=== PATIENT | female | born 1935 | race Caucasian/White ===

== ENCOUNTER 2020-01-29 17:20 | Emergency (ER) | payer OTHER ==
--- OUTSIDE RECORDS SUMMARY | 2020-01-29 17:24 | XMS REPORT | Continuity of Care Document ---
:1935 Author Organization [facility] t Address [address] [place] [address] Care Team Providers Name Role Phone DR CHARMAINE Attending Clinician Unavailable DR RADHA Attending Clinician Unavailable DR CHARMAINE Admitting Clinician Unavailable DR RADHA Admitting Clinician Unavailable Problems This patient has no known problems. Allergies, Adverse Reactions, Alerts This patient has no known allergies or adverse reactions. Medications This patient has no known medications. Procedures This patient has no known procedures. Encounters Start End Encounter Admission Attending Care Care Encounter Source Date/Time Date/Time Type Type Clinicians Facility Department ID 2019-10-26 2019-11-05 [facility] [id number] [facility] 15:52:00 17:44:00 [facility] [place] 2019-07-14 2019-07-29 [facility] [id number] [facility] 21:04:00 17:00:00 [facility] Results Test Description Test Time Test Comments Results Result Comments Source BASIC METABOLIC PANEL 2019-11-05 06:22:00 Test Item Value Reference Range Interpretation Comme nts GLUCOSE (test code = 06D) 138 mg/dL 75-100 H SODIUM (test code = 01A) 140 mmol/L 136-145 POTASSIUM (test code = 01B) 4.6 mmol/L 3.6-5.1 CHLORIDE (test code = 04A) 104 mmol/L 98-107 CO2 (test code = 02A) 31 mmol/L 22-32 ANION GAP (test code = ANG) 9.6 mmol/L BUN (test code = 05D) 21 mg/dL 7-18 H CREATININE (test code = 03E) 1.0 mg/dL 0.4-1.1 GFR (test code = GFR) 54 mL/min/1.73m\S\2 >=90 L GFR (test code = 63 mL/min/1.73m\S\2 >=90 L GFRAA) EGFR (test code = EGFR) eGFR BY CKD-EPI CALCULATION IS NOT RECOMMENDED FOR PATIENTS UNDER 18 YEARS OF AGE. BUN/CREA (test code = BCR) 22 12-20 H CALCIUM (test code = 09D) 9.2 mg/dL 8.3-9.5 CBC (INCLUDES AUTOMATED DIFFERENTIAL)2019-11-05 05:51:00 Test Item Value Reference Range Interpretation Comments WBC (test code = WBC) 7.3 10\S\3/uL 4.5-11.0 RBC (test code = RBC) 2.89 10\S\6/uL 3.80-5.80 L HGB (test code = HBG) 9.9 g/dL 12.0-15.5 L HCT (test code = HCT) 31.2 % 35.0-44.0 L MCV (test code = MCV) 108.0 fL 81.0-99.0 H MCH (test code = MCH) 34.3 pg 27.0-31.0 H MCHC (test code = MCHC) 31.7 g/dL 32.0-36.0 L RDW (test code = RDW) 12.0 % 11.5-14.5 PLT (test code = PLT) 209 10\S\3/uL 130-400 MPV (test code = MPV) 9.8 fL 9.4-12.4 NEUTROP # (test code = NE#) 4.4 10\S\3/uL 1.6-8.0 LYMPH # (test code = LY#) 1.3 10\S\3/uL 1.1-3.5 MONOCYTE # (test code = MO#) 1.0 10\S\3/uL 0.0-1.1 EOSINOPH # (test code = EO#) 0.6 10\S\3/uL 0.0-0.7 BASOPHIL # (test code = BA#) 0.1 10\S\3/uL 0.0-0.3 IG # (test code = IG#) 0.12 10\S\3/uL 0.00-0.06 H NRBC # (test code = NRBC#) 0.00 10\S\3/uL 0.00-0.01 NEUTROPH % (test code = NE%) 59.4 % 35.0-73.0 LYMPH % (test code = LY%) 17.1 % 20.0-55.0 L MONO % (test code = MO%) 13.0 % 2.5-10.0 H EOSINOPH % (test code = EO%) 7.8 % 0.0-5.0 H BASOPHIL % (test code = BA%) 1.1 % 0.0-2.0 IG % (test code = IG%) 1.6 % 0.0-0.8 H NRBC% (test code = NRBC%) 0.0 % 0.0-0.2 MANDIFF (test code = MDIFF) NO RBC MORPH (test code = RBCMOR) NORMAL BASIC METABOLIC [id number] 08:10:00 Test Item Value Reference Range Interpretation Comments GLUCOSE (test code = 99 mg/dL 75-100 06D) SODIUM (test code = 140 mmol/L 136-145 01A) POTASSIUM (test code = 3.3 mmol/L 3.6-5.1 L 01B) CHLORIDE (test code = 103 mmol/L 98-107 04A) CO2 (test code = 02A) 33 mmol/L 22-32 H ANION GAP (test code = 7.3 mmol/L ANG) BUN (test code = 05D) 13 mg/dL 7-18 CREATININE (test code 0.7 mg/dL 0.4-1.1 = 03E) GFR (test code = GFR) 82 mL/min/1.73m\S\2 >=90 L GFR 95 mL/min/1.73m\S\2 >=90 (test code = GFRAA) EGFR (test code = eGFR BY CKD-EPI EGFR) CALCULATION IS NOT RECOMMENDED FOR PATIENTS UNDER 18 YEARS OF AGE. BUN/CREA (test code = 20 12-20 BCR) CALCIUM (test code = 9.4 mg/dL 8.3-9.5 09D) CBC (INCLUDES AUTOMATED DIFFERENTIAL)2019-11-04 08:01:00 Test Item Value Reference Range Interpretation Comments WBC (test code = WBC) 6.3 10\S\3/uL 4.5-11.0 RBC (test code = RBC) 3.04 10\S\6/uL 3.80-5.80 L HGB (test code = HBG) 10.2 g/dL 12.0-15.5 L HCT (test code = HCT) 31.9 % 35.0-44.0 L MCV (test code = MCV) 104.9 fL 81.0-99.0 H MCH (test code = MCH) 33.6 pg 27.0-31.0 H MCHC (test code = MCHC) 32.0 g/dL 32.0-36.0 RDW (test code = RDW) 11.9 % 11.5-14.5 PLT (test code = PLT) 183 10\S\3/uL 130-400 MPV (test code = MPV) 9.8 fL 9.4-12.4 NEUTROP # (test code = NE#) 3.7 10\S\3/uL 1.6-8.0 LYMPH # (test code = LY#) 1.2 10\S\3/uL 1.1-3.5 MONOCYTE # (test code = MO#) 0.9 10\S\3/uL 0.0-1.1 EOSINOPH # (test code = EO#) 0.4 10\S\3/uL 0.0-0.7 BASOPHIL # (test code = BA#) 0.1 10\S\3/uL 0.0-0.3 IG # (test code = IG#) 0.05 10\S\3/uL 0.00-0.06 NRBC # (test code = NRBC#) 0.00 10\S\3/uL 0.00-0.01 NEUTROPH % (test code = NE%) 58.5 % 35.0-73.0 LYMPH % (test code = LY%) 18.5 % 20.0-55.0 L MONO % (test code = MO%) 14.7 % 2.5-10.0 H EOSINOPH % (test code = EO%) 6.7 % 0.0-5.0 H BASOPHIL % (test code = BA%) 0.8 % 0.0-2.0 IG % (test code = IG%) 0.8 % 0.0-0.8 NRBC% (test code = NRBC%) 0.0 % 0.0-0.2 MANDIFF (test code = MDIFF) NO RBC MORPH (test code = RBCMOR) NORMAL BASIC METABOLIC [id number] 05:36:00 Test Item Value Reference Range Interpretation Comments GLUCOSE (test code = 108 mg/dL 75-100 H 06D) SODIUM (test code = 142 mmol/L 136-145 01A) POTASSIUM (test code = 3.5 mmol/L 3.6-5.1 L 01B) CHLORIDE (test code = 104 mmol/L 98-107 04A) CO2 (test code = 02A) 32 mmol/L 22-32 ANION GAP (test code = 9.5 mmol/L ANG) BUN (test code = 05D) 21 mg/dL 7-18 H CREATININE (test code 0.9 mg/dL 0.4-1.1 = 03E) GFR (test code = GFR) 63 mL/min/1.73m\S\2 >=90 L GFR 73 mL/min/1.73m\S\2 >=90 L (test code = GFRAA) EGFR (test code = eGFR BY CKD-EPI EGFR) CALCULATION IS NOT RECOMMENDED FOR PATIENTS UNDER 18 YEARS OF AGE. BUN/CREA (test code = 25 12-20 H BCR) CALCIUM (test code = 9.0 mg/dL 8.3-9.5 09D) CBC (INCLUDES AUTOMATED DIFFERENTIAL)2019-11-03 05:09:00 Test Item Value Reference Range Interpretation Comments WBC (test code = WBC) 7.3 10\S\3/uL 4.5-11.0 RBC (test code = RBC) 2.71 10\S\6/uL 3.80-5.80 L HGB (test code = HBG) 9.1 g/dL 12.0-15.5 L HCT (test code = HCT) 29.0 % 35.0-44.0 L MCV (test code = MCV) 107.0 fL 81.0-99.0 H MCH (test code = MCH) 33.6 pg 27.0-31.0 H MCHC (test code = MCHC) 31.4 g/dL 32.0-36.0 L RDW (test code = RDW) 12.1 % 11.5-14.5 PLT (test code = PLT) 180 10\S\3/uL 130-400 MPV (test code = MPV) 10.6 fL 9.4-12.4 NEUTROP # (test code = NE#) 4.9 10\S\3/uL 1.6-8.0 LYMPH # (test code = LY#) 1.0 10\S\3/uL 1.1-3.5 L MONOCYTE # (test code = MO#) 0.9 10\S\3/uL 0.0-1.1 EOSINOPH # (test code = EO#) 0.4 10\S\3/uL 0.0-0.7 BASOPHIL # (test code = BA#) 0.0 10\S\3/uL 0.0-0.3 IG # (test code = IG#) 0.06 10\S\3/uL 0.00-0.06 NRBC # (test code = NRBC#) 0.00 10\S\3/uL 0.00-0.01 NEUTROPH % (test code = NE%) 66.9 % 35.0-73.0 LYMPH % (test code = LY%) 13.6 % 20.0-55.0 L MONO % (test code = MO%) 12.6 % 2.5-10.0 H EOSINOPH % (test code = EO%) 5.6 % 0.0-5.0 H BASOPHIL % (test code = BA%) 0.5 % 0.0-2.0 IG % (test code = IG%) 0.8 % 0.0-0.8 NRBC% (test code = NRBC%) 0.0 % 0.0-0.2 MANDIFF (test code = MDIFF) NO RBC MORPH (test code = RBCMOR) NORMAL HEMOGLOBIN & [id number] 18:56:00 Test Item Value Reference Range Interpretation Comments HGB (test code = HBG) 10.4 g/dL 12.0-15.5 L HCT (test code = HCT) 32.6 % 35.0-44.0 L TROPONIN [id number] 11:11:00 Test Item Value Reference Range Interpretation Comments TROPONIN I (test code = A84) 0.041 ng/mL 0.000-0.045 HEMOGLOBIN & [id number] 10:54:00 Test Item Value Reference Range Interpretation Comments HGB (test code = HBG) 11.0 g/dL 12.0-15.5 L HCT (test code = HCT) 33.7 % 35.0-44.0 L CBC WITH [id number] 07:42:00 Test Item Value Reference Range Interpretation Comments WBC (test code = WBC) 11.4 10\S\3/uL 4.5-11.0 H RBC (test code = RBC) 3.54 10\S\6/uL 3.80-5.80 L HGB (test code = HBG) 12.1 g/dL 12.0-15.5 HCT (test code = HCT) 37.7 % 35.0-44.0 MCV (test code = MCV) 106.5 fL 81.0-99.0 H MCH (test code = MCH) 34.2 pg 27.0-31.0 H MCHC (test code = MCHC) 32.1 g/dL 32.0-36.0 RDW (test code = RDW) 12.0 % 11.5-14.5 PLT (test code = PLT) 185 10\S\3/uL 130-400 MPV (test code = MPV) 10.2 fL 9.4-12.4 NEUTROP # (test code = NE#) 7.7 10\S\3/uL 1.6-8.0 LYMPH # (test code = LY#) 1.6 10\S\3/uL 1.1-3.5 MONOCYTE # (test code = 1.2 10\S\3/uL 0.0-1.1 H MO#) EOSINOPH # (test code = 0.7 10\S\3/uL 0.0-0.7 EO#) BASOPHIL # (test code = 0.1 10\S\3/uL 0.0-0.3 BA#) IG # (test code = IG#) 0.10 10\S\3/uL 0.00-0.06 H NRBC # (test code = NRBC#) 0.00 10\S\3/uL 0.00-0.01 NEUTROPH % (test code = 67.7 % 35.0-73.0 NE%) LYMPH % (test code = LY%) 14.3 % 20.0-55.0 L MONO % (test code = MO%) 10.6 % 2.5-10.0 H EOSINOPH % (test code = 5.7 % 0.0-5.0 H EO%) BASOPHIL % (test code = 0.8 % 0.0-2.0 BA%) IG % (test code = IG%) 0.9 % 0.0-0.8 H NRBC% (test code = NRBC%) 0.0 % 0.0-0.2 PLT EST (test code = ADEQUATE ADEQUATE PLTEST) PLT MORPH (test code = NORMAL (1.5-3 um) NORMAL PLTMOR) ANISO (test code = ANISO) 1+ NONE A HYPOCHROM (test code = 1+ NONE A HYPOC) STOMATO (test code = STOM) 1+ NONE A BASIC METABOLIC [id number] 07:21:00 Test Item Value Reference Range Interpretation Comments GLUCOSE (test code = 95 mg/dL 75-100 06D) SODIUM (test code = 139 mmol/L 136-145 01A) POTASSIUM (test code = 4.5 mmol/L 3.6-5.1 01B) CHLORIDE (test code = 102 mmol/L 98-107 04A) CO2 (test code = 02A) 31 mmol/L 22-32 ANION GAP (test code = 10.5 mmol/L ANG) BUN (test code = 05D) 14 mg/dL 7-18 CREATININE (test code 0.7 mg/dL 0.4-1.1 = 03E) GFR (test code = GFR) 78 mL/min/1.73m\S\2 >=90 L GFR 91 mL/min/1.73m\S\2 >=90 (test code = GFRAA) EGFR (test code = eGFR BY CKD-EPI EGFR) CALCULATION IS NOT RECOMMENDED FOR PATIENTS UNDER 18 YEARS OF AGE. BUN/CREA (test code = 20 12-20 BCR) CALCIUM (test code = 9.9 mg/dL 8.3-9.5 H 09D) HEMOGLOBIN & [id number] 01:50:00 Test Item Value Reference Range Interpretation Comments HGB (test code = HBG) 11.4 g/dL 12.0-15.5 L HCT (test code = HCT) 35.0 % 35.0-44.0 HEMOGLOBIN & [id number] 18:44:00 Test Item Value Reference Range Interpretation Comments HGB (test code = HBG) 11.1 g/dL 12.0-15.5 L HCT (test code = HCT) 34.9 % 35.0-44.0 L CBC (INCLUDES AUTOMATED DIFFERENTIAL)2019-11-01 07:14:00 Test Item Value Reference Range Interpretation Comments WBC (test code = WBC) 11.5 10\S\3/uL 4.5-11.0 H RBC (test code = RBC) 3.23 10\S\6/uL 3.80-5.80 L HGB (test code = HBG) 11.0 g/dL 12.0-15.5 L HCT (test code = HCT) 34.6 % 35.0-44.0 L MCV (test code = MCV) 107.1 fL 81.0-99.0 H MCH (test code = MCH) 34.1 pg 27.0-31.0 H MCHC (test code = MCHC) 31.8 g/dL 32.0-36.0 L RDW (test code = RDW) 12.3 % 11.5-14.5 PLT (test code = PLT) 153 10\S\3/uL 130-400 MPV (test code = MPV) 9.9 fL 9.4-12.4 NEUTROP # (test code = NE#) 8.9 10\S\3/uL 1.6-8.0 H LYMPH # (test code = LY#) 0.9 10\S\3/uL 1.1-3.5 L MONOCYTE # (test code = MO#) 1.2 10\S\3/uL 0.0-1.1 H EOSINOPH # (test code = EO#) 0.4 10\S\3/uL 0.0-0.7 BASOPHIL # (test code = BA#) 0.1 10\S\3/uL 0.0-0.3 IG # (test code = IG#) 0.09 10\S\3/uL 0.00-0.06 H NRBC # (test code = NRBC#) 0.00 10\S\3/uL 0.00-0.01 NEUTROPH % (test code = NE%) 76.8 % 35.0-73.0 H LYMPH % (test code = LY%) 7.9 % 20.0-55.0 L MONO % (test code = MO%) 10.3 % 2.5-10.0 H EOSINOPH % (test code = EO%) 3.6 % 0.0-5.0 BASOPHIL % (test code = BA%) 0.6 % 0.0-2.0 IG % (test code = IG%) 0.8 % 0.0-0.8 NRBC% (test code = NRBC%) 0.0 % 0.0-0.2 MANDIFF (test code = MDIFF) NO RBC MORPH (test code = RBCMOR) NORMAL BASIC METABOLIC [id number] 07:12:00 Test Item Value Reference Range Interpretation Comments GLUCOSE (test code = 104 mg/dL 75-100 H 06D) SODIUM (test code = 140 mmol/L 136-145 01A) POTASSIUM (test code = 4.5 mmol/L 3.6-5.1 01B) CHLORIDE (test code = 103 mmol/L 98-107 04A) CO2 (test code = 02A) 33 mmol/L 22-32 H ANION GAP (test code = 8.5 mmol/L ANG) BUN (test code = 05D) 20 mg/dL 7-18 H CREATININE (test code 0.7 mg/dL 0.4-1.1 = 03E) GFR (test code = GFR) 80 mL/min/1.73m\S\2 >=90 L GFR 93 mL/min/1.73m\S\2 >=90 (test code = GFRAA) EGFR (test code = eGFR BY CKD-EPI EGFR) CALCULATION IS NOT RECOMMENDED FOR PATIENTS UNDER 18 YEARS OF AGE. BUN/CREA (test code = 29 12-20 H BCR) CALCIUM (test code = 9.2 mg/dL 8.3-9.5 09D) HEMOGLOBIN & [id number] 00:57:00 Test Item Value Reference Range Interpretation Comments HGB (test code = HBG) 11.8 g/dL 12.0-15.5 L HCT (test code = HCT) 37.4 % 35.0-44.0 BLOOD [id number] 21:24:00 Test Item Value Reference Range Interpretation Comments Culture Observations (test NO GROWTH AFTER 5 code = COB1) DAYS BLOOD [id number] 21:24:00 Test Item Value Reference Range Interpretation Comments Culture Observations (test NO GROWTH AFTER 5 code = COB1) DAYS Arterial Blood [id number] 18:48:00 Test Item Value Reference Range Interpretation Comments pH (test code = PHRT) 7.333 7.350-7.450 L pCO2 (test code = 69.0 mmHg 35.0-45.0 HH PCO2RT) pO2 (test code = 146.0 mmHg 80.0-110.0 H PO2RT) HCO3? (test code = 35.6 mmol/L 22.0-26.0 H HCO3) HAIR (test code = HAIR) 7.8 mmol/L -3.0-3.0 H tHb (test code = 12.6 g/dL 12.0-15.5 THBRT) sO2 (test code = 98.3 % 92.0-100.0 SO2RT) FO2Hb (test code = 96.4 % 94.0-100.0 [id number]) FCOHb (test code = 0.4 % 0.0-3.0 FCOHBRT) FMetHb (test code = 1.5 % 0.2-0.6 H FMETHBRT) ABGTEMP (test code = * Temp Corrected Values* ABGTEMP) ABGTEMP (test code = 37.0 ?C ABGTEMP.) pH (T) (test code = 7.333 7.350-7.450 L PHTEMP) pCO2 (T) (test code = 69.0 mmHg 35.0-45.0 HH [id number]) pO2 (T) (test code = 146.0 mmHg 80.0-110.0 H [id number]) Device (test code = BIPAP DEVICE) FI02 (test code = 100.0 % FI02) Liter_flow (test code = LF) VENPAR (test code = * Ventilator Parameters VENPAR) * SIMV (test code = SIMV) A/C (test code = A/C) CPAP (test code = CPAP) PEEP (test code = PEEP) PS (test code = PS) PIP (test code = PIP) I_Time (test code = ITIME) Vt (test code = VT) BIPAP INSP (test code 22 = BIPAPINP) BIPAP EXP (test code 12 = BIPAPEXP) Juan Carlos test (test code Positive = ATEST) SAMPLE SITE (test Left Radial Artery code = SSITE) COMMENT (test code = CO) Arterial Blood [id number] 16:04:00 Test Item Value Reference Range Interpretation Comments pH (test code = PHRT) 7.313 7.350-7.450 L pCO2 (test code = 65.4 mmHg 35.0-45.0 HH PCO2RT) pO2 (test code = 108.0 mmHg 80.0-110.0 PO2RT) HCO3? (test code = 32.2 mmol/L 22.0-26.0 H HCO3) HAIR (test code = HAIR) 4.0 mmol/L -3.0-3.0 H tHb (test code = 15.8 g/dL 12.0-15.5 H THBRT) sO2 (test code = 97.0 % 92.0-100.0 SO2RT) FO2Hb (test code = 95.1 % 94.0-100.0 [id number]) FCOHb (test code = 0.8 % 0.0-3.0 FCOHBRT) FMetHb (test code = 1.1 % 0.2-0.6 H FMETHBRT) ABGTEMP (test code = * Temp Corrected Values* ABGTEMP) ABGTEMP (test code = 37.0 ?C ABGTEMP.) pH (T) (test code = 7.313 7.350-7.450 L PHTEMP) pCO2 (T) (test code = 65.4 mmHg 35.0-45.0 HH [id number]) pO2 (T) (test code = 108.0 mmHg 80.0-110.0 [id number]) Device (test code = BIPAP DEVICE) FI02 (test code = 100.0 % FI02) Liter_flow (test code = LF) VENPAR (test code = * Ventilator Parameters VENPAR) * SIMV (test code = SIMV) A/C (test code = A/C) CPAP (test code = CPAP) PEEP (test code = PEEP) PS (test code = PS) PIP (test code = PIP) I_Time (test code = ITIME) Vt (test code = VT) BIPAP INSP (test code 22 = BIPAPINP) BIPAP EXP (test code 12 = BIPAPEXP) Juan Carlos test (test code Positive = ATEST) SAMPLE SITE (test Left Radial Artery code = SSITE) COMMENT (test code = CO) BASIC METABOLIC [id number] 10:19:00 Test Item Value Reference Range Interpretation Comments GLUCOSE (test code = 162 mg/dL 75-100 H 06D) SODIUM (test code = 139 mmol/L 136-145 01A) POTASSIUM (test code = 4.7 mmol/L 3.6-5.1 01B) CHLORIDE (test code = 101 mmol/L 98-107 04A) CO2 (test code = 02A) 32 mmol/L 22-32 ANION GAP (test code = 10.7 mmol/L ANG) BUN (test code = 05D) 22 mg/dL 7-18 H CREATININE (test code 0.9 mg/dL 0.4-1.1 = 03E) GFR (test code = GFR) 58 mL/min/1.73m\S\2 >=90 L GFR 67 mL/min/1.73m\S\2 >=90 L (test code = GFRAA) EGFR (test code = eGFR BY CKD-EPI EGFR) CALCULATION IS NOT RECOMMENDED FOR PATIENTS UNDER 18 YEARS OF AGE. BUN/CREA (test code = 24 12-20 H BCR) CALCIUM (test code = 8.6 mg/dL 8.3-9.5 09D) CBC (INCLUDES AUTOMATED DIFFERENTIAL)2019-10-31 10:09:00 Test Item Value Reference Range Interpretation Comments WBC (test code = WBC) 14.1 10\S\3/uL 4.5-11.0 H RBC (test code = RBC) 3.06 10\S\6/uL 3.80-5.80 L HGB (test code = HBG) 10.6 g/dL 12.0-15.5 L HCT (test code = HCT) 32.9 % 35.0-44.0 L MCV (test code = MCV) 107.5 fL 81.0-99.0 H MCH (test code = MCH) 34.6 pg 27.0-31.0 H MCHC (test code = MCHC) 32.2 g/dL 32.0-36.0 RDW (test code = RDW) 12.4 % 11.5-14.5 PLT (test code = PLT) 160 10\S\3/uL 130-400 MPV (test code = MPV) 9.6 fL 9.4-12.4 NEUTROP # (test code = NE#) 11.0 10\S\3/uL 1.6-8.0 H LYMPH # (test code = LY#) 1.5 10\S\3/uL 1.1-3.5 MONOCYTE # (test code = MO#) 1.0 10\S\3/uL 0.0-1.1 EOSINOPH # (test code = EO#) 0.5 10\S\3/uL 0.0-0.7 BASOPHIL # (test code = BA#) 0.1 10\S\3/uL 0.0-0.3 IG # (test code = IG#) 0.08 10\S\3/uL 0.00-0.06 H NRBC # (test code = NRBC#) 0.00 10\S\3/uL 0.00-0.01 NEUTROPH % (test code = NE%) 78.0 % 35.0-73.0 H LYMPH % (test code = LY%) 10.4 % 20.0-55.0 L MONO % (test code = MO%) 7.1 % 2.5-10.0 EOSINOPH % (test code = EO%) 3.5 % 0.0-5.0 BASOPHIL % (test code = BA%) 0.4 % 0.0-2.0 IG % (test code = IG%) 0.6 % 0.0-0.8 NRBC% (test code = NRBC%) 0.0 % 0.0-0.2 MANDIFF (test code = MDIFF) NO RBC MORPH (test code = RBCMOR) NORMAL BASIC METABOLIC [id number] 07:12:00 Test Item Value Reference Range Interpretation Comments GLUCOSE (test code = 106 mg/dL 75-100 H 06D) SODIUM (test code = 139 mmol/L 136-145 01A) POTASSIUM (test code = 5.2 mmol/L 3.6-5.1 H 01B) CHLORIDE (test code = 104 mmol/L 98-107 04A) CO2 (test code = 02A) 33 mmol/L 22-32 H ANION GAP (test code = 7.2 mmol/L ANG) BUN (test code = 05D) 22 mg/dL 7-18 H CREATININE (test code 0.7 mg/dL 0.4-1.1 = 03E) GFR (test code = GFR) 74 mL/min/1.73m\S\2 >=90 L GFR 85 mL/min/1.73m\S\2 >=90 L (test code = GFRAA) EGFR (test code = eGFR BY CKD-EPI EGFR) CALCULATION IS NOT RECOMMENDED FOR PATIENTS UNDER 18 YEARS OF AGE. BUN/CREA (test code = 29 12-20 H BCR) CALCIUM (test code = 8.8 mg/dL 8.3-9.5 09D) CBC (INCLUDES AUTOMATED DIFFERENTIAL)2019-10-30 06:58:00 Test Item Value Reference Range Interpretation Comments WBC (test code = WBC) 9.2 10\S\3/uL 4.5-11.0 RBC (test code = RBC) 3.17 10\S\6/uL 3.80-5.80 L HGB (test code = HBG) 10.9 g/dL 12.0-15.5 L HCT (test code = HCT) 34.1 % 35.0-44.0 L MCV (test code = MCV) 107.6 fL 81.0-99.0 H MCH (test code = MCH) 34.4 pg 27.0-31.0 H MCHC (test code = MCHC) 32.0 g/dL 32.0-36.0 RDW (test code = RDW) 12.0 % 11.5-14.5 PLT (test code = PLT) 167 10\S\3/uL 130-400 MPV (test code = MPV) 9.6 fL 9.4-12.4 NEUTROP # (test code = NE#) 5.0 10\S\3/uL 1.6-8.0 LYMPH # (test code = LY#) 2.4 10\S\3/uL 1.1-3.5 MONOCYTE # (test code = MO#) 0.8 10\S\3/uL 0.0-1.1 EOSINOPH # (test code = EO#) 0.8 10\S\3/uL 0.0-0.7 H BASOPHIL # (test code = BA#) 0.1 10\S\3/uL 0.0-0.3 IG # (test code = IG#) 0.11 10\S\3/uL 0.00-0.06 H NRBC # (test code = NRBC#) 0.00 10\S\3/uL 0.00-0.01 NEUTROPH % (test code = NE%) 54.2 % 35.0-73.0 LYMPH % (test code = LY%) 26.6 % 20.0-55.0 MONO % (test code = MO%) 8.6 % 2.5-10.0 EOSINOPH % (test code = EO%) 8.6 % 0.0-5.0 H BASOPHIL % (test code = BA%) 0.8 % 0.0-2.0 IG % (test code = IG%) 1.2 % 0.0-0.8 H NRBC% (test code = NRBC%) 0.0 % 0.0-0.2 MANDIFF (test code = MDIFF) NO RBC MORPH (test code = RBCMOR) NORMAL BASIC METABOLIC [id number] 05:16:00 Test Item Value Reference Range Interpretation Comments GLUCOSE (test code = 102 mg/dL 75-100 H 06D) SODIUM (test code = 144 mmol/L 136-145 01A) POTASSIUM (test code = 5.0 mmol/L 3.6-5.1 01B) CHLORIDE (test code = 106 mmol/L 98-107 04A) CO2 (test code = 02A) 37 mmol/L 22-32 H ANION GAP (test code = 6.0 mmol/L ANG) BUN (test code = 05D) 17 mg/dL 7-18 CREATININE (test code 0.6 mg/dL 0.4-1.1 = 03E) GFR (test code = GFR) 82 mL/min/1.73m\S\2 >=90 L GFR 95 mL/min/1.73m\S\2 >=90 (test code = GFRAA) EGFR (test code = eGFR BY CKD-EPI EGFR) CALCULATION IS NOT RECOMMENDED FOR PATIENTS UNDER 18 YEARS OF AGE. BUN/CREA (test code = 27 12-20 H BCR) CALCIUM (test code = 8.3 mg/dL 8.3-9.5 09D) VANCOMYCIN [id number] 05:14:00 Test Item Value Reference Range Interpretation Comments VANC TROGH (test code = VANCT) 8.5 ug/dL 10.0-20.0 L CBC (INCLUDES AUTOMATED DIFFERENTIAL)2019-10-29 04:58:00 Test Item Value Reference Range Interpretation Comments WBC (test code = WBC) 7.9 10\S\3/uL 4.5-11.0 RBC (test code = RBC) 3.37 10\S\6/uL 3.80-5.80 L HGB (test code = HBG) 11.4 g/dL 12.0-15.5 L HCT (test code = HCT) 35.8 % 35.0-44.0 MCV (test code = MCV) 106.2 fL 81.0-99.0 H MCH (test code = MCH) 33.8 pg 27.0-31.0 H MCHC (test code = MCHC) 31.8 g/dL 32.0-36.0 L RDW (test code = RDW) 12.0 % 11.5-14.5 PLT (test code = PLT) 201 10\S\3/uL 130-400 MPV (test code = MPV) 9.5 fL 9.4-12.4 NEUTROP # (test code = NE#) 4.7 10\S\3/uL 1.6-8.0 LYMPH # (test code = LY#) 2.1 10\S\3/uL 1.1-3.5 MONOCYTE # (test code = MO#) 0.7 10\S\3/uL 0.0-1.1 EOSINOPH # (test code = EO#) 0.3 10\S\3/uL 0.0-0.7 BASOPHIL # (test code = BA#) 0.1 10\S\3/uL 0.0-0.3 IG # (test code = IG#) 0.08 10\S\3/uL 0.00-0.06 H NRBC # (test code = NRBC#) 0.00 10\S\3/uL 0.00-0.01 NEUTROPH % (test code = NE%) 59.1 % 35.0-73.0 LYMPH % (test code = LY%) 26.4 % 20.0-55.0 MONO % (test code = MO%) 9.1 % 2.5-10.0 EOSINOPH % (test code = EO%) 3.6 % 0.0-5.0 BASOPHIL % (test code = BA%) 0.8 % 0.0-2.0 IG % (test code = IG%) 1.0 % 0.0-0.8 H NRBC% (test code = NRBC%) 0.0 % 0.0-0.2 MANDIFF (test code = MDIFF) NO RBC MORPH (test code = RBCMOR) NORMAL URINE [id number] 14:20:00 Test Item Value Reference Range Interpretation Comments Isolate 1 (test code = GRAM NEGATIVE [place] A ISO1) [id number] 06:25:00 Test Item Value Reference Range Interpretation Comments MAGNESIUM (test code = 48A) 1.9 mg/dL 1.8-2.4 BASIC METABOLIC [id number] 06:15:00 Test Item Value Reference Range Interpretation Comments GLUCOSE (test code = 100 mg/dL 75-100 06D) SODIUM (test code = 142 mmol/L 136-145 01A) POTASSIUM (test code = 3.4 mmol/L 3.6-5.1 L 01B) CHLORIDE (test code = 103 mmol/L 98-107 04A) CO2 (test code = 02A) 36 mmol/L 22-32 H ANION GAP (test code = 6.4 mmol/L ANG) BUN (test code = 05D) 17 mg/dL 7-18 CREATININE (test code 0.7 mg/dL 0.4-1.1 = 03E) GFR (test code = GFR) 81 mL/min/1.73m\S\2 >=90 L GFR 94 mL/min/1.73m\S\2 >=90 (test code = GFRAA) EGFR (test code = eGFR BY CKD-EPI EGFR) CALCULATION IS NOT RECOMMENDED FOR PATIENTS UNDER 18 YEARS OF AGE. BUN/CREA (test code = 25 12-20 H BCR) CALCIUM (test code = 8.5 mg/dL 8.3-9.5 09D) CBC (INCLUDES AUTOMATED DIFFERENTIAL)2019-10-28 06:08:00 Test Item Value Reference Range Interpretation Comments WBC (test code = WBC) 9.4 10\S\3/uL 4.5-11.0 RBC (test code = RBC) 3.54 10\S\6/uL 3.80-5.80 L HGB (test code = HBG) 12.2 g/dL 12.0-15.5 HCT (test code = HCT) 36.9 % 35.0-44.0 MCV (test code = MCV) 104.2 fL 81.0-99.0 H MCH (test code = MCH) 34.5 pg 27.0-31.0 H MCHC (test code = MCHC) 33.1 g/dL 32.0-36.0 RDW (test code = RDW) 12.0 % 11.5-14.5 PLT (test code = PLT) 216 10\S\3/uL 130-400 MPV (test code = MPV) 9.4 fL 9.4-12.4 NEUTROP # (test code = NE#) 6.4 10\S\3/uL 1.6-8.0 LYMPH # (test code = LY#) 1.8 10\S\3/uL 1.1-3.5 MONOCYTE # (test code = MO#) 0.8 10\S\3/uL 0.0-1.1 EOSINOPH # (test code = EO#) 0.2 10\S\3/uL 0.0-0.7 BASOPHIL # (test code = BA#) 0.1 10\S\3/uL 0.0-0.3 IG # (test code = IG#) 0.07 10\S\3/uL 0.00-0.06 H NRBC # (test code = NRBC#) 0.00 10\S\3/uL 0.00-0.01 NEUTROPH % (test code = NE%) 68.6 % 35.0-73.0 LYMPH % (test code = LY%) 19.4 % 20.0-55.0 L MONO % (test code = MO%) 9.0 % 2.5-10.0 EOSINOPH % (test code = EO%) 1.8 % 0.0-5.0 BASOPHIL % (test code = BA%) 0.5 % 0.0-2.0 IG % (test code = IG%) 0.7 % 0.0-0.8 NRBC% (test code = NRBC%) 0.0 % 0.0-0.2 MANDIFF (test code = MDIFF) NO RBC MORPH (test code = RBCMOR) NORMAL BASIC METABOLIC [id number] 04:27:00 Test Item Value Reference Range Interpretation Comments GLUCOSE (test code = 157 mg/dL 75-100 H 06D) SODIUM (test code = 141 mmol/L 136-145 01A) POTASSIUM (test code = 3.2 mmol/L 3.6-5.1 L 01B) CHLORIDE (test code = 99 mmol/L 98-107 04A) CO2 (test code = 02A) 41 mmol/L 22-32 HH ANION GAP (test code = 4.2 mmol/L ANG) BUN (test code = 05D) 22 mg/dL 7-18 H CREATININE (test code 0.8 mg/dL 0.4-1.1 = 03E) GFR (test code = GFR) 70 mL/min/1.73m\S\2 >=90 L GFR 81 mL/min/1.73m\S\2 >=90 L (test code = GFRAA) EGFR (test code = eGFR BY CKD-EPI EGFR) CALCULATION IS NOT RECOMMENDED FOR PATIENTS UNDER 18 YEARS OF AGE. BUN/CREA (test code = 28 12-20 H BCR) CALCIUM (test code = 8.6 mg/dL 8.3-9.5 09D) [id number] 04:19:00 Test Item Value Reference Range Interpretation Comments MAGNESIUM (test code = 48A) 1.7 mg/dL 1.8-2.4 L CBC (INCLUDES AUTOMATED DIFFERENTIAL)2019-10-27 04:17:00 Test Item Value Reference Range Interpretation Comments WBC (test code = WBC) 3.4 10\S\3/uL 4.5-11.0 L RBC (test code = RBC) 3.75 10\S\6/uL 3.80-5.80 L HGB (test code = HBG) 12.6 g/dL 12.0-15.5 HCT (test code = HCT) 37.2 % 35.0-44.0 MCV (test code = MCV) 99.2 fL 81.0-99.0 H MCH (test code = MCH) 33.6 pg 27.0-31.0 H MCHC (test code = MCHC) 33.9 g/dL 32.0-36.0 RDW (test code = RDW) 11.8 % 11.5-14.5 PLT (test code = PLT) 212 10\S\3/uL 130-400 MPV (test code = MPV) 9.4 fL 9.4-12.4 NEUTROP # (test code = NE#) 2.7 10\S\3/uL 1.6-8.0 LYMPH # (test code = LY#) 0.5 10\S\3/uL 1.1-3.5 L MONOCYTE # (test code = MO#) 0.1 10\S\3/uL 0.0-1.1 EOSINOPH # (test code = EO#) 0.0 10\S\3/uL 0.0-0.7 BASOPHIL # (test code = BA#) 0.0 10\S\3/uL 0.0-0.3 IG # (test code = IG#) 0.04 10\S\3/uL 0.00-0.06 NRBC # (test code = NRBC#) 0.00 10\S\3/uL 0.00-0.01 NEUTROPH % (test code = NE%) 80.7 % 35.0-73.0 H LYMPH % (test code = LY%) 14.8 % 20.0-55.0 L MONO % (test code = MO%) 1.8 % 2.5-10.0 L EOSINOPH % (test code = EO%) 0.6 % 0.0-5.0 BASOPHIL % (test code = BA%) 0.9 % 0.0-2.0 IG % (test code = IG%) 1.2 % 0.0-0.8 H NRBC% (test code = NRBC%) 0.0 % 0.0-0.2 MANDIFF (test code = MDIFF) NO URINALYSIS WITH [id number] 16:52:00 Test Item Value Reference Range Interpretation Comments COLOR (test code = COLU) YELLOW YELLOW CLARITY (test code = CLA) CLOUDY CLEAR A GLUCOSE UR (test code = UA GLUCOSE) NEGATIVE NEGATIVE BILI UR (test code = BILE) NEGATIVE NEGATIVE KETONES UR (test code = MEKHI) NEGATIVE NEGATIVE SP GRAVITY (test code = SPGR) 1.010 1.005-1.030 PH UR (test code = PH) 6.5 4.5-8.0 PROTEIN UR (test code = PU) NEGATIVE NEGATIVE UROBIL UR (test code = UROQ) 0.2 EU/dL 0.2-1.0 NITRITE UR (test code = NITRITE) POSITIVE NEGATIVE A BLOOD UR (test code = UA BLOOD) NEGATIVE NEGATIVE LEUK ES UR (test code = LEUK) 2+ NEGATIVE A WBC UR (test code = UWBC) 6 /HPF 0-5 H RBC UR (test code = URBC) 0 /HPF 0-2 EPITH UR (test code = UEPC) FEW /LPF FEW BACTERIA UR (test code = UBACT) MANY /HPF NONE A CAST UR (test code = CAST) /LPF NONE CRYSTAL UR (test code = CRYU) / LPF NONE MUCUS UR (test code = MUC) / HPF NONE AMORPH UR (test code = VALENTINA) / HPF NONE TRICH UR (test code = UTRICH) /HPF NONE YEAST UR (test code = UY) /HPF NONE SPERM UR (test code = USPERM) /HPF NONE DRUGS OF [id number] 16:39:00 Test Item Value Reference Range Interpretation Comments DRUG SCRN (test code URINE DRUG SCREEN = HDOA) This is an unconfirmed screening result and should not be used for non-medical purposes CANNABINOD (test code Negative NEGATIVE = 88C) AMPHETAMINE (test Negative NEGATIVE code = 84A) BENZODIAZP (test code Negative NEGATIVE = 86A) BARBITURAT (test code Negative NEGATIVE = 85A) OPIATES (test code = Negative NEGATIVE 92B) COCAINE (test code = Negative NEGATIVE 87A) PHENCYCLID (test code Negative NEGATIVE = 66A) METHADONE (test code Negative NEGATIVE = 64A) DOAH (test code = DOAH.) *URINE DRUG SCREEN Cut-off values are as follows: Cannabinoids 50 ng/mL Cocaine 300 ng/mL Amphetamines 1000 ng/mL Phencyclidine 25 ng/mL Benzodiazepines 200 ng.mL Methadone 300 ng/mL Barbiturates 200 ng/mL Opiates 2000 ng/mL Arterial Blood [id number] 15:10:00 Test Item Value Reference Range Interpretation Comments pH (test code = PHRT) 7.512 7.350-7.450 H pCO2 (test code = 54.3 mmHg 35.0-45.0 HH PCO2RT) pO2 (test code = 55.1 mmHg 80.0-110.0 LL PO2RT) HCO3? (test code = 43.2 mmol/L 22.0-26.0 H HCO3) HAIR (test code = HAIR) 17.0 mmol/L -3.0-3.0 H tHb (test code = 13.6 g/dL 12.0-15.5 THBRT) sO2 (test code = 89.8 % 92.0-100.0 L SO2RT) FO2Hb (test code = 87.8 % 94.0-100.0 L [id number]) FCOHb (test code = 1.0 % 0.0-3.0 FCOHBRT) FMetHb (test code = 1.2 % 0.2-0.6 H FMETHBRT) ABGTEMP (test code = * Temp Corrected Values* ABGTEMP) ABGTEMP (test code = 37.0 ?C ABGTEMP.) pH (T) (test code = 7.512 7.350-7.450 H PHTEMP) pCO2 (T) (test code = 54.3 mmHg 35.0-45.0 HH [id number]) pO2 (T) (test code = 55.1 mmHg 80.0-110.0 LL [id number]) Device (test code = ROOM AIR DEVICE) FI02 (test code = 21.0 % FI02) Liter_flow (test code = LF) VENPAR (test code = * Ventilator Parameters VENPAR) * SIMV (test code = SIMV) A/C (test code = A/C) CPAP (test code = CPAP) PEEP (test code = PEEP) PS (test code = PS) PIP (test code = PIP) I_Time (test code = ITIME) Vt (test code = VT) BIPAP INSP (test code = BIPAPINP) BIPAP EXP (test code = BIPAPEXP) Juan Carlos test (test code Positive = ATEST) SAMPLE SITE (test Right Radial Artery code = SSITE) COMMENT (test code = CO) [id number] 14:55:00 Test Item Value Reference Range Interpretation Comments MAGNESIUM (test code = 48A) 1.3 mg/dL 1.8-2.4 LL COMPREHENSIVE METABOLIC [id number] 14:10:00 Test Item Value Reference Range Interpretation Comments GLUCOSE (test code = 110 mg/dL 75-100 H 06D) SODIUM (test code = 140 mmol/L 136-145 01A) POTASSIUM (test code = 2.8 mmol/L 3.6-5.1 LL 01B) CHLORIDE (test code = 93 mmol/L 98-107 L 04A) CO2 (test code = 02A) 44 mmol/L 22-32 HH ANION GAP (test code = 5.8 mmol/L ANG) BUN (test code = 05D) 18 mg/dL 7-18 CREATININE (test code 0.8 mg/dL 0.4-1.1 = 03E) GFR (test code = GFR) 71 mL/min/1.73m\S\2 >=90 L GFR 82 mL/min/1.73m\S\2 >=90 L (test code = GFRAA) EGFR (test code = eGFR BY CKD-EPI EGFR) CALCULATION IS NOT RECOMMENDED FOR PATIENTS UNDER 18 YEARS OF AGE. BUN/CREA (test code = 23 12-20 H BCR) CALCIUM (test code = 9.7 mg/dL 8.3-9.5 H 09D) BILI TOTAL (test code 0.3 mg/dL 0.2-1.0 = 11A) PROTEIN (test code = 6.9 g/dL 6.4-8.2 07D) ALBUMIN (test code = 3.3 g/dL 3.5-4.8 L 08D) GLOBULIN (test code = 3.6 g/dL 1.5-3.8 GLB) ALB/GLOB (test code = 0.9 1.0-2.6 L AGRR) ALK PHOS (test code = 81 IU/L 42-121 35A) AST (test code = 30A) 20 IU/L <=42 ALT (test code = 31A) 13 IU/L <=78 [id number] 14:08:00 Test Item Value Reference Range Interpretation Comments ACETAMINPH (test code = 94M) <2.0 ug/mL 10.0-30.0 L CARDIAC [id number] 14:08:00 Test Item Value Reference Range Interpretation Comments TROPONIN I (test code = A84) 0.019 ng/mL 0.000-0.045 ALCOHOL BLOOD (ETOH)2019-10-26 14:08:00 Test Item Value Reference Range Interpretation Comments ETOH (test code = HALC) ETHANOL The result is to be used only for medical purposes ALCOHOL (test code = <10 mg/dL <=10 56A) LDH-LACTIC [id number] 14:06:00 Test Item Value Reference Range Interpretation Comments LDH (test code = 33A) 214 IU/L 84-246 C-REACTIVE PROTEIN [id number] 14:02:00 Test Item Value Reference Range Interpretation Comments CRP QUANT (test code <2.9 mg/L 0.0-2.9 = CRPQ) Method Change (test Please note the code = METHOD) change in Method and the reference range [id number] 13:59:00 Test Item Value Reference Range Interpretation Comments FERRITIN (test code = A19) 219.2 ng/mL 8.0-252.0 SARS-CoV (RAPID ANTIGEN)2019-10-26 13:57:00 Test Item Value Reference Range Interpretation Comments SARS-CoV (ANTIGEN) NEGATIVE NEGATIVE (test code = COVAG) COVID AG (test This test has been code = COVAGC) marketed under the FDA Emergency Use Authorization (EUA) to meet challenges of the COVID-19 pandemic. The validation standards normally enforced by the FDA and the [employer] ([employer]) are more stringent than those required for this test. Therefore, the result should be interpreted with caution and close attention to other clinical and epidemiological data [id number] 13:55:00 Test Item Value Reference Range Interpretation Comments SALICYLATE (test code = 94B) <1.7 mg/dL 2.8-20.0 L AMMONIA [id number] 13:49:00 Test Item Value Reference Range Interpretation Comments AMMONIA (test code = 54A) 12 umol/L 11-32 PRO TIME AND [id number] 13:47:00 Test Item Value Reference Range Interpretation Comments PT (test code = 11.7 s 9.8-13.6 TT) INR (test code = 1.0 INR) INRH (test code = SUGGESTED INRH) THERAPEUTIC RANGE FOR INR: 2.5 - 3.5 For Patients with Prosthetic Valves or Patients with recurrent Thromboembolic Events 2.0 - 3.0 For Most Other Applications PTT (test code = 28.2 s 20.2-38.0 PTT) PTTH (test code = To monitor the PTTH) effectiveness of heparin, we offer the Anti-Xa (Heparin Assay). It can be used for either unfractionated or LMW Heparin. Order Code is ANTI-XA CBC (INCLUDES AUTOMATED DIFFERENTIAL)2019-10-26 13:38:00 Test Item Value Reference Range Interpretation Comments WBC (test code = WBC) 8.4 10\S\3/uL 4.5-11.0 RBC (test code = RBC) 3.86 10\S\6/uL 3.80-5.80 HGB (test code = HBG) 13.1 g/dL 12.0-15.5 HCT (test code = HCT) 38.1 % 35.0-44.0 MCV (test code = MCV) 98.7 fL 81.0-99.0 MCH (test code = MCH) 33.9 pg 27.0-31.0 H MCHC (test code = MCHC) 34.4 g/dL 32.0-36.0 RDW (test code = RDW) 11.9 % 11.5-14.5 PLT (test code = PLT) 257 10\S\3/uL 130-400 MPV (test code = MPV) 9.7 fL 9.4-12.4 NEUTROP # (test code = NE#) 4.8 10\S\3/uL 1.6-8.0 LYMPH # (test code = LY#) 1.7 10\S\3/uL 1.1-3.5 MONOCYTE # (test code = MO#) 1.3 10\S\3/uL 0.0-1.1 H EOSINOPH # (test code = EO#) 0.4 10\S\3/uL 0.0-0.7 BASOPHIL # (test code = BA#) 0.1 10\S\3/uL 0.0-0.3 IG # (test code = IG#) 0.04 10\S\3/uL 0.00-0.06 NRBC # (test code = NRBC#) 0.00 10\S\3/uL 0.00-0.01 NEUTROPH % (test code = NE%) 57.6 % 35.0-73.0 LYMPH % (test code = LY%) 20.5 % 20.0-55.0 MONO % (test code = MO%) 15.3 % 2.5-10.0 H EOSINOPH % (test code = EO%) 5.1 % 0.0-5.0 H BASOPHIL % (test code = BA%) 1.0 % 0.0-2.0 IG % (test code = IG%) 0.5 % 0.0-0.8 NRBC% (test code = NRBC%) 0.0 % 0.0-0.2 MANDIFF (test code = MDIFF) NO RBC MORPH (test code = RBCMOR) NORMAL [id number] 10:29:00 Test Item Value Reference Range Interpretation Comments SARS-CoV-2 (test NOT DETECTED NOT DETECTED code = WCOV) COVID-19 (test code Test performed at = [facility]) Reference Laboratory See Original Report Under Medical Record View Tab URINE [id number] 12:38:00 Test Item Value Reference Range Interpretation Comments Culture Observations THREE OR MORE SPECIES (test code = COB1) OF BACTERIA ISOLATED. PROBABLE CONTAMINATION. Culture Observations IDENTIFICATION AND (test code = COB17) SUSCEPTIBILITY NOT INDICATED. RECOLLECTION RECOMMENDED URINALYSIS WITH [id number] 19:14:00 Test Item Value Reference Range Interpretation Comments COLOR (test code = COLU) YELLOW YELLOW CLARITY (test code = CLA) CLEAR CLEAR GLUCOSE UR (test code = UA GLUCOSE) NEGATIVE NEGATIVE BILI UR (test code = BILE) NEGATIVE NEGATIVE KETONES UR (test code = MEKHI) NEGATIVE NEGATIVE SP GRAVITY (test code = SPGR) 1.012 1.005-1.030 PH UR (test code = PH) 6.0 4.5-8.0 PROTEIN UR (test code = PU) NEGATIVE NEGATIVE UROBIL UR (test code = UROQ) 0.2 EU/dL 0.2-1.0 NITRITE UR (test code = NITRITE) NEGATIVE NEGATIVE BLOOD UR (test code = UA BLOOD) TRACE NEGATIVE A LEUK ES UR (test code = LEUK) 1+ NEGATIVE A WBC UR (test code = UWBC) 2 /HPF 0-5 RBC UR (test code = URBC) 4 /HPF 0-2 H EPITH UR (test code = UEPC) FEW /LPF FEW BACTERIA UR (test code = UBACT) NONE /HPF NONE CAST UR (test code = CAST) /LPF NONE CRYSTAL UR (test code = CRYU) / LPF NONE MUCUS UR (test code = MUC) / HPF NONE AMORPH UR (test code = VALENTINA) / HPF NONE TRICH UR (test code = UTRICH) /HPF NONE YEAST UR (test code = UY) /HPF NONE SPERM UR (test code = USPERM) /HPF NONE CBC (INCLUDES AUTOMATED DIFFERENTIAL)2019-07-26 18:07:00 Test Item Value Reference Range Interpretation Comments WBC (test code = WBC) 13.4 10\S\3/uL 4.5-11.0 H RBC (test code = RBC) 2.86 10\S\6/uL 3.80-5.80 L HGB (test code = HBG) 9.8 g/dL 12.0-15.5 L HCT (test code = HCT) 28.8 % 35.0-44.0 L MCV (test code = MCV) 100.7 fL 81.0-99.0 H MCH (test code = MCH) 34.3 pg 27.0-31.0 H MCHC (test code = MCHC) 34.0 g/dL 32.0-36.0 RDW (test code = RDW) 12.1 % 11.5-14.5 PLT (test code = PLT) 223 10\S\3/uL 130-400 MPV (test code = MPV) 9.7 fL 9.4-12.4 NEUTROP # (test code = NE#) 10.5 10\S\3/uL 1.6-8.0 H LYMPH # (test code = LY#) 1.2 10\S\3/uL 1.1-3.5 MONOCYTE # (test code = MO#) 1.1 10\S\3/uL 0.0-1.1 EOSINOPH # (test code = EO#) 0.5 10\S\3/uL 0.0-0.7 BASOPHIL # (test code = BA#) 0.0 10\S\3/uL 0.0-0.3 IG # (test code = IG#) 0.08 10\S\3/uL 0.00-0.06 H NRBC # (test code = NRBC#) 0.00 10\S\3/uL 0.00-0.01 NEUTROPH % (test code = NE%) 78.3 % 35.0-73.0 H LYMPH % (test code = LY%) 8.8 % 20.0-55.0 L MONO % (test code = MO%) 8.4 % 2.5-10.0 EOSINOPH % (test code = EO%) 3.6 % 0.0-5.0 BASOPHIL % (test code = BA%) 0.3 % 0.0-2.0 IG % (test code = IG%) 0.6 % 0.0-0.8 NRBC% (test code = NRBC%) 0.0 % 0.0-0.2 MANDIFF (test code = MDIFF) NO NO VALPROIC ACID (DEPAKENE)2019-07-22 07:50:00 Test Item Value Reference Range Interpretation Comments VALP ACID (test code = 95A) 5.8 ug/mL 50.0-100.0 LL COMPREHENSIVE METABOLIC [id number] 06:47:00 Test Item Value Reference Range Interpretation Comments GLUCOSE (test code = 108 mg/dL 75-100 H 06D) SODIUM (test code = 128 mmol/L 136-145 L 01A) POTASSIUM (test code = 5.2 mmol/L 3.6-5.1 H 01B) CHLORIDE (test code = 91 mmol/L 98-107 L 04A) CO2 (test code = 02A) 31 mmol/L 22-32 ANION GAP (test code = 11.2 mmol/L ANG) BUN (test code = 05D) 43 mg/dL 7-18 H CREATININE (test code 1.0 mg/dL 0.4-1.1 = 03E) GFR (test code = GFR) 52 mL/min/1.73m\S\2 >=90 L GFR 60 mL/min/1.73m\S\2 >=90 L (test code = GFRAA) EGFR (test code = eGFR BY CKD-EPI EGFR) CALCULATION IS NOT RECOMMENDED FOR PATIENTS UNDER 18 YEARS OF AGE. BUN/CREA (test code = 43 12-20 H BCR) CALCIUM (test code = 9.0 mg/dL 8.3-9.5 09D) BILI TOTAL (test code 1.0 mg/dL 0.2-1.0 = 11A) PROTEIN (test code = 6.6 g/dL 6.4-8.2 07D) ALBUMIN (test code = 2.9 g/dL 3.5-4.8 L 08D) GLOBULIN (test code = 3.7 g/dL 1.5-3.8 GLB) ALB/GLOB (test code = 0.8 1.0-2.6 L AGRR) ALK PHOS (test code = 77 IU/L 42-121 35A) AST (test code = 30A) 21 IU/L <=42 ALT (test code = 31A) 21 IU/L <=78 CBC (INCLUDES AUTOMATED DIFFERENTIAL)2019-07-22 06:28:00 Test Item Value Reference Range Interpretation Comments WBC (test code = WBC) 10.7 10\S\3/uL 4.5-11.0 RBC (test code = RBC) 3.20 10\S\6/uL 3.80-5.80 L HGB (test code = HBG) 10.9 g/dL 12.0-15.5 L HCT (test code = HCT) 31.9 % 35.0-44.0 L MCV (test code = MCV) 99.7 fL 81.0-99.0 H MCH (test code = MCH) 34.1 pg 27.0-31.0 H MCHC (test code = MCHC) 34.2 g/dL 32.0-36.0 RDW (test code = RDW) 11.7 % 11.5-14.5 PLT (test code = PLT) 186 10\S\3/uL 130-400 MPV (test code = MPV) 9.9 fL 9.4-12.4 NEUTROP # (test code = NE#) 7.6 10\S\3/uL 1.6-8.0 LYMPH # (test code = LY#) 1.2 10\S\3/uL 1.1-3.5 MONOCYTE # (test code = MO#) 1.3 10\S\3/uL 0.0-1.1 H EOSINOPH # (test code = EO#) 0.5 10\S\3/uL 0.0-0.7 BASOPHIL # (test code = BA#) 0.1 10\S\3/uL 0.0-0.3 IG # (test code = IG#) 0.04 10\S\3/uL 0.00-0.06 NRBC # (test code = NRBC#) 0.00 10\S\3/uL 0.00-0.01 NEUTROPH % (test code = NE%) 70.9 % 35.0-73.0 LYMPH % (test code = LY%) 11.0 % 20.0-55.0 L MONO % (test code = MO%) 12.5 % 2.5-10.0 H EOSINOPH % (test code = EO%) 4.7 % 0.0-5.0 BASOPHIL % (test code = BA%) 0.5 % 0.0-2.0 IG % (test code = IG%) 0.4 % 0.0-0.8 NRBC% (test code = NRBC%) 0.0 % 0.0-0.2 MANDIFF (test code = MDIFF) NO NO RBC MORPH (test code = RBCMOR) NORMAL T4 [id number] 07:13:00 Test Item Value Reference Range Interpretation Comments T4 FREE (test code = A91) 0.88 ng/dL 0.76-1.46 B12 [id number] 07:02:00 Test Item Value Reference Range Interpretation Comments VIT B12 (test code = A60) 1059.0 pg/mL 180.0-914.0 H [id number] 07:02:00 Test Item Value Reference Range Interpretation Comments FOLATE (test code = A75) 18.5 ng/mL 3.1-17.5 H THYROID PANEL/SCREEN (TSH)2019-07-15 06:59:00 Test Item Value Reference Range Interpretation Comments TSH (test code = A57) 9.160 uIU/mL 0.358-3.740 H [id number] 06:43:00 Test Item Value Reference Range Interpretation Comments PREALBUMIN (test code = 08E) 29 mg/dL 18-38 VALPROIC ACID (DEPAKENE)2019-07-15 06:43:00 Test Item Value Reference Range Interpretation Comments VALP ACID (test code = 95A) 52.6 ug/mL 50.0-100.0 LIPID [id number] 06:37:00 Test Item Value Reference Range Interpretation Comments CHOLESTROL (test code = 44A) 171 mg/dL 140-200 TRIGLYCERI (test code = 42B) 136 mg/dL <=149 HDL (test code = 83D) 50.0 mg/dL 40.0-60.0 LDL (test code = 34B) 100 mg/dL <=99 H CHL/HDL (test code = CHR) 3.4 0.0-3.4 [id number] 06:37:00 Test Item Value Reference Range Interpretation Comments Hb A1C % (test code = HBA) 5.6 % 4.2-6.3 [id number] 06:32:00 Test Item Value Reference Range Interpretation Comments MAGNESIUM (test code = 48A) 1.6 mg/dL 1.8-2.4 L DRUGS OF [id number] 20:05:00 Test Item Value Reference Range Interpretation Comments DRUG SCRN (test code URINE DRUG SCREEN = HDOA) This is an unconfirmed screening result and should not be used for non-medical purposes CANNABINOD (test code Negative NEGATIVE = 88C) AMPHETAMINE (test Negative NEGATIVE code = 84A) BENZODIAZP (test code Negative NEGATIVE = 86A) BARBITURAT (test code Negative NEGATIVE = 85A) OPIATES (test code = Negative NEGATIVE 92B) COCAINE (test code = Negative NEGATIVE 87A) PHENCYCLID (test code Negative NEGATIVE = 66A) METHADONE (test code Negative NEGATIVE = 64A) DOAH (test code = DOAH.) *URINE DRUG SCREEN Cut-off values are as follows: Cannabinoids 50 ng/mL Cocaine 300 ng/mL Amphetamines 1000 ng/mL Phencyclidine 25 ng/mL Benzodiazepines 200 ng.mL Methadone 300 ng/mL Barbiturates 200 ng/mL Opiates 2000 ng/mL URINALYSIS WITH [id number] 20:01:00 Test Item Value Reference Range Interpretation Comments COLOR (test code = COLU) YELLOW YELLOW CLARITY (test code = CLA) CLEAR CLEAR GLUCOSE UR (test code = UA GLUCOSE) NEGATIVE NEGATIVE BILI UR (test code = BILE) NEGATIVE NEGATIVE KETONES UR (test code = MEKHI) NEGATIVE NEGATIVE SP GRAVITY (test code = SPGR) 1.010 1.005-1.030 PH UR (test code = PH) 6.0 4.5-8.0 PROTEIN UR (test code = PU) NEGATIVE NEGATIVE UROBIL UR (test code = UROQ) 0.2 EU/dL 0.2-1.0 NITRITE UR (test code = NITRITE) NEGATIVE NEGATIVE BLOOD UR (test code = UA BLOOD) TRACE NEGATIVE A LEUK ES UR (test code = LEUK) NEGATIVE NEGATIVE WBC UR (test code = UWBC) 1 /HPF 0-5 RBC UR (test code = URBC) 3 /HPF 0-2 H EPITH UR (test code = UEPC) NONE /LPF FEW A BACTERIA UR (test code = UBACT) NONE /HPF NONE CAST UR (test code = CAST) /LPF NONE CRYSTAL UR (test code = CRYU) / LPF NONE MUCUS UR (test code = MUC) / HPF NONE AMORPH UR (test code = VALENTINA) / HPF NONE TRICH UR (test code = UTRICH) /HPF NONE YEAST UR (test code = UY) /HPF NONE SPERM UR (test code = USPERM) /HPF NONE COMPREHENSIVE METABOLIC [id number] 18:39:00 Test Item Value Reference Range Interpretation Comments GLUCOSE (test code = 142 mg/dL 75-100 H 06D) SODIUM (test code = 133 mmol/L 136-145 L 01A) POTASSIUM (test code = 4.7 mmol/L 3.6-5.1 01B) CHLORIDE (test code = 99 mmol/L 98-107 04A) CO2 (test code = 02A) 30 mmol/L 22-32 ANION GAP (test code = 8.7 mmol/L ANG) BUN (test code = 05D) 25 mg/dL 7-18 H CREATININE (test code 1.0 mg/dL 0.4-1.1 = 03E) GFR (test code = GFR) 54 mL/min/1.73m\S\2 >=90 L GFR 63 mL/min/1.73m\S\2 >=90 L (test code = GFRAA) EGFR (test code = eGFR BY CKD-EPI EGFR) CALCULATION IS NOT RECOMMENDED FOR PATIENTS UNDER 18 YEARS OF AGE. BUN/CREA (test code = 26 12-20 H BCR) CALCIUM (test code = 9.0 mg/dL 8.3-9.5 09D) BILI TOTAL (test code 0.2 mg/dL 0.2-1.0 = 11A) PROTEIN (test code = 7.1 g/dL 6.4-8.2 07D) ALBUMIN (test code = 3.3 g/dL 3.5-4.8 L 08D) GLOBULIN (test code = 3.8 g/dL 1.5-3.8 GLB) ALB/GLOB (test code = 0.9 1.0-2.6 L AGRR) ALK PHOS (test code = 90 IU/L 42-121 35A) AST (test code = 30A) 12 IU/L <=42 ALT (test code = 31A) 12 IU/L <=78 [id number] 18:37:00 Test Item Value Reference Range Interpretation Comments ACETAMINPH (test code = 94M) <2.0 ug/mL 10.0-30.0 L [id number] 18:33:00 Test Item Value Reference Range Interpretation Comments SALICYLATE (test code = 94B) <1.7 mg/dL 2.8-20.0 L TROPONIN [id number] 18:31:00 Test Item Value Reference Range Interpretation Comments TROPONIN I (test code = A84) <0.015 ng/mL 0.000-0.045 PRO TIME AND [id number] 18:30:00 Test Item Value Reference Range Interpretation Comments PT (test code = 11.4 s 9.8-13.6 TT) INR (test code = 1.0 INR) INRH (test code = SUGGESTED INRH) THERAPEUTIC RANGE FOR INR: 2.5 - 3.5 For Patients with Prosthetic Valves or Patients with recurrent Thromboembolic Events 2.0 - 3.0 For Most Other Applications PTT (test code = 31.4 s 20.2-38.0 PTT) PTTH (test code = To monitor the PTTH) effectiveness of heparin, we offer the Anti-Xa (Heparin Assay). It can be used for either unfractionated or LMW Heparin. Order Code is ANTI-XA AMMONIA [id number] 18:25:00 Test Item Value Reference Range Interpretation Comments AMMONIA (test code = 54A) 22 umol/L 11-32 ALCOHOL BLOOD (ETOH)2019-07-14 18:25:00 Test Item Value Reference Range Interpretation Comments ETOH (test code = HALC) ETHANOL The result is to be used only for medical purposes ALCOHOL (test code = <10 mg/dL <=10 56A) CBC (INCLUDES AUTOMATED DIFFERENTIAL)2019-07-14 18:15:00 Test Item Value Reference Range Interpretation Comments WBC (test code = WBC) 5.4 10\S\3/uL 4.5-11.0 RBC (test code = RBC) 3.95 10\S\6/uL 3.80-5.80 HGB (test code = HBG) 13.5 g/dL 12.0-15.5 HCT (test code = HCT) 39.7 % 35.0-44.0 MCV (test code = MCV) 100.5 fL 81.0-99.0 H MCH (test code = MCH) 34.2 pg 27.0-31.0 H MCHC (test code = MCHC) 34.0 g/dL 32.0-36.0 RDW (test code = RDW) 11.6 % 11.5-14.5 PLT (test code = PLT) 183 10\S\3/uL 130-400 MPV (test code = MPV) 9.4 fL 9.4-12.4 NEUTROP # (test code = NE#) 2.9 10\S\3/uL 1.6-8.0 LYMPH # (test code = LY#) 1.2 10\S\3/uL 1.1-3.5 MONOCYTE # (test code = MO#) 0.6 10\S\3/uL 0.0-1.1 EOSINOPH # (test code = EO#) 0.6 10\S\3/uL 0.0-0.7 BASOPHIL # (test code = BA#) 0.1 10\S\3/uL 0.0-0.3 IG # (test code = IG#) 0.03 10\S\3/uL 0.00-0.06 NRBC # (test code = NRBC#) 0.00 10\S\3/uL 0.00-0.01 NEUTROPH % (test code = NE%) 54.3 % 35.0-73.0 LYMPH % (test code = LY%) 22.7 % 20.0-55.0 MONO % (test code = MO%) 11.1 % 2.5-10.0 H EOSINOPH % (test code = EO%) 10.2 % 0.0-5.0 H BASOPHIL % (test code = BA%) 1.1 % 0.0-2.0 IG % (test code = IG%) 0.6 % 0.0-0.8 NRBC% (test code = NRBC%) 0.0 % 0.0-0.2 MANDIFF (test code = MDIFF) NO NO
[2020-01-29 18:07] LABS: Absolute Lymphocytes (CBC) 0.7 K/uL (0.7-4.9); Basophils % 0.9 % (0-1.3); Hematocrit 34.9 % (36.0-45.0); Lymphocytes % 17.6 % (15.3-44.8); MPV 7.8 fL (7.6-11.3); RBC Red Blood Cell Count 3.38 M/uL (3.86-4.86)
--- NOTE | 2020-01-29 18:13 | RAD REPORT ---
EXAM DESCRIPTION: RAD - Chest Single View - 01/29/2020 5:44 pm CLINICAL HISTORY: AMS Chest pain. COMPARISON: CHEST SINGLE VIEW dated 11/09/2014; Thorax W/ Con dated 04/23/2019 FINDINGS: Portable technique limits examination quality. The lungs are grossly clear. The heart is upper limit of normal size with atherosclerotic thoracic ao rta. No displaced fractures. IMPRESSION: No acute intrathoracic process suspected.
[2020-01-29 18:26] LABS: Protime INR 0.97
[2020-01-29 18:29] LABS: ALT/SGPT 13 U/L (12-78); AST/SGOT 11 U/L (15-37); Albumin 3.1 g/dL (3.4-5.0); Alkaline Phosphatase 69 U/L (45-117); Amylase 23 U/L (25-115); BUN Blood Urea Nitrogen 44 mg/dL (7-18); Bicarbonate 37 mmol/L (21-32); Bilirubin Direct 0.1 mg/dL (0-0.2); Bilirubin Total 0.3 mg/dL (0.2-1.0); CKMB Creatine Kinase MB < 1.0 ng/mL (0.3-3.6); Creatine Phosphokinase 16 U/L (26-192); Glucose Level 116 mg/dL (74-106); Lipase 38 U/L (73-393); Potassium 4.2 mmol/L (3.5-5.1); Protein, Total 7.1 g/dL (6.4-8.2); Sodium Level 140 mmol/L (136-145); Troponin (Emerg Dept Use Only) < 0.02 ng/mL (0.0-0.045)
--- NOTE | 2020-01-29 18:30 | RAD REPORT ---
EXAM DESCRIPTION: CT - CTHCSPWOC - 01/29/2020 6:19 pm CLINICAL HISTORY: Trauma, head and neck injury. AMS from [facility] COMPARISON: No comparisons TECHNIQUE: Axial 5 mm thick images of the head were obtained. Axial 2 mm thick images of the cervical spine were obtained with sagittal and coronal reconstruction images generated and reviewed. All CT scans are performed using dose optimization technique as appropriate and may include automated exposure control or mA/KV adjustment according to patient size. FINDINGS: CT HEAD WITHOUT CONTRAST: No acute hemorrhage, hydrocephalus or extra-axial collection is identified.Moderate generalized brain atrophy is present with moderate periventricular and deep white matter chronic microvascular ischemi c changes.No areas of brain edema or midline shift. Moderate mucoperiosteal thickening affects the left maxillary antrum and the ethmoid air cells.The pa ranasal sinuses and mastoids are otherwise clear.The calvarium is intact. 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 Mild lower cervical degenerative spondylosis.No prevertebral soft tissues swelling is identified. IMPRESSION: No acute intracranial or cervical spine findings.
[2020-01-29 18:48] LABS: Urine Glucose NEGATIVE (NEG); Urine Specific Gravity 1.015 (1.005-1.030)
[2020-01-29 18:49] LABS: Urine Blood TRACE (NEG); Urine Protein NEGATIVE (NEG); Urine pH 6.5 (5.0-7.0)
[2020-01-29 18:56] LABS: Urine Bacteria <20 /HPF (<20); Urine RBC <5 /HPF (NONE SEEN)
[2020-01-29] MEDS ORDERED: NA CHLORIDE 0.9% 500 ML ONE ×2 (18:57→19:32)
--- NOTE | 2020-01-29 19:16 | ER ---
Nurse's Notes [facility] Name: Julieta Tatum Age: 84 yrs Sex: Female : 1935 Arrival Date: 01/29/2020 Time: 17:22 Bed 2 Private MD: Diagnosis: renal insufficiency;pernicious anemia Presentation: 01/28 17:23 Chief complaint: EMS states: pt from [facility], staff noticed increased AMS about an hour tw2 ago, normally a\T\ox2, now a\T\ox1 to a\T\ox0, Hx; dementia, copd, schizophrenia, staff at [facility] states she normally has o2 sats in low 90's. Coronavirus screen: At this time, the client does not indicate any symptoms associated with coronavirus-19. Ebola Screen: Patient denies travel to an Ebola-affected area in the 21 days before illness onset. Initial Sepsis Screen: Does the patient meet any 2 criteria? Altered Mental Status. Does the patient have a suspected source of infection? No. Patient's initial sepsis screen is negative. Risk Assessment: Do you want to hurt yourself or someone else? Patient reports no desire to harm self or others. Onset of symptoms was January 29, 2020. 17:23 Method Of Arrival: EMS: [facility] tw2 17:23 Acuity: MARIO 3 tw2 Triage Assessment: 17:23 General: Appears in no apparent distress. Behavior is cooperative. Pain: Denies pain. tw2 EENT: No signs and/or symptoms were reported regarding the EENT system. Neuro: Level of Consciousness is awake, alert, Oriented to person. Cardiovascular: Heart tones S1 S2 Patient's skin is warm and dry. Respiratory: Airway is patent Respiratory effort is even, unlabored, Respiratory pattern is regular, symmetrical, Breath sounds are clear bilaterally. GI: No signs and/or symptoms were reported involving the gastrointestinal system. Abdomen is round non-distended, Bowel sounds present X 4 quads. : No signs and/or symptoms were reported regarding the genitourinary system. Derm: No signs and/or symptoms reported regarding the dermatologic system. Skin is fragile, is thin, Skin is dry, Skin temperature is warm. Musculoskeletal: Range of motion: intact in all extremities. Historical: - Allergies: 17:34 No Known Drug Allergies; tw2 - PMHx: 17:34 Alzheimers; COPD; Schizophrenia; aphasia; altered mental status; Atrial Fib; Bipolar tw2 disorder; - Immunization history:: Adult Immunizations. - Social history:: Smoking status: . Screenin:34 Abuse screen: Denies threats or abuse. Nutritional screening: No deficits noted. tw2 Tuberculosis screening: No symptoms or risk factors identified. Fall Risk Secondary diagnosis (15 points) impaired mobility. Assessment: 18:00 Reassessment: see triage assessment. tw2 18:22 Reassessment: No changes from previously documented assessment. Patient and/or family tw2 updated on plan of care and expected duration. Pain level reassessed. 18:48 Reassessment: order faxed to pharmacy for cyanocobalamin, pharmacy does not answer, per tw2 Mckinley, business unit controller our 2nd floor does not have the medication in their pxysis either, spoke with jose Bergman RN requesting medication at this time. 20:10 Reassessment: [facility] nurse Amanda notified on pt discharge, report given to nurse. Awaiting ea on transportation. 20:35 Reassessment: waiting on ambulance from sn[facility]. ll2 Vital Signs: 17:23 BP 173 / 88; Pulse 63; Resp 17; Temp 97.8(O); Pulse Ox 94% on R/A; Weight 61.23 kg (R); tw2 18:30 BP 161 / 73; Pulse 63; Resp 17; Pulse Ox 94% on R/A; tw2 ED Course: 17:22 Patient arrived in ED. tw2 17:22 Bed in low position. Call light in reach. Side rails up X2. environmental monitoring specialist on. Pulse tw2 ox on. NIBP on. Warm blanket given. 17:26 Triage completed. tw2 17:27 Geno Vaughn FNP-C is PHCP. snw 17:27 Chapin Randhawa MD is Attending Physician. snw 17:34 Arm band placed on. tw2 17:39 Chest Single View XRAY In Process Unspecified. EDMS 17:40 Inserted saline lock: 22 gauge in left antecubital area, using aseptic technique. Blood tw2 collected. Maintain EMS IV. Dressing intact. Good blood return noted. Site clean \T\ dry. Gauge \T\ site: 20 g RIGHT ac. 18:00 Straight cath inserted, using sterile technique, 18 Fr. Specimen obtained. Returned tw2 approx 300 ml. Patient tolerated well. Kuldip Dominguez served as sandwich peddler. 18:10 Urine Microscopic Only Sent. tw2 18:19 CT Head C Spine In Process Unspecified. EDMS 18:21 Evelin Varghese, RN is Primary Nurse. tw2 19:00 Report given to CATHERINE Max, Carmelo, RN, CATHERINE Lubin. tw2 Administered Medications: 18:48 Drug: NS 0.9% 500 ml Route: IV; Rate: bolus; Site: right antecubital; tw2 20:00 Follow up: IV Status: Completed infusion; IV Intake: 500ml ll2 19:30 Drug: Cyanocobalamin 1000 mcg Route: IM; Site: right deltoid; 2 20:36 Follow up: Response: No adverse reaction ll2 Intake: 20:00 IV: 500ml; Total: 500ml. ll2 Outcome: 19:14 Discharge ordered by MD. shi 21:20 Patient left the ED. sg Signatures: Dispatcher [employer] EDPA Jeff Roque RN RN sg Waters, Shelly, FIELD STAFF-C FIELD STAFF-Csnw Evelin Varghese RN RN tw2 Angelia Anderson RN RN ea Linscombe, Lacie, RN RN 2 Corrections: (The following items were deleted from the chart) 19:14 19:05 Report given to CATHERINE Max, Carmelo, RN, CATHERINE Lubin tw2 tw2
--- NOTE | 2020-01-29 19:16 | EDPHYS ---
Physician Documentation [facility] Name: Julieta Tatum Age: 84 yrs Sex: Female : 1935 Arrival Date: 01/29/2020 Time: 17:22 Bed 2 Private MD: ED Physician Chapin Randhawa HPI: 01/28 18:01 This 84 yrs old Female presents to ER via EMS with complaints of Altered snw Mental Status. 18:01 The patient presents with Sent from [facility] which states pt is less oriented than normal. snw . Onset: The symptoms/episode began/occurred gradually. Possible causes: unknown. Associated signs and symptoms: The patient has no apparent associated signs or symptoms. Current symptoms: In the emergency department the patient's symptoms are unchanged from the initial presentation. Patient's baseline: Neuro: alert but confused, orientated to person. It is unknown whether or not the patient has had similar symptoms in the past. It is unknown whether or not the patient has recently seen a physician. pt has hx of dementia and schizophrenia, and aphasia. Historical: - Allergies: 17:34 No Known Drug Allergies; tw2 - PMHx: 17:34 Alzheimers; COPD; Schizophrenia; aphasia; altered mental status; Atrial Fib; Bipolar tw2 disorder; - Immunization history:: Adult Immunizations. - Social history:: Smoking status: . ROS: 17:57 Eyes: Negative for injury, pain, redness, and discharge, ENT: Negative for injury, snw pain, and discharge, Neck: Negative for injury, pain, and swelling, Cardiovascular: Negative for chest pain, palpitations, and edema, Respiratory: Negative for shortness of breath, cough, wheezing, and pleuritic chest pain, Abdomen/GI: Negative for abdominal pain, nausea, vomiting, diarrhea, and constipation, Back: Negative for injury and pain, : Negative for injury, bleeding, discharge, and swelling, MS/Extremity: Negative for injury and deformity, Skin: Negative for injury, rash, and discoloration, Neuro: Negative for headache, weakness, numbness, tingling, and seizure, Psych: Negative for depression, anxiety, suicide ideation, homicidal ideation, and hallucinations. 17:57 Constitutional: Positive for NH states pt is less oriented than normal for her. Exam: 17:54 Head/Face: Normocephalic, atraumatic. Eyes: Pupils equal round and reactive to light, snw extra-ocular motions intact. Lids and lashes normal. Conjunctiva and sclera are non-icteric and not injected. Cornea within normal limits. Periorbital areas with no swelling, redness, or edema. ENT: Nares patent. No nasal discharge, no septal abnormalities noted. Tympanic membranes are normal and external auditory canals are clear. Oropharynx with no redness, swelling, or masses, exudates, or evidence of obstruction, uvula midline. Mucous membranes moist. Neck: Trachea midline, no thyromegaly or masses palpated, and no cervical lymphadenopathy. Supple, full range of motion without nuchal rigidity, or vertebral point tenderness. No Meningismus. Chest/axilla: Normal chest wall appearance and motion. Nontender with no deformity. No lesions are appreciated. Cardiovascular: Regular rate and rhythm with a normal S1 and S2. No gallops, murmurs, or rubs. Normal PMI, no JVD. No pulse deficits. Respiratory: Lungs have equal breath sounds bilaterally, clear to auscultation and percussion. No rales, rhonchi or wheezes noted. No increased work of breathing, no retractions or nasal flaring. Abdomen/GI: Soft, non-tender, with normal bowel sounds. No distension or tympany. No guarding or rebound. No evidence of tenderness throughout. Back: No spinal tenderness. No costovertebral tenderness. Full range of motion. 17:54 Constitutional: The patient appears alert, awake, pale. 17:54 ECG was reviewed by the Attending Physician. 17:54 Skin: pallor. 17:54 Neuro: Orientation: to person, Mentation: responsive to voice Memory: unable to test, Cranial nerves: extraocular movements are intact, Gait: not tested. Babinski testing is normal, seizure activity, is not displayed by the patient. Vital Signs: 17:23 BP 173 / 88; Pulse 63; Resp 17; Temp 97.8(O); Pulse Ox 94% on R/A; Weight 61.23 kg (R); tw2 18:30 BP 161 / 73; Pulse 63; Resp 17; Pulse Ox 94% on R/A; tw2 MDM: 17:28 Patient medically screened. snw 19:19 Data reviewed: vital signs, nurses notes. Data interpreted: Pulse oximetry: on room air snw is 94 %. Interpretation: acceptable. Counseling: I had a detailed discussion with the patient and/or guardian regarding: the historical points, exam findings, and any diagnostic results supporting the discharge/admit diagnosis, the presence of at least one elevated blood pressure reading (>120/80) during this emergency department visit, lab results, radiology results, the need for outpatient follow up. Special discussion: I have referred the patient to see his PCP for further evaluation of high blood pressure. Based on the history and exam findings, there is no indication for further emergent testing or inpatient evaluation. I discussed with the patient/guardian the need to see the primary care provider for further evaluation of the symptoms. 01/28 17:30 [facility]: [facility] 01/28 17:30 Order name: Amylase, Serum snw 01/28 17:30 Order name: Basic Metabolic Panel [facility] 01/28 17:30 Order name: Blood Culture Adult (2) [facility] 01/28 17:30 Order name: CBC with Diff w 01/28 17:30 Order name: Ckmb [facility] 01/28 17:30 Order name: CPK [facility] 01/28 17:30 Order name: Lactate [facility] 01/28 17:30 Order name: LFT's [facility] 01/28 17:30 Order name: Lipase [facility] 01/28 17:30 Order name: Procalcitonin; Complete Time: 18:54 snw 01/28 17:30 Order name: Protime (+inr); Complete Time: 18:37 snw 01/28 17:30 Order name: Ptt, Activated; Complete Time: 18:37 snw 01/28 17:30 Order name: Troponin (emerg Dept Use Only); Complete Time: 18:37 snw 01/28 17:30 Order name: Urine Microscopic Only; Complete Time: 18:57 snw 01/28 17:30 Order name: Chest Single View XRAY; Complete Time: 18:17 snw 01/28 17:30 Order name: CT Head C Spine; Complete Time: 18:37 snw 01/28 17:31 Order name: Urine Culture [facility] 01/28 17:31 Order name: Amylase; Complete Time: 18:37 EDMS 01/28 17:31 Order name: Basic Metabolic Panel; Complete Time: 18:37 EDMS 01/28 17:31 Order name: Blood Culture [facility] 01/28 17:31 Order name: CBC with Automated Diff; Complete Time: 18:37 [facility] 01/28 17:31 Order name: CKMB Creatine Kinase MB; Complete Time: 18:37 [facility] 01/28 17:31 Order name: Creatine Phosphokinase; Complete Time: 18:37 [facility] 01/28 17:31 Order name: Lactate; Complete Time: 18:37 [facility] 01/28 17:31 Order name: Liver (Hepatic) Function; Complete Time: 18:37 [facility] 01/28 17:31 Order name: Lipase; Complete Time: 18:37 [facility] 01/28 17:42 Order name: TS; Complete Time: 19:13 snw 01/28 18:14 Order name: Urine Dipstick--Ancillary (enter results); Complete Time: 18:54 eb 01/28 17:30 Order name: Cardiac monitoring; Complete Time: 17:55 snw 01/28 17:30 Order name: EKG - Nurse/Tech; Complete Time: 17:55 snw 01/28 17:30 Order name: IV Saline Lock - Large Bore; Complete Time: 17:55 snw 01/28 17:30 Order name: Labs collected and sent; Complete Time: 17:55 snw 01/28 17:30 Order name: O2 Per Protocol; Complete Time: 17:55 snw 01/28 17:30 Order name: O2 Sat Monitoring; Complete Time: 17:55 snw EC:54 Rate is 62 beats/min. Rhythm is regular. QRS [place] is Normal. VT interval is normal. QRS snw interval is normal. QT interval is normal. No Q waves. T waves are Normal. Clinical impression: NSR w/ Non-specific ST/T Changes. Administered Medications: 18:48 Drug: NS 0.9% 500 ml Route: IV; Rate: bolus; Site: right antecubital; tw2 20:00 Follow up: IV Status: Completed infusion; IV Intake: 500ml ll2 19:30 Drug: Cyanocobalamin 1000 mcg Route: IM; Site: right deltoid; ll2 20:36 Follow up: Response: No adverse reaction ll2 Disposition: 01/29 07:15 Co-signature as Attending Physician, Chapin Randhawa MD. rn Disposition: 01/29/20 19:14 Discharged to Home. Impression: renal insufficiency, pernicious anemia. - Condition is Stable. - Discharge Instructions: Anemia, Nonspecific, Chronic Kidney Disease, Adult, Vitamin B12 Deficiency. - Medication Reconciliation Form, Thank You Letter, Antibiotic Education, Prescription Opioid Use, SBAR form form. - Follow up: Emergency Department; When: As needed; Reason: Worsening of condition. Follow up: Private Physician; When: Tomorrow; Reason: Recheck today's complaints, Continuance of care, Re-evaluation by your physician. Signatures: Dispatcher [employer] EDMS Jfef Roque RN RN Geno Obando, KEYBOARD ACTION ASSEMBLER-C KEYBOARD ACTION ASSEMBLER-Csnw Chapin Randhawa MD MD rn Evelin Varghese RN RN tw2 Winter Mckee RN RN 2 Corrections: (The following items were deleted from the chart) 01/28 17:55 17:30 Accucheck ordered. yuridia 2 21:20 19:14 01/29/2020 19:14 Discharged to Home. Impression: renal insufficiency; pernicious sg anemia. Condition is Stable. Forms are Medication Reconciliation Form, Thank You Letter, Antibiotic Education, Prescription Opioid Use. Follow up: Emergency Department; When: As needed; Reason: Worsening of condition. Follow up: Private Physician; When: Tomorrow; Reason: Recheck today's complaints, Continuance of care, Re-evaluation by your physician. yuridia
[2020-01-29] MEDS ORDERED: CYANOCOBALAMIN 1000MCG/ML INJ ONE (19:24)
[2020-01-30 01:19] VITALS: TEMP 97.8; O2SAT 94
[2020-01-30 01:21] VITALS: BP 161/73
--- NOTE | 2020-02-02 06:13 | EKG ---
Test Date: 2020-01-29 Test Time: 17:28:00 Content Curator: L[place] MEASUREMENT RESULTS: Intervals: Rate: 62 MD: 176 QRSD: 94 QT: 406 QTc: 412 [place]: P: 88 MD: 176 QRS: 67 T: 70 INTERPRETIVE STATEMENTS: Normal sinus rhythm with sinus arrhythmia Voltage criteria for left ventricular hypertrophy Abnormal ECG Compared to ECG 11/09/2014 07:43:45 Myocardial infarct finding no longer present Electronically Signed On 02-02-20 06:10:09 LOCATOR SPECIALIST by Justice Roach
== END 2020-01-29 21:20 | disposition home or self-care (01) ==
LOC: ER 17:20
DX: D51.0 Vitamin B12 deficiency anemia due to intrinsic factor deficiency (principal); N28.9 Disorder of kidney and ureter, unspecified; G30.9 Alzheimer's disease, unspecified; F02.80 Dementia in other diseases classified elsewhere, unspecified severity, without behavioral disturbance, psychotic disturbance, mood disturbance, and anxiety
CPT/HCPCS: 93005; 87040 ×2; 87088; 85025; 87086; 80048; 36415; 82150; 86900; 86850; 82550; 85610; 86901; 80076; 83605; 85730; 84484; 82553; 83690; 84145; 70450; 72125; 71045; 51702; 96360; 96372; 99284; J3420; J7040 ×2; 81003; 81015

== ENCOUNTER 2021-05-18 11:37 | Emergency (ER) | payer OTHER ==
--- OUTSIDE RECORDS SUMMARY | 2021-05-18 11:44 | XMS REPORT | Continuity of Care Document ---
:1935 Author Organization [facility] t Address [address] [place] [address] Care Team Providers Name Role Phone Nella Attending Clinician Unavailable DR CHARMAINE Attending Clinician Unavailable DR RADHA Attending Clinician Unavailable Nella Admitting Clinician Unavailable DR CHARMAINE Admitting Clinician Unavailable DR RADHA Admitting Clinician Unavailable Problems This patient has no known problems. Allergies, Adverse Reactions, Alerts Allergy Allergy Status Severity Reaction(s) Onset Inactive Treating Comm ents Source Name Type Date Date Clinician No Known DA Active [facility] [facility] Allergie [place] s Medications This patient has no known medications. Vital Signs Vital Name Observation Time Observation Value Comments Source Height 2019-11-03 19:55:00 233.68 CM Height 2019-10-26 12:52:00 167.64 CM Weight 2019-10-26 12:52:00 65.77 KG Weight 2019-07-26 07:00:00 68.96 KG Height 2019-07-14 17:41:00 167.64 CM Weight 2019-07-14 17:41:00 73.93 KG Procedures Procedure Date / Time Performing Clinician Source Performed INSRT INFUS DEVC SUP VENA 2019-11-05 00:00:00 [facility] PERQ [facility] ULTRASONOGRAPHY SUP VENA 2019-11-05 00:00:00 [facility] CAVA GUID Center FLUORO SUPERIOR VENA CAVA 2019-11-05 00:00:00 [facility] GUIDANCE [facility] Encounters Start End Encounter Admission Attending Care Care Encounter Source Date/Time Date/Time Type Type Clinicians Facility Department ID 2020-04-05 2020-04-05 Outpatient Nella VFP VFP [id number] [facility] 11:48:00 11:48:00 [id number] Family Practic e 2019-10-26 2019-11-05 Inpatient E CURT MONTANO TELE [id number] [place] 15:52:00 17:44:00 [facility] 2019-07-14 2019-07-29 Inpatient E RADHA, [facility] SCU [id number] [facility] 21:04:00 17:00:00 [facility] Results Test Description Test Time Test Comments [...] (test code = RBCMOR) NORMAL BASIC METABOLIC [id number] 08:10:00 Test Item Value Reference Range Interpretation [...] (test code = RBCMOR) NORMAL BASIC METABOLIC [id number] 05:36:00 Test Item Value Reference Range Interpretation [...] (test code = RBCMOR) NORMAL HEMOGLOBIN & [id number] 18:56:00 Test Item Value Reference Range Interpretation Comments HGB (test code = HBG) 10.4 g/dL 12.0-15.5 L HCT (test code = HCT) 32.6 % 35.0-44.0 L TROPONIN [id number] 11:11:00 Test Item Value Reference Range Interpretation Comments TROPONIN I (test code = A84) 0.041 ng/mL 0.000-0.045 HEMOGLOBIN & [id number] 10:54:00 Test Item Value Reference Range Interpretation Comments HGB (test code = HBG) 11.0 g/dL 12.0-15.5 L HCT (test code = HCT) 33.7 % 35.0-44.0 L CBC WITH [id number] 07:42:00 Test Item Value Reference Range Interpretation [...] = STOM) 1+ NONE A BASIC METABOLIC [id number] 07:21:00 Test Item Value Reference Range Interpretation [...] 9.9 mg/dL 8.3-9.5 H 09D) HEMOGLOBIN & [id number] 01:50:00 Test Item Value Reference Range Interpretation Comments HGB (test code = HBG) 11.4 g/dL 12.0-15.5 L HCT (test code = HCT) 35.0 % 35.0-44.0 HEMOGLOBIN & [id number] 18:44:00 Test Item Value Reference Range Interpretation [...] (test code = RBCMOR) NORMAL BASIC METABOLIC [id number] 07:12:00 Test Item Value Reference Range Interpretation [...] = 9.2 mg/dL 8.3-9.5 09D) HEMOGLOBIN & [id number] 00:57:00 Test Item Value Reference Range Interpretation Comments HGB (test code = HBG) 11.8 g/dL 12.0-15.5 L HCT (test code = HCT) 37.4 % 35.0-44.0 BLOOD [id number] 21:24:00 Test Item Value Reference Range Interpretation Comments Culture Observations (test NO GROWTH AFTER 5 code = COB1) DAYS BLOOD [id number] 21:24:00 Test Item Value Reference Range Interpretation Comments Culture Observations (test NO GROWTH AFTER 5 code = COB1) DAYS Arterial Blood [id number] 18:48:00 Test Item Value Reference Range Interpretation [...] FO2Hb (test code = 96.4 % 94.0-100.0 MQ3QZBN) FCOHb (test code = 0.4 % 0.0-3.0 FCOHBRT) FMetHb (test code = 1.5 % 0.2-0.6 H FMETHBRT) ABGTEMP (test code = * Temp Corrected Values* ABGTEMP) ABGTEMP (test code = 37.0 ?C ABGTEMP.) pH (T) (test code = 7.333 7.350-7.450 L PHTEMP) pCO2 (T) (test code = 69.0 mmHg 35.0-45.0 HH EYW2FYTF) pO2 (T) (test code = 146.0 mmHg 80.0-110.0 H HN2ROKR) Device (test code = BIPAP DEVICE) FI02 [...] COMMENT (test code = CO) Arterial Blood [id number] 16:04:00 Test Item Value Reference Range Interpretation [...] FO2Hb (test code = 95.1 % 94.0-100.0 NC5PIYH) FCOHb (test code = 0.8 % 0.0-3.0 FCOHBRT) FMetHb (test code = 1.1 % 0.2-0.6 H FMETHBRT) ABGTEMP (test code = * Temp Corrected Values* ABGTEMP) ABGTEMP (test code = 37.0 ?C ABGTEMP.) pH (T) (test code = 7.313 7.350-7.450 L PHTEMP) pCO2 (T) (test code = 65.4 mmHg 35.0-45.0 HH IMT2USQO) pO2 (T) (test code = 108.0 mmHg 80.0-110.0 WB4QPTV) Device (test code = BIPAP DEVICE) FI02 [...] COMMENT (test code = CO) BASIC METABOLIC [id number] 10:19:00 Test Item Value Reference Range Interpretation [...] (test code = RBCMOR) NORMAL BASIC METABOLIC [id number] 07:12:00 Test Item Value Reference Range Interpretation [...] (test code = RBCMOR) NORMAL BASIC METABOLIC [id number] 05:16:00 Test Item Value Reference Range Interpretation [...] code = 8.3 mg/dL 8.3-9.5 09D) VANCOMYCIN [id number] 05:14:00 Test Item Value Reference Range Interpretation [...] MORPH (test code = RBCMOR) NORMAL URINE [id number] 14:20:00 Test Item Value Reference Range Interpretation Comments Isolate 1 (test code = GRAM NEGATIVE [place] A ISO1) [id number] 06:25:00 Test Item Value Reference Range Interpretation Comments MAGNESIUM (test code = 48A) 1.9 mg/dL 1.8-2.4 BASIC METABOLIC [id number] 06:15:00 Test Item Value Reference Range Interpretation [...] (test code = RBCMOR) NORMAL BASIC METABOLIC [id number] 04:27:00 Test Item Value Reference Range Interpretation [...] (test code = 8.6 mg/dL 8.3-9.5 09D) [id number] 04:19:00 Test Item Value Reference Range Interpretation [...] (test code = MDIFF) NO URINALYSIS WITH [id number] 16:52:00 Test Item Value Reference Range Interpretation [...] code = USPERM) /HPF NONE DRUGS OF [id number] 16:39:00 Test Item Value Reference Range Interpretation [...] 200 ng/mL Opiates 2000 ng/mL Arterial Blood [id number] 15:10:00 Test Item Value Reference Range Interpretation [...] (test code = 87.8 % 94.0-100.0 L [id number]) FCOHb (test code = 1.0 % 0.0-3.0 FCOHBRT) FMetHb (test code = 1.2 % 0.2-0.6 H FMETHBRT) ABGTEMP (test code = * Temp Corrected Values* ABGTEMP) ABGTEMP (test code = 37.0 ?C ABGTEMP.) pH (T) (test code = 7.512 7.350-7.450 H PHTEMP) pCO2 (T) (test code = 54.3 mmHg 35.0-45.0 HH FSH5FWAC) pO2 (T) (test code = 55.1 mmHg 80.0-110.0 LL MB7NCEC) Device (test code = ROOM AIR DEVICE) [...] = SSITE) COMMENT (test code = CO) [id number] 14:55:00 Test Item Value Reference Range Interpretation Comments MAGNESIUM (test code = 48A) 1.3 mg/dL 1.8-2.4 LL COMPREHENSIVE METABOLIC [id number] 14:10:00 Test Item Value Reference Range Interpretation [...] (test code = 31A) 13 IU/L <=78 [id number] 14:08:00 Test Item Value Reference Range Interpretation Comments ACETAMINPH (test code = 94M) <2.0 ug/mL 10.0-30.0 L CARDIAC [id number] 14:08:00 Test Item Value Reference Range Interpretation Comments TROPONIN I (test code = A84) 0.019 ng/mL 0.000-0.045 ALCOHOL BLOOD (ETOH)2019-10-26 14:08:00 Test Item Value Reference Range Interpretation Comments ETOH (test code = HALC) ETHANOL The result is to be used only for medical purposes ALCOHOL (test code = <10 mg/dL <=10 56A) LDH-LACTIC [id number] 14:06:00 Test Item Value Reference Range Interpretation Comments LDH (test code = 33A) 214 IU/L 84-246 C-REACTIVE PROTEIN [id number] 14:02:00 Test Item Value Reference Range Interpretation Comments CRP QUANT (test code <2.9 mg/L 0.0-2.9 = CRPQ) Method Change (test Please note the code = METHOD) change in Method and the reference range [id number] 13:59:00 Test Item Value Reference Range Interpretation [...] the FDA and the [employer] (CAP) are more stringent than those required for this test. Therefore, the result should be interpreted with caution and close attention to other clinical and epidemiological data [id number] 13:55:00 Test Item Value Reference Range Interpretation Comments SALICYLATE (test code = 94B) <1.7 mg/dL 2.8-20.0 L AMMONIA [id number] 13:49:00 Test Item Value Reference Range Interpretation Comments AMMONIA (test code = 54A) 12 umol/L 11-32 PRO TIME AND [id number] 13:47:00 Test Item Value Reference Range Interpretation [...] RBC MORPH (test code = RBCMOR) NORMAL [id number] 10:29:00 Test Item Value Reference Range Interpretation Comments SARS-CoV-2 (test NOT DETECTED NOT DETECTED code = WCOV) COVID-19 (test code Test performed at = [facility]) Reference Laboratory See Original Report Under Medical Record View Tab URINE [id number] 12:38:00 Test Item Value Reference Range Interpretation Comments Culture Observations THREE OR MORE SPECIES (test code = COB1) OF BACTERIA ISOLATED. PROBABLE CONTAMINATION. Culture Observations IDENTIFICATION AND (test code = COB17) SUSCEPTIBILITY NOT INDICATED. RECOLLECTION RECOMMENDED URINALYSIS WITH [id number] 19:14:00 Test Item Value Reference Range Interpretation [...] 95A) 5.8 ug/mL 50.0-100.0 LL COMPREHENSIVE METABOLIC [id number] 06:47:00 Test Item Value Reference Range Interpretation [...] MORPH (test code = RBCMOR) NORMAL T4 [id number] 07:13:00 Test Item Value Reference Range Interpretation Comments T4 FREE (test code = A91) 0.88 ng/dL 0.76-1.46 B12 [id number] 07:02:00 Test Item Value Reference Range Interpretation Comments VIT B12 (test code = A60) 1059.0 pg/mL 180.0-914.0 H [id number] 07:02:00 Test Item Value Reference Range Interpretation Comments FOLATE (test code = A75) 18.5 ng/mL 3.1-17.5 H THYROID PANEL/SCREEN (TSH)2019-07-15 06:59:00 Test Item Value Reference Range Interpretation Comments TSH (test code = A57) 9.160 uIU/mL 0.358-3.740 H [id number] 06:43:00 Test Item Value Reference Range Interpretation Comments PREALBUMIN (test code = 08E) 29 mg/dL 18-38 VALPROIC ACID (DEPAKENE)2019-07-15 06:43:00 Test Item Value Reference Range Interpretation Comments VALP ACID (test code = 95A) 52.6 ug/mL 50.0-100.0 LIPID [id number] 06:37:00 Test Item Value Reference Range Interpretation Comments CHOLESTROL (test code = 44A) 171 mg/dL 140-200 TRIGLYCERI (test code = 42B) 136 mg/dL <=149 HDL (test code = 83D) 50.0 mg/dL 40.0-60.0 LDL (test code = 34B) 100 mg/dL <=99 H CHL/HDL (test code = CHR) 3.4 0.0-3.4 [id number] 06:37:00 Test Item Value Reference Range Interpretation Comments Hb A1C % (test code = HBA) 5.6 % 4.2-6.3 [id number] 06:32:00 Test Item Value Reference Range Interpretation Comments MAGNESIUM (test code = 48A) 1.6 mg/dL 1.8-2.4 L DRUGS OF [id number] 20:05:00 Test Item Value Reference Range Interpretation [...] 200 ng/mL Opiates 2000 ng/mL URINALYSIS WITH [id number] 20:01:00 Test Item Value Reference Range Interpretation [...] code = USPERM) /HPF NONE COMPREHENSIVE METABOLIC [id number] 18:39:00 Test Item Value Reference Range Interpretation [...] (test code = 31A) 12 IU/L <=78 [id number] 18:37:00 Test Item Value Reference Range Interpretation Comments ACETAMINPH (test code = 94M) <2.0 ug/mL 10.0-30.0 L [id number] 18:33:00 Test Item Value Reference Range Interpretation Comments SALICYLATE (test code = 94B) <1.7 mg/dL 2.8-20.0 L TROPONIN [id number] 18:31:00 Test Item Value Reference Range Interpretation Comments TROPONIN I (test code = A84) <0.015 ng/mL 0.000-0.045 PRO TIME AND [id number] 18:30:00 Test Item Value Reference Range Interpretation [...] LMW Heparin. Order Code is ANTI-XA AMMONIA [id number] 18:25:00 Test Item Value Reference Range Interpretation [...]
[2021-05-18 12:49] LABS: Absolute Lymphocytes (CBC) 1.2 K/uL (0.7-4.9); Hematocrit 30.1 % (36.0-45.0); Lymphocytes % 33.6 % (15.3-44.8); MPV 7.2 fL (7.6-11.3); RBC Red Blood Cell Count 2.98 M/uL (3.86-4.86)
[2021-05-18 13:06] LABS: Albumin 2.9 g/dL (3.4-5.0); Bilirubin Total 0.3 mg/dL (0.2-1.0); Potassium 3.3 mmol/L (3.5-5.1)
--- NOTE | 2021-05-18 13:33 | RAD REPORT ---
EXAM DESCRIPTION: CT - Abdomen Pelvis Wo Contrast - 05/18/2021 1:19 pm CLINICAL HISTORY: Abdominal pain. CONSTIPATION COMPARISON: Abdomen Pelvis Wo Contrast dated 12/21/2015 TECHNIQUE: CT imaging of the abdomen and pelvis was performed without contrast. Solid organ, bowel a nd vascular assessment is limited due to lack of IV and oral contrast. All CT scans are performed using dose optimization technique as appropriate and may include automated exposure control or mA/KV adjustment according to patient size. FINDINGS: The lower lung jean are clear.Cholecystectomy. The liver, spleen, pancreas, adrenal glands and kidneys are within normal limits for a limited non-co ntrast examination. There is significant stool retained throughout the colon. Several small bowel loops in the upper abdo men demonstrate ileus like appearance. No free air or abscess. Aortic atherosclerosis. Moderate to advanced lumbar degenerative changes. IMPRESSION: Significant fecal retention is present throughout the colon. A limited non-contrast examination was performed as detailed.
[2021-05-18] MEDS ORDERED: NA CHLORIDE 0.9% 1,000 ML ONE (13:59)
--- NOTE | 2021-05-18 14:01 | EDPHYS ---
Physician Documentation [facility] Name: Julieta Tatum Age: 85 yrs Sex: Female : 1935 Arrival Date: 05/18/2021 Time: 11:40 Bed 4 Private MD: ED Physician Janell Hale HPI: 05/18 13:53 This 85 yrs old Female presents to ER via EMS with complaints of constipation. [facility] 13:53 85-year-old female, was sent here for evaluation of constipation, patient had x-ray at [address] that shows possible constipation. Last bowel movement was yesterday, patient is ANO x2 at baseline, her mentation status is unchanged, patient does not have abdominal pain or any discomfort at this. Historical: - Allergies: 11:45 No Known Allergies; vg1 - Home Meds: 11:45 Amiodarone Oral [Active]; Benztropine Mesylate Oral [Active]; Depakote Oral [Active]; vg1 Eliquis oral [Active]; lactulose Oral [Active]; Lasix Oral [Active]; levothyroxine oral [Active]; Lisinopril Oral [Active]; memantine oral [Active]; Metoprolol Tartrate Oral [Active]; Zofran Oral [Active]; Zofran Oral [Active]; - PMHx: 11:45 Altered Mental Status; Alzheimers; Aphasia; Atrial Fib; Bipolar disorder; COPD; vg1 Schizophrenia; - Immunization history:: Client reports receiving the 2nd dose of the Covid vaccine. - Social history:: Smoking status: Patient denies any tobacco usage or history of. - Family history:: not pertinent. ROS: 13:53 Constitutional: Negative for fever, chills, and weight loss. ma2 13:53 All other systems are negative. Exam: 13:53 Constitutional: This is a well developed, well nourished patient who is awake, alert, ma2 and in no acute distress. Head/Face: Normocephalic, atraumatic. Eyes: Pupils equal round and reactive to light, extra-ocular motions intact. Lids and lashes normal. Conjunctiva and sclera are non-icteric and not injected. Cornea within normal limits. Periorbital areas with no swelling, redness, or edema. ENT: Nares patent. No nasal discharge, no septal abnormalities noted. Tympanic membranes are normal and external auditory canals are clear. Oropharynx with no redness, swelling, or masses, exudates, or evidence of obstruction, uvula midline. Mucous membranes moist. Neck: Trachea midline, no thyromegaly or masses palpated, and no cervical lymphadenopathy. Supple, full range of motion without nuchal rigidity, or vertebral point tenderness. No Meningismus. Chest/axilla: Normal chest wall appearance and motion. Nontender with no deformity. No lesions are appreciated. Cardiovascular: Regular rate and rhythm with a normal S1 and S2. No gallops, murmurs, or rubs. Normal PMI, no JVD. No pulse deficits. Respiratory: Lungs have equal breath sounds bilaterally, clear to auscultation and percussion. No rales, rhonchi or wheezes noted. No increased work of breathing, no retractions or nasal flaring. Abdomen/GI: Soft, non-tender, with normal bowel sounds. No distension or tympany. No guarding or rebound. No evidence of tenderness throughout. Skin: Warm, dry with normal turgor. Normal color with no rashes, no lesions, and no evidence of cellulitis. MS/ Extremity: Pulses equal, no cyanosis. Neurovascular intact. Full, normal range of motion. Neuro: Awake and alert, GCS 15, oriented to person, place, time, and situation. Cranial nerves II-XII grossly intact. Motor strength 5/5 in all extremities. Sensory grossly intact. Cerebellar exam normal. Normal gait. Vital Signs: 11:41 BP 120 / 70; Pulse 62; Resp 17; Temp 97.6(TE); Pulse Ox 99% ; Weight 63.5 kg; Pain 5/10;vg1 12:40 BP 123 / 60; Pulse 62; Resp 16; Pulse Ox 98% on R/A; vg1 13:53 BP 130 / 66; Pulse 63; Resp 16; Pulse Ox 99% on R/A; ld1 MDM: 11:40 Patient medically screened. ma2 14:00 Differential diagnosis: Patient has constipation, however there is no emergent findings ma2 such as ileus or small bowel obstruction, patient is stays at intermediate will prescribe enemas and Colace. Data reviewed: vital signs, nurses notes. Counseling: I had a detailed discussion with the patient and/or guardian regarding: the historical points, exam findings, and any diagnostic results supporting the discharge/admit diagnosis, the presence of at least one elevated blood pressure reading (>120/80) during this emergency department visit, the need for outpatient follow up. Response to treatment: the patient's symptoms have markedly improved after treatment. 05/18 12:18 Order name: CBC with Diff; Complete Time: 13:29 al2 05/18 12:18 Order name: CMP; Complete Time: 13:29 al2 05/18 12:18 Order name: Lipase; Complete Time: 13:29 ma2 05/18 13:13 Order name: Abdomen ; Complete Time: 13:58 EDMS 05/18 14:08 Order name: Urine Dipstick-Ancillary; Complete Time: 14:21 EDNJ 05/18 12:18 Order name: IV Saline Lock; Complete Time: 12:39 ma2 05/18 12:18 Order name: Labs collected and sent; Complete Time: 12:39 al2 05/18 12:18 Order name: Urine Dipstick-Ancillary (obtain specimen); Complete Time: 14:09 ma2 Administered Medications: 14:09 Drug: NS 0.9% 1000 ml Route: IV; Rate: 1 bolus; Site: right wrist; ld1 14:41 Follow up: IV Status: Completed infusion; IV Intake: 1000ml vg1 Disposition Summary: 05/18/21 14:01 Discharge Ordered Location: Home ma2 Condition: Stable ma2 Diagnosis - Constipation ma2 Followup: ma2 - With: Private Physician - When: Tomorrow - Reason: Continuance of care Discharge Instructions: - Discharge Summary Sheet ma2 - Constipation, Adult, Uyne-nb-Bwco ma2 Forms: - Medication Reconciliation Form ma2 - Thank You Letter ma2 - Antibiotic Education ma2 - Prescription Opioid Use ma2 Prescriptions: - Fleet Glycerin (Adult) - take 2 vial by RECTAL route 3-4 times daily; 10 vial; Refills: 0, Product ma2 Selection Permitted - Colace 100 mg Oral Tablet - take 1 tablet by ORAL route every 12 hours; 14 tablet; Refills: 0, Product ma2 Selection Permitted Signatures: [facility] Janell Hale MD MD ma2 Ruby Fuentes RN RN vg1 Jasmina Smith RN RN ld1 Corrections: (The following items were deleted from the chart) :13 12:21 Abdomen Pelvis W Con+CT.RAD.BRZ ordered. EDMS EDMS
--- NOTE | 2021-05-18 14:01 | ER ---
Nurse's Notes [facility] Name: Julieta Tatum Age: 85 yrs Sex: Female : 1935 Arrival Date: 05/18/2021 Time: 11:40 Bed 4 Private MD: Diagnosis: Constipation Presentation: 05/18 11:41 Chief complaint: EMS states: Pt is from [facility] c/o ABD pain with NV x2 vg1 days. Coronavirus screen: Vaccine status: Patient reports receiving the 2nd dose of the covid vaccine. Client denies travel out of the [place] in the last 14 days. Ebola Screen: Patient negative for fever greater than or equal to 101.5 degrees Fahrenheit, and additional compatible Ebola Virus Disease symptoms. Initial Sepsis Screen: Does the patient meet any 2 criteria? No. Patient's initial sepsis screen is negative. Does the patient have a suspected source of infection? No. Patient's initial sepsis screen is negative. Risk Assessment: Do you want to hurt yourself or someone else? Patient reports no desire to harm self or others. Onset of symptoms was May 16, 2021. 11:41 Method Of Arrival: EMS: [facility] vg1 11:41 Acuity: MARIO 3 vg1 Triage Assessment: 11:45 General: Appears in no apparent distress. comfortable, Behavior is calm, cooperative. vg1 Pain: Complains of pain in abdomen Pain currently is 5 out of 10 on a pain scale. Pain began 2-3 days ago. EENT: No signs and/or symptoms were reported regarding the EENT system. Neuro: Level of Consciousness is awake, alert, obeys commands, Oriented to person, situation. Cardiovascular: Patient's skin is warm and dry. Respiratory: Airway is patent Respiratory effort is even, unlabored. GI: Abdomen is round non-distended, Abdomen is tender to palpation in right lower quadrant and left lower quadrant. : No signs and/or symptoms were reported regarding the genitourinary system. Derm: Skin is intact, Skin is pink, warm \T\ dry. Musculoskeletal: Circulation, motion, and sensation intact. Historical: - Allergies: 11:45 No Known Allergies; vg1 - Home Meds: 11:45 Amiodarone Oral [Active]; Benztropine Mesylate Oral [Active]; Depakote Oral [Active]; vg1 Eliquis oral [Active]; lactulose Oral [Active]; Lasix Oral [Active]; levothyroxine oral [Active]; Lisinopril Oral [Active]; memantine oral [Active]; Metoprolol Tartrate Oral [Active]; Zofran Oral [Active]; Zofran Oral [Active]; - PMHx: 11:45 Altered Mental Status; Alzheimers; Aphasia; Atrial Fib; Bipolar disorder; COPD; vg1 Schizophrenia; - Immunization history:: Client reports receiving the 2nd dose of the Covid vaccine. - Social history:: Smoking status: Patient denies any tobacco usage or history of. - Family history:: not pertinent. Screenin:50 Abuse screen: Denies threats or abuse. Nutritional screening: No deficits noted. vg1 Tuberculosis screening: No symptoms or risk factors identified. Fall Risk Fall in past 12 months (25 points). No secondary diagnosis (0 pts). IV access (20 points). Ambulatory Aid- None/Bed Rest/Nurse Assist (0 pts). Gait- Normal/Bed Rest/Wheelchair (0 pts) Mental Status- Oriented to own ability (0 pts). Total Rivera Fall Scale indicates No Risk (0-24 pts). Assessment: 11:50 Reassessment: SEE TRIAGE. vg1 12:40 Reassessment: Patient appears in no apparent distress at this time. No changes from vg1 previously documented assessment. Patient and/or family updated on plan of care and expected duration. Pain level reassessed. Patient is alert, oriented x 3, equal unlabored respirations, skin warm/dry/pink. 13:53 Reassessment: Patient appears in no apparent distress at this time. Patient and/or ld1 family updated on plan of care and expected duration. Pain level reassessed. Patient is alert, oriented x 3, equal unlabored respirations, skin warm/dry/pink. 14:15 Reassessment: Contacted [facility] to give report to receiving, was told vg1 nurse was at lunch and to call back within an hour. Vital Signs: 11:41 BP 120 / 70; Pulse 62; Resp 17; Temp 97.6(TE); Pulse Ox 99% ; Weight 63.5 kg; Pain 5/10;vg1 12:40 BP 123 / 60; Pulse 62; Resp 16; Pulse Ox 98% on R/A; vg1 13:53 BP 130 / 66; Pulse 63; Resp 16; Pulse Ox 99% on R/A; ld1 ED Course: 11:40 Patient arrived in ED. vg1 11:40 Janell Hale MD is Attending Physician. ma2 11:45 Triage completed. vg1 11:45 Arm band placed on. vg1 11:50 Patient has correct armband on for positive identification. Bed in low position. Call vg1 light in reach. Side rails up X2. 12:23 Ruby Fuentes, RN is Primary Nurse. vg1 12:35 Initial lab(s) drawn, by me, sent to lab. Inserted saline lock: 22 gauge in right vg1 forearm, using aseptic technique. Blood collected. 12:40 No provider procedures requiring assistance completed. vg1 13:19 Abdomen In Process Unspecified. EDMS 14:41 IV discontinued, intact, bleeding controlled, No redness/swelling at site. Pressure vg1 dressing applied. Administered Medications: 14:09 Drug: NS 0.9% 1000 ml Route: IV; Rate: 1 bolus; Site: right wrist; ld1 14:41 Follow up: IV Status: Completed infusion; IV Intake: 1000ml vg1 Intake: 14:41 IV: 1000ml; Total: 1000ml. vg1 Outcome: 14:01 Discharge ordered by . ma2 14:39 Discharged to [facility] with EMS vg1 14:39 Condition: good 14:39 Discharge instructions given to patient, EMS, Instructed on discharge instructions, follow up and referral plans. medication usage, Demonstrated understanding of instructions, follow-up care, medications, Prescriptions given X 2. 14:41 Patient left the ED. vg1 Signatures: Dispatcher [employer] EDMS Janell Hale MD MD ma2 Ruby Fuentes, RN RN vg1 Jasmina Smith, RN RN ld1
[2021-05-18 14:08] LABS: Urine Blood Negative (Negative); Urine Glucose Negative (Negative); Urine Protein Negative (Negative); Urine Specific Gravity 1.015 (1.005-1.030)
[2021-05-18 15:01] VITALS: TEMP 97.6
[2021-05-18 15:03] VITALS: BP 130/66; O2SAT 99
== END 2021-05-18 14:41 | disposition home or self-care (01) ==
LOC: ER 11:37
DX: K59.00 Constipation, unspecified (principal); G30.9 Alzheimer's disease, unspecified; F02.80 Dementia in other diseases classified elsewhere, unspecified severity, without behavioral disturbance, psychotic disturbance, mood disturbance, and anxiety; F20.9 Schizophrenia, unspecified; I48.91 Unspecified atrial fibrillation; Z79.01 Long term (current) use of anticoagulants
CPT/HCPCS: 85025; 36415; 81003; 83690; 80053; 74176; 96360; 99284; J7030

== ENCOUNTER 2021-09-29 10:20 | Emergency (ER) | payer OTHER ==
[2021-09-29 11:20] LABS: Absolute Lymphocytes (CBC) 1.1 K/uL (0.7-4.9); Hematocrit 33.6 % (36.0-45.0); Lymphocytes % 17.7 % (15.3-44.8); MCV 100.7 fL (80-100); MPV 7.8 fL (7.6-11.3); RBC Red Blood Cell Count 3.34 M/uL (3.86-4.86)
[2021-09-29 11:22] LABS: Protime INR 0.99
[2021-09-29 11:41] LABS: Potassium 4.5 mmol/L (3.5-5.1)
--- NOTE | 2021-09-29 12:24 | RAD REPORT ---
EXAM DESCRIPTION: RAD - Hip Right 2 View - 09/29/2021 11:17 am CLINICAL HISTORY: Right hip pain FINDINGS: Marked osteoarthritis right hip. Osteoporosis. No dislocation Sclerosis involving the subcapital femur. This is equivocal for a fracture. Further evaluation with M RI or CT could be obtained
--- NOTE | 2021-09-29 13:39 | RAD REPORT ---
EXAM DESCRIPTION: CT - Pelvis Wo Cont - 09/29/2021 1:17 pm CLINICAL HISTORY: Pelvic pain status post fall COMPARISON: X-ray same date TECHNIQUE: Computed axial tomography of the pelvis was obtained. Coronal and sagittal reconstruction performed All CT scans are performed using dose optimization technique as appropriate and may include automated exposure control or mA/KV adjustment according to patient size. FINDINGS: The bones are osteoporotic. Mildly displaced comminuted fracture right superior pubic ramus. Minimally displaced fracture right ilium near the SI joint. Femoral fracture not seen. Marked osteoarthritis hips. Ankylosing spondylitis SI joints IMPRESSION: Mildly displaced comminuted fracture right superior pubic ramus. Minimally displaced fracture right ilium near the SI joint.
--- NOTE | 2021-09-29 14:20 | EDPHYS ---
Physician Documentation [facility] Name: Julieta Tatum Age: 86 yrs Sex: Female : 1935 Arrival Date: 09/29/2021 Time: 10:22 Bed 25 Private MD: ED Physician Shyanne Camara HPI: 09/29 10:26 This 86 yrs old Female presents to ER via Unassigned with complaints of R hip fracture. sd2 10:26 . sd2 10:29 86-year-old female presents via EMS from [facility] with chief complaint of right sd2 hip fracture. They report they have an x-ray that was done today confirming a right hip fracture without displacement. The report was not sent with the patient. The patient has fallen 3 times in the past 9 days, the first time on the and 2 more times on the and the of this month. The patient has dementia and is otherwise at her baseline report. Patient denies any areas of pain initially but with movement of the right hip and palpation of the area does endorse pain.. Historical: - Home Meds: 10:27 Amiodarone Oral [Active]; Benztropine Mesylate Oral [Active]; Depakote Oral [Active]; meredith Eliquis Oral [Active]; Lactulose Oral [Active]; Lasix Oral [Active]; levothyroxine oral [Active]; lisinopril Oral [Active]; memantine Oral [Active]; Metoprolol Tartrate Oral [Active]; Zofran Oral [Active]; - PMHx: 10:27 Altered Mental Status; Alzheimers; Aphasia; Atrial Fib; Bipolar disorder; COPD; meredith Schizophrenia; - Immunization history:: Adult Immunizations up to date. - Social history:: Smoking status: Patient denies any tobacco usage or history of. ROS: 10:29 Constitutional: Negative for fever, chills, and weight loss, Cardiovascular: Negative sd2 for chest pain, palpitations, and edema, Respiratory: Negative for shortness of breath, cough, wheezing. Abdomen/GI: Negative for abdominal pain, nausea, vomiting, diarrhea. MS/Extremity: Negative for injury and deformity, Skin: Negative for injury, rash, and discoloration, Neuro: Negative for headache, numbness and tingling. Exam: 10:29 Constitutional: This is a well developed, well nourished patient who is awake, alert, sd2 and in no acute distress. Head/Face: Normocephalic, atraumatic. Eyes: EOMI, normal conjunctiva bilaterally Cardiovascular: Regular rate and rhythm with a normal S1 and S2. No gallops, murmurs, or rubs. 2+ distal pulses. Respiratory: Lungs have equal breath sounds bilaterally, clear to auscultation and percussion. No rales, rhonchi or wheezes noted. No increased work of breathing, no retractions or nasal flaring. Abdomen/GI: Soft, non-tender, with normal bowel sounds. No guarding or rebound. No evidence of tenderness throughout. Back: No spinal tenderness. No costovertebral tenderness. Full range of motion. Skin: Warm, dry with normal turgor. Normal color with no rashes, no lesions, and no evidence of cellulitis. MS/ Extremity: Pulses equal, no cyanosis. Neurovascular intact. Full, normal range of motion of all extremities except limited flexion of R hip 2/2 pain. TTP of R inguinal crease. Psych: Pt is at her baseline. Oriented to person. Vital Signs: 10:22 BP 120 / 77; Pulse 85; Resp 18; Temp 97.6; Pulse Ox 99% on 4 lpm NC; Weight 54.43 kg; mb7 Height 5 ft. 3 in. (160.02 cm); 13:57 BP 125 / 62; Pulse 79; Resp 16; Pulse Ox 100% on R/A; meredith 10:22 Body Mass Index 21.26 (54.43 kg, 160.02 cm) [facility] MDM: 10:26 Patient medically screened. sd2 10:29 Differential diagnosis: closed head injury, extremity fracture, C spine fracture, T sd2 spine fracture, among others. Data reviewed: vital signs, nurses notes. 15:16 Counseling: I had a detailed discussion with the patient and/or guardian regarding: the sd2 historical points, exam findings, and any diagnostic results supporting the discharge/admit diagnosis, radiology results, the need for outpatient follow up, to return to the emergency department if symptoms worsen or persist or if there are any questions or concerns that arise at home. Medical screen evaluation completed. EMTALA emergency medical condition absent. ED course: Labs and imaging reviewed. XR equivocal for fracture. CT pelvis with comminuted superior pubic rami fracture and ilium fracture. Discussed case with Dr. Dawkins, Orthopedics, at [facility] in [place], [place], who does not recommend transfer. States nonoperative management and WBAT with plan for [facility] back to [facility] with pain control. NH advised of plan. . 09/29 10:27 Order name: CBC with Diff; Complete Time: 11:42 sd2 09/29 10:27 Order name: BMP; Complete Time: 11:42 09/29 10:27 Order name: PT-INR; Complete Time: 11:42 sd2 09/29 10:27 Order name: Ptt, Activated; Complete Time: 11:42 09/29 10:27 Order name: XRAY Hip RIGHT 2 view; Complete Time: 12:37 sd09/29 10:38 Order name: IV Saline Lock; Complete Time: 10:50 mb7 09/29 12:38 Order name: CT Pelvis wo Cont; Complete Time: 13:49 sd2 Administered Medications: No medications were administered Disposition Summary: 09/29/21 14:19 Discharge Ordered Location: [facility]-Way sd2 Problem: new sd2 Symptoms: are unchanged sd2 Condition: Stable sd2 Diagnosis - Superior pubic rami fracture sd2 - Right superior pubic rami fracture sd2 - Closed right ilium fracture sd2 Followup: sd2 - With: Private Physician - When: 2 - 3 days - Reason: Recheck today's complaints, Continuance of care, Re-evaluation by your physician Followup: sd2 - With: Emergency Department - When: As needed - Reason: Discharge Instructions: - Discharge Summary Sheet sd2 - Hip Fracture sd2 Forms: - Medication Reconciliation Form sd2 - Thank You Letter sd2 - Antibiotic Education sd2 - Prescription Opioid Use sd2 Prescriptions: - Tramadol 50 mg Oral Tablet - take 1 tablet by ORAL route every 6 hours as needed; 12 tablet; Refills: 0, sd2 Product Selection Permitted Signatures: Dispatcher [employer] Cecille Curiel mb7 Uma Mcdowell RN RN ha Dunlop, Stephanie, MD MD sd2
--- NOTE | 2021-09-29 14:20 | ER ---
Nurse's Notes [facility] Name: Julieta Tatum Age: 86 yrs Sex: Female : 1935 Arrival Date: 09/29/2021 Time: 10:22 Bed 25 Private MD: Diagnosis: Superior pubic rami fracture;Right superior pubic rami fracture;Closed right ilium fracture Presentation: 09/29 10:26 Chief complaint: EMS states: pt coming from [facility]. pt had fall on August and 28. facility portable xray confirmed right hip fracture without displacement. Coronavirus screen: Vaccine status: Patient reports receiving the 2nd dose of the covid vaccine. Ebola Screen: Patient denies travel to an Ebola-affected area in the 21 days before illness onset. Initial Sepsis Screen: Does the patient meet any 2 criteria? No. Patient's initial sepsis screen is negative. Does the patient have a suspected source of infection? No. Patient's initial sepsis screen is negative. Risk Assessment: Do you want to hurt yourself or someone else? Patient reports no desire to harm self or others. Onset of symptoms was September 26, 2021. 10:26 Method Of Arrival: EMS: [facility] meredith 10:26 Acuity: MARIO 3 meredith Triage Assessment: 10:27 General: Appears in no apparent distress. Pain: Denies pain. meredith 10:29 General: Behavior is calm. meredith Historical: - Home Meds: 10:27 Amiodarone Oral [Active]; Benztropine Mesylate Oral [Active]; Depakote Oral [Active]; meredith Eliquis Oral [Active]; Lactulose Oral [Active]; Lasix Oral [Active]; levothyroxine oral [Active]; lisinopril Oral [Active]; memantine Oral [Active]; Metoprolol Tartrate Oral [Active]; Zofran Oral [Active]; - PMHx: 10:27 Altered Mental Status; Alzheimers; Aphasia; Atrial Fib; Bipolar disorder; COPD; meredith Schizophrenia; - Immunization history:: Adult Immunizations up to date. - Social history:: Smoking status: Patient denies any tobacco usage or history of. Screenin:28 Abuse screen: Denies threats or abuse. Denies injuries from another. Nutritional meredith screening: No deficits noted. Tuberculosis screening: No symptoms or risk factors identified. Fall Risk Secondary diagnosis (15 points) Alzheimer's, impaired mobility, Gait- Impaired (20 pts.). Mental Status- Overestimates/Forgets Limitations (15 pts.). Assessment: 10:56 General: Appears in no apparent distress. Behavior is calm, cooperative. Pain: meredith Complains of pain in right hip. Musculoskeletal: Range of motion: limited in right hip Reports. Vital Signs: 10:22 BP 120 / 77; Pulse 85; Resp 18; Temp 97.6; Pulse Ox 99% on 4 lpm NC; Weight 54.43 kg; mb7 Height 5 ft. 3 in. (160.02 cm); 13:57 BP 125 / 62; Pulse 79; Resp 16; Pulse Ox 100% on R/A; meredith 10:22 Body Mass Index 21.26 (54.43 kg, 160.02 cm) mb7 ED Course: 10:22 Patient arrived in ED. ss 10:23 Patient has correct armband on for positive identification. Bed in low position. Call mb7 light in reach. Side rails up X 1. Door closed. Noise minimized. Warm blanket given. Client placed on continuous cardiac and pulse oximetry monitoring. NIBP monitoring applied. 10:25 Uma Mcdowell, RN is Primary Nurse. meredith 10:26 Shyanne Camara MD is Attending Physician. sd2 10:27 Triage completed. meredith 10:27 Arm band placed on. meredith 10:28 No provider procedures requiring assistance completed. meredith 10:50 Ptt, Activated Sent. mb7 10:50 CBC with Diff Sent. mb7 10:50 BMP Sent. mb7 10:50 PT-INR Sent. mb7 10:50 Inserted saline lock: 20 gauge in left antecubital area, using aseptic technique. Blood mb7 collected. 11:19 XRAY Hip RIGHT 2 view In Process Unspecified. EDMS 13:19 CT Pelvis wo Cont In Process Unspecified. EDMS 13:55 initiated a transfer with JOZEF Rangel from the [facility] Transfer Jal/. eb 14:[address] Lal the orthopedic emissions repair technician for [facility] with Dr. Camara for eb patient transfer consultation. 14:47 IV discontinued, intact, bleeding controlled, No redness/swelling at site. Pressure ss dressing applied. Administered Medications: No medications were administered Medication: 10:29 VIS not applicable for this client. meredith Outcome: 14:19 Discharge ordered by . [email or web address] 14:47 Discharged to [facility]. Transfer form completed. 14:47 Condition: good 14:47 Discharge instructions given to patient, EMS, Instructed on discharge instructions, follow up and referral plans. medication usage, Demonstrated understanding of instructions, follow-up care, Prescriptions given X 2. 14:52 Patient left the ED. eb Signatures: Dispatcher [employer] EDNM Joanie Sun RN RN ss Botello, Elizabeth eb Breneman, Mary mb7 Tiny-StageUma calvert RN RN ha Dunlop, Stephanie, MD MD sd2
[2021-09-29 15:26] VITALS: TEMP 97.6
[2021-09-29 15:29] VITALS: BP 125/62; O2SAT 100
== END 2021-09-29 14:52 ==
LOC: ER 10:20
DX: S32.511A Fracture of superior rim of right pubis, initial encounter for closed fracture (principal); S32.391A Other fracture of right ilium, initial encounter for closed fracture; J44.9 Chronic obstructive pulmonary disease, unspecified; G30.9 Alzheimer's disease, unspecified; F02.80 Dementia in other diseases classified elsewhere, unspecified severity, without behavioral disturbance, psychotic disturbance, mood disturbance, and anxiety; I48.91 Unspecified atrial fibrillation; F20.9 Schizophrenia, unspecified; Z79.01 Long term (current) use of anticoagulants
CPT/HCPCS: 36415; 72192; 80048; 85025; 85610; 85730; 99284

== ENCOUNTER 2021-10-03 08:19 | Emergency (ER) | payer OTHER ==
--- OUTSIDE RECORDS SUMMARY | 2021-10-03 08:25 | XMS REPORT | Continuity of Care Document ---
:1935 Author Organization [facility] t Address [address] [place] [address] [address]. [address] [place] [address] Care Team Providers Name Role Phone GC_BAHC_Todd_J Attending Clinician Unavailable Helen Collado Attending Clinician [phone] Reji Griffin Attending Clinician [phone] NavyaJune Attending Clinician [phone] GC_BAHC_Spangler_G Attending Clinician Unavailable Nella Attending Clinician Unavailable DR MORRO MONTANO Attending Clinician Unavailable DR ABBEY GARCIA Attending Clinician Unavailable GC_BAHC_Todd_J Admitting Clinician Unavailable GC_BAHC_Spangler_G Admitting Clinician Unavailable Emilie_Desirae Admitting Clinician Unavailable DR MORRO MONTANO Admitting Clinician Unavailable DR ABBEY GARCIA Admitting Clinician Unavailable Payers Payer Name Policy Type Policy Number Effective Date Expiration Date S [place] [facility] - MEDICARE [id number] 2021 COMPLETE (MEDICARE 00:00:00 REPLACEMENT HMO) Problems This patient has no known problems. Allergies, Adverse Reactions, Alerts Allergy Allergy Status Severity Reaction(s) Onset Inactive Treating Comm ents Source Name Type Date Date Clinician No Known DA Active [facility] All[facility]ie Center s Medications This patient has no known [...] PERQ Center ULTRASONOGRAPHY SUP VENA 2019-11-05 00:00:00 [facility] Medical CAVA GUID Center FLUORO SUPERIOR VENA CAVA 2019-11-05 00:00:00 [facility] GUIDANCE Center Encounters Start End Encounter Admission Attending Care Care Encounter Source Date/Time Date/Time Type Type Clinicians Facility Department ID 2021-10-02 2021-10-02 Outpatient GC_BA[facility]_Tod PRIV PRIV [id number] [facility] 00:00:00 00:00:00 d_J [id number] Medica l 2021-09-28 2021-09-28 Outpatient GC_BAHC_Tod PRIV PRIV [id number] [facility] 00:00:00 00:00:00 d_J [id number] Medica l 2021-09-18 2021-09-18 Outpatient GC_BAHC_Tod PRIV PRIV [id number] [facility] 12:03:00 12:03:00 d_J [id number] Medica l 2021-09-11 2021-09-11 Outpatient GC_BAHC_Tod PRIV PRIV [id number] [facility] 01:51:00 01:51:00 d_J [id number] Medica l 2021-09-11 2021-09-11 Outpatient Tobias, PRIV PRIV [id number] 00:00:00 00:00:00 Helen [id number] 2021-09-09 2021-09-09 Outpatient GC_BA[facility]_Tod PRIV PRIV [id number] [facility] 11:00:00 11:00:00 d_J [id number] Medica l 2021-08-31 2021-08-31 Outpatient GC_BAHC_Tod PRIV PRIV 239 [id number] [facility] 04:11:00 04:11:00 d_J [id number] Medica l 2021-08-31 2021-08-31 Outpatient Tobias, PRIV PRIV [id number] [id number] 00:00:00 00:00:00 Helen [id number] 2021-08-24 2021-08-24 Outpatient GC_BA[facility]_Tod PRIV PRIV 239 [id number] [facility] :50:00 04:50:00 d_J [id number] Medica l 2021-08-16 2021-08-16 Outpatient GC_BAHC_Tod PRIV PRIV 239 [id number] [facility] 10:50:00 10:50:00 d_J [id number] Medica l 2021-08-16 2021-08-16 Outpatient Gaby, PRIV PRIV [id number] 00:00:00 00:00:00 Reji Tran [id number] 2021-08-13 2021-08-13 Outpatient GC_BA[facility]_Tod PRIV PRIV 239 [id number] [facility] 11:24:00 11:24:00 d_J [id number] Medica l 2021-08-07 2021-08-07 Outpatient GC_BAHC_Tod PRIV PRIV [id number] [facility] 07:18:00 07:18:00 d_J [id number] Medica l 2021-08-07 2021-08-07 Outpatient Tobias, PRIV PRIV [id number] 00:00:00 00:00:00 Helen [id number] 2021-07-30 2021-07-30 Outpatient GC_BA[facility]_Tod PRIV PRIV 239 [id number] [facility] 10:43:00 10:43:00 d_J [id number] Medica l 2021-07-27 2021-07-27 Outpatient GC_BAHC_Tod PRIV PRIV 239 [id number] [facility] 04:52:00 04:52:00 d_J [id number] Medica l 2021-07-20 2021-07-20 Outpatient GC_BAHC_Tod PRIV PRIV 239 [id number] [facility] 12:32:00 12:32:00 d_J [id number] Medica l 2021-07-20 2021-07-20 Outpatient Tobias, PRIV PRIV [id number] 00:00:00 00:00:00 Helen [id number] 2021-07-08 2021-07-08 Outpatient GC_BAHC_Tod PRIV PRIV 239 [id number] [facility] 10:46:00 10:46:00 d_J [id number] Medica l 2021-07-01 2021-07-01 Outpatient GC_BAHC_Tod PRIV PRIV 239 [id number] [facility] 10:44:00 10:44:00 d_J [id number] Medica l 2021-06-29 2021-06-29 Outpatient GC_BAHC_Tod PRIV PRIV 239 [id number] [facility] 08:40:00 08:40:00 d_J [id number] Medica l 2021-06-29 2021-06-29 Outpatient Tobias, PRIV PRIV [id number] 00:00:00 00:00:00 Helen [id number] 2021-06-22 Outpatient GC_BA[facility]_Tod PRIV PRIV [id number] [facility] 09:06:00 09:06:00 d_J [id number] Medica l 2021-06-22 2021-06-22 Outpatient Tobias, PRIV PRIV [id number] 00:00:00 00:00:00 Helen [id number] 2021-06-21 2021-06-21 Outpatient GC_BA[facility]_Tod PRIV PRIV [id number] [facility] 08:48:00 08:48:00 d_J [id number] Medica l 2021-06-21 2021-06-21 Outpatient Gaby, PRIV PRIV [id number] 00:00:00 00:00:00 Reji Marc [id number] 2021-06-15 2021-06-15 Outpatient GC_BAHC_Tod PRIV PRIV [id number] [facility] 02:11:00 02:11:00 d_J [id number] Medica l 2021-06-14 2021-06-14 Outpatient GC_BAHC_Tod PRIV PRIV [id number] [facility] 06:30:00 06:30:00 d_J [id number] Medica l 2021-06-14 2021-06-14 Outpatient Navya, PRIV PRIV [id number] 00:00:00 00:00:00 June [id number] 2021-06-13 2021-06-13 Outpatient GC_BAHC_Tod PRIV PRIV [id number] [facility] 12:05:00 12:05:00 dEffie [id number] Medica l 2021-06-11 2021-06-11 Outpatient GC_BAHC_Spa PRIV PRIV [id number] [facility] 10:27:00 10:27:00 ngler_G [id number] Medica l 2021 2021 Outpatient GC_BAHC_Spa PRIV PRIV [id number] [facility] 05:54:00 05:54:00 ngler_G [id number] Medica l 2020-04-05 2020-04-05 Outpatient Shani_T VFP VFP [id number] [facility] 11:48:00 11:48:00 [id number] [facility] Pract[facility] e 2019-10-26 2019-11-05 Inpatient E CHARMAINE, [facility] [place] [id number] [facility] 15:52:00 17:44:00 M[facility]RO [facility] [place] 2019-07-14 2019-07-29 Inpatient E RADHA, [facility] [place]U [id number] [facility] 21:04:00 17:00:00 [facility] Results Test Description Test Time Test [...] (test code = RBCMOR) NORMAL BASIC METABOLIC [id number] 08:10:00 Test Item Value Reference Range Interpretation [...] (test code = RBCMOR) NORMAL BASIC METABOLIC [id number] 05:36:00 Test Item Value Reference Range Interpretation [...] (test code = RBCMOR) NORMAL HEMOGLOBIN & [id number] 18:56:00 Test Item Value Reference Range Interpretation Comments HGB (test code = HBG) 10.4 g/dL 12.0-15.5 L HCT (test code = HCT) 32.6 % 35.0-44.0 L TROPONIN [id number] 11:11:00 Test Item Value Reference Range Interpretation Comments TROPONIN I (test code = A84) 0.041 ng/mL 0.000-0.045 HEMOGLOBIN & [id number] 10:54:00 Test Item Value Reference Range Interpretation Comments HGB (test code = HBG) 11.0 g/dL 12.0-15.5 L HCT (test code = HCT) 33.7 % 35.0-44.0 L CBC WITH [id number] 07:42:00 Test Item Value Reference Range Interpretation [...] = STOM) 1+ NONE A BASIC METABOLIC [id number] 07:21:00 Test Item Value Reference Range Interpretation [...] 9.9 mg/dL 8.3-9.5 H 09D) HEMOGLOBIN & [id number] 01:50:00 Test Item Value Reference Range Interpretation Comments HGB (test code = HBG) 11.4 g/dL 12.0-15.5 L HCT (test code = HCT) 35.0 % 35.0-44.0 HEMOGLOBIN & [id number] 18:44:00 Test Item Value Reference Range Interpretation [...] (test code = RBCMOR) NORMAL BASIC METABOLIC [id number] 07:12:00 Test Item Value Reference Range Interpretation [...] = 9.2 mg/dL 8.3-9.5 09D) HEMOGLOBIN & [id number] 00:57:00 Test Item Value Reference Range Interpretation Comments HGB (test code = HBG) 11.8 g/dL 12.0-15.5 L HCT (test code = HCT) 37.4 % 35.0-44.0 BLOOD [id number] 21:24:00 Test Item Value Reference Range Interpretation Comments Culture Observations (test NO GROWTH AFTER 5 code = COB1) DAYS BLOOD [id number] 21:24:00 Test Item Value Reference Range Interpretation Comments Culture Observations (test NO GROWTH AFTER 5 code = COB1) DAYS Arterial Blood [id number] 18:48:00 Test Item Value Reference Range Interpretation [...] FO2Hb (test code = 96.4 % 94.0-100.0 TO8FKBM) FCOHb (test code = 0.4 % 0.0-3.0 FCOHBRT) FMetHb (test code = 1.5 % 0.2-0.6 H FMETHBRT) ABGTEMP (test code = * Temp Corrected Values* ABGTEMP) ABGTEMP (test code = 37.0 ?C ABGTEMP.) pH (T) (test code = 7.333 7.350-7.450 L PHTEMP) pCO2 (T) (test code = 69.0 mmHg 35.0-45.0 HH JJV1VLCP) pO2 (T) (test code = 146.0 mmHg 80.0-110.0 H FL1XYKQ) Device (test code = BIPAP DEVICE) FI02 [...] COMMENT (test code = CO) Arterial Blood [id number] 16:04:00 Test Item Value Reference Range Interpretation [...] FO2Hb (test code = 95.1 % 94.0-100.0 AL1ZMHV) FCOHb (test code = 0.8 % 0.0-3.0 FCOHBRT) FMetHb (test code = 1.1 % 0.2-0.6 H FMETHBRT) ABGTEMP (test code = * Temp Corrected Values* ABGTEMP) ABGTEMP (test code = 37.0 ?C ABGTEMP.) pH (T) (test code = 7.313 7.350-7.450 L PHTEMP) pCO2 (T) (test code = 65.4 mmHg 35.0-45.0 HH SDF3LAUD) pO2 (T) (test code = 108.0 mmHg 80.0-110.0 ZP4AUSI) Device (test code = BIPAP DEVICE) FI02 [...] COMMENT (test code = CO) BASIC METABOLIC [id number] 10:19:00 Test Item Value Reference Range Interpretation [...] (test code = RBCMOR) NORMAL BASIC METABOLIC [id number] 07:12:00 Test Item Value Reference Range Interpretation [...] (test code = RBCMOR) NORMAL BASIC METABOLIC [id number] 05:16:00 Test Item Value Reference Range Interpretation [...] code = 8.3 mg/dL 8.3-9.5 09D) VANCOMYCIN [id number] 05:14:00 Test Item Value Reference Range Interpretation [...] MORPH (test code = RBCMOR) NORMAL URINE [id number] 14:20:00 Test Item Value Reference Range Interpretation Comments Isolate 1 (test code = GRAM NEGATIVE [place] A ISO1) [id number] 06:25:00 Test Item Value Reference Range Interpretation Comments MAGNESIUM (test code = 48A) 1.9 mg/dL 1.8-2.4 BASIC METABOLIC [id number] 06:15:00 Test Item Value Reference Range Interpretation [...] (test code = RBCMOR) NORMAL BASIC METABOLIC [id number] 04:27:00 Test Item Value Reference Range Interpretation [...] (test code = 8.6 mg/dL 8.3-9.5 09D) [id number] 04:19:00 Test Item Value Reference Range Interpretation [...] (test code = MDIFF) NO URINALYSIS WITH [id number] 16:52:00 Test Item Value Reference Range Interpretation [...] code = USPERM) /HPF NONE DRUGS OF [id number] 16:39:00 Test Item Value Reference Range Interpretation Comments DRUG SCRN (test code = URINE DRUG HDOA) SCREEN This is an unconfirmed screening result and should not be used for non-medical purposes CANNABINOD (test code Negative NEGATIVE = 88C) AMPHETAMINE (test code Negative NEGATIVE = 84A) BENZODIAZP (test code Negative NEGATIVE = 86A) BARBITURAT (test code Negative NEGATIVE = 85A) OPIATES (test code = Negative NEGATIVE 92B) COCAINE (test code = Negative NEGATIVE 87A) PHENCYCLID (test code Negative NEGATIVE = 66A) METHADONE (test code = Negative NEGATIVE 64A) DOAH (test code = DOAH.) URINE DRUG SCREEN Cut-off values are as follows: Cannabinoids 50 ng/mL Cocaine 300 ng/mL Amphetamines 1000 ng/mL Phencyclidine 25 ng/mL Benzodiazepines 200 ng.mL Methadone 300 ng/mL Barbiturates 200 ng/mL Opiates 2000 ng/mL Arterial Blood [id number] 15:10:00 Test Item Value Reference Range Interpretation [...] (test code = 87.8 % 94.0-100.0 L KT9QTIM) FCOHb (test code = 1.0 % 0.0-3.0 FCOHBRT) FMetHb (test code = 1.2 % 0.2-0.6 H FMETHBRT) ABGTEMP (test code = * Temp Corrected Values* ABGTEMP) ABGTEMP (test code = 37.0 ?C ABGTEMP.) pH (T) (test code = 7.512 7.350-7.450 H PHTEMP) pCO2 (T) (test code = 54.3 mmHg 35.0-45.0 HH JYA6BUME) pO2 (T) (test code = 55.1 mmHg 80.0-110.0 LL SG0ERQK) Device (test code = ROOM AIR DEVICE) [...] = SSITE) COMMENT (test code = CO) [id number] 14:55:00 Test Item Value Reference Range Interpretation Comments MAGNESIUM (test code = 48A) 1.3 mg/dL 1.8-2.4 LL COMPREHENSIVE METABOLIC [id number] 14:10:00 Test Item Value Reference Range Interpretation [...] (test code = 31A) 13 IU/L <=78 [id number] 14:08:00 Test Item Value Reference Range Interpretation Comments ACETAMINPH (test code = 94M) <2.0 ug/mL 10.0-30.0 L CARDIAC [id number] 14:08:00 Test Item Value Reference Range Interpretation Comments TROPONIN I (test code = A84) 0.019 ng/mL 0.000-0.045 ALCOHOL BLOOD (ETOH)2019-10-26 14:08:00 Test Item Value Reference Range Interpretation Comments ETOH (test code = HALC) ETHANOL The result is to be used only for medical purposes ALCOHOL (test code = <10 mg/dL <=10 56A) LDH-LACTIC [id number] 14:06:00 Test Item Value Reference Range Interpretation Comments LDH (test code = 33A) 214 IU/L 84-246 C-REACTIVE PROTEIN [id number] 14:02:00 Test Item Value Reference Range Interpretation Comments CRP QUANT (test code <2.9 mg/L 0.0-2.9 = CRPQ) Method Change (test Please note the code = METHOD) change in Method and the reference range [id number] 13:59:00 Test Item Value Reference Range Interpretation [...] the FDA and the [employer] (CAP) are more stringent than those required for this test. Therefore, the result should be interpreted with caution and close attention to other clinical and epidemiological data [id number] 13:55:00 Test Item Value Reference Range Interpretation Comments SALICYLATE (test code = 94B) <1.7 mg/dL 2.8-20.0 L AMMONIA [id number] 13:49:00 Test Item Value Reference Range Interpretation Comments AMMONIA (test code = 54A) 12 umol/L 11-32 PRO TIME AND [id number] 13:47:00 Test Item Value Reference Range Interpretation Comments PT (test code = 11.7 s 9.8-13.6 TT) INR (test code = 1.0 INR) INRH (test code = SUGGESTED THERAPEUTIC INRH) RANGE FOR INR: 2.5 - 3.5 For [...] RBC MORPH (test code = RBCMOR) NORMAL [id number] 10:29:00 Test Item Value Reference Range Interpretation Comments SARS-CoV-2 (test NOT DETECTED NOT DETECTED code = WCOV) COVID-19 (test code Test performed at = [facility]) Reference Laboratory See Original Report Under Medical Record View Tab URINE [id number] 12:38:00 Test Item Value Reference Range Interpretation Comments Culture Observations THREE OR MORE SPECIES (test code = COB1) OF BACTERIA ISOLATED. PROBABLE CONTAMINATION. Culture Observations IDENTIFICATION AND (test code = COB17) SUSCEPTIBILITY NOT INDICATED. RECOLLECTION RECOMMENDED URINALYSIS WITH [id number] 19:14:00 Test Item Value Reference Range Interpretation [...] 95A) 5.8 ug/mL 50.0-100.0 LL COMPREHENSIVE METABOLIC [id number] 06:47:00 Test Item Value Reference Range Interpretation [...] MORPH (test code = RBCMOR) NORMAL T4 [id number] 07:13:00 Test Item Value Reference Range Interpretation Comments T4 FREE (test code = A91) 0.88 ng/dL 0.76-1.46 B12 [id number] 07:02:00 Test Item Value Reference Range Interpretation Comments VIT B12 (test code = A60) 1059.0 pg/mL 180.0-914.0 H [id number] 07:02:00 Test Item Value Reference Range Interpretation Comments FOLATE (test code = A75) 18.5 ng/mL 3.1-17.5 H THYROID PANEL/SCREEN (TSH)2019-07-15 06:59:00 Test Item Value Reference Range Interpretation Comments TSH (test code = A57) 9.160 uIU/mL 0.358-3.740 H [id number] 06:43:00 Test Item Value Reference Range Interpretation Comments PREALBUMIN (test code = 08E) 29 mg/dL 18-38 VALPROIC ACID (DEPAKENE)2019-07-15 06:43:00 Test Item Value Reference Range Interpretation Comments VALP ACID (test code = 95A) 52.6 ug/mL 50.0-100.0 LIPID [id number] 06:37:00 Test Item Value Reference Range Interpretation Comments CHOLESTROL (test code = 44A) 171 mg/dL 140-200 TRIGLYCERI (test code = 42B) 136 mg/dL <=149 HDL (test code = 83D) 50.0 mg/dL 40.0-60.0 LDL (test code = 34B) 100 mg/dL <=99 H CHL/HDL (test code = CHR) 3.4 0.0-3.4 [id number] 06:37:00 Test Item Value Reference Range Interpretation Comments Hb A1C % (test code = HBA) 5.6 % 4.2-6.3 [id number] 06:32:00 Test Item Value Reference Range Interpretation Comments MAGNESIUM (test code = 48A) 1.6 mg/dL 1.8-2.4 L DRUGS OF [id number] 20:05:00 Test Item Value Reference Range Interpretation Comments DRUG SCRN (test code = URINE DRUG HDOA) SCREEN This is an unconfirmed screening result and should not be used for non-medical purposes CANNABINOD (test code Negative NEGATIVE = 88C) AMPHETAMINE (test code Negative NEGATIVE = 84A) BENZODIAZP (test code Negative NEGATIVE = 86A) BARBITURAT (test code Negative NEGATIVE = 85A) OPIATES (test code = Negative NEGATIVE 92B) COCAINE (test code = Negative NEGATIVE 87A) PHENCYCLID (test code Negative NEGATIVE = 66A) METHADONE (test code = Negative NEGATIVE 64A) DOAH (test code = DOAH.) URINE DRUG SCREEN Cut-off values are as follows: Cannabinoids 50 ng/mL Cocaine 300 ng/mL Amphetamines 1000 ng/mL Phencyclidine 25 ng/mL Benzodiazepines 200 ng.mL Methadone 300 ng/mL Barbiturates 200 ng/mL Opiates 2000 ng/mL URINALYSIS WITH [id number] 20:01:00 Test Item Value Reference Range Interpretation [...] code = USPERM) /HPF NONE COMPREHENSIVE METABOLIC [id number] 18:39:00 Test Item Value Reference Range Interpretation [...] (test code = 31A) 12 IU/L <=78 [id number] 18:37:00 Test Item Value Reference Range Interpretation Comments ACETAMINPH (test code = 94M) <2.0 ug/mL 10.0-30.0 L [id number] 18:33:00 Test Item Value Reference Range Interpretation Comments SALICYLATE (test code = 94B) <1.7 mg/dL 2.8-20.0 L TROPONIN [id number] 18:31:00 Test Item Value Reference Range Interpretation Comments TROPONIN I (test code = A84) <0.015 ng/mL 0.000-0.045 PRO TIME AND [id number] 18:30:00 Test Item Value Reference Range Interpretation Comments PT (test code = 11.4 s 9.8-13.6 TT) INR (test code = 1.0 INR) INRH (test code = SUGGESTED THERAPEUTIC INRH) RANGE FOR INR: 2.5 - 3.5 For [...] LMW Heparin. Order Code is ANTI-XA AMMONIA [id number] 18:25:00 Test Item Value Reference Range Interpretation [...]
--- NOTE | 2021-10-03 09:41 | RAD REPORT ---
EXAM DESCRIPTION: [place] Single View10/03/2021 9:30 am CLINICAL HISTORY: Shortness of breath COMPARISON: April 2021 FINDINGS: The lungs appear clear of acute infiltrate. The heart is normal size IMPRESSION: No acute abnormalities displayed
[2021-10-03 09:57] LABS: Hematocrit 35.1 % (36.0-45.0); Lymphocytes % 18.3 % (15.3-44.8); MCV 100.8 fL (80-100); MPV 7.6 fL (7.6-11.3); RBC Red Blood Cell Count 3.48 M/uL (3.86-4.86)
[2021-10-03 10:01] LABS: Protime INR 0.97
[2021-10-03 10:54] LABS: Albumin 2.8 g/dL (3.4-5.0); Bilirubin Direct 0.2 mg/dL (0-0.2); Bilirubin Total 0.5 mg/dL (0.2-1.0); Potassium 4.3 mmol/L (3.5-5.1); Protein, Total 7.1 g/dL (6.4-8.2); Troponin High Sensitivity 8.7 pg/mL (<58.9)
--- NOTE | 2021-10-03 12:38 | EDPHYS ---
Physician Documentation [facility] Name: Julieta Tatum Age: 86 yrs Sex: Female : 1935 Arrival Date: 10/03/2021 Time: 08:34 Bed 5 Private MD: ED Physician Alex Batista HPI: 10/03 12:24 This 86 yrs old Female presents to ER via EMS with complaints of fever. m 12:25 Onset: The symptoms/episode began/occurred gradually. Duration: The symptoms are jmm continuous. The patient's shortness of breath is aggravated by coughing. detention states the patient developed cough with shortness of breath beginning yesterday, worsening today. Denies vomiting. Historical: - Allergies: 08:52 No Known Allergies; em6 - Home Meds: 08:52 amiodarone 200 mg Oral tab 1 tab 3 times a day (Last Dose: 10/02/2021 17:17) [Active]; em6 - Immunization history:: Client reports receiving the 2nd dose of the Covid vaccine, Date received: March 23, 2020. - Social history:: Smoking status: unknown. ROS: 12:35 Unable to obtain ROS due to baseline dementia. [facility] Exam: 09:58 ECG was reviewed by the Attending Physician. [facility] 12:35 Head/Face: atraumatic. Eyes: EOMI, no conjunctival erythema appreciated ENT: Moist jm Mucus Membranes Neck: Trachea midline, Supple Chest/axilla: Normal chest wall appearance and motion. Cardiovascular: Regular rate and rhythm. No edema appreciated Respiratory: Normal respirations, no respiratory distress appreciated Abdomen/GI: Non distended Back: Normal ROM Skin: General appearance color normal MS/ Extremity: Moves all extremities, no obvious deformities appreciated, no edema noted to the lower extremities 12:35 Constitutional: The patient appears in no acute distress, awake. 12:35 Neuro: Orientation: to person. 12:35 Psych: Behavior/mood is pleasant, cooperative. Vital Signs: 08:35 BP 138 / 70; Pulse 90; Resp 20; Temp 97; Pulse Ox 95% on 2 lpm NC; em6 09:30 BP 146 / 73; Pulse 85; Resp 22; Pulse Ox 97% on 2 lpm NC; em6 10:30 BP 121 / 58; Pulse 80; Resp 20; Pulse Ox 97% on 2 lpm NC; em6 11:35 BP 114 / 60; Pulse 82; Resp 18; Pulse Ox 96% on 2 lpm NC; em6 12:37 BP 123 / 67; Pulse 98; Resp 20; Pulse Ox 98% on R/A; em6 13:38 BP 124 / 100; Pulse 85; Resp 17; Pulse Ox 94% on R/A; em6 14:30 BP 132 / 67; Pulse 89; Resp 16; Pulse Ox 92% on R/A; jd3 MDM: 08:36 Patient medically screened. [facility] 12:35 Data reviewed: vital signs, nurses notes. Counseling: I had a detailed discussion with [facility] the patient and/or guardian regarding: the historical points, exam findings, and any diagnostic results supporting the discharge/admit diagnosis, lab results, radiology results, the need for outpatient follow up, to return to the emergency department if symptoms worsen or persist or if there are any questions or concerns that arise at home. 10/03 08:37 Order name: Basic Metabolic Panel; Complete Time: 11:05 [facility] 10/03 08:37 Order name: CBC with Diff; Complete Time: 10:00 [facility] 10/03 08:37 Order name: LFT's; Complete Time: 11:05 [facility] 10/03 08:37 Order name: Magnesium; Complete Time: 11:05 [facility] 10/03 08:37 Order name: NT PRO-BNP; Complete Time: 11:05 [facility] 10/03 08:37 Order name: PT-INR; Complete Time: 10:02 [facility] 10/03 08:37 Order name: Troponin HS; Complete Time: 11:05 [facility] 10/03 08:37 Order name: XRAY Chest (1 view); Complete Time: 09:54 [facility] 10/03 08:37 Order name: EKG; Complete Time: 08:38 [facility] 10/03 08:37 Order name: Cardiac monitoring; Complete Time: 09:25 [facility] 10/03 08:37 Order name: Lactate; Complete Time: 10:20 [facility] 10/03 08:37 Order name: Blood Culture Adult (2) [facility] 10/03 08:53 Order name: SARS-COV-2 RT PCR (Document "Date of Onset" if Symptomatic); Complete Time: [facility] 11:36 10/03 08:37 Order name: EKG - Nurse/Tech; Complete Time: 09:25 [facility] 10/03 08:37 Order name: IV Saline Lock; Complete Time: 09:48 [facility] 10/03 08:37 Order name: Labs collected and sent; Complete Time: 09:48 [facility] 10/03 08:37 Order name: O2 Per Protocol; Complete Time: 09:48 [facility] 10/03 08:37 Order name: O2 Sat Monitoring; Complete Time: 09:48 [facility] 10/03 10:04 Order name: Labs - recollect needed: recollect green tube; Complete Time: 10:24 bd EC:58 Rate is 83 beats/min. Rhythm is regular. QRS Ossian is Normal. TN interval is normal. QRS jmm interval is normal. QT interval is normal. T waves are Flattened in lead V1. No ST changes noted. Reviewed by me. Administered Medications: 12:52 Drug: Decadron - Dexamethasone 10 mg Route: IVP; Site: right forearm; em6 13:40 Follow up: Response: No adverse reaction em6 Disposition Summary: 10/03/21 12:37 Discharge Ordered Location: Home [facility] Condition: Stable [facility] Diagnosis - Coronavirus infection, unspecified [facility] Followup: [facility] - With: Private Physician - When: 2 - 3 days - Reason: Recheck today's complaints, Continuance of care, Re-evaluation by your physician Discharge Instructions: - Discharge Summary Sheet [facility] - COVID-19 [facility] Forms: - Medication Reconciliation Form [facility] - Thank You Letter [facility] - Antibiotic Education [facility] - Prescription Opioid Use [facility] Prescriptions: - PAXLOVID 300mg/100mg convenience pack - take 1 application by ORAL route 2 times per day for 5 days; 1 packet; Refills: jmm 0, Product Selection Permitted - Zithromax Z-Mulugeta 250 mg Oral Tablet - take 1 tablet by ORAL route as directed for 5 days Day 1 - take two (2) tablets [facility] one time. Day 2, 3, 4 , 5 take one (1) tablet once daily.; 6 tablet; Refills: 0, Product Selection Permitted Signatures: Dispatcher [employer] EDCriselda Obando Joel, PA PA jmm Madison Melendez, RN RN em6 Corrections: (The following items were deleted from the chart) 08:55 08:52 PMHx: COPD; em6 em6 08:55 08:52 PMHx: Schizophrenia; em6 em6 08:55 08:52 PMHx: Alzheimers; em6 em6 08:55 08:52 PMHx: Aphasia; em6 em6 08: 08:52 PMHx: Altered Mental Status; em6 em6 08: 08:52 PMHx: Atrial Fib; em6 em6 08: 08:52 PMHx: Bipolar disorder; em6 em6
--- NOTE | 2021-10-03 12:38 | ER ---
Nurse's Notes [facility] Name: Julieta Tatum Age: 86 yrs Sex: Female : 1935 Arrival Date: 10/03/2021 Time: 08:34 Bed 5 Private MD: Diagnosis: Coronavirus infection, unspecified Presentation: 10/03 08:35 Chief complaint: EMS states: "the staff at the facility mentioned patient being SOB, em6 fatigue, and coughing. patient was covid positive 2 weeks ago. Retested patient for covid on 10/01/2021 and the results were negative. Patient had an xray done of the lungs on 10/01/2021 and the results were clear. on the way the patients o2 was in the 80's. we started her in 2L of O2 and her O2 went up to 91%. Patient has history of COPD. Patient drank a full gallon of H2O before getting in the ambulance, possibly dehydrated patient. bp 122/70 o2 91% temp 97.3. patient knows her name, and answers questions, but does know where she's at.". Coronavirus screen: Client denies travel out of the [place] in the last 14 days. cough unrelated to allergies, fatigue, shortness of breath, Client presents with at least one sign or symptom that may indicate coronavirus-19. Standard/surgical mask placed on the client. Provider contacted for isolation considerations. Ebola Screen: Patient negative for fever greater than or equal to 101.5 degrees Fahrenheit, and additional compatible Ebola Virus Disease symptoms Patient denies exposure to infectious person. Patient denies travel to an Ebola-affected area in the 21 days before illness onset. Initial Sepsis Screen: Does the patient meet any 2 criteria? No. Patient's initial sepsis screen is negative. Does the patient have a suspected source of infection? No. Patient's initial sepsis screen is negative. Risk Assessment: Do you want to hurt yourself or someone else? Unable to obtain. Onset of symptoms was September 29, 2021. Transition of care: patient was received from another setting of care (long-term care facility), [facility]. 08:35 Method Of Arrival: EMS: [facility] em6 08:35 Acuity: MARIO 3 em6 Triage Assessment: 08:55 General: Appears in no apparent distress. comfortable, Behavior is cooperative, quiet. em6 Pain: Unable to use pain scale. Patient is disoriented. FLACC scale score is 0 out of 10. EENT: No deficits noted. Neuro: Morris Agitation-Sedation Scale (RASS): 0 - Alert and Calm. Cardiovascular: Heart tones present Capillary refill < 3 seconds Patient's skin is warm and dry. Respiratory: Airway is patent Respiratory effort is even, unlabored, Respiratory pattern is regular, symmetrical, Breath sounds are clear bilaterally. GI: No signs and/or symptoms were reported involving the gastrointestinal system. : No signs and/or symptoms were reported regarding the genitourinary system. Derm: No signs and/or symptoms reported regarding the dermatologic system. Musculoskeletal: No signs and/or symptoms reported regarding the musculoskeletal system. Historical: - Allergies: 08:52 No Known Allergies; em6 - Home Meds: 08:52 amiodarone 200 mg Oral tab 1 tab 3 times a day (Last Dose: 10/02/2021 17:17) [Active]; em6 - Immunization history:: Client reports receiving the 2nd dose of the Covid vaccine, Date received: March 23, 2020. - Social history:: Smoking status: unknown. Screenin:06 Abuse screen: Denies threats or abuse. Nutritional screening: No deficits noted. em6 Tuberculosis screening: No symptoms or risk factors identified. Fall Risk None identified. IV access (20 points). Ambulatory Aid- None/Bed Rest/Nurse Assist (0 pts). Gait- Normal/Bed Rest/Wheelchair (0 pts) Mental Status- Overestimates/Forgets Limitations (15 pts.). Total Rivera Fall Scale indicates Low Risk Score (25-44 pts). Fall prevention measures have been instituted. Side Rails Up X 2 Placed close to Nursing Station Frequent Obs/Assesments occuring As available Patient and Family Educated on Fall Prevention Program and strategies. Assessment: 08:35 General: Appears in no apparent distress. comfortable, Behavior is calm, cooperative, em6 quiet. Pain: Unable to use pain scale. FLACC scale score is 0 out of 10. Neuro: Morris Agitation-Sedation Scale (RASS): 0 - Alert and Calm Level of Consciousness is awake, alert, obeys commands, confused, Oriented to person. Cardiovascular: Heart tones present Capillary refill < 3 seconds Patient's skin is warm and dry. Rhythm is regular. Respiratory: Airway is patent Respiratory effort is even, unlabored, Respiratory pattern is regular, symmetrical, Breath sounds are clear bilaterally. GI: No signs and/or symptoms were reported involving the gastrointestinal system. : No signs and/or symptoms were reported regarding the genitourinary system. EENT: No signs and/or symptoms were reported regarding the EENT system. Derm: No signs and/or symptoms reported regarding the dermatologic system. Musculoskeletal: No signs and/or symptoms reported regarding the musculoskeletal system. 09:35 Reassessment: Patient appears in no apparent distress at this time. No changes from em6 previously documented assessment. Patient and/or family updated on plan of care and expected duration. Pain level reassessed. 10:35 Reassessment: Patient appears in no apparent distress at this time. No changes from em6 previously documented assessment. Patient and/or family updated on plan of care and expected duration. Pain level reassessed. 11:33 Reassessment: Patient appears in no apparent distress at this time. No changes from em6 previously documented assessment. Patient and/or family updated on plan of care and expected duration. Pain level reassessed. patient has eyes closed. respiration even and unlabored. call within reach. bed in low position. . 12:35 Reassessment: Patient appears in no apparent distress at this time. No changes from em6 previously documented assessment. Patient and/or family updated on plan of care and expected duration. Pain level reassessed. patients eyes are closed .respirations are even and unlabored. call within reach. bed in low position.. 13:03 Reassessment: gave nurse to nurse report to [place] ALEXANDER from [place] [address] facility . Awaiting patients transportation. . 13:15 Reassessment: spoke with [place] from [facility], that the facility is [place] [id number] arranging transportation. 13:36 Reassessment: Patient appears in no apparent distress at this time. Patient and/or 6 family updated on plan of care and expected duration. Pain level reassessed. 14:36 Reassessment: Patient appears in no apparent distress at this time. No changes from [facility] previously documented assessment. Patient and/or family updated on plan of care and expected duration. Pain level reassessed. Vital Signs: 08:35 BP 138 / 70; Pulse 90; Resp 20; Temp 97; Pulse Ox 95% on 2 lpm NC; em6 09:30 BP 146 / 73; Pulse 85; Resp 22; Pulse Ox 97% on 2 lpm NC; em6 10:30 BP 121 / 58; Pulse 80; Resp 20; Pulse Ox 97% on 2 lpm NC; em6 11:35 BP 114 / 60; Pulse 82; Resp 18; Pulse Ox 96% on 2 lpm NC; em6 12:37 BP 123 / 67; Pulse 98; Resp 20; Pulse Ox 98% on R/A; em6 13:38 BP 124 / 100; Pulse 85; Resp 17; Pulse Ox 94% on R/A; em6 14:30 BP 132 / 67; Pulse 89; Resp 16; Pulse Ox 92% on R/A; jd3 ED Course: 08:34 Patient arrived in ED. em6 08:36 Swapnil Sierra PA is PHCP. jmm 08:36 Alex Batista MD is Attending Physician. jmm 08:40 Arm band placed on right wrist. em6 08:40 Patient has correct armband on for positive identification. Bed in low position. Call em6 light in reach. Side rails up X2. sinter feeder on. Pulse ox on. NIBP on. Warm blanket given. 08:45 Daren Milner RN is Primary Nurse. jd3 08:48 Triage completed. em6 09:32 XRAY Chest (1 view) In Process Unspecified. EDMS 09:45 Inserted saline lock: 22 gauge in right forearm, using aseptic technique. Blood bp collected. 15:20 No provider procedures requiring assistance completed. IV discontinued, intact, jd3 bleeding controlled, No redness/swelling at site. Pressure dressing applied. Administered Medications: 12:52 Drug: Decadron - Dexamethasone 10 mg Route: IVP; Site: right forearm; em6 13:40 Follow up: Response: No adverse reaction em6 Medication: 08:40 VIS not applicable for this client. em6 Outcome: 12:37 Discharge ordered by . jmm 15:20 Discharged to custodial. Report called to [place] ALEXANDER jd3 15:20 Condition: stable jd3 15:20 Discharge instructions given to [place] at [facility]. discharge package given to wheelchair van transportation staff. Instructed on discharge instructions, follow up and referral plans. medication usage, Demonstrated understanding of instructions, follow-up care, medications, Prescriptions given X 2. 15:44 Patient left the ED. jd3 Signatures: Dispatcher [employer] EDMS Swapnil Sierra PA PA jmm Davies, Jonathon, RN RN jd3 Peltier, Brian, Madison Mancera RN, RN RN em6 Corrections: (The following items were deleted from the chart) 08:55 08:52 PMHx: COPD; em6 em6 08:55 08:52 PMHx: Schizophrenia; em6 em6 08:55 08:52 PMHx: Alzheimers; em6 em6 08:55 08:52 PMHx: Aphasia; em6 em6 08:55 08:52 PMHx: Altered Mental Status; em6 em6 08:55 08:52 PMHx: Atrial Fib; em6 em6 08:55 08:52 PMHx: Bipolar disorder; em6 em6 10:09 10:08 Arm band placed on right wrist. em6 em6 13:05 13:03 Reassessment: gave nurse to nurse report to [place] ALEXANDER. Awaiting patients em6 transportation. . em6 13:41 13:36 Reassessment: Patient appears in no apparent distress at this time. Patient em6 and/or family updated on plan of care and expected duration. Pain level reassessed. em6
[2021-10-03] MEDS ORDERED: dexAMETHasone 10 MG/ML VIAL ONE (12:49)
[2021-10-03 16:39] VITALS: TEMP 97
[2021-10-03 16:53] VITALS: BP 132/67; O2SAT 92
--- NOTE | 2021-10-04 10:33 | EKG ---
Test Date: 2021-10-03 Test Time: 09:51:49 Veneer Sorter: EM MEASUREMENT RESULTS: Intervals: Rate: 83 AR: 148 QRSD: 84 QT: 376 QTc: 441 [place]is: P: 82 AR: 148 QRS: 37 T: 91 INTERPRETIVE STATEMENTS: Normal sinus rhythm Nonspecific ST and T wave abnormality Abnormal ECG Compared to ECG 01/29/2020 17:28:00 ST (T wave) deviation now present Sinus arrhythmia no longer present Left ventricular hypertrophy no longer present Electronically Signed On 10-04-21 10:31:28 CDT by Justice Roach
== END 2021-10-03 15:44 | disposition home or self-care (01) ==
LOC: ER 08:19
DX: U07.1 COVID-19 (principal); F03.90 Unspecified dementia, unspecified severity, without behavioral disturbance, psychotic disturbance, mood disturbance, and anxiety
CPT/HCPCS: 87040 ×2; 85025; 80048; 36415; 83735; 85610; 80076; 83605; 84484; 83880; 71045; U0003; J1100; 93005

== ENCOUNTER 2021-11-30 22:27 | Inpatient (IN) | payer OTHER ==
--- OUTSIDE RECORDS SUMMARY | 2021-11-30 22:34 | XMS REPORT | Continuity of Care Document ---
:1935 Author Organization [facility] Address [address] [place] [address] Care Team Providers Name Role Phone GC_BAHC_Todd_Tawanna Attending Clinician Unavailable Reji Griffin Attending Clinician [phone] Helen Collado Attending Clinician [phone] Kaykay Mendosa Attending Clinician [phone] GC_BAHC_Spangler_G Attending Clinician Unavailable Nella Attending Clinician Unavailable CHARMAINE, DR HOOKER Attending Clinician Unavailable RADHA, DR POTTER Attending Clinician Unavailable GC_BAHC_Todd_J Admitting Clinician Unavailable GC_BAHC_Spangler_G Admitting Clinician Unavailable Emilie_Desirae Admitting Clinician Unavailable MONTANO, DR HOOKER Admitting Clinician Unavailable RADHA, DR POTTER Admitting Clinician Unavailable Payers Payer Name Policy Type Policy Number Effective Date Expiration Date [place] [id number] [employer] [place]: [id number] [employer] [place] [id number] (MEDICARE) UHC - MEDICARE [id number] 2021 COMPLETE (MEDICARE 00:00:00 REPLACEMENT HMO) Problems Condition Condition Condition Status Onset Resolution Last Treating Co mments Source Name Details Category Date Date Treatment Clinician Date Unintentio Unintentio Problem Active [facility] nal weight nal Weight 9-26 Me dical loss Loss 00:00: 00 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 00:00: 00 Walking Walking Problem Active [facility] disability Disability 8-18 Me dical 00:00: 00 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 8-18 Medica l chair Chair 00:00: 00 Lives in a Lives in a Problem Active [facility] nursing Nursing 8-18 Medical home Home 00:00: 00 Need for Need for Problem Active [facility] personal Personal 8-18 Medica l care Care 00:00: assistance Assistance 00 Pneumonia Pneumonia Problem Active [facility] via caused by Caused by 8-15 Medi mauricio SARS-CoV-2 SARS-CoV-2 00:00: 00 Osteoporos Osteoporos Problem Active [facility] is is 8-11 Medical 00:00: 00 Fracture Fracture Problem Active [facility] of of 8-11 Medical superior Superior 00:00: pubic Pubic 00 ramus Ramus Closed Closed Problem Active [facility] fracture Fracture 8-11 Medica l of right of Right 00:00: ilium Ilium 00 Recurrent Recurrent Problem Active [facility] via falls Falls 8-08 Medical 00:00: 00 Pain in Pain in Problem Active [facility] right hip Right Hip 8-08 Medi mauricio joint Joint 00:00: 00 Closed Closed Problem Active [facility] fracture Fracture 7-30 Medica l of hip of Hip 00:00: 00 COVID-19 Covid-19 Problem Active [facility] 7-18 Medical 00:00: 00 Hypokalemi Hypokalemi Problem Active [facility] a a 7-10 Medical 00:00: 00 Schizoaffe Schizoaffe Problem Active [facility] ctive ctive 7-10 Medical disorder, Disorder, 00:00: bipolar Bipolar 00 type Type Dysphagia Dysphagia Problem Active [facility] via 7-10 Medical 00:00: 00 Hospital Hospital Problem Active [facility] acquired Acquired 6-24 Medica l pneumonia Pneumonia 00:00: 00 Hypertensi Hypertensi Problem Active [facility] ve heart ve Heart 5-30 Medica l and renal and Renal 00:00: disease Disease 00 with with (congestiv (Congestiv e) heart e) Heart failure Failure Chronic Chronic Problem Active [facility] 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 00 Unsteady Unsteady Problem Active [facility] when When 5-30 Medical walking Walking 00:00: 00 Hyperlipid Hyperlipid Problem Active [facility] emia emia 508 Medical 00:00: 00 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 Deficiency 00:00: disorder Disorder 00 Hypercoagu Hypercoagu Problem Active [facility] lability lability 07-08 Medica l state State 00:00: 00 Dementia Dementia Problem Active [facility] of the of the 07-08 Medical Alzheimer Alzheimer 00:00: type with Type with 00 behavioral Behavioral disturbanc Disturbanc e e Decline in Decline in Problem Active [facility] functional Functional 07-08 Me dical status Status 00:00: 00 Peripheral Peripheral Problem Active [facility] vascular Vascular 29 Medica l disease Disease 00:00: 00 Long-term Long-term Problem Active [facility] via current Current 06-29 Medical use of Use of 00:00: opiate Opiate 00 analgesic Analgesic drug Drug 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 4-14 Medical 00:00: 00 Functional Functional Problem Active [facility] quadripleg Quadripleg 4-14 Me dical ia ia 00:00: 00 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 Incontinen 4-14 Me dical ce ce 00:00: 00 Hypothyroi Hypothyroi Problem Active [facility] dism dism 4-13 Medical 00:00: 00 Vitamin Vitamin Problem Active [facility] deficiency Deficiency 4-13 Me dical 00:00: 00 Insomnia Insomnia Problem Active [facility] a 4-13 Medical 00:00: 00 Alzheimer' Alzheimer' Problem Active [facility] s disease s Disease 4-13 Medi mauricio 00:00: 00 Atrial Atrial Problem Active [facility] fibrillati Fibrillati 4-13 Me dical on on 00:00: 00 Chronic Chronic Problem Active [facility] systolic Systolic 4-13 Medica l heart Heart 00:00: failure Failure 00 Chronic Chronic Problem Active [facility] obstructiv Obstructiv 4-13 Me dical e lung e Lung 00:00: disease Disease 00 Constipati Constipati Problem Active [facility] on on 4-13 Medical 00:00: 00 Muscle Muscle Problem Active [facility] weakness Weakness 06-13 Medica l 00:00: 00 Aphasia Aphasia Problem Active [facility] 06-13 Medical 00:00: 00 Allergies, Adverse Reactions, Alerts Allergy Allergy Status Severity Reaction(s) Onset Inactive Treating Comm ents Source Name Type Date Date Clinician No Known DA Active [facility] Social History Social Habit Start Date Stop Date Quantity Comments Source Sex Ass[birth year] At [birth year] S[facility] 00:00:00 00:00:00 [facility] Smoking Status Start Date Stop Date Source Never Smoker [facility] Medications Ordered Filled Start Stop Current Ordering Indication Dosage Frequency Signature Comments Components Source Medication Medication Date Date Medication? Clinician (SIG) Name Name amiodarone amiodarone No 1 TID amiodarone [facility] 200 mg 200 mg 200 mg Medical tablet Take tablet Take tablet 1 tablet 3 1 tablet 3 Take 1 times a day times a day tablet 3 by oral by oral times a route. route. day by oral route. atorvastati atorvastati No 1 Q1D atorvastat [facility] n 10 mg n 10 mg in 10 mg Medic al tablet Take tablet Take tablet 1 tablet 1 tablet Take 1 every day every day tablet by oral by oral every day route at route at by oral bedtime. bedtime. route at bedtime. benztropine benztropine No 1 Q1D benztropin [facility] 1 mg tablet 1 mg tablet e 1 mg Medical Take 1 Take 1 tablet tablet tablet Take 1 every day every day tablet by oral by oral every day route. route. by oral route. Colace 100 Colace 100 No 1capsul BID Colace 100 [facility] mg capsule mg capsule e(s) mg capsule Medical Take 1 Take 1 Take 1 capsule capsule capsule twice a day twice a day twice a by oral by oral day by route. route. oral route. divalproex divalproex No 6capsul Q1D divalproex [facility] 125 mg 125 mg e(s) 125 mg Medical capsule,del capsule,del capsule,de ayed ayed layed release release release sprinkle sprinkle sprinkle Take 6 Take 6 Take 6 capsules capsules capsules every day every day every day by oral by oral by oral route at route at route at bedtime. bedtime. bedtime. donepezil 5 donepezil 5 No 1 Q1D donepezil [facility] mg tablet mg tablet 5 mg Medic al Take 1 Take 1 tablet tablet tablet Take 1 every day every day tablet by oral by oral every day route at route at by oral bedtime. bedtime. route at bedtime. Eliquis 2.5 Eliquis 2.5 No 1 BID Eliquis [facility] mg tablet mg tablet 2.5 mg Med ical Take 1 Take 1 tablet tablet tablet Take 1 twice a day twice a day tablet by oral by oral twice a route. route. day by oral route. ergocalcife ergocalcife No ergocalcif [facility] rol rol danielle Medical (vitamin (vitamin (vitamin D2) 1,250 D2) 1,250 D2) 1,250 mcg (50,000 mcg (50,000 mcg unit) unit) (50,000 capsule capsule unit) once each once each capsule once each Fleet Fleet No 1suppos Q1D Fleet [facility] Glycerin Glycerin itor(y/ Glycerin Medical (Adult) (Adult) ies) (Adult) rectal rectal rectal suppository suppository suppositor Insert 1 Insert 1 y Insert 1 suppository suppository suppositor every day every day y every by rectal by rectal day by route as route as rectal needed. needed. route as needed. furosemide furosemide No 1 BID furosemide [facility] 40 mg 40 mg 40 mg Medical tablet Take tablet Take tablet 1 tablet 1 tablet Take 1 twice a day twice a day tablet by oral by oral twice a route. route. day by oral route. ipratropium ipratropium No 3mL Q6H ipratropiu [facility] 0.5 0.5 m 0.5 Medical mg-albutero mg-albutero mg-albuter l 3 mg (2.5 l 3 mg (2.5 ol 3 mg mg base)/3 mg base)/3 (2.5 mg mL mL base)/3 mL nebulizatio nebulizatio nebulizati n soln n soln on soln Inhale 3 mL Inhale 3 mL Inhale 3 every 6 every 6 mL every 6 hours by hours by hours by nebulizatio nebulizatio nebulizati n route as n route as on route needed. needed. as needed. lactulose lactulose No 30mL Q1D lactulose [facility] 10 gram/15 10 gram/15 10 gram/15 Medical mL oral mL oral mL oral solution solution solution Take 30 mL Take 30 mL Take 30 mL every day every day every day by oral by oral by oral route. route. route. levothyroxi levothyroxi No 1 Q1D levothyrox [facility] ne 75 mcg ne 75 mcg ine 75 mcg Medical tablet Take tablet Take tablet 1 tablet 1 tablet Take 1 every day every day tablet by oral by oral every day route. route. by oral route. lisinopril lisinopril No 1 Q1D lisinopril [facility] 20 mg 20 mg 20 mg Medical tablet Take tablet Take tablet 1 tablet 1 tablet Take 1 every day every day tablet by oral by oral every day route. route. by oral route. metoprolol metoprolol No 1 Q1D metoprolol [facility] tartrate 25 tartrate 25 tartrate Medical mg tablet mg tablet 25 mg Take 1 Take 1 tablet tablet tablet Take 1 every day every day tablet by oral by oral every day route. route. by oral route. ondansetron ondansetron No 1 Q8H ondansetro [facility] 4 mg 4 mg n 4 mg Medical disintegrat disintegrat disintegra ing tablet ing tablet ting Place 1 Place [address] 1 every 8 every 8 tablet hours by hours by every 8 translingua translingua hours by l route as l route as translingu needed. needed. al route as needed. potassium potassium No 1 BID potassium [facility] chloride ER chloride ER chloride Medical 20 mEq 20 mEq ER 20 mEq tablet,exte tablet,exte tablet,ext nded nded ended release release release Take 1 Take 1 Take 1 tablet tablet tablet twice a day twice a day twice a by oral by oral day by route. route. oral route. risperidone risperidone No 1 BID risperidon [facility] 0.5 mg 0.5 mg e 0.5 mg Medical tablet Take tablet Take tablet 1 tablet 1 tablet Take 1 twice a day twice a day tablet by oral by oral twice a route. route. day by oral route. Spiriva Spiriva No 1capsul Q1D Spiriva [facility] via with with e(s) with Medical HandiHaler HandiHaler HandiHaler 18 mcg and 18 mcg and 18 mcg and inhalation inhalation inhalation capsules capsules capsules Inhale 1 Inhale 1 Inhale 1 capsule capsule capsule every day every day every day by by by inhalation inhalation inhalation route. route. route. tramadol 50 tramadol 50 No 1 Q6H tramadol [facility] mg tablet mg tablet 50 mg Medi mauricio Take 1 Take 1 tablet tablet tablet Take 1 every 6 every 6 tablet hours by hours by every 6 oral route oral route hours by as needed as needed oral route for 14 for 14 as needed days. days. for 14 days. Zoloft 100 Zoloft 100 No 1 Q1D Zoloft 100 [facility] mg tablet mg tablet mg tablet Medical Take 1 Take 1 Take 1 tablet tablet tablet every day every day every day by oral by oral by oral route at route at route at bedtime. bedtime. bedtime. Immunizations Ordered Immunization Filled Immunization Date Status Commen ts Source Name Name Tdap Tdap 2021-10-13 Completed [facility] 00:00:00 COVID-19 COVID-19 2021-02-20 Completed [facility] (SARS-COV-2) (SARS-COV-2) 00:00:00 vaccine, unspecified vaccine, unspecified pneumococcal, pneumococcal, 2021-02-06 Completed [facility] unspecified unspecified 00:00:00 formulation formulation influenza, influenza, 2021-02-01 Completed [facility] injectable, injectable, 00:00:00 quadrivalent quadrivalent COVID-19 COVID-19 2020-04-26 Completed [facility] (SARS-COV-2) (SARS-COV-2) 00:00:00 vaccine, unspecified vaccine, unspecified COVID-19 COVID-19 2020-04-05 Completed [facility] (SARS-COV-2) (SARS-COV-2) 00:00:00 vaccine, unspecified vaccine, unspecified Vital Signs Vital Name Observation Time Observation Value Comments Source BP Diastolic 2021-11-20 00:00:00 79 mm[Hg] [facility] Height 2021-11-20 00:00:00 64 [in_i] [facility] BMI (Body Mass Index) 2021-11-20 00:00:00 21.2 kg/m2 [facility] BP Systolic 2021-11-20 00:00:00 136 mm[Hg] [facility] Body Weight 2021-11-20 00:00:00 1973 [oz_av] [facility] Height 2019-11-03 19:55:00 233.68 CM Height 2019-10-26 [...] 2019-11-05 00:00:00 [facility] Plan of Care Planned Activity Planned Date Details Comments Source Future Scheduled 2021-11-01 INFLUENZA VACCINE (#1) [facility] 00:00:00 [code = INFLUENZA Medical Ce nter VACCINE (#1)] Future Scheduled 2021-11-01 INFLUENZA VACCINE (#1) [facility] 00:00:00 [code = INFLUENZA Medical Ce nter VACCINE (#1)] Future Scheduled 2021-11-01 INFLUENZA VACCINE (#1) [facility] 00:00:00 [code = INFLUENZA Medical Ce nter VACCINE (#1)] Future Scheduled 2021-11-01 INFLUENZA VACCINE (#1) [facility] 00:00:00 [code = INFLUENZA Medical Ce nter VACCINE (#1)] Future Scheduled 2021-03-03 FALLS RISK SCREENING [facility] 00:00:00 [code = FALLS RISK Medical C enter SCREENING] Future Scheduled 2021-03-[address] [facility] 00:00:00 (12+) [code = Medical Center DEPRESSION SCREENING (12+)] Future Scheduled 2021-03-03 F[place] RISK SCREENING [facility] 00:00:00 [code = FALLS RISK Medical C enter SCREENING] Future Scheduled 2021-03-[address] [facility] 00:00:00 (12+) [code = Medical Center DEPRESSION SCREENING (12+)] Future Scheduled 2021-03-[address] [facility] 00:00:00 (12+) [code = Medical Center DEPRESSION SCREENING (12+)] Future Scheduled 2021-03-03 F[place] RISK SCREENING [facility] 00:00:00 [code = FALLS RISK Medical C enter SCREENING] Future Scheduled 2021-03-03 FALLS RISK SCREENING [facility] 00:00:00 [code = FALLS RISK Medical C enter SCREENING] Future Scheduled 2021-03-[address] [facility] 00:00:00 (12+) [code = Medical Center DEPRESSION SCREENING (12+)] Future Scheduled 2001 PNEUMOCOCCAL 65+ YRS [facility] 00:00:00 (1 - PCV) [code = Medical Ce nter PNEUMOCOCCAL 65+ YRS (1 - PCV)] Future Scheduled 2001 PNEUMOCOCCAL 65+ YRS [facility] 00:00:00 (1 - PCV) [code = Medical Ce nter PNEUMOCOCCAL 65+ YRS (1 - PCV)] Future Scheduled 2001 PNEUMOCOCCAL 65+ YRS [facility] 00:00:00 (1 - PCV) [code = Medical Ce nter PNEUMOCOCCAL 65+ YRS (1 - PCV)] Future Scheduled 2001 PNEUMOCOCCAL 65+ YRS [facility] 00:00:00 (1 - PCV) [code = Medical Ce nter PNEUMOCOCCAL 65+ YRS (1 - PCV)] Future Scheduled 1986 SHINGLES VACCINES ([address] [facility] 00:00:00 of 2) [code = SHINGLES Medic al Center VACCINES (1 of 2)] Future Scheduled 1986 SHINGLES VACCINES ([address] [facility] 00:00:00 of 2) [code = SHINGLES Medic al Center VACCINES (1 of 2)] Future Scheduled 1986 SHINGLES VACCINES ([address] [facility] 00:00:00 of 2) [code = SHINGLES Medic al Center VACCINES (1 of 2)] Future Scheduled 1986 SHINGLES VACCINES ([address] [facility] 00:00:00 of 2) [code = SHINGLES Medic al Center VACCINES (1 of 2)] Future Scheduled 1955-06-09 DTAP/TDAP/TD [facility]ACCINES [facility] 00:00:00 (1 - Tdap) [code = Medical C enter DTAP/TDAP/TD VACCINES (1 - Tdap)] Future Scheduled 1955-06-09 DTAP/TDAP/TD [facility]ACCINES [facility] 00:00:00 (1 - Tdap) [code = Medical C enter DTAP/TDAP/TD VACCINES (1 - Tdap)] Future Scheduled 1955-06-09 DTAP/TDAP/TD [facility]ACCINES [facility] 00:00:00 (1 - Tdap) [code = Medical C enter DTAP/TDAP/TD VACCINES (1 - Tdap)] Future Scheduled 1955-06-09 DTAP/TDAP/TD [facility]ACCINES [facility] 00:00:00 (1 - Tdap) [code = Medical C enter DTAP/TDAP/TD VACCINES (1 - Tdap)] Future Scheduled 1941 COVID-19 VACCINE (#1[facility] 00:00:00 [code = COVID-[address] VACCINE (#1)] Future Scheduled 1941 COVID-19 VACCINE (#1) [facility] 00:00:00 [code = COVID-[address] VACCINE (#1)] Future Scheduled 1941 COVID-19 VACCINE (#1[facility]:00:00 [code = COVID-[address] VACCINE (#1)] Future Scheduled 1935 COVID-19 VACCINE (#1) [facility]:00:00 [code = COVID-[address] VACCINE (#1)] Future Scheduled 1935 DXA SCAN [code = DXA [facility] 00:00:00 SCAN] Medical Center Future Scheduled 1936 DXA SCAN [code = DXA [facility] 00:00:00 SCAN] Medical Center Future Scheduled 1936 DXA SCAN [code = DXA [facility] 00:00:00 SCAN] [facility] Center Future Scheduled 1936 DXA SCAN [code = DXA [facility] 00:00:00 SCAN] [facility] Center Encounters Start End Encounter Admission Attending Care Care Encounter Source Date/Time Date/Time Type Type Clinicians Facility Department ID 2021-09-29 [facility] [id number] [facility] 00:00:00 [facility] 2021-11-28 2021-11-28 Outpatient GC_BA[facility]_Tod PRIV PRIV [id number] [facility] 00:00:00 00:00:00 d_J [id number] Medica l 2021-11-24 2021-11-24 Outpatient GC_BAHC_Tod PRIV PRIV [id number] [facility] 00:00:00 00:00:00 d_J [id number] Medica l 2021-11-20 2021-11-20 [facility] 00:00:00 00:00:00 ENOC Collado: [facility] [address] [place] [address] , Ph. 2021-11-13 2021-11-13 Outpatient GC_BAHC_Tod PRIV PRIV [id number] [facility] 00:00:00 00:00:00 d_J [id number] Medica l 2021-10-30 2021-10-30 Outpatient GC_BAHC_Tod PRIV PRIV [id number] [facility] 00:00:00 00:00:00 d_J [id number] Medica l 2021-10-28 2021-10-28 Outpatient GC_BAHC_Tod PRIV PRIV [id number] [facility] 00:00:00 00:00:00 d_J [id number] Medica l 2021-10-25 2021-10-25 Outpatient GC_BAHC_Tod PRIV PRIV [id number] [facility] 00:00:00 00:00:00 d_J [id number] Medica l 2021-10-19 2021-10-19 Outpatient GC_BAHC_Tod PRIV PRIV [id number] [facility] 00:00:00 00:00:00 d_J [id number] Medica l 2021-10-18 2021-10-18 Outpatient GC_BAHC_Tod PRIV PRIV [id number] [facility] 00:00:00 00:00:00 d_J [id number] Medica l 2021-10-15 2021-10-15 Outpatient GC_BAHC_Tod PRIV PRIV [id number] [facility] 00:00:00 00:00:00 d_J [id number] Medica l 2021-10-12 2021-10-12 Outpatient GC_BAHC_Tod PRIV PRIV [id number] [facility] 00:00:00 00:00:00 d_J [id number] Medica l 2021-10-11 2021-10-11 Outpatient GC_BAHC_Tod PRIV PRIV [id number] [facility] 00:00:00 00:00:00 d_J [id number] Medica l 2021-10-11 2021-10-11 Outpatient Gaby, PRIV PRIV [id number] 00:00:00 00:00:00 Reji Tran [id number] 2021-10-09 2021-10-09 Outpatient [facility]_Tod PRIV PRIV [id number] [facility] 00:00:00 00:00:00 d_J [id number] Medica l 2021-10-09 2021-10-09 Outpatient Tobias, PRIV PRIV [id number] 00:00:00 00:00:00 Helen [id number] 2021-10-08 2021-10-08 Outpatient GC_BAHC_Tod PRIV PRIV [id number] [facility] 00:00:00 00:00:00 d_J [id number] Medica l 2021-10-05 2021-10-05 Outpatient GC_BAHC_Tod PRIV PRIV [id number] [facility] 00:00:00 00:00:00 d_J [id number] Medica l 2021-10-05 2021-10-05 Outpatient Tobias, PRIV PRIV [id number] 00:00:00 00:00:00 Helen [id number] 2021-10-03 2021-10-03 Outpatient GC_BA[facility]_Tod PRIV PRIV [id number] [facility] 00:00:00 00:00:00 d_J [id number] Medica l 2021-10-02 2021-10-02 Outpatient GC_BAHC_Tod PRIV PRIV [id number] [facility] 00:00:00 00:00:00 d_J [id number] Medica l 2021-09-28 2021-09-28 Outpatient GC_BAHC_Tod PRIV PRIV 239 [id number] [facility] 00:00:00 00:00:00 d_J [id number] Medica l 2021-09-28 2021-09-28 Outpatient Tobias, PRIV PRIV [id number] 00:00:00 00:00:00 Helen [id number] 2021-09-18 2021-09-18 Outpatient GC_BAHC_Tod PRIV PRIV [id number] [facility] 12:03:00 12:03:00 d_J [id number] Medica l 2021-09-11 2021-09-11 Outpatient GC_BAHC_Tod PRIV PRIV [id number] [facility] 01:51:00 01:51:00 d_Tawanna [id number] Medica l 2021-09-11 2021-09-11 Outpatient Tobias, PRIV PRIV [id number] 00:00:00 00:00:00 Helen [id number] 2021-09-09 2021-09-09 Outpatient GC_BAHC_Tod PRIV PRIV [id number] [facility] 11:00:00 11:00:00 d_J [id number] Medica l 2021-08-31 2021-08-31 Outpatient GC_BAHC_Tod PRIV PRIV [id number] [facility] 04:11:00 04:11:00 d_J [id number] Medica l 2021-08-31 2021-08-31 Outpatient Tobias, PRIV PRIV [id number] 00:00:00 00:00:00 Helen [id number] 2021-08-24 2021-08-24 Outpatient GC_BAHC_Tod PRIV PRIV [id number] [facility] 04:50:00 04:50:00 d_J [id number] Medica l 2021-08-16 2021-08-16 Outpatient GC_BAHC_Tod PRIV PRIV [id number] [facility] 10:50:00 10:50:00 d_J [id number] Medica l 2021-08-16 2021-08-16 Outpatient Gaby, PRIV PRIV [id number] 00:00:00 00:00:00 Reji Tran [id number] 2021-08-13 2021-08-13 Outpatient GC_BAHC_Tod PRIV PRIV [id number] [facility] 11:24:00 11:24:00 d_J [id number] Medica l 2021-08-07 2021-08-07 Outpatient GC_BAHC_Tod PRIV PRIV [id number] [facility] 07:18:00 07:18:00 d_J [id number] Medica l 2021-08-07 2021-08-07 Outpatient Tobias, PRIV PRIV [id number] 00:00:00 00:00:00 Helen [id number] 2021-07-30 2021-07-30 Outpatient GC_BAHC_Tod PRIV PRIV [id number] [facility] 10:43:00 10:43:00 d_J [id number] Medica l 2021-07-27 2021-07-27 Outpatient GC_BAHC_Tod PRIV PRIV [id number] [facility] 04:52:00 04:52:00 d_J [id number] Medica l 2021-07-20 2021-07-20 Outpatient GC_BAHC_Tod PRIV PRIV [id number] [facility] 12:32:00 12:32:00 d_J [id number] Medica l 2021-07-20 2021-07-20 Outpatient Tobias, PRIV PRIV [id number] 00:00:00 00:00:00 Helen [id number] 2021-07-08 2021-07-08 Outpatient GC_BAHC_Tod PRIV PRIV [id number] [facility] 10:46:00 10:46:00 d_J [id number] Medica l 2021-07-01 2021-07-01 Outpatient GC_BAHC_Tod PRIV PRIV 239 [id number] [facility] 10:44:00 10:44:00 d_J [id number] Medica l 2021-06-29 2021-06-29 Outpatient GC_BAHC_Tod PRIV PRIV [id number] [facility] 08:40:00 08:40:00 d_J [id number] Medica l 2021-06-29 2021-06-29 Outpatient Tobias, PRIV PRIV [id number] 00:00:00 00:00:00 Helen [id number] 2021-06-22 Outpatient GC_BAHC_Tod PRIV PRIV [id number] [facility] 09:06:00 09:06:00 d_J [id number] Medica l 2021-06-22 2021-06-22 Outpatient Tobias, PRIV PRIV [id number] 00:00:00 00:00:00 Helen [id number] 2021-06-21 2021-06-21 Outpatient GC_BAHC_Tod PRIV PRIV [id number] [facility] 08:48:00 08:48:00 d_J [id number] Medica l 2021-06-21 2021-06-21 Outpatient Gaby, PRIV PRIV [id number] 00:00:00 00:00:00 Reji Tran [id number] 2021-06-15 2021-06-15 Outpatient GC_BAHC_Tod PRIV PRIV [id number] [facility] 02:11:00 02:11:00 d_J [id number] Medica l 2021-06-14 2021-06-14 Outpatient GC_BAHC_Tod PRIV PRIV [id number] [facility] 06:30:00 06:30:00 d_J [id number] Medica l 2021-06-14 2021-06-14 Outpatient Navya, PRIV PRIV [id number] 00:00:00 00:00:00 June [id number] 2021-06-13 2021-06-13 Outpatient GC_BAHC_Tod PRIV PRIV [id number] [facility] :05:00 12:05:00 d_J [id number] Medica l 2021-06-11 2021-06-11 Outpatient GC_BAHC_Spa PRIV PRIV [id number] [facility] 10:27:00 10:27:00 ngler_G [id number] Medica l 2021 2021 Outpatient GC_BAHC_Spa PRIV PRIV [id number] [facility] 05:54:00 05:54:00 ngler_G [id number] Medica l 2020-04-05 2020-04-05 Outpatient Shani_T VFP VFP [id number] [facility] 11:48:00 11:48:00 [id number] Family Practic e 2019-10-26 2019-11-05 Inpatient E MONTANO, [facility] TELE [id number] [facility] 15:52:00 17:44:00 [facility] 2019-07-14 2019-07-29 Inpatient E RADHA, [facility] SCU [id number] [facility] 21:04:00 17:00:00 [facility] Results Test Description Test Time Test [...] OF AGE. BUN/CREA (test code = BCR) 21 02-20 H CALCIUM (test code = 09D) 9.2 [...] (test code = RBCMOR) NORMAL BASIC METABOLIC [id number] 08:10:00 Test Item Value Reference Range Interpretation [...] (test code = RBCMOR) NORMAL BASIC METABOLIC [id number] 05:36:00 Test Item Value Reference Range Interpretation [...] (test code = RBCMOR) NORMAL HEMOGLOBIN & [id number] 18:56:00 Test Item Value Reference Range Interpretation Comments HGB (test code = HBG) 10.4 g/dL 12.0-15.5 L HCT (test code = HCT) 32.6 % 35.0-44.0 L TROPONIN [id number] 11:11:00 Test Item Value Reference Range Interpretation Comments TROPONIN I (test code = A84) 0.041 ng/mL 0.000-0.045 HEMOGLOBIN & [id number] 10:54:00 Test Item Value Reference Range Interpretation Comments HGB (test code = HBG) 11.0 g/dL 12.0-15.5 L HCT (test code = HCT) 33.7 % 35.0-44.0 L CBC WITH [id number] 07:42:00 Test Item Value Reference Range Interpretation [...] = STOM) 1+ NONE A BASIC METABOLIC [id number] 07:21:00 Test Item Value Reference Range Interpretation [...] 9.9 mg/dL 8.3-9.5 H 09D) HEMOGLOBIN & [id number] 01:50:00 Test Item Value Reference Range Interpretation Comments HGB (test code = HBG) 11.4 g/dL 12.0-15.5 L HCT (test code = HCT) 35.0 % 35.0-44.0 HEMOGLOBIN & [id number] 18:44:00 Test Item Value Reference Range Interpretation [...] (test code = RBCMOR) NORMAL BASIC METABOLIC [id number] 07:12:00 Test Item Value Reference Range Interpretation [...] = 9.2 mg/dL 8.3-9.5 09D) HEMOGLOBIN & [id number] 00:57:00 Test Item Value Reference Range Interpretation Comments HGB (test code = HBG) 11.8 g/dL 12.0-15.5 L HCT (test code = HCT) 37.4 % 35.0-44.0 BLOOD [id number] 21:24:00 Test Item Value Reference Range Interpretation Comments Culture Observations (test NO GROWTH AFTER 5 code = COB1) DAYS BLOOD [id number] 21:24:00 Test Item Value Reference Range Interpretation Comments Culture Observations (test NO GROWTH AFTER 5 code = COB1) DAYS Arterial Blood [id number] 18:48:00 Test Item Value Reference Range Interpretation [...] FO2Hb (test code = 96.4 % 94.0-100.0 SI3IZHP) FCOHb (test code = 0.4 % 0.0-3.0 FCOHBRT) FMetHb (test code = 1.5 % 0.2-0.6 H FMETHBRT) ABGTEMP (test code = * Temp Corrected Values* ABGTEMP) ABGTEMP (test code = 37.0 ?C ABGTEMP.) pH (T) (test code = 7.333 7.350-7.450 L PHTEMP) pCO2 (T) (test code = 69.0 mmHg 35.0-45.0 HH [id number]) pO2 (T) (test code = 146.0 mmHg 80.0-110.0 H HI1CXUS) Device (test code = BIPAP DEVICE) FI02 [...] COMMENT (test code = CO) Arterial Blood [id number] 16:04:00 Test Item Value Reference Range Interpretation [...] FO2Hb (test code = 95.1 % 94.0-100.0 EO1ZPDF) FCOHb (test code = 0.8 % 0.0-3.0 FCOHBRT) FMetHb (test code = 1.1 % 0.2-0.6 H FMETHBRT) ABGTEMP (test code = * Temp Corrected Values* ABGTEMP) ABGTEMP (test code = 37.0 ?C ABGTEMP.) pH (T) (test code = 7.313 7.350-7.450 L PHTEMP) pCO2 (T) (test code = 65.4 mmHg 35.0-45.0 HH [id number]) pO2 (T) (test code = 108.0 mmHg 80.0-110.0 SE9AIHK) Device (test code = BIPAP DEVICE) FI02 [...] COMMENT (test code = CO) BASIC METABOLIC [id number] 10:19:00 Test Item Value Reference Range Interpretation [...] (test code = RBCMOR) NORMAL BASIC METABOLIC [id number] 07:12:00 Test Item Value Reference Range Interpretation [...] (test code = RBCMOR) NORMAL BASIC METABOLIC [id number] 05:16:00 Test Item Value Reference Range Interpretation [...] code = 8.3 mg/dL 8.3-9.5 09D) VANCOMYCIN [id number] 05:14:00 Test Item Value Reference Range Interpretation Comments ANA DONATO (test code = VANCT) 8.5 ug/dL 10.0-20.0 [...] MORPH (test code = RBCMOR) NORMAL URINE [id number] 14:20:00 Test Item Value Reference Range Interpretation Comments Isolate 1 (test code = GRAM NEGATIVE [place] A ISO1) [id number] 06:25:00 Test Item Value Reference Range Interpretation Comments MAGNESIUM (test code = 48A) 1.9 mg/dL 1.8-2.4 BASIC METABOLIC [id number] 06:15:00 Test Item Value Reference Range Interpretation [...] (test code = RBCMOR) NORMAL BASIC METABOLIC [id number] 04:27:00 Test Item Value Reference Range Interpretation [...] (test code = 8.6 mg/dL 8.3-9.5 09D) [id number] 04:19:00 Test Item Value Reference Range Interpretation [...] (test code = MDIFF) NO URINALYSIS WITH [id number] 16:52:00 Test Item Value Reference Range Interpretation [...] code = USPERM) /HPF NONE DRUGS OF [id number] 16:39:00 Test Item Value Reference Range Interpretation [...] 200 ng/mL Opiates 2000 ng/mL Arterial Blood [id number] 15:10:00 Test Item Value Reference Range Interpretation [...] (test code = 87.8 % 94.0-100.0 L OZ1WCGK) FCOHb (test code = 1.0 % 0.0-3.0 FCOHBRT) FMetHb (test code = 1.2 % 0.2-0.6 H FMETHBRT) ABGTEMP (test code = * Temp Corrected Values* ABGTEMP) ABGTEMP (test code = 37.0 ?C ABGTEMP.) pH (T) (test code = 7.512 7.350-7.450 H PHTEMP) pCO2 (T) (test code = 54.3 mmHg 35.0-45.0 HH YCB1HTVE) pO2 (T) (test code = 55.1 mmHg 80.0-110.0 LL FV8ZXRN) Device (test code = ROOM AIR DEVICE) [...] = SSITE) COMMENT (test code = CO) [id number] 14:55:00 Test Item Value Reference Range Interpretation Comments MAGNESIUM (test code = 48A) 1.3 mg/dL 1.8-2.4 LL COMPREHENSIVE METABOLIC [id number] 14:10:00 Test Item Value Reference Range Interpretation [...] (test code = 31A) 13 IU/L <=78 [id number] 14:08:00 Test Item Value Reference Range Interpretation Comments ACETAMINPH (test code = 94M) <2.0 ug/mL 10.0-30.0 L CARDIAC [id number] 14:08:00 Test Item Value Reference Range Interpretation Comments TROPONIN I (test code = A84) 0.019 ng/mL 0.000-0.045 ALCOHOL BLOOD (ETOH)2019-10-26 14:08:00 Test Item Value Reference Range Interpretation Comments ETOH (test code = HALC) ETHANOL The result is to be used only for medical purposes ALCOHOL (test code = <10 mg/dL <=10 56A) LDH-LACTIC [id number] 14:06:00 Test Item Value Reference Range Interpretation Comments LDH (test code = 33A) 214 IU/L 84-246 C-REACTIVE PROTEIN [id number] 14:02:00 Test Item Value Reference Range Interpretation Comments CRP QUANT (test code <2.9 mg/L 0.0-2.9 = CRPQ) Method Change (test Please note the code = METHOD) change in Method and the reference range [id number] 13:59:00 Test Item Value Reference Range Interpretation [...] the FDA and the [employer] [place] ([employer]) are more stringent than those required for this test. Therefore, the result should be interpreted with caution and close attention to other clinical and epidemiological data [id number] 13:55:00 Test Item Value Reference Range Interpretation Comments SALICYLATE (test code = 94B) <1.7 mg/dL 2.8-20.0 L AMMONIA [id number] 13:49:00 Test Item Value Reference Range Interpretation Comments AMMONIA (test code = 54A) 12 umol/L 11-32 PRO TIME AND [id number] 13:47:00 Test Item Value Reference Range Interpretation [...] RBC MORPH (test code = RBCMOR) NORMAL [id number] 10:29:00 Test Item Value Reference Range Interpretation Comments SARS-CoV-2 (test NOT DETECTED NOT DETECTED code = WCOV) COVID-19 (test code Test performed at = [facility]) Reference Laboratory See Original Report Under Medical Record View Tab URINE [id number] 12:38:00 Test Item Value Reference Range Interpretation Comments Culture Observations THREE OR MORE SPECIES (test code = COB1) OF BACTERIA ISOLATED. PROBABLE CONTAMINATION. Culture Observations IDENTIFICATION AND (test code = COB17) SUSCEPTIBILITY NOT INDICATED. RECOLLECTION RECOMMENDED URINALYSIS WITH [id number] 19:14:00 Test Item Value Reference Range Interpretation [...] 95A) 5.8 ug/mL 50.0-100.0 LL COMPREHENSIVE METABOLIC [id number] 06:47:00 Test Item Value Reference Range Interpretation [...] MORPH (test code = RBCMOR) NORMAL T4 [id number] 07:13:00 Test Item Value Reference Range Interpretation Comments T4 FREE (test code = A91) 0.88 ng/dL 0.76-1.46 B12 [id number] 07:02:00 Test Item Value Reference Range Interpretation Comments VIT B12 (test code = A60) 1059.0 pg/mL 180.0-914.0 H [id number] 07:02:00 Test Item Value Reference Range Interpretation Comments FOLATE (test code = A75) 18.5 ng/mL 3.1-17.5 H THYROID PANEL/SCREEN (TSH)2019-07-15 06:59:00 Test Item Value Reference Range Interpretation Comments TSH (test code = A57) 9.160 uIU/mL 0.358-3.740 H [id number] 06:43:00 Test Item Value Reference Range Interpretation Comments PREALBUMIN (test code = 08E) 29 mg/dL 18-38 VALPROIC ACID (DEPAKENE)2019-07-15 06:43:00 Test Item Value Reference Range Interpretation Comments VALP ACID (test code = 95A) 52.6 ug/mL 50.0-100.0 LIPID [id number] 06:37:00 Test Item Value Reference Range Interpretation Comments CHOLESTROL (test code = 44A) 171 mg/dL 140-200 TRIGLYCERI (test code = 42B) 136 mg/dL <=149 HDL (test code = 83D) 50.0 mg/dL 40.0-60.0 LDL (test code = 34B) 100 mg/dL <=99 H CHL/HDL (test code = CHR) 3.4 0.0-3.4 [id number] 06:37:00 Test Item Value Reference Range Interpretation Comments Hb A1C % (test code = HBA) 5.6 % 4.2-6.3 [id number] 06:32:00 Test Item Value Reference Range Interpretation Comments MAGNESIUM (test code = 48A) 1.6 mg/dL 1.8-2.4 L DRUGS OF [id number] 20:05:00 Test Item Value Reference Range Interpretation [...] 200 ng/mL Opiates 2000 ng/mL URINALYSIS WITH [id number] 20:01:00 Test Item Value Reference Range Interpretation [...] code = USPERM) /HPF NONE COMPREHENSIVE METABOLIC [id number] 18:39:00 Test Item Value Reference Range Interpretation [...] (test code = 31A) 12 IU/L <=78 [id number] 18:37:00 Test Item Value Reference Range Interpretation Comments ACETAMINPH (test code = 94M) <2.0 ug/mL 10.0-30.0 L [id number] 18:33:00 Test Item Value Reference Range Interpretation Comments SALICYLATE (test code = 94B) <1.7 mg/dL 2.8-20.0 L TROPONIN [id number] 18:31:00 Test Item Value Reference Range Interpretation Comments TROPONIN I (test code = A84) <0.015 ng/mL 0.000-0.045 PRO TIME AND [id number] 18:30:00 Test Item Value Reference Range Interpretation [...] LMW Heparin. Order Code is ANTI-XA AMMONIA [id number] 18:25:00 Test Item Value Reference Range Interpretation [...]
[2021-11-30] MEDS ORDERED: NA CHLORIDE 0.9% 2,000 ML ONE (23:16)
[2021-11-30] MEDS ORDERED: PIPERACIL/TAZO 3.375 GM VIAL IV ONE (23:16)
[2021-11-30] MEDS ORDERED: NA CHLORIDE 0.9% 100 ML IV ONE (23:16)
[2021-11-30 23:41] LABS: Absolute Lymphocytes (CBC) 0.9 K/uL (0.7-4.9); Hematocrit 36.6 % (36.0-45.0); Lymphocytes % 23.9 % (15.3-44.8); MCV 101.8 fL (80-100); MPV 7.2 fL (7.6-11.3)
[2021-11-30 23:48] LABS: Protime INR 1.01
[2021-11-30 23:59] LABS: Albumin 2.9 g/dL (3.4-5.0); Bilirubin Direct 0.1 mg/dL (0-0.2); Bilirubin Total 0.3 mg/dL (0.2-1.0); Magnesium 1.6 mg/dL (1.8-2.4); Potassium 3.7 mmol/L (3.5-5.1); Protein, Total 6.7 g/dL (6.4-8.2); Troponin High Sensitivity 9.1 pg/mL (<58.9)
--- NOTE | 2021-12-01 00:05 | ER ---
Nurse's Notes [facility] Name: Julieta Tatum Age: 86 yrs Sex: Female : 1935 Arrival Date: 11/30/2021 Time: 22:29 Bed 2 Private MD: Diagnosis: Dyspnea;Cardiomegaly;COPD/ Chronic obstructive pulmonary disease with (acute) exacerbation;Hypoxemia;Dementia in other diseases classified elsewhere without behavioral disturbance;Pneumonia due to other specified bacteria-leftbase, aspiration;Hypomagnesemia;UTI/ Urinary tract infection, site not specified Presentation: 11/30 22:36 Chief complaint: EMS states: called to [facility] due to pt O2\\T\\ 77%, aa9 reported congestion at PM today. nebulizer treatment provided en route O2 \\T\\ 99%, 20 G R AC, 125 Solu-Medrol provided. Coronavirus screen: Vaccine status: Patient reports receiving the 2nd dose of the covid vaccine. Ebola Screen: No symptoms or risks identified at this time. Initial Sepsis Screen: Does the patient meet any 2 criteria? HR > 90 bpm. No. Patient's initial sepsis screen is negative. Does the patient have a suspected source of infection? No. Patient's initial sepsis screen is negative. Risk Assessment: Do you want to hurt yourself or someone else? Patient reports no desire to harm self or others. Onset of symptoms was November 30, 2021. Care prior to arrival: Medication(s) given: IV initiated. 20 GA, in the right antecubital area, Oxygen administered. via a nebulizer mask. 22:36 Method Of Arrival: EMS: [facility] aa9 22:36 Acuity: MARIO 3 aa9 Triage Assessment: 22:51 General: Appears uncomfortable, ill, slender, Behavior is cooperative, quiet. Pain: aa9 Denies pain. Neuro: Level of Consciousness is awake, alert, Oriented to person, place. Cardiovascular:. Respiratory: Airway is patent Respiratory effort is even, Respiratory pattern is regular, Breath sounds are diminished in left posterior lower lobe and right posterior lower lobe. Derm: Skin is fragile, with poor turgor Skin temperature is cool. Historical: - Allergies: 22:45 No Known Allergies; aa9 - Home Meds: 22:45 amiodarone 300 mg Oral tab [Active]; atorvastatin 10 mg oral tab 1 tab once daily aa9 [Active]; benztropine 1 mg Oral tab 1 tab once daily [Active]; Depakote Sprinkles 125 mg Oral CDRS [Active]; Eliquis 2.5 mg oral tab 1 tab 2 times per day [Active]; Lasix 40 mg Oral tab 1 tab once daily [Active]; metoprolol tartrate 25 mg Oral tab 1 tab once daily [Active]; potassium chloride 20 mEq Oral TbER 1 tab once daily [Active]; tramadol 50 mg oral tab 1 tab every 6 hours [Active]; - PMHx: 22:45 Bipolar disorder; Chronic obstructive lung disease; Alzheimer's disease; Schizophrenia; aa9 Hypothyroidism; Hypertensive disorder; - PSHx: 22:45 Unable to Obtain; aa9 - Immunization history:: Client reports receiving the 2nd dose of the Covid vaccine. - Social history:: Smoking status: unknown. - Family history:: not pertinent. Screenin/01 01:59 Abuse screen: Denies threats or abuse. Denies injuries from another. Nutritional as6 screening: No deficits noted. Tuberculosis screening: No symptoms or risk factors identified. Fall Risk None identified. Assessment: 00:00 General: Appears uncomfortable, Behavior is cooperative, anxious, quiet. Pain: Denies as6 pain. Neuro: Level of Consciousness is awake, obeys commands, Oriented to person, place. Respiratory: Airway is patent Respiratory effort is even, unlabored. 02:08 General: attempted to call report to Francheska ALEXANDER. aa9 02:44 General: Appears comfortable, Behavior is anxious, quiet. Pain: Denies pain. Neuro: aa9 Level of Consciousness is awake, confused, Oriented to person, place. Respiratory: Airway is patent Respiratory effort is even, unlabored. Vital Signs: 11/30 22:36 BP 153 / 64; Pulse 113; Resp 19 S; Temp 98.1(O); Pulse Ox 94% on 2 lpm NC; Weight 55.07 aa9 kg (R); Height 5 ft. 3 in. (160.02 cm) (R); Pain 0/10; 23:43 BP 145 / 63; Pulse 83; Resp 19 S; Pulse Ox 99% on 2 lpm NC; as6 12/01 00:00 BP 117 / 86; Pulse 87; Resp 19 S; Pulse Ox 99% on 2 lpm NC; as6 00:30 BP 137 / 75; Pulse 89; Resp 17 S; Pulse Ox 99% on 2 lpm NC; as6 00:45 BP 102 / 40; Pulse 87; Resp 16; Pulse Ox 99% on 2 lpm NC; as6 01:00 BP 118 / 88; Pulse 88; Resp 16 S; Pulse Ox 99% on 2 lpm NC; as6 01:15 BP 107 / 62; Pulse 87; Resp 20 S; Pulse Ox 100% on 2 lpm NC; as6 02:30 BP 116 / 54; Pulse 82; Resp 16; Pulse Ox 100% on 2 lpm NC; aa9 11/30 22:36 Body Mass Index 21.50 (55.07 kg, 160.02 cm) aa9 ED Course: 11/30 22:29 Patient arrived in ED. molina 22:36 Hali Dotson, RN is Primary Nurse. aa9 22:36 Maintain EMS IV. Dressing intact. Good blood return noted. Site clean \\T\\ dry. Gauge \\T\\ aa 9 site: 20 G R AC. 22:41 Alex Batista MD is Attending Physician. molina 22:45 Triage completed. aa9 22:52 Arm band placed on. aa9 23:32 Blood Culture Adult (2) Sent. aa9 23:32 Lactate Sent. aa9 23:32 Basic Metabolic Panel Sent. aa9 23:32 CBC with Diff Sent. aa9 23:32 LFT's Sent. aa9 23:32 Magnesium Sent. aa9 23:32 NT PRO-BNP Sent. aa9 23:32 PT-INR Sent. aa9 23:33 Troponin HS Sent. aa9 23:48 Flu Sent. aa9 23:48 SARS-COV-2 RT PCR (Document "Date of Onset" if Symptomatic) Sent. aa9 12/01 00:02 Dino Tracy MD is Hospitalizing Provider. molina 00:16 Cruz cath inserted, using sterile technique, 16 Fr., by mt, balloon inflated, returned tw5 clear yellow urine. Patient tolerated well. 00:23 Valproic Acid (depakote) Sent. aa9 00:27 Carmelo Randhawa MD is Hospitalizing Provider. la1 00:28 Dino Tracy MD is Hospitalizing Provider. la1 01:54 Urine Microscopic Only Sent. aa9 02:00 Patient has correct armband on for positive identification. Placed in gown. Bed in low as6 position. Call light in reach. Side rails up X2. Warm blanket given. Pillow given. 02:00 No provider procedures requiring assistance completed. as 02:00 Patient admitted, IV remains in place. 02:44 ABG Sent. aa9 Administered Medications: 11/30 23:47 Drug: NS 0.9% 1000 ml Route: IV; Rate: 125 ml/hr; Site: right antecubital; aa9 12/01 02:44 Follow up: IV Status: Infusion continued; IV Intake: 100ml aa9 11/30 23:47 Drug: NS 0.9% 1000 ml Route: IV; Rate: 125 ml/hr; Site: right antecubital; aa9 12/01 02:43 Follow up: Response: No adverse reaction; IV Status: Infusion continued; IV Intake: aa9 500ml 11/30 23:48 Drug: Zosyn (piperacillin-tazobactam) 3.375 grams Route: IVPB; Infused Over: 60 mins; aa9 Site: right antecubital; 12/01 00:21 Follow up: Response: No adverse reaction; IV Status: Completed infusion; IV Intake: aa9 100ml 01:11 Drug: Xopenex (levalbuterol) 3.75 mg Route: Inhalation; aa9 01:11 Drug: AtroVENT (ipratropium) Aerosol 0.5 mg Route: Inhalation; aa9 01:12 Drug: SOLU-Medrol (methylPrednisoLONE) 125 mg Route: IVP; Site: right antecubital; aa9 02:11 Follow up: Response: No adverse reaction aa9 01:14 Drug: Pepcid (famotidine) 20 mg Route: IVP; Site: right antecubital; aa9 02:11 Follow up: Response: No adverse reaction aa9 01:51 Drug: Magnesium Sulfate 2 grams Route: IVPB; Infused Over: 2 hrs; Site: right aa9 antecubital; 02:43 Follow up: Response: No adverse reaction; IV Status: Completed infusion; IV Intake: aa9 100ml 02:11 Drug: NS 0.9% 500 ml Route: IV; Rate: bolus; Site: right antecubital; aa9 02:43 Follow up: Response: No adverse reaction; IV Status: Completed infusion; IV Intake: aa9 500ml Medication: 02:00 VIS not applicable for this client. as6 Intake: 00:21 IV: 100ml; Total: 100ml. aa9 02:43 IV: 500ml; Total: 600ml. aa9 02:43 IV: 100ml; Total: 700ml. aa9 02:43 IV: 500ml; Total: 1200ml. aa9 02:44 IV: 100ml; Total: 1300ml. aa9 Outcome: 00:04 Decision to Hospitalize by Provider. molina 02:00 Admitted to Tele accompanied by nurse, via stretcher, room 429, with oxygen, with chart.aa9 02:00 Condition: stable 02:33 Admitted to Tele Report called to Francheska ALEXANDER aa9 02:42 Patient left the ED. aa9 Signatures: Alex Batista MD MD cha Attema, Lee, OPTICAL LAB TECHNICIAN-C OPTICAL LAB TECHNICIAN-Cla1 Rosanna Jarquin tw5 Elmer Sidhu RN RN as6 Hali Dotson, RN RN aa9 Corrections: (The following items were deleted from the chart) 11/30 23:50 23:15 Maintain EMS IV. Dressing intact. Good blood return noted. Site clean \\T\\ dry. aa9 Gauge \\T\\ site: 20 G R AC. aa9 12/01 02:08 02:00 Admitted to Tele accompanied by nurse, via stretcher, room 429, with oxygen, with aa9 chart, Report called to Francheska ALEXANDER as6
--- NOTE | 2021-12-01 00:06 | EDPHYS ---
Physician Documentation [facility] Name: Julieta Tatum Age: 86 yrs Sex: Female : 1935 Arrival Date: 11/30/2021 Time: 22:29 Bed 2 Private MD: ED Physician Alex Batista HPI: 11/30 23:58 This 86 yrs old Female presents to ER via EMS with complaints of dyspnea. molina 23:58 The patient has shortness of breath at rest, with light activity. Onset: The molina symptoms/episode began/occurred 2 day(s) ago. Duration: The symptoms are continuous, and are steadily getting worse. The patient's shortness of breath is aggravated by supine position, is alleviated by rest, sitting up, application of supplemental oxygen. hx copd. Associated signs and symptoms: Pertinent positives: non-productive cough, dizziness. Severity of symptoms: At their worst the symptoms were mild moderate in the emergency department the symptoms are unchanged. The patient has experienced similar episodes in the past, multiple times. Historical: - Allergies: 22:45 No Known Allergies; aa9 - Home Meds: 22:45 amiodarone 300 mg Oral tab [Active]; atorvastatin 10 mg oral tab 1 tab once daily aa9 [Active]; benztropine 1 mg Oral tab 1 tab once daily [Active]; Depakote Sprinkles 125 mg Oral CDRS [Active]; Eliquis 2.5 mg oral tab 1 tab 2 times per day [Active]; Lasix 40 mg Oral tab 1 tab once daily [Active]; metoprolol tartrate 25 mg Oral tab 1 tab once daily [Active]; potassium chloride 20 mEq Oral TbER 1 tab once daily [Active]; tramadol 50 mg oral tab 1 tab every 6 hours [Active]; - PMHx: 22:45 Bipolar disorder; Chronic obstructive lung disease; Alzheimer's disease; Schizophrenia; aa9 Hypothyroidism; Hypertensive disorder; - PSHx: 22:45 Unable to Obtain; aa9 - Immunization history:: Client reports receiving the 2nd dose of the Covid vaccine. - Social history:: Smoking status: unknown. - Family history:: not pertinent. ROS: 23:58 Constitutional: Negative for fever, chills, and weight loss, Eyes: Negative for injury, molina pain, redness, and discharge, ENT: Negative for injury, pain, and discharge, Neck: Negative for injury, pain, and swelling, Cardiovascular: Negative for chest pain, palpitations, and edema, Abdomen/GI: Negative for abdominal pain, nausea, vomiting, diarrhea, and constipation, Back: Negative for injury and pain, : Negative for injury, bleeding, discharge, and swelling, MS/Extremity: Negative for injury and deformity, Skin: Negative for injury, rash, and discoloration, Neuro: Negative for headache, weakness, numbness, tingling, and seizure, Psych: Negative for depression, anxiety, suicide ideation, homicidal ideation, and hallucinations, Allergy/Immunology: Negative for hives, rash, and allergies, Endocrine: Negative for neck swelling, polydipsia, polyuria, polyphagia, and marked weight changes, Hematologic/Lymphatic: Negative for swollen nodes, abnormal bleeding, and unusual bruising. 23:58 Respiratory: Positive for cough, shortness of breath, at rest. Exam: 23:58 Head/Face: Normocephalic, atraumatic. Eyes: Pupils equal round and reactive to light, molina extra-ocular motions intact. Lids and lashes normal. Conjunctiva and sclera are non-icteric and not injected. Cornea within normal limits. Periorbital areas with no swelling, redness, or edema. ENT: Nares patent. No nasal discharge, no septal abnormalities noted. Tympanic membranes are normal and external auditory canals are clear. Oropharynx with no redness, swelling, or masses, exudates, or evidence of obstruction, uvula midline. Mucous membranes moist. Neck: Trachea midline, no thyromegaly or masses palpated, and no cervical lymphadenopathy. Supple, full range of motion without nuchal rigidity, or vertebral point tenderness. No Meningismus. Chest/axilla: Normal chest wall appearance and motion. Nontender with no deformity. No lesions are appreciated. Back: No spinal tenderness. No costovertebral tenderness. Full range of motion. Female : Normal external genitalia. Skin: Warm, dry with normal turgor. Normal color with no rashes, no lesions, and no evidence of cellulitis. MS/ Extremity: Pulses equal, no cyanosis. Neurovascular intact. Full, normal range of motion. Psych: Awake, alert, with orientation to person, place and time. Behavior, mood, and affect are within normal limits. 23:58 Cardiovascular: Rate: tachycardic, actual rate is 113 bpm, Rhythm: regular, Pulses: Pulses are 4+ in bilateral radial, brachial, femoral, popliteal, posterior tibial and and dorsalis pedis arteries.. Heart sounds: normal, normal S1and S2, no S3 or S4, no murmur, no rub, no gallop, Edema: is not appreciated, JVD: is not appreciated. 23:58 ECG was reviewed by the Attending Physician. Vital Signs: 22:36 BP 153 / 64; Pulse 113; Resp 19 S; Temp 98.1(O); Pulse Ox 94% on 2 lpm NC; Weight 55.07 aa9 kg (R); Height 5 ft. 3 in. (160.02 cm) (R); Pain 0/10; 23:43 BP 145 / 63; Pulse 83; Resp 19 S; Pulse Ox 99% on 2 lpm NC; as6 12/01 00:00 BP 117 / 86; Pulse 87; Resp 19 S; Pulse Ox 99% on 2 lpm NC; as6 00:30 BP 137 / 75; Pulse 89; Resp 17 S; Pulse Ox 99% on 2 lpm NC; as6 00:45 BP 102 / 40; Pulse 87; Resp 16; Pulse Ox 99% on 2 lpm NC; as6 01:00 BP 118 / 88; Pulse 88; Resp 16 S; Pulse Ox 99% on 2 lpm NC; as6 01:15 BP 107 / 62; Pulse 87; Resp 20 S; Pulse Ox 100% on 2 lpm NC; as6 02:30 BP 116 / 54; Pulse 82; Resp 16; Pulse Ox 100% on 2 lpm NC; aa9 11/30 22:36 Body Mass Index 21.50 (55.07 kg, 160.02 cm) aa9 MDM: 11/30 22:41 Patient medically screened. molina 12/01 00:57 Differential diagnosis: Anemia Bronchitis CHF exacerbation, Chronic Obstructive molina Pulmonary Disease pneumonia, Pneumothorax. Antibiotic administration: zosyn. Differential Diagnosis altered mental status. The patient's Wells Deep Vein Thrombosis Score was calculated as follows: Heart Rate >100 BPM (1.5 Pts) Total Score: 0-2 Pts- Low Risk. The patient's pulmonary embolism risk score was calculated as follows: the patients heart rate is greater than 100 beats per minute (1.5 Pts) Total Score: 0-2 points. This patient was found to be at low risk for a pulmonary embolism by using the Well's assessment criteria. Immunization status: Pneumococcal vaccine: Influenza vaccine: Data reviewed: vital signs, nurses notes, lab test result(s), EKG, radiologic studies, plain films. Data interpreted: quality assurance monitor final: rate is 113 beats/min, rhythm is regular, Pulse oximetry: on room air. Test interpretation: by ED physician or midlevel provider: ECG, plain radiologic studies. Counseling: I had a detailed discussion with the patient and/or guardian regarding: the historical points, exam findings, and any diagnostic results supporting the discharge/admit diagnosis, lab results, radiology results, the need for further work-up and treatment in the hospital. 11/30 22:56 Order name: Basic Metabolic Panel [facility] 11/30 22:56 Order name: CBC with Diff [facility] 11/30 22:56 Order name: LFT's [facility] 11/30 22:56 Order name: Magnesium [facility] 11/30 22:56 Order name: NT PRO-BNP [facility] 11/30 22:56 Order name: PT-INR [facility] 11/30 22:56 Order name: Troponin HS [facility] 11/30 22:56 Order name: Blood Culture Adult (2) [facility] 11/30 22:56 Order name: Lactate [facility] 11/30 22:56 Order name: SARS-COV-2 RT PCR (Document "Date of Onset" if Symptomatic) [facility] 11/30 22:56 Order name: Flu [facility] 11/30 23:42 Order name: CBC with Automated Diff; Complete Time: 23:49 EDMS 11/30 23:48 Order name: Protime (+INR); Complete Time: 23:49 EDMS 11/30 22:56 Order name: XRAY Chest (1 view) [facility] 11/30 23:49 Order name: Valproic Acid (depakote) [facility] 11/30 23:52 Order name: Urine Microscopic Only [facility] 12/01 00:00 Order name: Basic Metabolic Panel; Complete Time: 00:07 EDMS 12/01 00:00 Order name: Liver (Hepatic) Function; Complete Time: 00:07 EDMS 12/01 00:00 Order name: Troponin High Sensitivity; Complete Time: 00:07 EDMS 12/01 00:00 Order name: NT PRO-BNP; Complete Time: 00:07 EDMS 12/01 00:00 Order name: Magnesium; Complete Time: 00:07 [facility] 12/01 00:00 Order name: Lactate; Complete Time: 00:07 [facility] 12/01 00:05 Order name: Valproic Acid (Depakene) Level; Complete Time: 00:07 [facility] 12/01 00:11 Order name: ABG [facility] 12/01 00:15 Order name: SARS-COV-2 RT PCR; Complete Time: 00:28 EDPR 12/01 00:21 Order name: Influenza Screen (A ; Complete Time: 00:28 [facility] 12/01 00:46 Order name: ABG Arterial Blood Gas; Complete Time: 01:11 [facility] 12/01 01:23 Order name: Urine Dipstick-Ancillary; Complete Time: 01:44 EDPR 12/01 02:06 Order name: Urine Microscopic Only [facility] 11/30 22:56 Order name: EKG; Complete Time: 22:57 [facility] 11/30 22:56 Order name: Cardiac monitoring; Complete Time: 23:12 [facility] 11/30 22:56 Order name: EKG - Nurse/Tech; Complete Time: 23:12 [facility] 11/30 22:56 Order name: IV Saline Lock; Complete Time: 23:12 [facility] 11/30 22:56 Order name: Labs collected and sent; Complete Time: 23:33 [facility] 11/30 22:56 Order name: O2 Per Protocol; Complete Time: 23:12 [facility] 11/30 22:56 Order name: O2 Sat Monitoring; Complete Time: 23:12 [facility] 11/30 22:57 Order name: Urine Dipstick-Ancillary (obtain specimen); Complete Time: 01:56 [facility] 11/30 22:57 Order name: Cruz; Complete Time: 00:21 [facility] EC/30 23:58 Rate is 88 beats/min. Rhythm is regular. IA interval is normal. QRS interval is normal. [facility] QT interval is normal. No Q waves. T waves are Normal. No ST changes noted. Clinical impression: Sinus tachycardia and No evidence of ischemia. Interpreted by me. Reviewed by me. Administered Medications: 23:47 Drug: NS 0.9% 1000 ml Route: IV; Rate: 125 ml/hr; Site: right antecubital; 12/01 02:44 Follow up: IV Status: Infusion continued; IV Intake: 100ml [facility] 11/30 23:47 Drug: NS 0.9% 1000 ml Route: IV; Rate: 125 ml/hr; Site: right antecubital; aa9 12/01 02:43 Follow up: Response: No adverse reaction; IV Status: Infusion continued; IV Intake: aa9 500ml 11/30 23:48 Drug: Zosyn (piperacillin-tazobactam) 3.375 grams Route: IVPB; Infused Over: 60 mins; aa9 Site: right antecubital; 12/01 00:21 Follow up: Response: No adverse reaction; IV Status: Completed infusion; IV Intake: aa9 100ml 01:11 Drug: Xopenex (levalbuterol) 3.75 mg Route: Inhalation; aa9 01:11 Drug: AtroVENT (ipratropium) Aerosol 0.5 mg Route: Inhalation; aa9 01:12 Drug: SOLU-Medrol (methylPrednisoLONE) 125 mg Route: IVP; Site: right antecubital; aa9 02:11 Follow up: Response: No adverse reaction aa9 01:14 Drug: Pepcid (famotidine) 20 mg Route: IVP; Site: right antecubital; aa9 02:11 Follow up: Response: No adverse reaction aa9 01:51 Drug: Magnesium Sulfate 2 grams Route: IVPB; Infused Over: 2 hrs; Site: right aa9 antecubital; 02:43 Follow up: Response: No adverse reaction; IV Status: Completed infusion; IV Intake: aa9 100ml 02:11 Drug: NS 0.9% 500 ml Route: IV; Rate: bolus; Site: right antecubital; aa9 02:43 Follow up: Response: No adverse reaction; IV Status: Completed infusion; IV Intake: aa9 500ml Disposition Summary: 12/01/21 00:04 Hospitalization Ordered Hospitalization Status: Inpatient Admission molina [facility] molina Condition: Fair molina Problem: new molina Symptoms: have improved molina Bed/Room Type: Standard molina Provider: Dino Tracy(12/01/21 00:28) ashish Room Assignment: 429(12/01/21 01:42) cg Diagnosis - Dyspnea molina - Cardiomegaly molina - COPD/ Chronic obstructive pulmonary disease with (acute) exacerbation molina - Hypoxemia molina - Dementia in other diseases classified elsewhere without behavioral disturbance molina - Pneumonia due to other specified bacteria - leftbase, aspiration molina - Hypomagnesemia molina - UTI/ Urinary tract infection, site not specified molina Forms: - Medication Reconciliation Form molina - SBAR form molina Signatures: Dispatcher [employer] EDPR Alex Batista MD MD cha Attema, Lee, BANANA RIPENING ROOM SUPERVISOR-C BANANA RIPENING ROOM SUPERVISOR-Cla1 Cony Fuentes, RN RN cg Hali Dotson RN RN aa9 Corrections: (The following items were deleted from the chart) 11/30 23:33 22:57 Urine Culture+BA.LAB.BRZ ordered. [facility] 12/01 00:27 00:04 Dino Tracy cha la1 00:28 00:27 Carmelo Randhawa1 la1 01:42 00:04 molina
[2021-12-01] MEDS ORDERED: LEVALBUTEROL 1.25 MG/3 ML NEB ONE (00:34)
[2021-12-01] MEDS ORDERED: IPRATROPIUM BROM 0.5MG/2.5ML ONE (00:34)
[2021-12-01] MEDS ORDERED: METHYLPREDNISOLONE 125 MG INJ ONE (00:34)
[2021-12-01 00:35] LABS: Arterial Blood Carboxyhemoglob 1.2 % (0-1.5); Blood O2 Saturation 95.6 % (92-98.5)
[2021-12-01] MEDS ORDERED: FAMOTIDINE 20 MG/2 ML VIAL IV ONE (00:35)
[2021-12-01] MEDS ORDERED: MAGNESIUM SULFATE 1 gm IVPB 1 GM/100 ML BAG IV ONE (00:35)
[2021-12-01 01:23] LABS: Urine Blood 1+ (Negative); Urine Glucose Negative (Negative); Urine Protein Negative (Negative); Urine Specific Gravity >=1.030 (1.005-1.030); Urine pH 5.5 (5.0-7.0)
--- NOTE | 2021-12-01 01:58 | P.HP ---
Certification for Inpatient Patient admitted to: Inpatient With expected LOS: >2 Midnights Patient will require the following post-hospital care: None Practitioner: I am a practitioner with admitting privileges, knowledge of patient current condition, hospital course, and medical plan of care. Services: Services provided to patient in accordance with Admission requirements found in Title 42 Section 412.3 of the Code of Federal Regulations <Nj Hoover - Last Filed: 12/01/21 01:52> Patient History Date of Service: 12/01/21 Reason for admission: Sepsis, pneumonia, COPD exacerbation History of Present Illness: 86-year-old female with history of atrial fibrillation on chronic anticoagulation, COPD, Alzheimer's/dementia, hypertension, schizophrenia/BPD who is a resident of [facility] presents emergency room for shortness of breath, hypoxia. There is a home staff report that patient was hypoxic with sats in the high 70s. She was given a nebulizer treatment and nasal cannula was applied before arrival to the emergency department, on nasal cannula she is saturating about 95%. Her labs were significant for white blood cell count 3.9 glucose 153 GFR 47 magnesium 1.6 ABG demonstrated hypercapnic respiratory failure. Chest x-ray demonstrated suspected left basilar pneumonia. ED provider wishes to admit for further evaluation and management. 2 out of 4 SIRS criteria present including heart rate greater than 90 and white blood cell count was less than 4. Meets criteria for sepsis lactic acid was 1.3 and no hypotension present. - Past Medical/Surgical History Diabetic: No -: copd -: schizophrenia -: alzheimers -: pneumonia -: bipolar disorder -: afib -: HTN -: tonsilectomy -: facial recontruction from trauma 1991 Psychosocial/ Personal History: Resident of [facility] - Family History Father -: Kidney disease Notes: renal failure - Social History Smoking Status: Unknown if ever smoked Alcohol use: No CD- Drugs: No Caffeine use: Yes Place of Residence: Home <Nj Hoover - Last Filed: 12/01/21 01:52> Date of Service: 12/01/21 <Dino Tracy - Last Filed: 12/01/21 11:27> Allergies No Known Drug Allergies Allergy (Verified 12/21/15 04:00) Unknown Home Medications: Benztropine Mesylate [Cogentin*] 1 mg PO DAILY 12/21/15 Metoprolol Tartrate [Lopressor*] 25 mg PO DAILY 12/21/15 Sertraline [Zoloft*] 100 mg PO BEDTIME 12/21/15 Tiotropium [place] [Spiriva] 1 spray IH DAILY 12/21/15 lisinopriL [Prinivil*] 20 mg PO DAILY 12/21/15 risperiDONE [Risperdal 1 mg tab*] 0.5 mg PO BEDTIME 12/21/15 Amiodarone HCl [Cordarone*] 200 mg PO TID 04/13/21 Apixaban [Eliquis *] 2.5 mg PO BID 04/13/21 Ascorbic Acid 500 mg PO DAILY 04/13/21 Cefdinir [Omnicef] 300 mg PO BID #20 capsule 04/13/21 Divalproex Sodium [Depakote] 125 mg PO BID 04/13/21 Donepezil [Aricept*] 5 mg PO BEDTIME 04/13/21 Ergocalciferol (Vitamin D2) [Drisdol] 1,250 mcg PO EVERY 7TH DAY 04/13/21 Furosemide [Lasix] 40 mg PO BID 04/13/21 Ipratropium/Albuterol Sulfate [Iprat-Albut 0.5-3(2.5) mg/3 ml] 3 ml IH Q6H PRN 04/13/21 Levothyroxine Sodium [Levothyroxine] 25 mcg PO DAILY 04/13/21 Memantine HCl [Namenda] 5 mg PO BID 04/13/21 Ondansetron [Zofran (Odt)*] 4 mg PO Q8H PRN 04/13/21 Risperidone [Risperdal] 0.5 mg PO DAILY 04/13/21 Zinc 50 mg PO DAILY 04/13/21 Review of Systems is unable to be obtained <Nj Hoover - Last Filed: 12/01/21 01:52> Physical Examination - Physical Exam General: Alert, In no apparent distress, Demented HEENT: Atraumatic, PERRLA, Mucous membr. moist/pink, EOMI, Sclerae nonicteric Neck: Supple, 2+ carotid pulse no bruit, No LAD, Without JVD or thyroid abnormality Respiratory: Clear to auscultation bilaterally, Diminished, Expiratory wheezes Cardiovascular: Regular rate/rhythm, Normal S1 S2 Capillary refill: <2 Seconds Gastrointestinal: Normal bowel sounds, No tenderness Musculoskeletal: No tenderness Integumentary: No rashes Neurological: Normal speech, Normal strength at 5/5 x4 extr, Normal tone, Normal affect - Studies Laboratory Data (last 24 hrs) 11/30/21 23:28: PT 11.1, INR 1.01 11/30/21 23:28: WBC 3.90 L, Hgb 12.4, Hct 36.6, Plt Count 191 11/30/21 23:28: Sodium 141, Potassium 3.7, BUN 21 H, Creatinine 1.15, Glucose 153 H, Magnesium 1.6 L, Total Bilirubin 0.3, AST 8 L, ALT 15, Alkaline Phosphatase 89 Microbiology Data (last 24 hrs): 11/30/21 23:36 Nasopharnyx Influenza Type A Antigen Screen - Final 11/30/21 23:36 Nasopharnyx Influenza Type B Antigen Screen - Final <Nj Hoover - Last Filed: 12/01/21 01:52> - Studies Laboratory Data (last 24 hrs) 11/30/21 23:28: PT 11.1, INR 1.01 11/30/21 23:28: WBC 3.90 L, Hgb 12.4, Hct 36.6, Plt Count 191 11/30/21 23:28: Sodium 141, Potassium 3.7, BUN 21 H, Creatinine 1.15, Glucose 153 H, Magnesium 1.6 L, Total Bilirubin 0.3, AST 8 L, ALT 15, Alkaline Phosphatase 89 Microbiology Data (last 24 hrs): 11/30/21 23:36 Nasopharnyx Influenza Type A Antigen Screen - Final 11/30/21 23:36 Nasopharnyx Influenza Type B Antigen Screen - Final <Dino Tracy - Last Filed: 12/01/21 11:27> Assessment and Plan - Plan Assessment: Sepsis secondary to left base pneumonia Acute on chronic hypoxic/hypercapnic respiratory failure secondary to pneumonia/sepsis COPD with exacerbation Atrial fibrillation on chronic anticoagulation therapy Dementia/schizophrenia/BPD Hypothyroidism Hypomagnesemia Plan: Sepsis secondary to left base pneumonia: 2 out of 4 SIRS criteria present including white blood cell count less than 4 and heart rate greater than 90, lactic acid was 1.3 and no hypotension or endorgan damage suspected. Patient was started on Zosyn given her concurrent use of amiodarone. Blood cultures were obtained. We will continue with incentive spirometry, antibiotics, supplemental oxygen as needed. Acute on chronic hypoxic/hypercapnic respiratory failure secondary to pneumonia/sepsis: Continue as above, no respiratory distress noted. COPD with exacerbation: Started on p.o. steroids, ICS as well as antibiotics for pneumonia. Incentive [place] ordered. Supplemental oxygen as needed. Atrial fibrillation on chronic anticoagulation therapy: Eliquis and amiodarone continued, monitor on telemetry. Dementia/schizophrenia/BPD: On medications continue aside from her Depakote, need to double check dose will restart once verified. Hypothyroidism: Levothyroxine continued. Hypomagnesemia: Replaced in ER, protocol in place. DVT PPX: Continue eliquis Code status:Full Discharge Plan: Fdc Plan to discharge in: 72 Hours - Advance Directives Does patient have a Living Will: No Does patient have a Durable POA for Healthcare: No - Code Status/Comfort Care Code Status Assessed: Yes (Full code) Critical Care: No Time Spent Managing Pts Care (In Minutes): 70 <Nj Hoover - Last Filed: 12/01/21 01:52> Physician Review: Patient Assessed, Agree with Above Assessment and Plan <Dino Tracy - Last Filed: 12/01/21 11:27>
[2021-12-01 02:06] LABS: Urine Bacteria <20 /HPF (<20); Urine Mucus Slight /HPF (None Seen); Urine RBC <5 /HPF (None Seen)
[2021-12-01] MEDS ORDERED: ONDANSETRON 4 MG/2 ML VIAL IV PRN (03:09)
[2021-12-01] MEDS ORDERED: IPRATROPIUM BROM 0.5MG/2.5ML NEB PRN (03:09)
[2021-12-01] MEDS ORDERED: ALBUTEROL 2.5 MG/3 ML NEB SOL NEB PRN (03:09)
[2021-12-01 03:19] VITALS: BMI 20.7
[2021-12-01 06:20] LABS: Absolute Lymphocytes (CBC) 0.2 K/uL (0.7-4.9); Hematocrit 33.3 % (36.0-45.0); MCV 103.3 fL (80-100); MPV 7.2 fL (7.6-11.3); RBC Red Blood Cell Count 3.23 M/uL (3.86-4.86)
[2021-12-01] MEDS: LEVOTHYROXINE SOD 0.1 MG TAB PO SCH (06:40)
[2021-12-01 06:46] LABS: Albumin 2.6 g/dL (3.4-5.0); Bilirubin Total 0.2 mg/dL (0.2-1.0); Potassium 4.1 mmol/L (3.5-5.1); Protein, Total 6.1 g/dL (6.4-8.2)
[2021-12-01] MEDS ORDERED: PIPERACIL/TAZO 3.375 GM VIAL IV ONE (08:01)
[2021-12-01] MEDS: AMIODARONE HCL 200 MG TAB PO SCH ×3 (08:31→20:24)
[2021-12-01] MEDS: RISPERIDONE 0.25 MG TABLET PO SCH ×2 (08:31→20:24)
[2021-12-01] MEDS: FUROSEMIDE 40 MG TABLET PO SCH (08:31)
[2021-12-01] MEDS: APIXABAN 2.5 MG TABLET PO SCH ×2 (08:31→20:24)
[2021-12-01] MEDS: DULERA 200/5 (MOMETASONE/FORMOTEROL) INHALER IH SCH ×2 (08:31→20:27)
[2021-12-01] MEDS: predniSONE 20 MG TAB PO SCH (08:31)
[2021-12-01 08:45] LABS: Blood Morphology Comment NOT SEEN (NOT SEEN); Platelet Estimate ADEQ
[2021-12-01] MEDS ORDERED: NA CHLORIDE 0.9% 100 ML ONE (11:22)
[2021-12-01] MEDS: PIPER TAZO 3.375 GM in NA CHLORIDE 0.9% 100 ML IV SCH ×2 (11:34→17:35)
[2021-12-01] MEDS ORDERED: VANCOMYCIN 1 GM in NA CHLORIDE 0.9% 250 ML IVPB SCH (15:00)
[2021-12-01] MEDS ORDERED: VANCOMYCIN 1.25 GM in NA CHLORIDE 0.9% 250 ML IVPB ONE (15:00)
--- NOTE | 2021-12-01 19:32 | RAD REPORT ---
EXAM DESCRIPTION: RAD - Chest Single View - 11/30/2021 11:36 pm CLINICAL HISTORY: 6 years Female, COUGH COMPARISON: Radiograph dated 04/12/2021. IMPRESSION: Left lung base opacity concerning for pneumonia. Chronic lung changes. No pleural effusion. No pneumothorax. Cardiomegaly. No acute osseous abnormality. Electronically signed by: Raul Su DO 11/30/2021 11:49 PM CDT Due to temporary technical issues with the PACS/Fluency reporting system, reports are being signed by the in house radiologists without review as a courtesy to insure prompt reporting. The interpreting radiologist is fully responsible for the content of the report.
[2021-12-01] MEDS: DONEPEZIL HCL 5 MG TAB PO SCH (20:24)
[2021-12-01] MEDS: ATORVASTATIN 10 MG TAB PO SCH (20:24)
[2021-12-01] MEDS: SERTRALINE HCL 100 MG TAB PO SCH (20:24)
[2021-12-02] MEDS ORDERED: PIPERACIL/TAZO 3.375 GM VIAL IV ONE (00:26)
[2021-12-02] MEDS: PIPER TAZO 3.375 GM in NA CHLORIDE 0.9% 100 ML IV SCH ×3 (00:30→18:16)
[2021-12-02] MEDS: LEVOTHYROXINE SOD 0.1 MG TAB PO SCH (05:30)
--- NOTE | 2021-12-02 07:45 | EKG ---
Test Date: 2021-11-30 Test Time: 22:36:03 Content Director: MEASUREMENT RESULTS: Intervals: Rate: 88 [place]: 156 QRSD: 82 QT: 374 QTc: 452 [place]: P: 74 [place]: 156 QRS: 22 T: 47 INTERPRETIVE STATEMENTS: Normal sinus rhythm Cannot rule out Anterior infarct, age undetermined Abnormal ECG Compared to ECG 10/03/2021 09:51:49 Myocardial infarct finding now present ST (T wave) deviation no longer present Electronically Signed On 12-02-21 07:43:41 CDT by uJstice Roach
[2021-12-02] MEDS: AMIODARONE HCL 200 MG TAB PO SCH ×3 (08:56→21:56)
[2021-12-02] MEDS: FUROSEMIDE 40 MG TABLET PO SCH (08:56)
[2021-12-02] MEDS: RISPERIDONE 0.25 MG TABLET PO SCH ×2 (08:56→21:56)
[2021-12-02] MEDS: predniSONE 20 MG TAB PO SCH (08:56)
[2021-12-02] MEDS: DULERA 200/5 (MOMETASONE/FORMOTEROL) INHALER IH SCH ×2 (08:56→21:56)
[2021-12-02] MEDS: APIXABAN 2.5 MG TABLET PO SCH ×2 (08:56→21:56)
[2021-12-02] MEDS: VANCOMYCIN 750 MG in NA CHLORIDE 0.9% 150 ML IVPB SCH (15:54)
--- NOTE | 2021-12-02 18:49 | P.PN ---
Subjective Date of Service: 12/02/21 Chief Complaint: Sepsis, pneumonia, COPD exacerbation No acute events overnight. History is limited by dementia. She denies any particular concerns this morning. Review of Systems is unable to be obtained Physical Examination - Vital Signs Temperature: 97.8 F Blood Pressure: 143/77 Pulse: 81 Respirations: 16 Pulse Ox (%): 100 - Physical Exam General: Alert, In no apparent distress, Oriented x1 (self) HEENT: Atraumatic, PERRLA, Mucous membr. moist/pink, EOMI, Sclerae nonicteric Neck: Supple, JVD not distended Respiratory: Diminished, Crackles/rales Cardiovascular: No edema, Regular rate/rhythm, Normal S1 S2, No gallops, No rubs, No murmurs Gastrointestinal: Normal bowel sounds, Soft and benign, Non-distended, No tenderness, No rebound, No guarding Musculoskeletal: No clubbing, No swelling Integumentary: No rashes Neurological: Dementia - Studies Microbiology Data (last 24 hrs): 11/30/21 23:20 Blood - Blood Blood Culture Gram Stain - Final 11/30/21 23:05 Blood - Blood Blood Culture Gram Stain - Final Assessment And Plan - Plan # Sepsis likely secondary to Left Base Pneumonia with Gram-Positive Bacteremia She met SIRS criteria based on HR > 90 bpm and WBC < 4,000 and the suspected source is left lung base pneumonia. - Sepsis order set was initiated - Initial Lactate was 1.3 - Blood cultures drawn before antibiotics were given - Broad spectrum antibiotics started: Vancomycin + Piperacillin-Tazobactam - In regards to fluids: - 30 mL/kg of IV fluids was not administered given SBP > 90, MAP > 65, lactic acid < 4 # Acute Chronic Obstructive Pulmonary Disease Exacerbation # Acute Hypercapnic Respiratory Failure due to above Likely triggered by pneumonia - Improving compared to yesterday - Continue Duo-Nebs and prednisone - Continue vancomycin + piperacillin-tazobactam - Supplemental oxygen as needed to maintain SpO2 > 92 % - Encouraged incentive spirometry # Chronic Atrial Fibrillation - Continue amiodarone, apixaban # Dementia # Schizophrenia # Bipolar Disorder - Continue donepezil, risperidone, and sertraline # Hypothyroidism - Continue levothyroxine Dino Tracy M.D.
[2021-12-02] MEDS: SERTRALINE HCL 100 MG TAB PO SCH (21:56)
[2021-12-02] MEDS: ATORVASTATIN 10 MG TAB PO SCH (21:56)
[2021-12-02] MEDS: DONEPEZIL HCL 5 MG TAB PO SCH (21:56)
[2021-12-03] MEDS ORDERED: PIPERACIL/TAZO 3.375 GM VIAL IV ONE ×2 (00:36→08:18)
[2021-12-03] MEDS ORDERED: NA CHLORIDE 0.9% 100 ML ONE ×2 (00:44→09:54)
[2021-12-03] MEDS: PIPER TAZO 3.375 GM in NA CHLORIDE 0.9% 100 ML IV SCH ×3 (01:08→17:21)
[2021-12-03] MEDS: LEVOTHYROXINE SOD 0.1 MG TAB PO SCH (05:38)
[2021-12-03 06:24] LABS: Absolute Lymphocytes (CBC) 0.8 K/uL (0.7-4.9); Hematocrit 37.4 % (36.0-45.0); Lymphocytes % 13.7 % (15.3-44.8); MPV 7.1 fL (7.6-11.3); RBC Red Blood Cell Count 3.78 M/uL (3.86-4.86)
[2021-12-03 06:42] LABS: Albumin 3.1 g/dL (3.4-5.0); Bilirubin Total 0.4 mg/dL (0.2-1.0); Potassium 3.2 mmol/L (3.5-5.1); Protein, Total 7.3 g/dL (6.4-8.2)
[2021-12-03] MEDS: AMIODARONE HCL 200 MG TAB PO SCH ×3 (10:00→21:15)
[2021-12-03] MEDS: RISPERIDONE 0.25 MG TABLET PO SCH ×2 (10:00→21:15)
[2021-12-03] MEDS: APIXABAN 2.5 MG TABLET PO SCH ×2 (10:00→21:15)
[2021-12-03] MEDS: FUROSEMIDE 40 MG TABLET PO SCH (10:00)
[2021-12-03] MEDS: predniSONE 20 MG TAB PO SCH (10:00)
[2021-12-03] MEDS: DULERA 200/5 (MOMETASONE/FORMOTEROL) INHALER IH SCH ×2 (10:01→21:16)
[2021-12-03] MEDS ORDERED: ALBUTEROL 2.5 MG/3 ML NEB SOL NEB PRN (14:00)
[2021-12-03] MEDS: VANCOMYCIN 750 MG in NA CHLORIDE 0.9% 150 ML IVPB SCH (15:57)
[2021-12-03] MEDS: METOPROLOL TAR 25 MG TAB PO SCH (17:20)
[2021-12-03] MEDS ORDERED: HOME MED 1 EA UNK (Divalproex Sodium [Depakote] 125 MG Tablet.Dr) PO SCH (21:00)
[2021-12-03] MEDS: DOCUSATE NA 100 MG CAP PO SCH (21:15)
[2021-12-03] MEDS: DIVALPROEX NA 125 MG CAP PO SCH (21:15)
[2021-12-03] MEDS: ATORVASTATIN 10 MG TAB PO SCH (21:15)
[2021-12-03] MEDS: POTASSIUM CL SA 10 MEQ TAB PO SCH (21:16)
[2021-12-03] MEDS: SERTRALINE HCL 100 MG TAB PO SCH (21:16)
[2021-12-03] MEDS: DONEPEZIL HCL 5 MG TAB PO SCH (21:16)
[2021-12-04] MEDS: PIPER TAZO 3.375 GM in NA CHLORIDE 0.9% 100 ML IV SCH ×3 (00:28→17:40)
[2021-12-04] MEDS: LEVOTHYROXINE SOD 0.1 MG TAB PO SCH (06:54)
[2021-12-04] MEDS: METOPROLOL TAR 25 MG TAB PO SCH ×2 (06:54→17:40)
[2021-12-04 07:13] LABS: Absolute Lymphocytes (CBC) 1.6 K/uL (0.7-4.9); Hematocrit 38.9 % (36.0-45.0); Lymphocytes % 23.9 % (15.3-44.8); MCV 101.4 fL (80-100); MPV 7.8 fL (7.6-11.3); RBC Red Blood Cell Count 3.84 M/uL (3.86-4.86)
[2021-12-04 08:59] LABS: Albumin 2.9 g/dL (3.4-5.0); Bilirubin Total 0.3 mg/dL (0.2-1.0); Potassium 3.5 mmol/L (3.5-5.1); Protein, Total 6.9 g/dL (6.4-8.2)
[2021-12-04] MEDS: AMIODARONE HCL 200 MG TAB PO SCH ×3 (09:00→21:36)
[2021-12-04] MEDS ORDERED: HOME MED 1 EA UNK (Levothyroxine Sodium [Levothyroxine] 25 MCG Capsule) PO SCH (09:00)
[2021-12-04] MEDS: FUROSEMIDE 40 MG TABLET PO SCH (09:23)
[2021-12-04] MEDS: RISPERIDONE 0.25 MG TABLET PO SCH ×2 (09:23→21:37)
[2021-12-04] MEDS: predniSONE 20 MG TAB PO SCH (09:23)
[2021-12-04] MEDS: DULERA 200/5 (MOMETASONE/FORMOTEROL) INHALER IH SCH ×2 (09:24→21:37)
[2021-12-04] MEDS: DOCUSATE NA 100 MG CAP PO SCH ×2 (09:24→21:36)
[2021-12-04] MEDS: POTASSIUM CL SA 10 MEQ TAB PO SCH ×2 (09:24→21:36)
[2021-12-04] MEDS: APIXABAN 2.5 MG TABLET PO SCH ×2 (09:24→21:36)
[2021-12-04] MEDS: BENZTROPINE 1 MG TAB PO SCH (09:31)
[2021-12-04] MEDS: VANCOMYCIN 750 MG in NA CHLORIDE 0.9% 150 ML IVPB SCH (15:25)
[2021-12-04 21:02] VITALS: O2SAT 98
[2021-12-04] MEDS: SERTRALINE HCL 100 MG TAB PO SCH (21:36)
[2021-12-04] MEDS: DIVALPROEX NA 125 MG CAP PO SCH (21:37)
[2021-12-04] MEDS: DONEPEZIL HCL 5 MG TAB PO SCH (21:37)
[2021-12-04] MEDS: ATORVASTATIN 10 MG TAB PO SCH (21:37)
[2021-12-05] MEDS: PIPER TAZO 3.375 GM in NA CHLORIDE 0.9% 100 ML IV SCH ×2 (01:00→09:08)
[2021-12-05] MEDS: METOPROLOL TAR 25 MG TAB PO SCH (05:52)
[2021-12-05] MEDS: LEVOTHYROXINE SOD 0.1 MG TAB PO SCH (05:52)
[2021-12-05] MEDS ORDERED: PIPERACIL/TAZO 3.375 GM VIAL IV ONE (08:13)
[2021-12-05] MEDS ORDERED: NA CHLORIDE 0.9% 100 ML ONE (08:26)
[2021-12-05] MEDS: RISPERIDONE 0.25 MG TABLET PO SCH (09:07)
[2021-12-05] MEDS: DOCUSATE NA 100 MG CAP PO SCH (09:07)
[2021-12-05] MEDS: BENZTROPINE 1 MG TAB PO SCH (09:07)
[2021-12-05] MEDS: POTASSIUM CL SA 10 MEQ TAB PO SCH (09:07)
[2021-12-05] MEDS: FUROSEMIDE 40 MG TABLET PO SCH (09:08)
[2021-12-05] MEDS: DULERA 200/5 (MOMETASONE/FORMOTEROL) INHALER IH SCH (09:08)
[2021-12-05] MEDS: predniSONE 20 MG TAB PO SCH (09:08)
[2021-12-05] MEDS: AMIODARONE HCL 200 MG TAB PO SCH ×2 (09:08→13:59)
[2021-12-05] MEDS: APIXABAN 2.5 MG TABLET PO SCH (09:08)
--- NOTE | 2021-12-05 10:56 | P.PN ---
Date of Service: 12/03/21 Subjective Patient is clinically more awake and alert. Symptoms are improving. Physical Examination - Physical Exam General: Alert, In no apparent distress, Demented Respiratory: Clear to auscultation bilaterally, Diminished, Expiratory wheezes Cardiovascular: Regular rate/rhythm, Normal S1 S2 Gastrointestinal: Normal bowel sounds, No tenderness Musculoskeletal: No tenderness Integumentary: No rashes Neurological: Normal speech, Normal strength at 5/5 x4 extr, Normal tone, Normal affect Assessment and Plan - Plan Assessment: 1. Sepsis secondary to left base pneumonia 2. Acute on chronic hypoxic/hypercapnic respiratory failure secondary to pneumonia/sepsis 3. COPD with exacerbation 4. Atrial fibrillation on chronic anticoagulation therapy 5. Dementia/schizophrenia/BPD 6. Hypothyroidism 7. Hypomagnesemia Plan: 1. Continue with IV antibiotics 2. Awaiting sputum and blood culture 3. Repeat chest x-ray 4. CT scan of the chest if pneumonia is not improving- 5. Appreciate pulmonary consultation 6. Continue with nebs as needed 7. O2 per protocol 8. Continue with gentle hydration 9. Repeat labs including CBC and renal function in a.m. 10. GI and DVT prophylaxis
--- NOTE | 2021-12-05 10:58 | P.PN ---
Date of Service: 12/04/21 Subjective Patient more awake and alert and following commands. Clinical symptoms are much better. Still pleasantly confused. Moves all her extremities. Physical Examination - Physical Exam General: Alert, In no apparent distress, Demented Respiratory: Clear to auscultation bilaterally, Diminished, Expiratory wheezes Cardiovascular: Regular rate/rhythm, Normal S1 S2 Gastrointestinal: Normal bowel sounds, No tenderness Musculoskeletal: No tenderness Integumentary: No rashes Neurological: Normal speech, Normal strength at 5/5 x4 extr, Normal tone, Normal affect Assessment and Plan - Plan Assessment: 1. Sepsis secondary to left base pneumonia 2. Acute on chronic hypoxic/hypercapnic respiratory failure secondary to pneumonia/sepsis 3. COPD with exacerbation 4. Atrial fibrillation on chronic anticoagulation therapy 5. Dementia/schizophrenia/BPD 6. Hypothyroidism 7. Hypomagnesemia Plan: 1. Continue with IV antibiotics; change to oral antibiotics 2. Cultures are negative 3. Repeat chest x-ray 4. Continue with nebs, steroids, antibiotic 5. cardiac status stable 6. Continue with nebs as needed 7. O2 per protocol 8. Continue with gentle hydration 9. Repeat labs including CBC and renal function in a.m. 10. GI and DVT prophylaxis
[2021-12-05 12:38] VITALS: BP 175/74; TEMP 97.9
== END 2021-12-05 15:20 | disposition home or self-care (01) | DRG 871 ==
LOC: ER 22:27 → ERHOLD 12-01 01:24 → 4TH 12-01 01:57
PROVIDERS: ADMIT Internal Medicine; ATTEND Hospitalist
DX: A41.9 Sepsis, unspecified organism (principal); J96.21 Acute and chronic respiratory failure with hypoxia; J96.22 Acute and chronic respiratory failure with hypercapnia; J18.9 Pneumonia, unspecified organism; J44.1 Chronic obstructive pulmonary disease with (acute) exacerbation; J44.0 Chronic obstructive pulmonary disease with (acute) lower respiratory infection; F23 Brief psychotic disorder; I48.20 Chronic atrial fibrillation, unspecified; I10 Essential (primary) hypertension; E03.9 Hypothyroidism, unspecified; E78.5 Hyperlipidemia, unspecified; I51.7 Cardiomegaly; F03.90 Unspecified dementia, unspecified severity, without behavioral disturbance, psychotic disturbance, mood disturbance, and anxiety; E83.42 Hypomagnesemia; Z79.01 Long term (current) use of anticoagulants; Z79.899 Other long term (current) drug therapy; Z79.890 Hormone replacement therapy; Z20.822 Contact with and (suspected) exposure to COVID-19
CPT/HCPCS: 36415; 51702; 71045; 80048; 80053; 80076; 80164; 80202; 81003; 81015; 82805; 83605; 83735; 83880; 84484; 85025; 85610; 87040; 87077; 87086; 87088; 87186; 87205; 87804; 93005; 94010; 96361; 96365; 96367; 96375; 99285; J2543; J2930; J3370; J3475; J3535; J7030; J7050; J7512; J7614; U0003

== ENCOUNTER 2022-09-23 19:46 | Inpatient (IN) | payer OTHER ==
--- OUTSIDE RECORDS SUMMARY | 2022-09-23 20:01 | XMS REPORT | Continuity of Care Document ---
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 by oral every day route at route at by oral bedtime. bedtime. route at bedtime. Eliquis 5 Eliquis 5 No 1 Q1D Eliquis 5 [facility] mg tablet mg tablet mg tablet Medical Take 1 Take 1 Take 1 tablet tablet tablet every day every day every day by oral by oral by oral route at route at route at bedtime. bedtime. bedtime. ergocalcife ergocalcife No ergocalcif [facility] rol rol [...] oral route. route. route. levothyroxi levothyroxi No 1capsul Q1D levothyrox [facility] ne 25 mcg ne 25 mcg e(s) ine 25 mcg [facility] capsule capsule capsule Take 1 Take 1 Take 1 capsule capsule capsule every day every day every day by oral by oral by oral route. route. route. lisinopril lisinopril No 1 Q1D lisinopril [...] translingu needed. needed. al route as needed. risperidone risperidone No 1 BID risperidon [facility] [...] by inhalation inhalation inhalation route. route. route. Zoloft 100 Zoloft 100 No 1 Q1D Zoloft 100 [facility] mg tablet mg tablet mg tablet [facility] Take 1 Take 1 Take 1 tablet tablet tablet every day every day every day by oral by oral by oral route at route at route at bedtime. bedtime. bedtime. amiodarone amiodarone No 1 TID amiodarone [facility] 200 mg 200 mg 200 mg [facility] tablet Take tablet Take tablet 1 tablet 3 1 tablet 3 Take 1 times a day times a day tablet 3 by oral by oral times a route. route. day by oral route. benztropine benztropine No 1 Q1D benztropin [facility] [...] oral day by route. route. oral route. Depakote Depakote No 1 Q1D Depakote [facility] via 250 mg 250 mg 250 mg Medical tablet,umang tablet,umang tablet,del yed release yed release ayed Take 1 Take 1 release tablet tablet Take 1 every day every day tablet by oral by oral every day route. route. by oral route. divalproex divalproex No 1 Q1D divalproex [facility] 500 mg 500 mg 500 mg [facility] tablet,umang tablet,umang tablet,del yed release yed release ayed Take 1 Take 1 release tablet tablet Take 1 every day every day tablet by oral by oral every day route at route at by oral bedtime. bedtime. route at bedtime. donepezil 5 donepezil 5 No 1 Q1D donepezil [facility] mg tablet mg tablet 5 mg [facility] al Take 1 Take 1 tablet tablet tablet Take 1 every day every day tablet by oral by oral every day route at route at by oral bedtime. bedtime. route at bedtime. Eliquis 5 Eliquis 5 No 1 Q1D Eliquis 5 [facility] mg tablet mg tablet mg tablet [facility] Take 1 Take 1 Take 1 tablet tablet tablet every day every day every day by oral by oral by oral route at route at route at bedtime. bedtime. bedtime. ergocalcife ergocalcife No ergocalcif [facility] (vitamin (vitamin (vitamin D2) 1,250 D2) [...] translingu needed. needed. al route as needed. risperidone risperidone No 1 BID risperidon [facility] [...] by inhalation inhalation inhalation route. route. route. Zoloft 100 Zoloft 100 No 1 Q1D Zoloft 100 [facility] mg tablet mg tablet mg tablet [facility] Take 1 Take 1 Take 1 tablet tablet tablet every day every day every day by oral by oral by oral route at route at route at bedtime. bedtime. bedtime. amiodarone amiodarone No 1 TID amiodarone [facility] 200 mg 200 mg 200 mg [facility] tablet Take tablet Take tablet 1 tablet 3 1 tablet 3 Take 1 times a day times a day tablet 3 by oral by oral times a route. route. day by oral route. benztropine benztropine No 1 Q1D benztropin [facility] [...] oral day by route. route. oral route. Depakote Depakote No 1 Q1D Depakote [facility] via 250 mg 250 mg 250 mg [facility] tablet,umang tablet,umang tablet,del yed release yed release ayed Take 1 Take 1 release tablet tablet Take 1 every day every day tablet by oral by oral every day route. route. by oral route. divalproex divalproex No 1 Q1D divalproex [facility] 500 mg 500 mg 500 mg [facility] tablet,umang tablet,umang tablet,del yed release yed release ayed Take 1 Take 1 release tablet tablet Take 1 every day every day tablet by oral by oral every day route at route at by oral bedtime. bedtime. route at bedtime. donepezil 5 donepezil 5 No 1 Q1D donepezil [facility] mg tablet mg tablet 5 mg [facility] al Take 1 Take 1 tablet tablet tablet Take 1 every day every day tablet by oral by oral every day route at route at by oral bedtime. bedtime. route at bedtime. Eliquis 5 Eliquis 5 No 1 Q1D Eliquis 5 [facility] mg tablet mg tablet mg tablet [facility] Take 1 Take 1 Take 1 tablet tablet tablet every day every day every day by oral by oral by oral route at route at route at bedtime. bedtime. bedtime. ergocalcife ergocalcife No ergocalcif [facility] rol rol [...] translingu needed. needed. al route as needed. risperidone risperidone No 1 BID risperidon [facility] [...] by inhalation inhalation inhalation route. route. route. Zoloft 100 Zoloft 100 No 1 Q1D Zoloft 100 [facility] mg tablet mg tablet mg tablet [facility] Take 1 Take 1 Take 1 tablet tablet tablet every day every day every day by oral by oral by oral route at route at route at bedtime. bedtime. bedtime. amiodarone amiodarone No 1 TID amiodarone [facility] [...] oral day by route. route. oral route. Depakote Depakote No 1 Q1D Depakote [facility] 250 mg 250 mg 250 mg [facility] tablet,umang tablet,umang tablet,del yed release yed release ayed Take 1 Take 1 release tablet tablet Take 1 every day every day tablet by oral by oral every day route. route. by oral route. divalproex divalproex No 1 Q1D divalproex [facility] 500 mg 500 mg 500 mg [facility] tablet,umang tablet,umang tablet,del yed release yed release ayed Take 1 Take 1 release tablet tablet Take 1 every day every day tablet by oral by oral every day route at route at by oral bedtime. bedtime. route at bedtime. donepezil 5 donepezil 5 No 1 [...] by inhalation inhalation inhalation route. route. route. Zoloft 100 Zoloft 100 No 1 Q1D Zoloft 100 [facility] mg tablet mg tablet mg tablet [facility] Take 1 Take 1 Take 1 tablet tablet tablet every day every day every day by oral by oral by oral route at route at route at bedtime. bedtime. bedtime. amiodarone amiodarone No 1 TID amiodarone [facility] [...] oral day by route. route. oral route. Depakote Depakote No 1 Q1D Depakote [facility] via 250 mg 250 mg 250 mg [facility] tablet,umang tablet,umang tablet,del yed release yed release ayed Take 1 Take 1 release tablet tablet Take 1 every day every day tablet by oral by oral every day route. route. by oral route. divalproex divalproex No 1 Q1D divalproex [facility] 500 mg 500 mg 500 mg [facility] tablet,umang tablet,umang tablet,del yed release yed release ayed Take 1 Take 1 release tablet tablet Take 1 every day every day tablet by oral by oral every day route at route at by oral bedtime. bedtime. route at bedtime. donepezil 5 donepezil 5 No 1 [...] by inhalation inhalation inhalation route. route. route. Zoloft 100 Zoloft 100 No 1 Q1D Zoloft 100 [facility] mg tablet mg tablet mg tablet Medical Take 1 Take 1 Take 1 tablet tablet tablet every day every day every day by oral by oral by oral route at route at route at bedtime. bedtime. bedtime. amiodarone amiodarone No 1 TID amiodarone [facility] [...] oral day by route. route. oral route. Depakote Depakote No 1 Q1D Depakote [facility] via 250 mg 250 mg 250 mg [facility] tablet,umang tablet,umang tablet,del yed release yed release ayed Take 1 Take 1 release tablet tablet Take 1 every day every day tablet by oral by oral every day route. route. by oral route. divalproex divalproex No 1 Q1D divalproex [facility] 500 mg 500 mg 500 mg [facility] tablet,umang tablet,umang tablet,del yed release yed release ayed Take 1 Take 1 release tablet tablet Take 1 every day every day tablet by oral by oral every day route at route at by oral bedtime. bedtime. route at bedtime. donepezil 5 donepezil 5 No 1 [...] by inhalation inhalation inhalation route. route. route. Zoloft 100 Zoloft 100 No 1 Q1D Zoloft 100 [facility] mg tablet mg tablet mg tablet Medical Take 1 Take 1 Take 1 tablet tablet tablet every day every day every day by oral by oral by oral route at route at route at bedtime. bedtime. bedtime. amiodarone amiodarone No 1 TID amiodarone [facility] [...] oral day by route. route. oral route. Depakote Depakote No 1 Q1D Depakote [facility] via 250 mg 250 mg 250 mg [facility] tablet,umang tablet,umang tablet,del yed release yed release ayed Take 1 Take 1 release tablet tablet Take 1 every day every day tablet by oral by oral every day route. route. by oral route. divalproex divalproex No 1 Q1D divalproex [facility] 500 mg 500 mg 500 mg [facility] tablet,umang tablet,umang tablet,del yed release yed release ayed Take 1 Take 1 release tablet tablet Take 1 every day every day tablet by oral by oral every day route at route at by oral bedtime. bedtime. route at bedtime. donepezil 5 donepezil 5 No 1 [...] by inhalation inhalation inhalation route. route. route. Zoloft 100 Zoloft 100 No 1 Q1D Zoloft 100 [facility] mg tablet mg tablet mg tablet Medical Take 1 Take 1 Take 1 tablet tablet tablet every day every day every day by oral by oral by oral route at route at route at bedtime. bedtime. bedtime. amiodarone amiodarone No 1 TID amiodarone [facility] [...] oral day by route. route. oral route. Depakote Depakote No 1 Q1D Depakote [facility] via 250 mg 250 mg 250 mg [facility] tablet,umang tablet,umang tablet,del yed release yed release ayed Take 1 Take 1 release tablet tablet Take 1 every day every day tablet by oral by oral every day route. route. by oral route. divalproex divalproex No 1 Q1D divalproex [facility] 500 mg 500 mg 500 mg [facility] tablet,umang tablet,umang tablet,del yed release yed release ayed Take 1 Take 1 release tablet tablet Take 1 every day every day tablet by oral by oral every day route at route at by oral bedtime. bedtime. route at bedtime. donepezil 5 donepezil 5 No 1 [...] by inhalation inhalation inhalation route. route. route. Zoloft 100 Zoloft 100 No 1 Q1D Zoloft 100 [facility] mg tablet mg tablet mg tablet Medical Take 1 Take 1 Take 1 tablet tablet tablet every day every day every day by oral by oral by oral route at route at route at bedtime. bedtime. bedtime. amiodarone amiodarone No 1 TID amiodarone [facility] [...] oral day by route. route. oral route. Depakote Depakote No 1 Q1D Depakote [facility] 250 mg 250 mg 250 mg [facility] tablet,umang tablet,umang tablet,del yed release yed release ayed Take 1 Take 1 release tablet tablet Take 1 every day every day tablet by oral by oral every day route. route. by oral route. divalproex divalproex No 1 Q1D divalproex [facility] 500 mg 500 mg 500 mg Medical tablet,umang tablet,umang tablet,del yed release yed release ayed Take 1 Take 1 release tablet tablet Take 1 every day every day tablet by oral by oral every day route at route at by oral bedtime. bedtime. route at bedtime. donepezil 5 donepezil 5 No 1 [...] route at route at bedtime. bedtime. bedtime. amiodarone amiodarone No 1 TID amiodarone [facility] [...] oral day by route. route. oral route. Depakote Depakote No 1 Q1D Depakote [facility] via 250 mg 250 mg 250 mg Medical tablet,umang tablet,umang tablet,del yed release yed release ayed Take 1 Take 1 release tablet tablet Take 1 every day every day tablet by oral by oral every day route. route. by oral route. divalproex divalproex No 1 Q1D divalproex [facility] 500 mg 500 mg 500 mg [facility] tablet,umang tablet,umnag tablet,del yed release yed release ayed Take 1 Take 1 release tablet tablet Take 1 every day every day tablet by oral by oral every day route at route at by oral bedtime. bedtime. route at bedtime. donepezil 5 donepezil 5 No 1 [...] route at route at bedtime. bedtime. bedtime. amiodarone amiodarone No 1 TID amiodarone [facility] [...] oral day by route. route. oral route. Depakote Depakote No 1 Q1D Depakote [facility] via 250 mg 250 mg 250 mg [facility] tablet,umang tablet,umang tablet,del yed release yed release ayed Take 1 Take 1 release tablet tablet Take 1 every day every day tablet by oral by oral every day route. route. by oral route. divalproex divalproex No 1 Q1D divalproex [facility] 500 mg 500 mg 500 mg [facility] tablet,umang tablet,umang tablet,del yed release yed release ayed Take 1 Take 1 release tablet tablet Take 1 every day every day tablet by oral by oral every day route at route at by oral bedtime. bedtime. route at bedtime. donepezil 5 donepezil 5 No 1 [...] route at route at bedtime. bedtime. bedtime. amiodarone amiodarone No 1 TID amiodarone [facility] [...] oral day by route. route. oral route. Depakote Depakote No 1 Q1D Depakote [facility] via 250 mg 250 mg 250 mg [facility] tablet,umang tablet,umang tablet,del yed release yed release ayed Take 1 Take 1 release tablet tablet Take 1 every day every day tablet by oral by oral every day route. route. by oral route. divalproex divalproex No 1 Q1D divalproex [facility] 500 mg 500 mg 500 mg [facility] tablet,umang tablet,umang tablet,del yed release yed release ayed Take 1 Take 1 release tablet tablet Take 1 every day every day tablet by oral by oral every day route at route at by oral bedtime. bedtime. route at bedtime. donepezil 5 donepezil 5 No 1 [...] route at route at bedtime. bedtime. bedtime. amiodarone amiodarone No 1 TID amiodarone [facility] [...] ergocalcife ergocalcife No ergocalcif [facility] [place] [facility] (vitamin (vitamin (vitamin D2) 1,250 D2) [...] route. tramadol 50 tramadol 50 No 1 BID tramadol [facility] mg tablet mg tablet 50 mg [facility] Take 1 Take 1 tablet tablet tablet Take 1 twice a day twice a day tablet by oral by oral twice a route for route for day by 30 days. 30 days. oral route for 30 days. Zoloft 100 Zoloft 100 No 1 Q1D Zoloft 100 [facility] mg tablet mg tablet mg tablet Medical Take 1 Take 1 Take 1 tablet tablet tablet every day every day every day by oral by oral by oral route at route at route at bedtime. bedtime. bedtime. amiodarone amiodarone No 1 TID amiodarone [facility] [...] route. tramadol 50 tramadol 50 No 1 BID tramadol [facility] mg tablet mg tablet 50 mg [facility] Take 1 Take 1 tablet tablet tablet Take 1 twice a day twice a day tablet by oral by oral twice a route for route for day by 30 days. 30 days. oral route for 30 days. Zoloft 100 Zoloft 100 No 1 Q1D Zoloft 100 [facility] mg tablet mg tablet mg tablet [facility] Take 1 Take 1 Take 1 tablet tablet tablet every day every day every day by oral by oral by oral route at route at route at bedtime. bedtime. bedtime. amiodarone amiodarone No 1 TID amiodarone [facility] [...] route. tramadol 50 tramadol 50 No 1 BID tramadol [facility] mg tablet mg tablet 50 mg [facility] Take 1 Take 1 tablet tablet tablet Take 1 twice a day twice a day tablet by oral by oral twice a route for route for day by 30 days. 30 days. oral route for 30 days. Zoloft 100 Zoloft 100 No 1 Q1D Zoloft 100 [facility] mg tablet mg tablet mg tablet [facility] Take 1 Take 1 Take 1 tablet tablet tablet every day every day every day by oral by oral by oral route at route at route at bedtime. bedtime. bedtime. amiodarone amiodarone No 1 TID amiodarone [facility] [...] route. ergocalcife ergocalcife No ergocalcif [facility] (vitamin (vitamin (vitamin D2) 1,250 [...] route. tramadol 50 tramadol 50 No 1 BID tramadol [facility] mg tablet mg tablet 50 mg [facility] Take 1 Take 1 tablet tablet tablet Take 1 twice a day twice a day tablet by oral by oral twice a route for route for day by 30 days. 30 days. oral route for 30 days. Zoloft 100 Zoloft 100 No 1 Q1D Zoloft 100 [facility] mg tablet mg tablet mg tablet Medical Take 1 Take 1 Take 1 tablet tablet tablet every day every day every day by oral by oral by oral route at route at route at bedtime. bedtime. bedtime. amiodarone amiodarone No 1 TID amiodarone [facility] [...] route at route at bedtime. bedtime. bedtime. Eliquis 2.5 Eliquis 2.5 No 1 [...] route. tramadol 50 tramadol 50 No 1 BID tramadol [facility] mg tablet mg tablet 50 mg [facility] Take 1 Take 1 tablet tablet tablet Take 1 twice a day twice a day tablet by oral by oral twice a route for route for day by 30 days. 30 days. oral route for 30 days. Zoloft 100 Zoloft 100 No 1 Q1D Zoloft 100 [facility] mg tablet mg tablet mg tablet [facility] Take 1 Take 1 Take 1 tablet tablet tablet every day every day every day by oral by oral by oral route at route at route at bedtime. bedtime. bedtime. amiodarone amiodarone No 1 TID amiodarone [facility] 200 mg 200 mg 200 mg [facility] tablet Take tablet Take tablet 1 tablet 3 1 tablet 3 Take 1 times a day times a day tablet 3 by oral by oral times a route. route. day by oral route. aspirin 81 aspirin 81 No 1 Q1D aspirin 81 [facility] mg mg mg [facility] tablet,umang tablet,umang tablet,del yed release yed release ayed Take 1 Take 1 release tablet tablet Take 1 every day every day tablet by oral by oral every day route for route for by oral 90 days. 90 days. route for 90 days. Immunizations Ordered Immunization Filled Immunization Date Status Commen ts Source Name Name Tdap Tdap 2021-10-13 Completed [facility] 00:00:00 Tdap Tdap 2021-10-13 Completed [facility] 00[facility]00:00 Tdap Tdap 2021-10-13 Completed [facility] 00:00:00 Tdap Tdap 2021-10-13 Completed [facility] 00:00:00 Tdap Tdap 2021-10-13 Completed [facility] 00:00:00 Tdap Tdap 2021-10-13 Completed [facility] 00:00:00 Tdap Tdap 2021-10-13 Completed [facility] 00:00:00 Tdap Tdap 2021-10-13 Completed [facility] 00:00:00 Tdap Tdap 2021-10-13 Completed [facility] 00:00:00 Tdap Tdap 2021-10-13 Completed [facility] 00:00:00 Tdap Tdap 2021-10-13 Completed [facility] 00:00:00 Tdap Tdap 2021-10-13 Completed [facility] 00:00:00 Tdap Tdap 2021-10-13 Completed [facility] 00:00:00 Tdap Tdap 2021-10-13 Completed [facility] 00:00:00 Tdap Tdap 2021-10-13 Completed [facility] 00:00:00 Tdap Tdap 2021-10-13 Completed [facility] 00:00:00 Tdap Tdap 2021-10-13 Completed [facility] 00:00:00 Tdap Tdap 2021-10-13 Completed [facility] 00:00:00 Tdap Tdap 2021-10-13 Completed [facility] 00:00:00 Tdap Tdap 2021-10-13 Completed [facility] 00:00:00 Tdap Tdap 2021-10-13 Completed [facility] 00:00:00 Tdap Tdap 2021-10-13 Completed [facility] 00:00:00 COVID-19 COVID-19 2021-02-20 Completed [facility] (SARS-COV-2) (SARS-COV-2) 00:00:00 vaccine, unspecified vaccine, unspecified COVID-19 COVID-19 2021-02-20 Completed [facility] (SARS-COV-2) (SARS-COV-2) 00:00:00 vaccine, unspecified vaccine, unspecified COVID-19 COVID-19 2021-02-20 Completed [facility] (SARS-COV-2) (SARS-COV-2) 00:00:00 vaccine, unspecified vaccine, unspecified COVID-19 COVID-19 2021-02-20 Completed [facility] (SARS-COV-2) (SARS-COV-2) 00:00:00 vaccine, unspecified vaccine, unspecified COVID-19 COVID-19 2021-02-20 Completed [facility] (SARS-COV-2) (SARS-COV-2) 00:00:00 vaccine, unspecified vaccine, unspecified COVID-19 COVID-19 2021-02-20 Completed [facility] (SARS-COV-2) (SARS-COV-2) 00:00:00 vaccine, unspecified vaccine, unspecified COVID-19 COVID-19 2021-02-20 Completed [facility] (SARS-COV-2) (SARS-COV-2) 00:00:00 vaccine, unspecified vaccine, unspecified COVID-19 COVID-19 2021-02-20 Completed [facility] (SARS-COV-2) (SARS-COV-2) 00:00:00 vaccine, unspecified vaccine, unspecified COVID-19 COVID-19 2021-02-20 Completed [facility] (SARS-COV-2) (SARS-COV-2) 00:00:00 vaccine, unspecified vaccine, unspecified COVID-19 COVID-19 2021-02-20 Completed [facility] (SARS-COV-2) (SARS-COV-2) 00:00:00 vaccine, unspecified vaccine, unspecified COVID-19 COVID-19 2021-02-20 Completed [facility] (SARS-COV-2) (SARS-COV-2) 00:00:00 vaccine, unspecified vaccine, unspecified COVID-19 COVID-19 2021-02-20 Completed [facility] (SARS-COV-2) (SARS-COV-2) 00:00:00 vaccine, unspecified vaccine, unspecified COVID-19 COVID-19 2021-02-20 Completed [facility] (SARS-COV-2) (SARS-COV-2) 00:00:00 vaccine, unspecified vaccine, unspecified COVID-19 COVID-19 2021-02-20 Completed [facility] (SARS-COV-2) (SARS-COV-2) 00:00:00 vaccine, unspecified vaccine, unspecified COVID-19 COVID-19 2021-02-20 Completed [facility] (SARS-COV-2) (SARS-COV-2) 00:00:00 vaccine, unspecified vaccine, unspecified COVID-19 COVID-19 2021-02-20 Completed [facility] (SARS-COV-2) (SARS-COV-2) 00:00:00 vaccine, unspecified vaccine, unspecified COVID-19 COVID-19 2021-02-20 Completed [facility] (SARS-COV-2) (SARS-COV-2) 00:00:00 vaccine, unspecified vaccine, unspecified COVID-19 COVID-19 2021-02-20 Completed [facility] (SARS-COV-2) (SARS-COV-2) 00:00:00 vaccine, unspecified vaccine, unspecified COVID-19 COVID-19 2021-02-20 Completed [facility] (SARS-COV-2) (SARS-COV-2) 00:00:00 vaccine, unspecified vaccine, unspecified COVID-19 COVID-19 2021-02-20 Completed [facility] (SARS-COV-2) (SARS-COV-2) 00:00:00 vaccine, unspecified vaccine, unspecified COVID-19 COVID-19 2021-02-20 Completed [facility] (SARS-COV-2) (SARS-COV-2) 00:00:00 vaccine, unspecified vaccine, unspecified COVID-19 COVID-19 2021-02-20 Completed [facility] (SARS-COV-2) (SARS-COV-2) 00:00:00 vaccine, unspecified vaccine, unspecified COVID-19 COVID-19 2021-02-20 Completed [facility] (SARS-COV-2) (SARS-COV-2) 00:00:00 vaccine, unspecified vaccine, unspecified COVID-19 COVID-19 2021-02-20 Completed [facility] (SARS-COV-2) (SARS-COV-2) 00:00:00 vaccine, unspecified vaccine, unspecified COVID-19 COVID-19 2021-02-20 Completed [facility] (SARS-COV-2) (SARS-COV-2) 00:00:00 vaccine, unspecified vaccine, unspecified COVID-19 COVID-19 2021-02-20 Completed [facility] (SARS-COV-2) (SARS-COV-2) 00:00:00 vaccine, unspecified vaccine, unspecified COVID-19 COVID-19 2021-02-20 Completed [facility] (SARS-COV-2) (SARS-COV-2) 00:00:00 vaccine, unspecified vaccine, unspecified COVID-19 COVID-19 2021-02-20 Completed [facility] (SARS-COV-2) (SARS-COV-2) 00:00:00 vaccine, unspecified vaccine, unspecified COVID-19 COVID-19 2021-02-20 Completed [facility] (SARS-COV-2) (SARS-COV-2) 00:00:00 vaccine, unspecified vaccine, unspecified COVID-19 COVID-19 2021-02-20 Completed [facility] (SARS-COV-2) (SARS-COV-2) 00:00:00 vaccine, unspecified vaccine, unspecified pneumococcal, pneumococcal, 2021-02-06 Completed [facility] unspecified 00:00:00 formulation formulation pneumococcal, pneumococcal, 2021-02-06 Completed [facility] unspecified 00:00:00 formulation formulation pneumococcal, pneumococcal, 2021-02-06 Completed [facility] unspecified 00:00:00 formulation formulation pneumococcal, pneumococcal, 2021-02-06 Completed [facility] unspecified 00:00:00 formulation formulation pneumococcal, pneumococcal, 2021-02-06 Completed [facility] unspecified 00:00:00 formulation formulation pneumococcal, pneumococcal, 2021-02-06 Completed [facility] unspecified 00:00:00 formulation formulation pneumococcal, pneumococcal, 2021-02-06 Completed [facility] unspecified 00:00:00 formulation formulation pneumococcal, pneumococcal, 2021-02-06 Completed [facility] unspecified 00:00:00 formulation formulation pneumococcal, pneumococcal, 2021-02-06 Completed [facility] unspecified 00:00:00 formulation formulation pneumococcal, pneumococcal, 2021-02-06 [facility]pleted [facility] unspecified 00:00:00 formulation formulation pneumococcal, pneumococcal, 2021-02-06 Completed [facility] unspecified 00:00:00 formulation formulation pneumococcal, pneumococcal, 2021-02-06 Completed [facility] unspecified 00:00:00 formulation formulation pneumococcal, pneumococcal, 2021-02-06 Completed [facility] unspecified 00:00:00 formulation formulation pneumococcal, pneumococcal, 2021-02-06 Completed [facility] unspecified 00:00:00 formulation formulation pneumococcal, pneumococcal, 2021-02-06 Completed [facility] unspecified 00:00:00 formulation formulation pneumococcal, pneumococcal, 2021-02-06 Completed [facility] unspecified 00:00:00 formulation formulation pneumococcal, pneumococcal, 2021-02-06 Completed [facility] unspecified 00:00:00 formulation formulation pneumococcal, pneumococcal, 2021-02-06 Completed [facility] unspecified 00:00:00 formulation formulation pneumococcal, pneumococcal, 2021-02-06 Completed [facility] unspecified 00:00:00 formulation formulation pneumococcal, pneumococcal, 2021-02-06 Completed [facility] unspecified 00:00:00 formulation formulation pneumococcal, pneumococcal, 2021-02-06 Completed [facility] unspecified 00:00:00 formulation formulation pneumococcal, pneumococcal, 2021-02-06 Completed [facility] unspecified 00:00:00 formulation formulation pneumococcal, pneumococcal, 2021-02-06 Completed [facility] unspecified 00:00:00 formulation formulation pneumococcal, pneumococcal, 2021-02-06 Completed [facility] unspecified unspecified 00:00:00 formulation formulation pneumococcal, pneumococcal, 2021-02-06 Completed [facility] unspecified unspecified 00:00:00 formulation formulation pneumococcal, pneumococcal, 2021-02-06 Completed [facility] unspecified unspecified 00:00:00 formulation formulation pneumococcal, pneumococcal, 2021-02-06 Completed [facility] unspecified unspecified 00:00:00 formulation formulation pneumococcal, pneumococcal, 2021-02-06 Completed [facility] unspecified unspecified 00:00:00 formulation formulation pneumococcal, pneumococcal, 2021-02-06 Completed [facility] unspecified unspecified 00:00:00 formulation formulation pneumococcal, pneumococcal, 2021-02-06 Completed [facility] unspecified unspecified 00:00:00 formulation formulation influenza, influenza, 2021-02-01 Completed [facility] injectable, injectable, 00:00:00 quadrivalent quadrivalent influenza, influenza, 2021-02-01 Completed [facility] injectable, injectable, 00:00:00 quadrivalent quadrivalent influenza, influenza, 2021-02-01 Completed [facility] injectable, injectable, 00:00:00 quadrivalent quadrivalent influenza, influenza, 2021-02-01 Completed [facility] injectable, injectable, 00:00:00 quadrivalent quadrivalent influenza, influenza, 2021-02-01 Completed [facility] injectable, injectable, 00:00:00 quadrivalent quadrivalent influenza, influenza, 2021-02-01 Completed [facility] injectable, injectable, 00:00:00 quadrivalent quadrivalent influenza, influenza, 2021-02-01 Completed [facility] injectable, injectable, 00:00:00 quadrivalent quadrivalent influenza, influenza, 2021-02-01 Completed [facility] injectable, injectable, 00:00:00 quadrivalent quadrivalent influenza, influenza, 2021-02-01 Completed [facility] injectable, injectable, 00:00:00 quadrivalent quadrivalent influenza, influenza, 2021-02-01 Completed [facility] injectable, injectable, 00:00:00 quadrivalent quadrivalent influenza, influenza, 2021-02-01 Completed [facility] injectable, injectable, 00:00:00 quadrivalent quadrivalent influenza, influenza, 2021-02-01 Completed [facility] injectable, injectable, 00:00:00 quadrivalent quadrivalent influenza, influenza, 2021-02-01 Completed [facility] injectable, injectable, 00:00:00 quadrivalent quadrivalent influenza, influenza, 2021-02-01 Completed [facility] injectable, injectable, 00:00:00 quadrivalent quadrivalent influenza, influenza, 2021-02-01 Completed [facility] injectable, injectable, 00:00:00 quadrivalent quadrivalent influenza, influenza, 2021-02-01 Completed [facility] injectable, injectable, 00:00:00 quadrivalent quadrivalent influenza, influenza, 2021-02-01 Completed [facility] injectable, injectable, 00:00:00 quadrivalent quadrivalent influenza, influenza, 2021-02-01 Completed [facility] injectable, injectable, 00:00:00 quadrivalent quadrivalent influenza, influenza, 2021-02-01 Completed [facility] injectable, injectable, 00:00:00 quadrivalent quadrivalent influenza, influenza, 2021-02-01 Completed [facility] injectable, injectable, 00:00:00 quadrivalent quadrivalent influenza, influenza, 2021-02-01 Completed [facility] injectable, injectable, 00:00:00 quadrivalent quadrivalent influenza, influenza, 2021-02-01 Completed [facility] injectable, injectable, 00:00:00 quadrivalent quadrivalent influenza, influenza, 2021-02-01 Completed [facility] injectable, injectable, 00:00:00 quadrivalent quadrivalent influenza, influenza, 2021-02-01 Completed [facility] injectable, injectable, 00:00:00 quadrivalent quadrivalent influenza, influenza, 2021-02-01 Completed [facility] injectable, injectable, 00:00:00 quadrivalent quadrivalent influenza, influenza, 2021-02-01 Completed [facility] injectable, injectable, 00:00:00 quadrivalent quadrivalent influenza, influenza, 2021-02-01 Completed [facility] injectable, injectable, 00:00:00 quadrivalent quadrivalent influenza, influenza, 2021-02-01 Completed [facility] injectable, injectable, 00:00:00 quadrivalent quadrivalent influenza, influenza, 2021-02-01 Completed [facility] injectable, injectable, 00:00:00 quadrivalent quadrivalent influenza, influenza, 2021-02-01 Completed [facility] injectable, injectable, 00:00:00 quadrivalent quadrivalent COVID-19 COVID-19 2020-04-26 Completed [facility] (SARS-COV-2) (SARS-COV-2) 00:00:00 vaccine, unspecified vaccine, unspecified COVID-19 COVID-19 2020-04-26 Completed [facility] (SARS-COV-2) (SARS-COV-2) 00:00:00 vaccine, unspecified vaccine, unspecified COVID-19 COVID-19 2020-04-26 Completed [facility] (SARS-COV-2) (SARS-COV-2) 00:00:00 vaccine, unspecified vaccine, unspecified COVID-19 COVID-19 2020-04-26 Completed [facility] (SARS-COV-2) (SARS-COV-2) 00:00:00 vaccine, unspecified vaccine, unspecified COVID-19 COVID-19 2020-04-26 Completed [facility] (SARS-COV-2) (SARS-COV-2) 00:00:00 vaccine, unspecified vaccine, unspecified COVID-19 COVID-19 2020-04-26 Completed [facility] (SARS-COV-2) (SARS-COV-2) 00:00:00 vaccine, unspecified vaccine, unspecified COVID-19 COVID-19 2020-04-26 Completed [facility] (SARS-COV-2) (SARS-COV-2) 00:00:00 vaccine, unspecified vaccine, unspecified COVID-19 COVID-19 2020-04-26 Completed [facility] (SARS-COV-2) (SARS-COV-2) 00:00:00 vaccine, unspecified vaccine, unspecified COVID-19 COVID-19 2020-04-26 Completed [facility] (SARS-COV-2) (SARS-COV-2) 00:00:00 vaccine, unspecified vaccine, unspecified COVID-19 COVID-19 2020-04-26 Completed [facility] (SARS-COV-2) (SARS-COV-2) 00:00:00 vaccine, unspecified vaccine, unspecified COVID-19 COVID-19 2020-04-26 Completed [facility] (SARS-COV-2) (SARS-COV-2) 00:00:00 vaccine, unspecified vaccine, unspecified COVID-19 COVID-19 2020-04-26 Completed [facility] (SARS-COV-2) (SARS-COV-2) 00:00:00 vaccine, unspecified vaccine, unspecified COVID-19 COVID-19 2020-04-26 Completed [facility] (SARS-COV-2) (SARS-COV-2) 00:00:00 vaccine, unspecified vaccine, unspecified COVID-19 COVID-19 2020-04-26 Completed [facility] (SARS-COV-2) (SARS-COV-2) 00:00:00 vaccine, unspecified vaccine, unspecified COVID-19 COVID-19 2020-04-26 Completed [facility] (SARS-COV-2) (SARS-COV-2) 00:00:00 vaccine, unspecified vaccine, unspecified COVID-19 COVID-19 2020-04-26 Completed [facility] (SARS-COV-2) (SARS-COV-2) 00:00:00 vaccine, unspecified vaccine, unspecified COVID-19 COVID-19 2020-04-26 Completed [facility] (SARS-COV-2) (SARS-COV-2) 00:00:00 vaccine, unspecified vaccine, unspecified COVID-19 COVID-19 2020-04-26 Completed [facility] (SARS-COV-2) (SARS-COV-2) 00:00:00 vaccine, unspecified vaccine, unspecified COVID-19 COVID-19 2020-04-26 Completed [facility] (SARS-COV-2) (SARS-COV-2) 00:00:00 vaccine, unspecified vaccine, unspecified COVID-19 COVID-19 2020-04-26 Completed [facility] (SARS-COV-2) (SARS-COV-2) 00:00:00 vaccine, unspecified vaccine, unspecified COVID-19 COVID-19 2020-04-26 Completed [facility] (SARS-COV-2) (SARS-COV-2) 00:00:00 vaccine, unspecified vaccine, unspecified COVID-19 COVID-19 2020-04-26 Completed [facility] (SARS-COV-2) (SARS-COV-2) 00:00:00 vaccine, unspecified vaccine, unspecified COVID-19 COVID-19 2020-04-26 Completed [facility] (SARS-COV-2) (SARS-COV-2) 00:00:00 vaccine, unspecified vaccine, unspecified COVID-19 COVID-19 2020-04-26 Completed [facility] (SARS-COV-2) (SARS-COV-2) 00:00:00 vaccine, unspecified vaccine, unspecified COVID-19 COVID-19 2020-04-26 Completed [facility] (SARS-COV-2) (SARS-COV-2) 00:00:00 vaccine, unspecified vaccine, unspecified COVID-19 COVID-19 2020-04-26 Completed [facility] (SARS-COV-2) (SARS-COV-2) 00:00:00 vaccine, unspecified vaccine, unspecified COVID-19 COVID-19 2020-04-26 Completed [facility] (SARS-COV-2) (SARS-COV-2) 00:00:00 vaccine, unspecified vaccine, unspecified COVID-19 COVID-19 2020-04-26 Completed [facility] (SARS-COV-2) (SARS-COV-2) 00:00:00 vaccine, unspecified vaccine, unspecified COVID-19 COVID-19 2020-04-26 Completed [facility] (SARS-COV-2) (SARS-COV-2) 00:00:00 vaccine, unspecified vaccine, unspecified COVID-19 COVID-19 2020-04-26 Completed [facility] (SARS-COV-2) (SARS-COV-2) 00:00:00 vaccine, unspecified vaccine, unspecified COVID-19 COVID-19 2020-04-05 Completed [facility] (SARS-COV-2) (SARS-COV-2) 00:00:00 vaccine, unspecified vaccine, unspecified COVID-19 COVID-19 2020-04-05 Completed [facility] (SARS-COV-2) (SARS-COV-2) 00:00:00 vaccine, unspecified vaccine, unspecified COVID-19 COVID-19 2020-04-05 Completed [facility] (SARS-COV-2) (SARS-COV-2) 00:00:00 vaccine, unspecified vaccine, unspecified COVID-19 COVID-19 2020-04-05 Completed [facility] (SARS-COV-2) (SARS-COV-2) 00:00:00 vaccine, unspecified vaccine, unspecified COVID-19 COVID-19 2020-04-05 Completed [facility] (SARS-COV-2) (SARS-COV-2) 00:00:00 vaccine, unspecified vaccine, unspecified COVID-19 COVID-19 2020-04-05 Completed [facility] (SARS-COV-2) (SARS-COV-2) 00:00:00 vaccine, unspecified vaccine, unspecified COVID-19 COVID-19 2020-04-05 Completed [facility] (SARS-COV-2) (SARS-COV-2) 00:00:00 vaccine, unspecified vaccine, unspecified COVID-19 COVID-19 2020-04-05 Completed [facility] (SARS-COV-2) (SARS-COV-2) 00:00:00 vaccine, unspecified vaccine, unspecified COVID-19 COVID-19 2020-04-05 Completed [facility] (SARS-COV-2) (SARS-COV-2) 00:00:00 vaccine, unspecified vaccine, unspecified COVID-19 COVID-19 2020-04-05 Completed [facility] (SARS-COV-2) (SARS-COV-2) 00:00:00 vaccine, unspecified vaccine, unspecified COVID-19 COVID-19 2020-04-05 Completed [facility] (SARS-COV-2) (SARS-COV-2) 00:00:00 vaccine, unspecified vaccine, unspecified COVID-19 COVID-19 2020-04-05 Completed [facility] (SARS-COV-2) (SARS-COV-2) 00:00:00 vaccine, unspecified vaccine, unspecified COVID-19 COVID-19 2020-04-05 Completed [facility] (SARS-COV-2) (SARS-COV-2) 00:00:00 vaccine, unspecified vaccine, unspecified COVID-19 COVID-19 2020-04-05 Completed [facility] (SARS-COV-2) (SARS-COV-2) 00:00:00 vaccine, unspecified vaccine, unspecified COVID-19 COVID-19 2020-04-05 Completed [facility] (SARS-COV-2) (SARS-COV-2) 00:00:00 vaccine, unspecified vaccine, unspecified COVID-19 COVID-19 2020-04-05 Completed [facility] (SARS-COV-2) (SARS-COV-2) 00:00:00 vaccine, unspecified vaccine, unspecified COVID-19 COVID-19 2020-04-05 Completed [facility] (SARS-COV-2) (SARS-COV-2) 00:00:00 vaccine, unspecified vaccine, unspecified COVID-19 COVID-19 2020-04-05 Completed [facility] (SARS-COV-2) (SARS-COV-2) 00:00:00 vaccine, unspecified vaccine, unspecified COVID-19 COVID-19 2020-04-05 Completed [facility] (SARS-COV-2) (SARS-COV-2) 00:00:00 vaccine, unspecified vaccine, unspecified COVID-19 COVID-19 2020-04-05 Completed [facility] (SARS-COV-2) (SARS-COV-2) 00:00:00 vaccine, unspecified vaccine, unspecified COVID-19 COVID-19 2020-04-05 Completed [facility] (SARS-COV-2) (SARS-COV-2) 00:00:00 vaccine, unspecified vaccine, unspecified COVID-19 COVID-19 2020-04-05 Completed [facility] (SARS-COV-2) (SARS-COV-2) 00:00:00 vaccine, unspecified vaccine, unspecified COVID-19 COVID-19 2020-04-05 Completed [facility] (SARS-COV-2) (SARS-COV-2) 00:00:00 vaccine, unspecified vaccine, unspecified COVID-19 COVID-19 2020-04-05 Completed [facility] (SARS-COV-2) (SARS-COV-2) 00:00:00 vaccine, unspecified vaccine, unspecified COVID-19 COVID-19 2020-04-05 Completed [facility] (SARS-COV-2) (SARS-COV-2) 00:00:00 vaccine, unspecified vaccine, unspecified COVID-19 COVID-19 2020-04-05 Completed [facility] (SARS-COV-2) (SARS-COV-2) 00:00:00 vaccine, unspecified vaccine, unspecified COVID-19 COVID-19 2020-04-05 Completed [facility] (SARS-COV-2) (SARS-COV-2) 00:00:00 vaccine, unspecified vaccine, unspecified COVID-19 COVID-19 2020-04-05 Completed [facility] (SARS-COV-2) (SARS-COV-2) 00:00:00 vaccine, unspecified vaccine, unspecified COVID-19 COVID-19 2020-04-05 Completed [facility] (SARS-COV-2) (SARS-COV-2) 00:00:00 vaccine, unspecified vaccine, unspecified COVID-19 COVID-19 2020-04-05 Completed [facility] (SARS-COV-2) (SARS-COV-2) 00:00:00 vaccine, unspecified vaccine, unspecified Vital Signs Vital Name Observation Time Observation Value Comments Source BP Diastolic 2022-07-10 00:00:00 77 mm[Hg] [facility] Height 2022-07-10 00:00:00 64 [in_i] [facility] BMI (Body Mass Index) 2022-07-10 00:00:00 19[facility]6 [facility] 2022-07-10 00:00:00 135 mm[Hg] [facility] Body Weight 2022-07-10 00:00:00 1824 [oz_av] [facility] BP Diastolic 2022-06-18 00:00:00 66 mm[Hg] [facility] Height 2022-06-18 00:00:00 64 [in_i] [facility] BMI (Body Mass Index) 2022-06-18 00:00:00 19.3 kg/m2 [facility] BP Systolic 2022-06-18 00:00:00 126 mm[Hg] [facility] Body Weight 2022-06-18 00:00:00 1796 [oz_av] [facility] BP Diastolic 2022-05-21 00:00:00 68 mm[Hg] [facility] Height 2022-05-21 00:00:00 64 [in_i] [facility] BMI (Body Mass Index) 2022-05-21 00:00:00 19.7 kg/m2 [facility] BP Systolic 2022-05-21 00:00:00 124 mm[Hg] [facility] Body Weight 2022-05-21 00:00:00 1832 [oz_av] [facility] BP Diastolic 2022-05-01 00:00:00 69 mm[Hg] [facility] Height 2022-05-01 00:00:00 64 [in_i] [facility] BMI (Body Mass Index) 2022-05-01 00:00:00 19.7 kg/m2 [facility] BP Systolic 2022-05-01 00:00:00 125 mm[Hg] [facility] Body Weight 2022-05-01 00:00:00 1836.8 [oz_av] [facility] BP Diastolic 2022-04-26 00:00:00 69 mm[Hg] [facility] Height 2022-04-26 00:00:00 64 [in_i] [facility] BMI (Body Mass Index) 2022-04-26 00:00:00 19.9 kg/m2 [facility] BP Systolic 2022-04-26 00:00:00 107 mm[Hg] [facility] Body Weight 2022-04-26 00:00:00 1858 [oz_av] [facility] BP Diastolic 2022-04-16 00:00:00 85 mm[Hg] [facility] Height 2022-04-16 00:00:00 64 [in_i] [facility] BMI (Body Mass Index) 2022-04-16 00:00:00 19.9 kg/m2 [facility] BP Systolic 2022-04-16 00:00:00 122 mm[Hg] [facility] Body Weight 2022-04-16 00:00:00 1858 [oz_av] [facility] BP Diastolic 2022-04-09 00:00:00 64 mm[Hg] [facility] Height 2022-04-09 00:00:00 64 [in_i] [facility] BMI (Body Mass Index) 2022-04-09 00:00:00 19.7 kg/m2 [facility] BP Systolic 2022-04-09 00:00:00 105 mm[Hg] [facility] Body Weight 2022-04-09 00:00:00 1832 [oz_av] [facility] BP Diastolic 2022-03-19 00:00:00 67 mm[Hg] [facility] Height 2022-03-19 00:00:00 64 [in_i] [facility] BMI (Body Mass Index) 2022-03-19 00:00:00 19.9 kg/m2 [facility] BP Systolic 2022-03-19 00:00:00 114 mm[Hg] [facility] Body Weight 2022-03-19 00:00:00 1858 [oz_av] [facility] BP Diastolic 2022-03-13 00:00:00 74 mm[Hg] [facility] Height 2022-03-13 00:00:00 64 [in_i] [facility] BMI (Body Mass Index) 2022-03-13 00:00:00 19.9 kg/m2 [facility] BP Systolic 2022-03-13 00:00:00 137 mm[Hg] [facility] Body Weight 2022-03-13 00:00:00 1858 [oz_av] [facility] BP Diastolic 2022-03-05 00:00:00 79 mm[Hg] [facility] Height 2022-03-05 00:00:00 64 [in_i] [facility] BMI (Body Mass Index) 2022-03-05 00:00:00 19.9 kg/m2 [facility] BP Systolic 2022-03-05 00:00:00 105 mm[Hg] [facility] Body Weight 2022-03-05 00:00:00 1858 [oz_av] [facility] BP Diastolic 2022-02-19 00:00:00 60 mm[Hg] [facility] Height 2022-02-19 00:00:00 64 [in_i] [facility] BMI (Body Mass Index) 2022-02-19 00:00:00 20.3 kg/m2 [facility] BP Systolic 2022-02-19 00:00:00 115 mm[Hg] [facility] Body Weight 2022-02-19 00:00:00 1896 [oz_av] [facility] BP Diastolic 2022-01-29 00:00:00 63 mm[Hg] [facility] Height 2022-01-29 00:00:00 64 [in_i] [facility] BMI (Body Mass Index) 2022-01-29 00:00:00 19.4 kg/m2 [facility] BP Systolic 2022-01-29 00:00:00 102 mm[Hg] [facility] Body Weight 2022-01-29 00:00:00 1808 [oz_av] [facility] BP Diastolic 2022-01-15 00:00:00 77 mm[Hg] [facility] Height 2022-01-15 00:00:00 64 [in_i] [facility] BMI (Body Mass Index) 2022-01-15 00:00:00 19.4 kg/m2 [facility] BP Systolic 2022-01-15 00:00:00 138 mm[Hg] [facility] Body Weight 2022-01-15 00:00:00 1808 [oz_av] [facility] BP Diastolic 2022-01-11 00:00:00 71 mm[Hg] [facility] Height 2022-01-11 00:00:00 64 [in_i] [facility] BMI (Body Mass Index) 2022-01-11 00:00:00 19.4 kg/m2 [facility] BP Systolic 2022-01-11 00:00:00 131 mm[Hg] [facility] Body Weight 2022-01-11 00:00:00 1808 [oz_av] [facility] BP Diastolic 2021-12-21 00:00:00 78 mm[Hg] [facility] Height 2021-12-21 00:00:00 64 [in_i] [facility] BMI (Body Mass Index) 2021-12-21 00:00:00 21 kg/m2 [facility] BP Systolic 2021-12-21 00:00:00 122 mm[Hg] [facility] Body Weight 2021-12-21 00:00:00 1954 [oz_av] [facility] BP Diastolic 2021-12-18 00:00:00 73 mm[Hg] [facility] Height 2021-12-18 00:00:00 64 [in_i] [facility] BMI (Body Mass Index) 2021-12-18 00:00:00 21 kg/m2 [facility] BP Systolic 2021-12-18 00:00:00 129 mm[Hg] [facility] Body Weight 2021-12-18 00:00:00 1954 [oz_av] [facility] BP Diastolic 2021-11-30 00:00:00 64 mm[Hg] [facility] Height 2021-11-30 00:00:00 64 [in_i] [facility] BMI (Body Mass Index) 2021-11-30 00:00:00 21 kg/m2 [facility] BP Systolic 2021-11-30 00:00:00 142 mm[Hg] [facility] Body Weight 2021-11-30 00:00:00 1954 [oz_av] [facility] BP Diastolic 2021-11-20 00:00:00 79 mm[Hg] [facility] Height 2021-11-20 00:00:00 64 [in_i] [facility] BMI (Body Mass Index) 2021-11-20 00:00:00 21.2 kg/m2 [facility] BP Systolic 2021-11-20 00:00:00 136 mm[Hg] [facility] Body Weight 2021-11-20 00:00:00 1973 [oz_av] [facility] BP Diastolic 2021-10-11 00:00:00 78 mm[Hg] [facility] Height 2021-10-11 00:00:00 64 [in_i] [facility] BMI (Body Mass Index) 2021-10-11 00:00:00 23.6 kg/m2 [facility] BP Systolic 2021-10-11 00:00:00 129 mm[Hg] [facility] Body Weight 2021-10-11 00:00:00 2196 [oz_av] [facility] BP Diastolic 2021-10-09 00:00:00 72 mm[Hg] [facility] Height 2021-10-09 00:00:00 64 [in_i] [facility] BMI (Body Mass Index) 2021-10-09 00:00:00 23.6 kg/m2 [facility] BP Systolic 2021-10-09 00:00:00 118 mm[Hg] [facility] Body Weight 2021-10-09 00:00:00 2196 [oz_av] [facility] Height 2021-10-05 00:00:00 64 [in_i] [facility] BP Diastolic 2021-09-28 00:00:00 60 mm[Hg] [facility] Height 2021-09-28 00:00:00 64 [in_i] [facility] BMI (Body Mass Index) 2021-09-28 00:00:00 23.5 kg/m2 [facility] BP Systolic 2021-09-28 00:00:00 110 mm[Hg] [facility] Body Weight 2021-09-28 00:00:00 2192 [oz_av] [facility] BP Diastolic 2021-09-11 00:00:00 82 mm[Hg] [facility] Height 2021-09-11 00:00:00 64 [in_i] [facility] BMI (Body Mass Index) 2021-09-11 00:00:00 23.6 kg/m2 [facility] BP Systolic 2021-09-11 00:00:00 132 mm[Hg] [facility] Body Weight 2021-09-11 00:00:00 2196 [oz_av] [facility] BP Diastolic 2021-08-31 00:00:00 75 mm[Hg] [facility] Height 2021-08-31 00:00:00 64 [in_i] [facility] BMI (Body Mass Index) 2021-08-31 00:00:00 23.6 kg/m2 [facility] BP Systolic 2021-08-31 00:00:00 132 mm[Hg] [facility] Body Weight 2021-08-31 00:00:00 2196 [oz_av] [facility] BP Diastolic 2021-08-16 00:00:00 72 mm[Hg] [facility] Height 2021-08-16 00:00:00 64 [in_i] [facility] BMI (Body Mass Index) 2021-08-16 00:00:00 23.6 kg/m2 [facility] BP Systolic 2021-08-16 00:00:00 114 mm[Hg] [facility] Body Weight 2021-08-16 00:00:00 2196 [oz_av] [facility] BP Diastolic 2021-08-07 00:00:00 79 mm[Hg] [facility] Height 2021-08-07 00:00:00 64 [in_i] [facility] BMI (Body Mass Index) 2021-08-07 00:00:00 23.6 kg/m2 [facility] BP Systolic 2021-08-07 00:00:00 138 mm[Hg] [facility] Body Weight 2021-08-07 00:00:00 2196 [oz_av] [facility] BP Diastolic 2021-07-20 00:00:00 66 mm[Hg] [facility] Height 2021-07-20 00:00:00 64 [in_i] [facility] BMI (Body Mass Index) 2021-07-20 00:00:00 23.4 kg/m2 [facility] BP Systolic 2021-07-20 00:00:00 121 mm[Hg] [facility] Body Weight 2021-07-20 00:00:00 2179 [oz_av] [facility] BP Diastolic 2021-06-29 00:00:00 82 mm[Hg] [facility] Height 2021-06-29 00:00:00 64 [in_i] [facility] BMI (Body Mass Index) 2021-06-29 00:00:00 23.3 kg/m2 [facility] BP Systolic 2021-06-29 00:00:00 132 mm[Hg] [facility] Body Weight 2021-06-29 00:00:00 2168 [oz_av] [facility] BP Diastolic 2021-06-22 00:00:00 72 mm[Hg] [facility] Height 2021-06-22 00:00:00 64 [in_i] [facility] BMI (Body Mass Index) 2021-06-22 00:00:00 23.2 kg/m2 [facility] BP Systolic 2021-06-22 00:00:00 138 mm[Hg] [facility] Body Weight 2021-06-22 00:00:00 2160 [oz_av] [facility] BP Diastolic 2021-06-21 00:00:00 69 mm[Hg] [facility] Height 2021-06-21 00:00:00 64 [in_i] [facility] BMI (Body Mass Index) 2021-06-21 00:00:00 23.7 kg/m2 [facility] BP Systolic 2021-06-21 00:00:00 142 mm[Hg] [facility] Body Weight 2021-06-21 00:00:00 2208 [oz_av] [facility] BP Diastolic 2021-06-14 00:00:00 76 mm[Hg] [facility] Height 2021-06-14 00:00:00 64 [in_i] [facility] BMI (Body Mass Index) 2021-06-14 00:00:00 23.7 kg/m2 [facility] BP Systolic 2021-06-14 00:00:00 139 mm[Hg] [facility] Body Weight 2021-06-14 00:00:00 2208 [oz_av] [facility] Height 2019-11-03 19:55:00 233.68 CM Height 2019-10-26 12:52:00 167.64 CM Weight 2019-10-26 12:52:00 65.77 KG Weight 2019-07-26 07:00:00 68.96 KG Height 2019-07-14 17:41:00 167.64 CM Weight 2019-07-14 17:41:00 73.93 KG Procedures Procedure Date / Time Performing Clinician Source Performed INSRT INFUS DEVC SUP VENA 2019-11-05 00:00:00 [facility] ULTRASONOGRAPHY SUP VENA 2019-11-05 00:00:00 [facility] GUID [facility] FLUORO SUPERIOR VENA CAVA 2019-11-05 00:00:00 [facility] Plan of Care Planned Activity Planned Date Details Comments Source Future Scheduled Test 2022-11-01 Influenza Vaccine [facility] 00:00:00 (#1) [code = Medical Center Influenza Vaccine (#1)] Future Scheduled Test 2022-11-01 INFLUENZA VACCINE [facility] 00:00:00 (Season Ended) [code Medical Center = INFLUENZA VACCINE (Season Ended)] Future Scheduled Test 2022-03-[address] [facility] 00:00:00 (12+) [code = Medical Center DEPRESSION SCREENING (12+)] Future Scheduled Test 2022-03-03 [place]ALL[place] RISK SCREENING [facility] 00:00:00 [code = FALLS RISK Medical C enter SCREENING] Future Scheduled Test 2022-03-[address] [facility] 00:00:00 (12+) [code = Medical Center DEPRESSION SCREENING (12+)] Future Scheduled Test 2022-03-03 [place] RISK SCREENING [facility] 00:00:00 [code = FALLS RISK Medical C enter SCREENING] Future Scheduled Test 2022-03-[address] [facility] 00:00:00 (12+) [code = Medical Center DEPRESSION SCREENING (12+)] Future Scheduled Test 2022-03-03 FALLS RISK [facility]CRE[facility]ING [facility] 00:00:00 [code = FALLS RISK Medical C enter SCREENING] Future Scheduled Test 2021-11-01 [address]ZA VACC[address] [facility] 00:00:00 (#1) [code = [facility] Center INFLUENZA VACCINE (#1)] Future Scheduled Test 2021-11-01 INFLUENZA VACC[address] [facility] 00:00:00 (#1) [code = [facility] Center INFLUENZA VACCINE (#1)] Future Scheduled Test 2021-11-01 INFLUENZA VACC[address] [facility] 00:00:00 (#1) [code = [facility] Center INFLUENZA VACCINE (#1)] Future Scheduled Test 2021-11-01 INFLUENZA VACC[address] [facility] 00:00:00 (#1) [code = [facility] Center INFLUENZA VACCINE (#1)] Future Scheduled Test 2021-11-[address] IN[address]ZA VACC[address] [facility] 00:00:00 (#1) [code = [facility] INFLUENZA VACCINE (#1)] Diagnostic Test 2021-06-14 drug screen, 14 drugs [facility] via [facility] 00:00:00 (detectimed), urine [code = drug screen, 14 drugs (detectimed), urine] Future Scheduled Test 2021-03-03 [facility]S [address]ENING [facility] 00:00:00 [code = [facility] Medical C enter SCREENING] Future Scheduled Test 2021-03-[address] [facility] 00:00:00 (12+) [code = Medical Center DEPRESSION SCREENING (12+)] Future Scheduled Test 2021-03-03 [facility] 00:00:00 [code = [facility] Medical C enter SCREENING] Future Scheduled Test 2021-03-[address] [facility] 00:00:00 (12+) [code = Medical Center DEPRESSION SCREENING (12+)] Future Scheduled Test 2021-03-03 [facility] 00:00:00 [code = [facility] Medical C enter SCREENING] Future Scheduled Test 2021-03-[address] [facility] 00:00:00 (12+) [code = Medical Center DEPRESSION SCREENING (12+)] Future Scheduled Test 2021-03-03 [facility] 00:00:00 [code = [facility] Medical C enter SCREENING] Future Scheduled Test 2021-03-[address] [facility] 00:00:00 (12+) [code = Medical Center DEPRESSION SCREENING (12+)] Future Scheduled Test 2001 PNEUMOCOCCAL 65+ YRS [facility] 00:00:00 (1 - PCV) [code = Medical Ce nter PNEUMOCOCCAL 65+ YRS (1 - PCV)] Future Scheduled Test 2001 PNEUMOCOCCAL 65+ YRS [facility] 00:00:00 (1 - PCV) [code = Medical Ce nter PNEUMOCOCCAL 65+ YRS (1 - PCV)] Future Scheduled Test 2001 PNEUMOCOCCAL 65+ YRS [facility] 00:00:00 (1 - PCV) [code = Medical Ce nter PNEUMOCOCCAL 65+ YRS (1 - PCV)] Future Scheduled Test 2001 PNEUMOCOCCAL 65+ YRS [facility] 00:00:00 (1 - PCV) [code = Medical Ce nter PNEUMOCOCCAL 65+ YRS (1 - PCV)] Future Scheduled Test 2001 PNEUMOCOCCAL 65+ YRS [facility] 00:00:00 (1 - PCV) [code = Medical Ce nter PNEUMOCOCCAL 65+ YRS (1 - PCV)] Future Scheduled Test 2001 PNEUMOCOCCAL 65+ YRS [facility] 00:00:00 (1 - PCV) [code = Medical Ce nter PNEUMOCOCCAL 65+ YRS (1 - PCV)] Future Scheduled Test 2001 PNEUMOCOCCAL 65+ YRS [facility] 00:00:00 (1 - PCV) [code = Medical Ce nter PNEUMOCOCCAL 65+ YRS (1 - PCV)] Future Scheduled Test 1986 SHINGLES VACCINES ([address] [facility] 00:00:00 of 2) [code = Medical Center SHINGLES VACCINES (1 of 2)] Future Scheduled Test 1986 SHINGLES VACCINES ([address] [facility] 00:00:00 of 2) [code = Medical Center SHINGLES VACCINES (1 of 2)] Future Scheduled Test 1986 SHINGLES VACCINES ([address] [facility] 00:00:00 of 2) [code = Medical Center SHINGLES VACCINES (1 of 2)] Future Scheduled Test 1986 SHINGLES VACCINES ([address] [facility] 00:00:00 of 2) [code = Medical Center SHINGLES VACCINES (1 of 2)] Future Scheduled Test 1986 SHINGLES VACCINES ([address] [facility] 00:00:00 of 2) [code = Medical Center SHINGLES VACCINES (1 of 2)] Future Scheduled Test 1986 SHINGLES VACCINES ([address] [facility] 00:00:00 of 2) [code = Medical Center SHINGLES VACCINES (1 of 2)] Future Scheduled Test 1986 SHINGLES VACCINES ([address] [facility] 00:00:00 of 2) [code = Medical Center SHINGLES VACCINES (1 of 2)] Future Scheduled Test 1955-06-09 DTAP/TDAP/TD VACCINES [facility] 00:00:00 (1 - Tdap) [code = Medical C enter DTAP/TDAP/TD VACCINES (1 - Tdap)] Future Scheduled Test 1955-06-09 DTAP/TDAP/TD VACCINES [facility] 00:00:00 (1 - Tdap) [code = Medical C enter DTAP/TDAP/TD VACCINES (1 - Tdap)] Future Scheduled Test 1955-06-09 DTAP/TDAP/TD VACCINES [facility] 00:00:00 (1 - Tdap) [code = Medical C enter DTAP/TDAP/TD VACCINES (1 - Tdap)] Future Scheduled Test 1955-06-09 DTAP/TDAP/TD VACCINES [facility] 00:00:00 (1 - Tdap) [code = Medical C enter DTAP/TDAP/TD VACCINES (1 - Tdap)] Future Scheduled Test 1955-06-09 DTAP/TDAP/TD VACCINES [facility] 00:00:00 (1 - Tdap) [code = Medical C enter DTAP/TDAP/TD VACCINES (1 - Tdap)] Future Scheduled Test 1955-06-09 DTAP/TDAP/TD VACCINES [facility] 00:00:00 (1 - Tdap) [code = Medical C enter DTAP/TDAP/TD VACCINES (1 - Tdap)] Future Scheduled Test 1955-06-09 DTAP/TDAP/TD VACCINES [facility] 00:00:00 (1 - Tdap) [code = Medical C enter DTAP/TDAP/TD VACCINES (1 - Tdap)] Future Scheduled Test [address] [facility] 00:[facility]:00 [facility] Screening (12+) [code = Tobacco Cessation Counseling and Screening (12+)] Future Scheduled Test [address] [facility] 00:00:00 [facility] Cent[facility] r Screening (12+) [code = Tobacco Cessation Counseling and Screening (12+)] Future Scheduled Test [address] [facility] 00:00:00 [facility] Cent[facility] r Screening (12+) [code = Tobacco Cessation Counseling and Screening (12+)] Future Scheduled Test 1941 COVID-19 VACCINE (#1) [facility] 00:00:00 [code = COVID-[address] VACCINE (#1)] Future Scheduled Test 1941 COVID-19 VACCINE (#1) [facility] 00:00:00 [code = COVID-[address] VACCINE (#1)] Future Scheduled Test 1941 COVID-19 VACCINE (#1) [facility] 00:00:00 [code = COVID-[address] VACCINE (#1)] Future Scheduled Test 1936 COVID-19 VACCINE (#1) [facility] 00:00:00 [code = COVID-[address] VACCINE (#1)] Future Scheduled Test 1936 COVID-19 VACCINE (#1) [facility] 00:00:00 [code = COVID-[address] VACCINE (#1)] Future Scheduled Test 1936 COVID-19 VACCINE (#1) [facility] 00:00:00 [code = COVID-[address] VACCINE (#1)] Future Scheduled Test 1936 COVID-19 VACCINE (#1) [facility] 00:00:00 [code = COVID-[address] VACCINE (#1)] Future Scheduled Test 1936 DXA SCAN [code = DXA [facility] 00:00:00 SCAN] [facility] Future Scheduled Test 1936 DXA SCAN [code = DXA [facility] 00:00:00 SCAN] [facility] Future Scheduled Test 1936 DXA SCAN [code = DXA [facility] 00:00:00 SCAN] [facility] Future Scheduled Test 1936 DXA SCAN [code = DXA [facility] 00:00:00 SCAN] [facility] Future Scheduled Test 1936 DXA SCAN [code = DXA [facility] 00:00:00 SCAN] [facility] Instructions [facility] Start End Encounter Admission Attending Care Care Encounter Source Date/Time Date/Time Type Type Clinicians Facility Department ID 2021-09-29 [facility] [id number] [facility] 00:00:00 Encounter [facility] 2022-09-18 2022-09-18 Outpatient [facility] PRIV PRIV 239 [id number] [facility] 00:00:00 00:00:00 d_J [id number] Medica l 2022-09-12 2022-09-12 Outpatient [facility] PRIV PRIV 239 [id number] [facility] 00:00:00 00:00:00 d_J [id number] Medica l 2022-09-10 2022-09-10 Outpatient [facility] PRIV PRIV 239 [id number] [facility] 00:00:00 00:00:00 d_J [id number] Medica l 2022-09-09 2022-09-09 Outpatient [facility] PRIV PRIV 239 [id number] [facility] 00:00:00 00:00:00 d_J [id number] Medica l 2022-09-06 2022-09-06 Outpatient [facility] PRIV PRIV 239 [id number] [facility] 00:00:00 00:00:00 d_J [id number] Medica l 2022-09-04 2022-09-04 Outpatient [facility] PRIV PRIV 239 [id number] [facility] 00:00:00 00:00:00 d_J [id number] Medica l 2022-08-26 2022-08-26 Outpatient [facility] PRIV PRIV 239 [id number] [facility] 00:00:00 00:00:00 d_J [id number] Medica l 2022-08-26 2022-08-26 Outpatient [facility] PRIV PRIV 239 [id number] [facility] 00:00:00 00:00:00 d_J [id number] Medica l 2022-08-26 2022-08-26 Outpatient [facility] PRIV PRIV 239 [id number] [facility] 00:00:00 00:00:00 d_J [id number] Medica l 2022-08-22 2022-08-22 Outpatient [facility] PRIV PRIV 239 [id number] [facility] 00:00:00 00:00:00 d_J [id number] Medica l 2022-08-16 2022-08-16 Outpatient [facility] PRIV PRIV 239 [id number] [facility] 00:00:00 00:00:00 d_J [id number] Medica l 2022-08-16 2022-08-16 Outpatient [facility] PRIV PRIV 239 [id number] [facility] 00:00:00 00:00:00 d_J [id number] Medica l 2022-08-06 2022-08-06 Outpatient [facility] PR[facility] PRIV 239 [id number] [facility] 00:00:00 00:00:00 d_J [id number] Medica l 2022-08-06 2022-08-06 Outpatient [facility] PRIV PRIV 239 [id number] [facility] 00:00:00 00:00:00 d_J [id number] Medica l 2022-08-06 2022-08-06 Outpatient [facility] PRIV PRIV 239 [id number] [facility] 00:00:00 00:00:00 d_J [id number] Medica l 2022-08-06 2022-08-06 Outpatient [facility] PRIV PRIV 239 [id number] [facility] 00:00:00 00:00:00 d_J [id number] Medica l 2022-07-25 2022-07-25 Outpatient [facility] PRIV PRIV 239 [id number] [facility] 00:00:00 00:00:00 d_J [id number] Medica l 2022-07-25 2022-07-25 Outpatient [facility] PRIV PRIV 239 [id number] [facility] 00:00:00 00:00:00 d_J [id number] Medica l 2022-07-25 2022-07-25 Outpatient [facility] PRIV PRIV 239 [id number] [facility] 00:00:00 00:00:00 d_J [id number] Medica l 2022-07-23 2022-07-23 Outpatient [facility] PRIV PRIV 239 [id number] [facility] 00:00:00 00:00:00 d_J [id number] Medica l 2022-07-18 2022-07-18 Outpatient [facility] PRIV PRIV 239 [id number] [facility] 00:00:00 00:00:00 d_J [id number] Medica l 2022-07-11 2022-07-11 Outpatient [facility] PRIV PRIV 239 [id number] [facility] 00:00:00 00:00:00 d_J [id number] Medica l 2022-07-10 2022-07-10 Outpatient [facility] PRIV PRIV 239 [id number] [facility] 00:00:00 00:00:00 d_J [id number] Medica l 2022-07-10 2022-07-10 [facility] [id number] [facility] 00:00:00 00:00:00 ENOC [facility] - Med ical [address] [address] , Ph. 2022-06-29 2022-06-29 Outpatient [facility] PRIV PRIV 239 [id number] [facility] 00:00:00 00:00:00 d_J [id number] Medica l 2022-06-25 2022-06-25 Outpatient [facility] PRIV PRIV 239 [id number] [facility] 00:00:00 00:00:00 d_J [id number] Medica l 2022-06-25 2022-06-25 [facility] [id number] [facility] 00:00:00 00:00:00 ENOC [facility]: [facility] - Med ical [address] [address] , Ph. 2022-06-18 [facility]06-[facility] [id number] [facility] 00:[facility]:00 00:00:00 ENOC [facility]: [facility] - Med ical [address] [address] , Ph. 2022-06-17 2022-06-17 Outpatient [facility] PRIV PRIV 239 [id number] [facility] 00:00:00 00:00:00 d_J [id number] Medica l 2022-06-17 2022-06-17 Outpatient [facility] PRIV PRIV 239 [id number] [facility] 00:00:00 00:00:00 d_J [id number] Medica l 2022-06-04 2022-06-04 Outpatient [facility] PRIV PRIV 239 [id number] [facility] 00:00:00 00:00:00 d_J [id number] Medica l 2022-06-03 2022-06-03 Outpatient [facility] PRIV PRIV 239 [id number] [facility] 00:00:00 00:00:00 d_J [id number] Medica l 2022-05-24 2022-05-24 Outpatient [facility] PRIV PRIV 239 [id number] [facility] 00:00:00 00:00:00 d_J [id number] Medica l 2022-05-21 2022-05-21 Outpatient [facility] PR[facility] PRIV 239 [id number] [facility] 00:00:00 00:00:00 d_J [id number] Medica l 2022-05-21 2022-05-21 [facility] [id number] [facility] 00:00:00 00:00:00 ENOC [facility]: [facility] - Med ical [address] [address] , Ph. 2022-05-09 2022-05-09 Outpatient [facility] PRIV PRIV 239 [id number] [facility] 00:00:00 00:00:00 d_J [id number] Medica l 2022-05-04 2022-05-04 Outpatient [facility] PR[facility] PRIV 239 [id number] [facility] 00:00:00 00:00:00 d_J [id number] Medica l 2022-05-04 2022-05-04 Outpatient [facility] PR[facility] PRIV 239 [id number] [facility] 00:00:00 00:00:00 d_J [id number] Medica l 2022-05-04 2022-05-04 Outpatient [facility] PRIV PRIV 239 [id number] [facility] 00:00:00 00:00:00 d_J [id number] Medica l 2022-05-02 2022-05-02 Outpatient [facility] PRIV PRIV 239 [id number] [facility] 00:00:00 00:00:00 d_J [id number] Medica l 2022-05-01 2022-05-01 Outpatient [facility] PRIV PRIV 239 [id number] [facility] 00:00:00 00:00:00 d_J [id number] Medica l 2022-05-01 2022-05-01 [facility] [id number] [facility] 00:[facility]:00 00:00:00 ENOC [facility]: [facility] - Med ical [address] [address] , Ph. 2022-04-26 2022-04-26 Outpatient [facility] PRIV PRIV 239 [id number] [facility] 00:00:00 00:00:00 d_J [id number] Medica l 2022-04-26 2022-04-26 [facility] [id number] [facility] 00:[facility]:00 00:00:00 ENOC [facility]: [facility] - Med ical [address] [address] , Ph. 2022-04-19 2022-04-19 Outpatient [facility] PRIV PRIV 239 [id number] [facility] 00:00:00 00:00:00 d_J [id number] Medica l 2022-04-16 2022-04-16 Reji Marc [facility] [id number] [facility] 00:00:00 00:00:00 Gaby [facility] - Med ical MD: [address] [address] , Ph. 2022-04-12 2022-04-12 Outpatient [facility] PRIV PRIV 239 [id number] [facility] 00:00:00 00:00:00 d_J [id number] Medica l 2022-04-09 2022-04-09 Outpatient [facility] PRIV PRIV 239 [id number] [facility] 00:00:00 00:00:00 d_J [id number] Medica l 2022-04-09 2022-04-09 [facility] [id number] [facility] 00:00:00 00:00:00 ENOC [facility]: Health - Med ical [address] [address] , Ph. 2022-03-29 2022-03-29 Outpatient [facility] PRIV PRIV 239 [id number] [facility] 00:00:00 00:00:00 d_J [id number] Medica l 2022-03-28 2022-03-28 Outpatient [facility] PRIV PRIV 239 [id number] [facility] 00:00:00 00:00:00 d_J [id number] Medica l 2022-03-19 2022-03-19 [facility] [id number] [facility] 00:00:00 00:00:00 ENOC [facility]: Health - Med ical [address] [address] , Ph. 2022-03-13 2022-03-13 Outpatient [facility] PRIV PRIV 239 [id number] [facility] 00:00:00 00:00:00 d_J [id number] Medica l 2022-03-13 2022-03-13 Outpatient [facility] PRIV PRIV 239 [id number] [facility] 00:00:00 00:00:00 d_J [id number] Medica l 2022-03-13 2022-03-13 Outpatient [facility] PRIV PRIV 239 [id number] [facility] 00:00:00 00:00:00 d_J [id number] Medica l 2022-03-13 2022-03-13 Outpatient [facility] PRIV PRIV 239 [id number] [facility] 00:00:00 00:00:00 d_J [id number] Medica l 2022-03-13 2022-03-13 [facility] 111 [facility] 00:00:00 00:00:00 ENOC [facility]: Health - Med ical [address] [address] , Ph. 2022-03-05 2022-03-05 Helen [facility] [id number] [facility] 00:00:00 00:00:00 ENOC [facility]: Health - Med ical [address] [address] , Ph. 2022-03-04 2022-03-04 Outpatient [facility] PRIV PRIV 239 [id number] [facility] 00:00:00 00:00:00 d_J [id number] Medica l 2022-02-19 2022-02-19 Outpatient [facility] PRIV PRIV 239 [id number] [facility] 00:00:00 00:00:00 d_J [id number] Medica l 2022-02-19 2022-02-19 Helen [facility] 220 [facility] 00:00:00 00:00:00 ENOC Collado: Health - Med ical [address] [address] , Ph. 2022-02-15 2022-02-15 Outpatient [facility] PRIV PRIV 239 [id number] [facility] 00:00:00 00:00:00 d_J [id number] Medica l 2022-02-08 2022-02-08 Outpatient [facility] PRIV PRIV 239 [id number] [facility] 00:00:00 00:00:00 d_J [id number] Medica l 2022-02-08 2022-02-08 Outpatient [facility] PRIV PRIV 239 [id number] [facility] 00:00:00 00:00:00 d_J [id number] Medica l 2022-02-07 2022-02-07 Outpatient [facility] PRIV PRIV 239 [id number] [facility] 00:00:00 00:00:00 d_J [id number] Medica l 2022-01-31 2022-01-31 Outpatient [facility] PRIV PRIV 239 [id number] [facility] 00:00:00 00:00:00 d_J [id number] Medica l 2022-01-29 2022-01-29 Outpatient [facility] PRIV PRIV 239 [id number] [facility] 00:00:00 00:00:00 d_J [id number] Medica l 2022-01-29 2022-01-29 [facility] [id number] [facility] 00:00:00 00:00:00 ENOC [facility]: Health - Med ical [address] [address] , Ph. 2022-01-23 2022-01-23 Outpatient [facility] PRIV PRIV 239 [id number] [facility] 00:00:00 00:00:00 d_J [id number] Medica l 2022-01-22 2022-01-22 Outpatient [facility] PRIV PRIV 239 [id number] [facility] 00:00:00 00:00:00 d_J [id number] Medica l 2022-01-19 2022-01-19 Outpatient [facility] PRIV PRIV 239 [id number] [facility] 00:00:00 00:00:00 d_J [id number] Medica l 2022-01-15 2022-01-15 Outpatient [facility] PRIV PRIV 239 [id number] [facility] 00:00:00 00:00:00 d_J [id number] Medica l 2022-01-15 2022-01-15 [facility] [id number] [facility] 00:00:00 00:00:00 ENOC [facility]: [facility] - Med ical [address] [address] , Ph. 2022-01-11 2022-01-11 Outpatient [facility] PRIV PRIV 239 [id number] [facility] 00:00:00 00:00:00 d_J [id number] Medica l 2022-01-11 2022-01-11 [facility] [id number] [facility] 00:00:00 00:00:00 ENOC [facility]: [facility] - Med ical [address] [address] , Ph. 2022-01-06 2022-01-06 Outpatient [facility] PRIV PRIV 239 [id number] [facility] 00:00:00 00:00:00 d_J [id number] Medica l 2021-12-24 2021-12-24 Outpatient [facility] PRIV PRIV 239 [id number] [facility] 00:00:00 00:00:00 d_J [id number] Medica l 2021-12-22 2021-12-22 Outpatient [facility] PRIV PRIV 239 [id number] [facility] 00:00:00 00:00:00 d_J [id number] Medica l 2021-12-21 2021-12-21 [facility] 021 [facility] 00:00:00 00:00:00 ENOC [facility]: [facility] - Med ical [address] [address] , Ph. 2021-12-20 2021-12-20 Outpatient [facility] PRIV PRIV 239 [id number] [facility] 00:00:00 00:00:00 d_J [id number] Medica l 2021-12-19 2021-12-19 Outpatient [facility] PRIV PRIV 239 [id number] [facility] 00:00:00 00:00:00 d_J [id number] Medica l 2021-12-18 2021-12-18 Reji Tran [facility] 202 [facility] 00:00:00 00:00:00 Gaby [facility] - Med ical MD: [address] [address] , Ph. 2021-12-13 2021-12-13 Outpatient [facility] PRIV PRIV 239 [id number] [facility] 00:00:00 00:00:00 d_J [id number] Medica l 2021-12-12 2021-12-12 Outpatient [facility] PRIV PRIV 239 [id number] [facility] 00:00:00 00:00:00 d_J [id number] Medica l 2021-11-30 2021-11-30 Outpatient [facility] PRIV PRIV 239 [id number] [facility] 00:00:00 00:00:00 d_J [id number] Medica l 2021-11-30 2021-11-30 Helen [facility] [id number] [facility] 00:00:00 00:00:00 ENOC [facility]: Health - Med ical [address] [address] , Ph. 2021-11-28 2021-11-28 Outpatient [facility] PRIV PRIV 239 [id number] [facility] 00:00:00 00:00:00 d_J [id number] Medica l 2021-11-24 2021-11-24 Outpatient [facility] PRIV PRIV 239 [id number] [facility] 00:00:00 00:00:00 d_J [id number] Medica l 2021-11-20 2021-11-20 [facility] [id number] [facility] 00:00:00 00:00:00 ENOC [facility]: Health - Med ical [address] [address] , Ph. 2021-11-13 2021-11-13 Outpatient [facility] PRIV PRIV 239 [id number] [facility] 00:00:00 00:00:00 d_J [id number] Medica l 2021-10-30 2021-10-30 Outpatient [facility] PRIV PRIV 239 [id number] [facility] 00:00:00 00:00:00 d_J [id number] Medica l 2021-10-28 2021-10-28 Outpatient [facility] PRIV PRIV 239 [id number] [facility] 00:00:00 00:00:00 d_J [id number] Medica l 2021-10-25 2021-10-25 Outpatient [facility] PRIV PRIV 239 [id number] [facility] 00:00:00 00:00:00 d_J [id number] Medica l 2021-10-19 2021-10-19 Outpatient [facility] PRIV PRIV 239 [id number] [facility] 00:00:00 00:00:00 d_J [id number] Medica l 2021-10-18 2021-10-18 Outpatient [facility] PRIV PRIV 239 [id number] [facility] 00:00:00 00:00:00 d_J [id number] Medica l 2021-10-15 2021-10-15 Outpatient [facility] PRIV PRIV 239 [id number] [facility] 00:00:00 00:00:00 d_J [id number] Medica l 2021-10-12 2021-10-12 Outpatient [facility] PRIV PRIV 239 [id number] [facility] 00:00:00 00:00:00 d_J [id number] Medica l 2021-10-11 2021-10-11 Outpatient [facility] PRIV PRIV 239 [id number] [facility] 00:00:00 00:00:00 d_J [id number] Medica l 2021-10-11 2021-10-11 Reji Tran [facility]:00 00:00:00 Gaby [facility] brook : [address] [address] , Ph. 2021-10-11 2021-10-11 Outpatient Gaby PRIV PRIV [id number] 00:00:00 00:00:00 Reji Tran [id number] 2021-10-09 2021-10-09 Outpatient [facility] PRIV PRIV [id number] [facility] 00:00:00 00:00:00 d_J [id number] Medica l 2021-10-09 2021-10-09 [facility] [id number] [facility] 00:00:00 00:00:00 ENOC Coll[facility]: Health - Med ical [address] [address] , Ph. 2021-10-09 2021-10-09 Outpatient Tobias, PRIV PRIV [id number] 00:00:00 00:00:00 Helen [id number] 2021-10-08 2021-10-08 Outpatient [facility] PRIV PRIV 239 [id number] [facility] 00:00:00 00:00:00 d_J [id number] Medica l 2021-10-05 2021-10-05 Outpatient [facility] PRIV PRIV [id number] [facility] 00:00:00 00:00:00 d_J [id number] Medica l 2021-10-05 2021-10-05 [facility] [id number] [facility] 00:00:00 00:00:00 ENOC Coll[facility]: Health - Med ical [address] [address] , Ph. 2021-10-05 2021-10-05 Outpatient Tobias PRIV PRIV [id number] 00:00:00 00:00:00 Helen [id number] 2021-10-03 2021-10-03 Outpatient [facility] PRIV PRIV 239 [id number] [facility] 00:00:00 00:00:00 d_J [id number] Medica l 2021-10-02 2021-10-02 Outpatient [facility] PRIV PRIV 239 [id number] [facility] 00:00:00 00:00:00 d_J [id number] Medica l 2021-10-02 2021-10-02 [facility] [id number] [facility] 00:00:00 00:00:00 ENOC Coll[facility]: Health - Med ical [address] [address] , Ph. 2021-09-28 2021-09-28 Outpatient GC_[facility]_Tod PRIV PRIV [id number] [facility] 00:00:00 00:00:00 d_Tawanna [id number] Medica l 2021-09-28 2021-09-28 Outpatient Tobias, PRIV PRIV [id number] 00:00:00 00:00:00 Helen [id number] 2021-09-28 2021-09-28 [facility] [id number] [facility] 00:00:00 00:00:00 Tobias PA: Health - Med ical [address] [address] , Ph. 2021-09-18 2021-09-18 Outpatient GC_[facility]_Tod PRIV PRIV [id number] [facility] 12:03:00 12:03:00 d_Tawanna [id number] Medica l 2021-09-11 2021-09-11 Outpatient GC_[facility]_Tod PRIV PRIV [id number] [facility] 01:51:00 01:51:00 d_Tawanna [id number] Medica l 2021-09-11 2021-09-11 Outpatient Tobias, PRIV PRIV [id number] 00:00:00 00:00:00 Helen [id number] 2021-09-11 2021-09-11 Helen [facility] [id number] [facility] 00:00:00 00:00:00 ENOC Coll[facility]: Health - Med ical [address] [address] , Ph. 2021-09-09 2021-09-09 Outpatient GC_[facility]_Tod PRIV PRIV [id number] [facility] 11:00:00 11:00:00 d_J [id number] Medica l 2021-08-31 2021-08-31 Outpatient GC_[facility]_Tod PRIV PRIV [id number] [facility] 04:11:00 04:11:00 d_J [id number] Medica l 2021-08-31 2021-08-31 Outpatient Tobias, PRIV PRIV [id number] 00:00:00 00:00:00 Helen [id number] 2021-08-31 2021-08-31 Helen [facility] [id number] [facility] 00:00:00 00:00:00 ENOC Collado: Health - Med ical [address] [address] , Ph. 2021-08-24 2021-08-24 Outpatient GC_[facility]_Tod PRIV PRIV [id number] [facility] 04:50:00 04:50:00 d_J [id number] Medica l 2021-08-16 2021-08-16 Outpatient GC_[facility]_Tod PRIV PRIV [id number] [facility] 10:50:00 10:50:00 d_J [id number] Medica l 2021-08-16 2021-08-16 Outpatient Gaby, PRIV PRIV [id number] 00:00:00 00:00:00 Reji Tran [id number] 2021-08-16 2021-08-16 Reji Tran [facility]IV [facility] [id number] [facility] 00:00:00 00:00:00 Gaby [facility] - Med ical MD: [address] [address] , Ph. 2021-08-13 2021-08-13 Outpatient GC_[facility]_Tod PRIV PRIV [id number] [facility] 11:24:00 11:24:00 d_J [id number] Medica l 2021-08-07 2021-08-07 Outpatient GC_[facility]_Tod PRIV PRIV [id number] [facility] 07:18:00 07:18:00 d_J [id number] Medica l 2021-08-07 2021-08-07 Outpatient Tobias PRIV PRIV [id number] 00:00:00 00:00:00 Helen [id number] 2021-08-07 2021-08-07 Helen [facility] [id number] [facility] 00:00:00 00:00:00 ENOC Collado: Health - Med ical [address] [address] , Ph. 2021-07-30 2021-07-30 Outpatient GC_[facility]_Tod PRIV PRIV [id number] [facility] 10:43:00 10:43:00 d_J [id number] Medica l 2021-07-27 2021-07-27 Outpatient GC_[facility]_Tod PRIV PRIV [id number] [facility] 04:52:00 04:52:00 d_J [id number] Medica l 2021-07-20 2021-07-20 Outpatient GC_[facility]_Tod PRIV PRIV [id number] [facility] 12:32:00 12:32:00 d_J [id number] Medica l 2021-07-20 2021-07-20 Outpatient Tobias PRIV PRIV [id number] 00:00:00 00:00:00 Helen [id number] 2021-07-20 2021-07-20 Helen [facility] [id number] [facility] 00:00:00 00:00:00 ENOC Collado: Health - Med ical [address] [address] , Ph. 2021-07-08 2021-07-08 Outpatient GC_[facility]_Tod PRIV PRIV [id number] [facility] 10:46:00 10:46:00 d_J [id number] Medica l 2021-07-01 2021-07-01 Outpatient GC_[facility]_Tod PRIV PRIV [id number] [facility] 10:44:00 10:44:00 d_J [id number] Medica l 2021-06-29 2021-06-29 Outpatient GC_[facility]_Tod PRIV PRIV [id number] [facility] 08:40:00 08:40:00 d_J [id number] Medica l 2021-06-29 2021-06-29 Outpatient Tobias, PRIV PRIV [id number] 00:00:00 00:00:00 Helen [id number] 2021-06-29 [facility] [id number] [facility] 00:00:00 00:00:00 ENOC Collado: Health - Med ical [address] [address] , Ph. 2021-06-22 2021-06-22 Outpatient GC_[facility]_Tod PRIV PRIV [id number] [facility] 09:06:00 09:06:00 d_J [id number] Medica l 2021-06-22 2021-06-22 Outpatient Tobias PRIV PRIV [id number] 00:00:00 00:00:00 Helen [id number] 2021-06-22 2021-06-22 [facility] [id number] [facility] 00:00:00 00:00:00 ENOC Collado: Health - Med ical [address] [address] , Ph. 2021-06-21 2021-06-21 Outpatient GC_[facility]_Tod PRIV PRIV [id number] [facility] 08:48:00 08:48:00 d_J [id number] Medica l 2021-06-21 2021-06-21 Outpatient Gaby, PRIV PRIV [id number] 00:00:00 00:00:00 Reji Tran [id number] 2021-06-21 2021-06-21 Reji Tran [facility]00[facility] ica MD: [id number] [facility] , [place] [address] , Ph. 2021-06-15 2021-06-15 Outpatient [facility]_Tod PRIV PRIV [id number] [facility] 02:11:00 02:11:00 d_Tawanna [id number] Medica l 2021-06-14 2021-06-14 Outpatient [facility]_Tod PRIV PRIV [id number] [facility] 06:30:00 06:30:00 dEffie [id number] Medica l 2021-06-14 2021-06-14 Outpatient [place], PRIV PRIV [id number] 00:00:00 00:00:00 June [id number] 2021-06-14 2021-06-14June [facility] 14 [facility] 00:00:00 00:00:00 [facility] Medic al GROUP TESTER: [id number] [facility] , [place] [address] , Ph. 2021-06-13 2021-06-13 Outpatient GC_BA[facility]_Tod PRIV PRIV [id number] [facility] 12:05:00 12:05:00 dEffie [id number] Medica l 2021-06-11 2021-06-11 Outpatient GC_[facility]_Spa PRIV PRIV 239 [id number] [facility] 10:27:00 10:27:00 [place] [id number] Medica l 2021 2021 Outpatient GC_BA[facility]_Spa PRIV PRIV [id number] [facility] 05:54:00 05:54:00 Urban [id number] Medica l 2020-04-05 2020-04-05 [facility] [id number] 11:48:00 11:48:00 [id number] Family Practic e 2019-10-26 2019-11-05 Inpatient E CHARMAINE, [facility] TELE [id number] [place] 15:52:00 17:44:00 MORRO [facility] 2019-07-14 2019-07-29 Inpatient E RADHA, [facility] SCU [id number] be 21:04:00 17:00:00 [facility] Results Test Description Test Time Test [...] (test code = RBCMOR) NORMAL BASIC METABOLIC [id number] 08:10:00 Test Item Value Reference Range Interpretation [...] (test code = RBCMOR) NORMAL BASIC METABOLIC [id number] 05:36:00 Test Item Value Reference Range Interpretation [...] (test code = RBCMOR) NORMAL HEMOGLOBIN & [id number] 18:56:00 Test Item Value Reference Range Interpretation Comments HGB (test code = HBG) 10.4 g/dL 12.0-15.5 L HCT (test code = HCT) 32.6 % 35.0-44.0 L TROPONIN [id number] 11:11:00 Test Item Value Reference Range Interpretation Comments TROPONIN I (test code = A84) 0.041 ng/mL 0.000-0.045 HEMOGLOBIN & [id number] 10:54:00 Test Item Value Reference Range Interpretation Comments HGB (test code = HBG) 11.0 g/dL 12.0-15.5 L HCT (test code = HCT) 33.7 % 35.0-44.0 L CBC WITH [id number] 07:42:00 Test Item Value Reference Range Interpretation [...] = STOM) 1+ NONE A BASIC METABOLIC [id number] 07:21:00 Test Item Value Reference Range Interpretation [...] 9.9 mg/dL 8.3-9.5 H 09D) HEMOGLOBIN & [id number] 01:50:00 Test Item Value Reference Range Interpretation Comments HGB (test code = HBG) 11.4 g/dL 12.0-15.5 L HCT (test code = HCT) 35.0 % 35.0-44.0 HEMOGLOBIN & [id number] 18:44:00 Test Item Value Reference Range Interpretation [...] (test code = RBCMOR) NORMAL BASIC METABOLIC [id number] 07:12:00 Test Item Value Reference Range Interpretation [...] = 9.2 mg/dL 8.3-9.5 09D) HEMOGLOBIN & [id number] 00:57:00 Test Item Value Reference Range Interpretation Comments HGB (test code = HBG) 11.8 g/dL 12.0-15.5 L HCT (test code = HCT) 37.4 % 35.0-44.0 BLOOD [id number] 21:24:00 Test Item Value Reference Range Interpretation Comments Culture Observations (test NO GROWTH AFTER 5 code = COB1) DAYS BLOOD [id number] 21:24:00 Test Item Value Reference Range Interpretation Comments Culture Observations (test NO GROWTH AFTER 5 code = COB1) DAYS Arterial Blood [id number] 18:48:00 Test Item Value Reference Range Interpretation [...] FO2Hb (test code = 96.4 % 94.0-100.0 MK2CGUN) FCOHb (test code = 0.4 % 0.0-3.0 FCOHBRT) FMetHb (test code = 1.5 % 0.2-0.6 H FMETHBRT) ABGTEMP (test code = * Temp Corrected Values* ABGTEMP) ABGTEMP (test code = 37.0 ?C ABGTEMP.) pH (T) (test code = 7.333 7.350-7.450 L PHTEMP) pCO2 (T) (test code = 69.0 mmHg 35.0-45.0 HH MNN0VDTO) pO2 (T) (test code = 146.0 mmHg 80.0-110.0 H DR8QSDB) Device (test code = BIPAP DEVICE) FI02 [...] COMMENT (test code = CO) Arterial Blood [id number] 16:04:00 Test Item Value Reference Range Interpretation [...] FO2Hb (test code = 95.1 % 94.0-100.0 RY8RZAQ) FCOHb (test code = 0.8 % 0.0-3.0 FCOHBRT) FMetHb (test code = 1.1 % 0.2-0.6 H FMETHBRT) ABGTEMP (test code = * Temp Corrected Values* ABGTEMP) ABGTEMP (test code = 37.0 ?C ABGTEMP.) pH (T) (test code = 7.313 7.350-7.450 L PHTEMP) pCO2 (T) (test code = 65.4 mmHg 35.0-45.0 HH JYB6MGDS) pO2 (T) (test code = 108.0 mmHg 80.0-110.0 MN7UACK) Device (test code = BIPAP DEVICE) FI02 [...] COMMENT (test code = CO) BASIC METABOLIC [id number] 10:19:00 Test Item Value Reference Range Interpretation [...] (test code = RBCMOR) NORMAL BASIC METABOLIC [id number] 07:12:00 Test Item Value Reference Range Interpretation [...] (test code = RBCMOR) NORMAL BASIC METABOLIC [id number] 05:16:00 Test Item Value Reference Range Interpretation [...] code = 8.3 mg/dL 8.3-9.5 09D) VANCOMYCIN [id number] 05:14:00 Test Item Value Reference Range Interpretation [...] MORPH (test code = RBCMOR) NORMAL URINE [id number] 14:20:00 Test Item Value Reference Range Interpretation Comments Isolate 1 (test code = GRAM NEGATIVE [place] A ISO1) [id number] 06:25:00 Test Item Value Reference Range Interpretation Comments MAGNESIUM (test code = 48A) 1.9 mg/dL 1.8-2.4 BASIC METABOLIC [id number] 06:15:00 Test Item Value Reference Range Interpretation [...] (test code = RBCMOR) NORMAL BASIC METABOLIC [id number] 04:27:00 Test Item Value Reference Range Interpretation [...] (test code = 8.6 mg/dL 8.3-9.5 09D) [id number] 04:19:00 Test Item Value Reference Range Interpretation [...] (test code = MDIFF) NO URINALYSIS WITH [id number] 16:52:00 Test Item Value Reference Range Interpretation [...] code = USPERM) /HPF NONE DRUGS OF [id number] 16:39:00 Test Item Value Reference Range Interpretation [...] 200 ng/mL Opiates 2000 ng/mL Arterial Blood [id number] 15:10:00 Test Item Value Reference Range Interpretation [...] (test code = 87.8 % 94.0-100.0 L UY0SSOB) FCOHb (test code = 1.0 % 0.0-3.0 FCOHBRT) FMetHb (test code = 1.2 % 0.2-0.6 H FMETHBRT) ABGTEMP (test code = * Temp Corrected Values* ABGTEMP) ABGTEMP (test code = 37.0 ?C ABGTEMP.) pH (T) (test code = 7.512 7.350-7.450 H PHTEMP) pCO2 (T) (test code = 54.3 mmHg 35.0-45.0 HH BLW6OILC) pO2 (T) (test code = 55.1 mmHg 80.0-110.0 LL WV1GYRJ) Device (test code = ROOM AIR DEVICE) [...] = SSITE) COMMENT (test code = CO) [id number] 14:55:00 Test Item Value Reference Range Interpretation Comments MAGNESIUM (test code = 48A) 1.3 mg/dL 1.8-2.4 LL COMPREHENSIVE METABOLIC [id number] 14:10:00 Test Item Value Reference Range Interpretation [...] (test code = 31A) 13 IU/L <=78 [id number] 14:08:00 Test Item Value Reference Range Interpretation Comments ACETAMINPH (test code = 94M) <2.0 ug/mL 10.0-30.0 L CARDIAC [id number] 14:08:00 Test Item Value Reference Range Interpretation Comments TROPONIN I (test code = A84) 0.019 ng/mL 0.000-0.045 ALCOHOL BLOOD (ETOH)2019-10-26 14:08:00 Test Item Value Reference Range Interpretation Comments ETOH (test code = HALC) ETHANOL The result is to be used only for medical purposes ALCOHOL (test code = <10 mg/dL <=10 56A) LDH-LACTIC [id number] 14:06:00 Test Item Value Reference Range Interpretation Comments LDH (test code = 33A) 214 IU/L 84-246 C-REACTIVE PROTEIN [id number] 14:02:00 Test Item Value Reference Range Interpretation Comments CRP QUANT (test code <2.9 mg/L 0.0-2.9 = CRPQ) Method Change (test Please note the code = METHOD) change in Method and the reference range [id number] 13:59:00 Test Item Value Reference Range Interpretation [...] the FDA and the [employer] (CAP) are more stringent than those required for this test. Therefore, the result should be interpreted with caution and close attention to other clinical and epidemiological data [id number] 13:55:00 Test Item Value Reference Range Interpretation Comments SALICYLATE (test code = 94B) <1.7 mg/dL 2.8-20.0 L AMMONIA [id number] 13:49:00 Test Item Value Reference Range Interpretation Comments AMMONIA (test code = 54A) 12 umol/L 11-32 PRO TIME AND [id number] 13:47:00 Test Item Value Reference Range Interpretation [...] RBC MORPH (test code = RBCMOR) NORMAL [id number] 10:29:00 Test Item Value Reference Range Interpretation Comments SARS-CoV-2 (test NOT DETECTED NOT DETECTED code = WCOV) COVID-19 (test code Test performed at = [facility]) Reference Laboratory See Original Report Under Medical Record View Tab URINE [id number] 12:38:00 Test Item Value Reference Range Interpretation Comments Culture Observations THREE OR MORE SPECIES (test code = COB1) OF BACTERIA ISOLATED. PROBABLE CONTAMINATION. Culture Observations IDENTIFICATION AND (test code = COB17) SUSCEPTIBILITY NOT INDICATED. RECOLLECTION RECOMMENDED URINALYSIS WITH [id number] 19:14:00 Test Item Value Reference Range Interpretation [...] 95A) 5.8 ug/mL 50.0-100.0 LL COMPREHENSIVE METABOLIC [id number] 06:47:00 Test Item Value Reference Range Interpretation [...] MORPH (test code = RBCMOR) NORMAL T4 [id number] 07:13:00 Test Item Value Reference Range Interpretation Comments T4 FREE (test code = A91) 0.88 ng/dL 0.76-1.46 B12 [id number] 07:02:00 Test Item Value Reference Range Interpretation Comments VIT B12 (test code = A60) 1059.0 pg/mL 180.0-914.0 H [id number] 07:02:00 Test Item Value Reference Range Interpretation Comments FOLATE (test code = A75) 18.5 ng/mL 3.1-17.5 H THYROID PANEL/SCREEN (TSH)2019-07-15 06:59:00 Test Item Value Reference Range Interpretation Comments TSH (test code = A57) 9.160 uIU/mL 0.358-3.740 H [id number] 06:43:00 Test Item Value Reference Range Interpretation Comments PREALBUMIN (test code = 08E) 29 mg/dL 18-38 VALPROIC ACID (DEPAKENE)2019-07-15 06:43:00 Test Item Value Reference Range Interpretation Comments VALP ACID (test code = 95A) 52.6 ug/mL 50.0-100.0 LIPID [id number] 06:37:00 Test Item Value Reference Range Interpretation Comments CHOLESTROL (test code = 44A) 171 mg/dL 140-200 TRIGLYCERI (test code = 42B) 136 mg/dL <=149 HDL (test code = 83D) 50.0 mg/dL 40.0-60.0 LDL (test code = 34B) 100 mg/dL <=99 H CHL/HDL (test code = CHR) 3.4 0.0-3.4 [id number] 06:37:00 Test Item Value Reference Range Interpretation Comments Hb A1C % (test code = HBA) 5.6 % 4.2-6.3 [id number] 06:32:00 Test Item Value Reference Range Interpretation Comments MAGNESIUM (test code = 48A) 1.6 mg/dL 1.8-2.4 L DRUGS OF [id number] 20:05:00 Test Item Value Reference Range Interpretation [...] 200 ng/mL Opiates 2000 ng/mL URINALYSIS WITH [id number] 20:01:00 Test Item Value Reference Range Interpretation [...] code = USPERM) /HPF NONE COMPREHENSIVE METABOLIC [id number] 18:39:00 Test Item Value Reference Range Interpretation [...] (test code = 31A) 12 IU/L <=78 [id number] 18:37:00 Test Item Value Reference Range Interpretation Comments ACETAMINPH (test code = 94M) <2.0 ug/mL 10.0-30.0 L [id number] 18:33:00 Test Item Value Reference Range Interpretation Comments SALICYLATE (test code = 94B) <1.7 mg/dL 2.8-20.0 L TROPONIN [id number] 18:31:00 Test Item Value Reference Range Interpretation Comments TROPONIN I (test code = A84) <0.015 ng/mL 0.000-0.045 PRO TIME AND [id number] 18:30:00 Test Item Value Reference Range Interpretation [...] LMW Heparin. Order Code is ANTI-XA AMMONIA [id number] 18:25:00 Test Item Value Reference Range Interpretation [...]
[2022-09-23] MEDS ORDERED: ZIPRASIDONE MESYLA 20 MG/VIAL IM ONE (20:29)
[2022-09-23] MEDS ORDERED: WATER FOR INJ,STERILE 10 ML ONE (20:29)
--- NOTE | 2022-09-23 21:06 | RAD REPORT ---
EXAM DESCRIPTION: CT - Head C Spine Cap Wo Con - 09/23/2022 8:50 pm CLINICAL HISTORY: unwitnessed fall in [facility] COMPARISON: No comparisons TECHNIQUE: CT head without contrast. CT cervical spine without contrast with coronal and sagittal reformatted images. CT chest, abdomen and pelvis with coronal and sagittal reformatted images of the spine. All CT scans are performed using dose optimization technique as appropriate and may include automated exposure control or mA/KV adjustment according to patient size. FINDINGS: CT HEAD WITHOUT CONTRAST: No intracranial hemorrhage, hydrocephalus or extra-axial fluid collection. No acute large vascular te rritory infarct. Age advanced cerebral atrophy. Mild left maxillary sinus thickening. Scattered opacified ethmoid air cells. Right sphenoid sinus opa cification. The calvarium is intact. CT CERVICAL SPINE WITHOUT CONTRAST: No fracture or subluxation. The prevertebral soft tissues are normal in thickness.Compression deformity present at the C7 level h as a chronic appearance. Varying degrees of neural foraminal narrowing. Fusion at C2-3 including the posterior elements is likely developmental. CT CHEST, ABDOMEN, PELVIS: Thorax: Chest Wall: No abnormal mass Lungs: No acute abnormality. Pleura: No effusions or pneumothorax. Jelly/Mediastinum: No lymphadenopathy. Small hiatal hernia. Aorta/Pulmonary Arteries: Unremarkable Heart: Normal size. Abdomen/Pelvis: Liver: No acute abnormality or suspicious lesions. Biliary: Cholecystectomy. Extrahepatic biliary duct dilatation may be related to the postcholecystect anabela state Stomach: No significant focal abnormality. Duodenum: No significant focal abnormality. Pancreas: No significant abnormality. Spleen: No significant abnormality. Adrenal: No suspicious lesions. Kidney/ureter: No hydronephrosis. No renal calculi. Retroperitoneum: No retroperitoneal adenopathy. Vascular: Atherosclerosis without aneurysm. Bowel: Low-density stool may be due to steatorrhea. No bowel obstruction.. Peritoneum: No ascites or free air. Bladder: Circumferential bladder wall thickening which is nonspecific. Reproductive: No adnexal masses. Bones: Left-sided intertrochanteric hip fracture no other pelvic fracture identified. Other: n/a IMPRESSION: 1. Left intertrochanteric hip fracture . 2. No other evidence of significant trauma to the chest, abdomen, or pelvis.
[2022-09-23] MEDS ORDERED: NA CHLORIDE 0.9% 500 ML ONE (21:46)
[2022-09-23] MEDS ORDERED: MORPHINE 4 MG/ML SYR ONE (21:46)
[2022-09-23] MEDS ORDERED: ONDANSETRON 4 MG/2 ML VIAL ONE (21:46)
--- NOTE | 2022-09-23 22:08 | RAD REPORT ---
EXAM DESCRIPTION: RAD - Femur Left - 09/23/2022 9:21 pm CLINICAL HISTORY: fall , left femur pain COMPARISON: Head C Spine Cap Wo Con dated 09/23/2022 FINDINGS/IMPRESSION: Left intertrochanteric hip fracture. No dislocation. Peripheral vascular calcif ications.
[2022-09-23 22:24] LABS: Absolute Lymphocytes (CBC) 1.2 K/uL (0.7-4.9); Lymphocytes % 21.8 % (15.3-44.8); MCV 101.6 fL (80-100); MPV 7.7 fL (7.6-11.3); RBC Red Blood Cell Count 2.46 M/uL (3.86-4.86)
--- NOTE | 2022-09-23 22:40 | EDPHYS ---
Physician Documentation [facility] Name: Julieta Tatum Age: 87 yrs Sex: Female : 1935 Arrival Date: 09/23/2022 Time: 19:46 Bed 14 Private MD: ED Physician Minh Butcher HPI: 09/23 20:04 This 87 yrs old Female presents to ER via EMS with complaints of General sp4 complaint. 20:12 87-year-old female presents from correction after unwitnessed fall yesterday. X-rays sp4 were done at the correction and patient was noticed to have left femoral/hip fracture. Patient has history of bipolar disorder and moderate dementia and is not able to provide any history. Patient on presentation is uncooperative and at times combative. Patient is not moving left lower extremity.. History and other collateral collected from EMS and correction report. Past medical history includes chronic systolic heart failure, Alzheimer's disease, paranoid schizophrenia, expressive language disorder, bipolar disorder, COPD, dysphagia, malnutrition, muscle wasting and atrophy, lack of coordination, poor mobility, iron deficiency anemia, hypertension, osteoporosis, chronic kidney disease stage III, diffuse osteoarthritis, hypokalemia, sensorineural hearing loss, hypothyroidism, vitamin deficiencies, atrial fibrillation, allergic rhinitis, nutritional deficiency, aphasia, malignant neoplasm, depressive disorder, insomnia, hyperlipidemia, GERD, constipation, convulsive disorder. . Patient's medications include metoprolol 25 mg 1 times a day, risperidone 0.5 mg at bedtime, Zoloft 100 mg at bedtime, loperamide as needed, aspirin 81 mg daily, Cogentin 1 mg daily, Dulcolax 1 suppository daily, Carafate 10 mL 3 times a day, Depakote 125 mg 1 Stool once a day, Depakote 125 mg 3 capsules at bedtime, famotidine 10 mg 2 times a day, Fleet enema as needed, furosemide 20 mg half a tablet daily, glycerin as needed, glycerin suppositories as needed, guaifenesin liquid as needed cough, ipratropium albuterol oral inhalation every 6 hours as needed, lactulose 10 mg daily as needed, Synthroid 100 mcg every morning, lisinopril 10 mg daily, lorazepam half a milligram every 2 hours for anxiety as needed . Also morphine oral solutions 20 mg per 5 mL give 0.5 mL every 2 hours as needed for pain, or 1 mL every 2 hours as needed for severe pain, Zofran 4 mg as needed, promethazine 25 mg as needed, tramadol 50 mg as needed every 12 hours. 20:39 Full code as reported by her assigned guardian - Guardian assigned by the [address] . Historical: - Allergies: 20:05 No Known Allergies; ll3 - PMHx: 20:05 Alzheimer's disease; Bipolar disorder; Chronic obstructive lung disease; ll3 Hypothyroidism; Hypertensive disorder; Schizophrenia; - Family history:: not pertinent. ROS: 22:31 Constitutional: Negative for fever, chills, and weight loss, full review of systems not sp4 available secondary to heavy dementia 22:31 All other systems are negative. Exam: 22:31 Constitutional: This is a well developed, thin elderly frail female, heavily sp4 demented, alert and oriented x1. Oriented to self only patient is mildly agitated and becomes combative with physical examination. Patient had to be given intramuscular Geodon for acute agitation in the ER. Full examination was accomplished after patient was given some Geodon Head/Face: Normocephalic, atraumatic. Eyes: Pupils equal round and reactive to light, extra-ocular motions intact. Lids and lashes normal. Conjunctiva and sclera are not injected. Cornea within normal limits. Periorbital areas with no swelling, redness, or edema. ENT: Nares patent. No nasal discharge, no septal abnormalities noted. Tympanic membranes are normal and external auditory canals are clear. Poor dentition, otherwise no abnormalities of the pharynx Neck: Trachea midline, no thyromegaly or masses palpated, and no cervical lymphadenopathy. Supple, full range of motion without nuchal rigidity, or vertebral point tenderness. Chest/axilla: Normal chest wall appearance and motion. Nontender with no deformity. No lesions are appreciated. Cardiovascular: Regular rate and rhythm with a normal S1 and S2. No gallops, murmurs, or rubs. Normal PMI, no JVD. No pulse deficits. Poor skin turgor, signs of dehydration Respiratory: Lungs have equal breath sounds bilaterally, clear to auscultation and percussion. No rales, rhonchi or wheezes noted. No increased work of breathing, no retractions or nasal flaring. Abdomen/GI: Soft, non-tender, with normal bowel sounds. No distension or tympany. No guarding or rebound. No evidence of tenderness throughout. Back: No spinal tenderness. No costovertebral tenderness. Female : Normal external genitalia. Female wrapper hand present for the exam. Cruz catheter was placed Skin: Warm, dry with poor turgor indicative of dehydration. Senile skin changes MS/ Extremity: Pulses equal, no cyanosis. Neurovascular intact. Equal full peripheral pulses, left lower extremity range of motion is restricted secondary to pain Neuro: Awake and alert oriented to self only, moderate agitation, mildly combative, moves all extremities except left lower extremity patient is not able to move secondary to pain. Otherwise exam seems to have no signs of lateralizing neurologic deficits. Overall exam is limited Psych: Awake, alert, oriented to self only, mildly agitated, exam is limited secondary to moderate dementia. 09/24 01:11 ECG was reviewed by the Attending Physician. EKG time 0108, 09/24/2022. There is sp4 normal sinus rhythm with significant muscle tremor artifact there is some ST inversion lead to and aVF. Otherwise EKG is unremarkable Vital Signs: 09/23 19:59 BP 124 / 66; Pulse 81; Resp 16; Temp 98.3(O); Pulse Ox 100% on 2 lpm NC; Weight 22.91 ll3 kg (M); 21:48 BP 150 / 89; Pulse 83; Resp 17; Pulse Ox 100% on R/A; ll3 23:13 BP 159 / 80; Pulse 86; Resp 16; Pulse Ox 97% on R/A; ll3 09/24 00:15 BP 119 / 58; Pulse 80; Resp 16; Pulse Ox 97% on R/A; pf1 MDM: 09/23 20:23 Patient medically screened. sp4 22:31 Differential Diagnosis altered mental status, sepsis, flu. Data reviewed: vital signs, sp4 nurses notes, EMS record, old medical records, lab test result(s), radiologic studies, CT scan, plain films. Consideration of Admission/Observation Patient was admitted/placed on observation. Escalation of care including admission/observation considered. Management of patient was discussed with the following: Hospitalist: Discussed with admission team.. [employer] Science Teacher: Discussed with orthopedist Dr. Frost. ED course: 87-year-old female presents with a cute onset of left lower extremity pain starting yesterday when patient sustained unwitnessed fall. Patient has assigned guardian who is [facility] assigned legal guardian. Patient is reportedly full code. Patient has a host of significant medical problems including moderate to severe dementia with episodes of agitation. Patient has significant comorbidities however patient was discussed with admitting hospitalist and also orthopedic consult and who states that patient should be admitted for evaluation for surgery in the morning. Condition on admit is stable. 09/23 20:10 Order name: Basic Metabolic Panel; Complete Time: 00:40 sp4 09/23 20:10 Order name: CBC with Diff; Complete Time: 00:40 sp4 09/23 20:10 Order name: Type And Screen; Complete Time: 00:40 sp4 09/23 20:10 Order name: Urinalysis w/ reflexes; Complete Time: 00:40 sp4 09/23 20:11 Order name: COVID-19 SARS RT PCR; Complete Time: 00:40 sp4 09/23 22:44 Order name: Basic Metabolic Panel EDWI 09/23 22:44 Order name: Basic Metabolic Panel EDWI 09/23 22:44 Order name: Urinalysis w/ reflexes EDWI 09/23 22:46 Order name: Basic Metabolic Panel EDMS 09/23 22:46 Order name: Basic Metabolic Panel EDMS 09/23 22:46 Order name: CBC with Automated Diff EDMS 09/23 22:46 Order name: CBC with Automated Diff EDMS 09/23 22:46 Order name: CBC with Automated Diff EDMS 09/23 22:46 Order name: CBC with Automated Diff EDMS 09/23 22:46 Order name: Magnesium EDMS 09/23 22:46 Order name: Magnesium EDMS 09/23 22:46 Order name: Magnesium EDMS 09/23 22:46 Order name: Magnesium EDMS 09/23 20:11 Order name: CT Traumagram (Head C Spine CAP wo con); Complete Time: 22:15 sp4 09/23 20:12 Order name: Femur Left XRAY; Complete Time: 22:15 sp4 09/23 22:44 Order name: CONS Physician Consult EDWI 09/23 22:44 Order name: NPO EDWI 09/23 22:55 Order name: EKG; Complete Time: 22:55 sp4 09/23 20:10 Order name: Labs collected and sent; Complete Time: 21:31 sp4 09/23 20:11 Order name: Nancy; Complete Time: 21:31 sp4 09/24 00:54 Order name: EKG - Nurse/Tech; Complete Time: 01:14 sp4 EC/25 01:11 Rate is 82 beats/min. Rhythm is regular, Sinus Rhythm. QRS [place] is Normal. T waves are sp4 Inverted in leads II, aVF. Clinical impression: No evidence of ischemia. Interpreted by me. Administered Medications: 09/23 21:20 Drug: Geodon IM 20 mg Route: IM; Site: right deltoid; ll3 21:46 Drug: Ondansetron IVP 4 mg Route: IVP; Site: right antecubital; ll3 21:46 Drug: NS 0.9% IV 500 ml Route: IV; Rate: bolus; Site: right antecubital; ll3 22:40 Follow up: Response: No adverse reaction; Marked relief of symptoms; IV Status: pf1 Completed infusion; IV Intake: 500ml 21:47 Not Given (Duplicate Order): morphine IM 4 mg IM once ll3 21:47 Drug: morphine IVP or IV 4 mg Route: IVP; Infused Over: 4 mins; Site: right antecubital;ll3 22:40 Follow up: Response: No adverse reaction; Marked relief of symptoms; Pain is decreased pf1 Disposition Summary: 09/23/22 22:40 Hospitalization Ordered Hospitalization Status: Inpatient Admission sp4 Provider: Jamin Kiser [facility] sp4 Condition: Stable sp4 Problem: new sp4 Symptoms: have improved sp4 Bed/Room Type: Standard sp4 Room Assignment: 202(09/24/22 00:17) Diagnosis - Left intertrochanteric femur fracture. sp4 - Moderate to severe dementia, agitation requiring sedation protocol, combative sp4 behavior - Senility with physical deconditioning sp4 Forms: - Medication Reconciliation Form sp4 - SBAR form sp4 Signatures: Dispatcher [employer] Cony Avery RN RN cg Agustín Connolly RN RN jeff3 Minh Butcher MD MD sp4 Jessica Sunshine RN pf1 Corrections: (The following items were deleted from the chart) 07/25 00:17 07/24 22:40 sp4
--- NOTE | 2022-09-23 22:40 | ER ---
Nurse's Notes [facility] Name: Julieta Tatum Age: 87 yrs Sex: Female : 1935 Arrival Date: 09/23/2022 Time: 19:46 Bed 14 Private MD: Diagnosis: Left intertrochanteric femur fracture.;Moderate to severe dementia, agitation requiring sedation protocol, combative behavior;Senility with physical deconditioning Presentation: 09/23 19:59 Chief complaint: EMS states: Toned out for an unwitnessed fall that happened on Friday, [facility] states custodial reports a left femoral hip FX that was seen on a portable X-ray. Ebola Screen: No symptoms or risks identified at this time. Initial Sepsis Screen: Does the patient meet any 2 criteria? No. Patient's initial sepsis screen is negative. Does the patient have a suspected source of infection? No. Patient's initial sepsis screen is negative. Risk Assessment: Do you want to hurt yourself or someone else? Patient reports no desire to harm self or others. Mechanism of Injury: Fall. 19:59 Method Of Arrival: EMS: [facility] 19:59 Acuity: MARIO 3 [facility] 19:59 Onset of symptoms was September 22, 2022. Transition of care: patient was received from [facility] another setting of care (long-term care facility), [facility]. Triage Assessment: 20:05 General: Appears uncomfortable, Behavior is agitated, combative, crying. Pain: [facility] Complains of pain in left hip. Derm: Skin is pink, warm \T\ dry. Musculoskeletal: Range of motion: limited in left hip. Historical: - Allergies: 20:05 No Known Allergies; 3 - PMHx: 20:05 Alzheimer's disease; Bipolar disorder; Chronic obstructive lung disease; 3 Hypothyroidism; Hypertensive disorder; Schizophrenia; - Family history:: not pertinent. Screenin/25 01:00 [facility] ED Fall Risk Assessment (Adult) History of falling in the last 3 months, pf1 including since admission Yes- physiologic fall (2 pts) Confusion or Disorientation Yes (5 pts) Intoxicated or Sedated No (0 pts) Impaired Gait Yes (1 pt) Mobility Assist Device Used Yes (1 pt) Altered Elimination Yes (1 pt) Score/Fall Risk Level 3 or more points = High Risk Oriented to surroundings, Maintained a safe environment, Educated pt \T\ family on fall prevention, incl call for assistance when getting out of bed, Assessed \T\ reinforced patient's understanding of fall precautions, Provided non-skid footwear, Hourly rounding (assess needs \T\ fall precautionary measures) done, Used ambulatory aids as needed (educated on \T\ assisted with), Used gait belt as appropriate Implemented a Fall Risk Plan of Care, Apply high fall risk patient identification: yellow non skid footwear/ fall signage, Remained w/in arm's length of patient and in sight while toileting, Offered frequent toileting (1:1 observation), Remained with patient while ambulating, Utilized family, sitter, or virtual avionics safety inspector as indicated. 01:00 Abuse screen: Denies threats or abuse. Nutritional screening: No deficits noted. pf1 Tuberculosis screening: No symptoms or risk factors identified. Vital Signs: 09/23 19:59 BP 124 / 66; Pulse 81; Resp 16; Temp 98.3(O); Pulse Ox 100% on 2 lpm NC; Weight 22.91 ll3 kg (M); 21:48 BP 150 / 89; Pulse 83; Resp 17; Pulse Ox 100% on R/A; ll3 23:13 BP 159 / 80; Pulse 86; Resp 16; Pulse Ox 97% on R/A; ll3 09/24 00:15 BP 119 / 58; Pulse 80; Resp 16; Pulse Ox 97% on R/A; pf1 ED Course: 09/23 19:58 Patient arrived in ED. ll3 20:04 Minh Butcher MD is Attending Physician. sp4 20:04 Triage completed. ll3 20:05 Arm band placed on Patient placed in an exam room, on a stretcher, on pulse oximetry. ll3 20:52 CT Traumagram (Head C Spine CAP wo con) In Process Unspecified. EDMS 21:23 Femur Left XRAY In Process Unspecified. EDMS 21:31 Initial lab(s) drawn, by me, sent to lab. Cruz cath inserted, using sterile technique, ll3 16 Fr., by railroader, balloon inflated, to gravity drainage, clamped. urine specimen collected. Patient tolerated well. Inserted saline lock: 20 gauge in right antecubital area, using aseptic technique. Blood collected. 22:31 Patient's daughter called to leave phone number- [phone]. 5 22:37 Jamin Kiser is Hospitalizing Provider. 4 09/24 01:15 Patient has correct armband on for positive identification. Bed in low position. Call pf1 light in reach. Side rails up X2. 01:15 No provider procedures requiring assistance completed. Patient admitted, IV remains in pf1 place. Administered Medications: 09/23 21:20 Drug: Geodon IM 20 mg Route: IM; Site: right deltoid; ll3 21:46 Drug: Ondansetron IVP 4 mg Route: IVP; Site: right antecubital; ll3 21:46 Drug: NS 0.9% IV 500 ml Route: IV; Rate: bolus; Site: right antecubital; ll3 22:40 Follow up: Response: No adverse reaction; Marked relief of symptoms; IV Status: pf1 Completed infusion; IV Intake: 500ml 21:47 Not Given (Duplicate Order): morphine IM 4 mg IM once ll3 21:47 Drug: morphine IVP or IV 4 mg Route: IVP; Infused Over: 4 mins; Site: right antecubital;ll3 22:40 Follow up: Response: No adverse reaction; Marked relief of symptoms; Pain is decreased pf1 Medication: 09/24 01:15 VIS not applicable for this client. pf1 Intake: 09/23 22:40 IV: 500ml; Total: 500ml. pf1 Outcome: 22:40 Decision to Hospitalize by Provider. 4 09/24 01:16 Admitted to Med/surg accompanied by tech, via stretcher, room 202, with chart, Report pf1 called to CATHERINE Mello Condition: stable 01:18 Patient left the ED. pf1 Signatures: Dispatcher [employer] Agustín Velazco RN RN 3 Jessica Sunshine RN RN pf1 Minh Butcher MD MD 4 Yuliya Araiza [facility] [place]
[2022-09-23 22:41] LABS: Specific Gravity 1.017 (1.005-1.030); Urine Bacteria None Seen /HPF (<20); Urine Bilirubin NEGATIVE (Negative); Urine Blood Negative (Negative); Urine Clarity Turbid (Clear); Urine Color Light-Yellow (Yellow); Urine Glucose NEGATIVE (Negative); Urine Mucus Slight /HPF (None Seen); Urine Protein NEGATIVE (Negative); Urine RBC None Seen /HPF (None Seen); Urine Urobilinogen 1+ (Normal); Urine pH 5.5 (5.0-7.0)
[2022-09-23] MEDS ORDERED: ONDANSETRON 4 MG/2 ML VIAL IV PRN (22:43)
--- NOTE | 2022-09-23 23:29 | P.HP ---
Certification for Inpatient Patient admitted to: Inpatient With expected LOS: <2 Midnights Patient will require the following post-hospital care: Fdc Practitioner: I am a practitioner with admitting privileges, knowledge of patient current condition, hospital course, and medical plan of care. Services: Services provided to patient in accordance with Admission requirements found in Title 42 Section 412.3 of the Code of Federal Regulations Patient History Date of Service: 09/24/22 Reason for admission: Left Hip Fracture History of Present Illness: 86-year-old female with history of atrial fibrillation on chronic anticoagulation, chronic systolic heart failure, COPD, Alzheimer's/dementia, hypertension, schizophrenia/BPD, dysphagia, aphasia, malnutrition,diffuse osteoarthritis, muscle wasting and atrophy, lack of coordination, poor mobility, iron deficiency anemia, chronic kidney disease stage III, diffuse osteoarthritis, hypokalemia, sensorineural hearing loss, hypothyroidism, malignant neoplasm, GERD, constipation, convulsive disorder who is a resident of [facility] presents emergency room for fall with Left hip pain. HPI limited due to Dementia, HPI per chart review, Patient had an unwitnessed fall yesterday, X rays from nursing report reveals left femoral/hip fracture. Patient is self immobilized Left lower extremity, shortened and internally rotated. Patient was combative on arrival to ER was given Geodon, patient is calm, noncomabtive on exam, No verbalized pain. No family at bedside, per EMS patient is full code. Patient is going to be admitted for left intertrochanteric hip fracture, for orthopedic evaluation and treatment . Allergies No Known Drug Allergies Allergy (Verified 12/21/15 04:00) Unknown Home Medications: Benztropine Mesylate [Cogentin*] 1 mg PO DAILY 12/21/15 Metoprolol Tartrate [Lopressor*] 25 mg PO DAILY 12/21/15 Sertraline [Zoloft*] 100 mg PO BEDTIME 12/21/15 Tiotropium [place] [Spiriva] 1 spray IH DAILY 12/21/15 lisinopriL [Prinivil*] 20 mg PO DAILY 12/21/15 risperiDONE [Risperdal 1 mg tab*] 0.5 mg PO BID 12/21/15 Amiodarone HCl [Cordarone*] 200 mg PO TID 04/13/21 Apixaban [Eliquis *] 2.5 mg PO BID 04/13/21 Divalproex Sodium [Depakote] 125 mg PO BEDTIME 04/13/21 Donepezil [Aricept*] 5 mg PO BEDTIME 04/13/21 Ergocalciferol (Vitamin D2) [Drisdol] 1,250 mcg PO EVERY 7TH DAY 04/13/21 Furosemide [Lasix] 40 mg PO DAILY 04/13/21 Ipratropium/Albuterol Sulfate [Iprat-Albut 0.5-3(2.5) mg/3 ml] 3 ml IH Q6H PRN 04/13/21 Levothyroxine Sodium 100 mcg PO DAILY 04/13/21 Ondansetron [Zofran (Odt)*] 4 mg PO Q8H PRN 04/13/21 Atorvastatin Calcium [Lipitor*] 10 mg PO BEDTIME 12/02/21 Docusate [Colace Cap*] 100 mg PO BID 12/02/21 Potassium Oral Tab [Klor-Con 10 mEq Tab*] 20 meq PO BID 12/02/21 Tramadol HCl [Ultram] 50 mg PO Q6HP PRN 12/02/21 Amox/K Clav [Augmentin 600 MG/5 ML Susp] 5 ml PO BID #100 ml 12/05/21 predniSONE [Prednisone*] 20 mg PO DAILY WITH BREAKFAST #11 tab 12/05/21 - Past Medical/Surgical History Diabetic: No -: copd -: schizophrenia -: alzheimers -: pneumonia -: bipolar disorder -: afib -: HTN -: tonsilectomy -: facial recontruction from trauma 1991 Psychosocial/ Personal History: Resident of [facility] - Family History Father -: Kidney disease Notes: renal failure - Social History Alcohol use: No CD- Drugs: No Caffeine use: Yes Review of Systems is unable to be obtained Physical Examination - Physical Exam General: Oriented x1, Demented HEENT: Atraumatic, PERRLA, Mucous membr. moist/pink Neck: Supple, 2+ carotid pulse no bruit, JVD not distended Respiratory: Clear to auscultation bilaterally, Normal air movement Cardiovascular: No edema, Normal pulses, Regular rate/rhythm Capillary refill: <2 Seconds Gastrointestinal: Normal bowel sounds, Soft and benign Musculoskeletal: Other (Left hip shortened and internally rotated pain with palpitation) Integumentary: No rashes, No breakdown Neurological: Other (confused ), Abnormal speech - Studies Laboratory Data (last 24 hrs) 09/23/22 21:27: WBC 5.50, Hgb 8.5 L, Hct 25.0 L, Plt Count 166 09/23/22 21:27: Sodium 138, Potassium 3.0 L, BUN 21 H, Creatinine 0.87, Glucose 135 H Assessment and Plan - Plan Assessment and plan Left intertrochanteric hip fracture unwitenessed fall hypokalemia potassium 3.0, Acute on chronic kidney injury macrocytic anemia hypocalcemia HX Atrial fibrillation on chronic anticoagulation therapy Hypertension Dementia/schizophrenia/BPD Hypothyroidism Chronic obstructive lung disease DVT pplx Left intertrochanteric hip fracture Femur x-ray FINDINGS/IMPRESSION: Left intertrochanteric hip fracture. No dislocation. Peripheral vascular calcifications. ortho consult, NPO after MN PT per ortho Unwitnessed fall CT of the head and cervical spine and chest-IMPRESSION: 1. Left intertrochanteric hip fracture . 2. No other evidence of significant trauma to the chest, abdomen, or pelvis Fall percautions, hypokalemia potassium 3.0, Trend electrolytes replace as needed Acute on chronic kidney injury BUN 21, creatinine 0.87, estimated GFR 65, macrocytic anemia hemoglobin 8.5, hematocrit 25.0, Trend H&H transfuse less than 7 hypocalcemia calcium low at 7.7, Trend electrolytes replace as needed HX Atrial fibrillation on chronic anticoagulation EKG ordered rate controlled 68 Hypertension Dementia/schizophrenia/BPD Hypothyroidism Chronic obstructive lung disease 02 PRN, 02 sats 91 RA Resume home meds Full Code DVT scd, per ortho Diet NPO after MN Discharge Plan: Residential Plan to discharge in: 48 Hours - Advance Directives Does patient have a Living Will: No Does patient have a Durable POA for Healthcare: No - Code Status/Comfort Care Code Status: Full Code Time Spent Managing Pts Care (In Minutes): 50
[2022-09-24] MEDS: IPRATROPIUM BROM 0.5MG/2.5ML NEB SCH ×4 (01:35→20:40)
[2022-09-24 01:38] VITALS: BMI 20.5
[2022-09-24 03:27] LABS: Absolute Lymphocytes (CBC) 1.7 K/uL (0.7-4.9); Hematocrit 23.7 % (36.0-45.0); Lymphocytes % 26.8 % (15.3-44.8); MCV 101.6 fL (80-100); MPV 7.8 fL (7.6-11.3); RBC Red Blood Cell Count 2.33 M/uL (3.86-4.86)
[2022-09-24 03:42] LABS: Magnesium 1.3 mg/dL (1.6-2.4)
[2022-09-24] MEDS ORDERED: Magnesium Sulfate 2gm IVPB 2 G/50 ML BAG IV ONE (06:00)
[2022-09-24] MEDS ORDERED: KCL 20 MEQ/100 mL IVPB 20 MEQ/100 ML BAG IV SCH (07:30)
[2022-09-24 08:47] LABS: Protime INR 0.91
[2022-09-24] MEDS ORDERED: POTASSIUM CL SA 10 MEQ TAB PO ONE (09:00)
--- NOTE | 2022-09-24 14:50 | P.PN ---
Subjective Date of Service: 09/24/22 Chief Complaint: Left Hip Fracture Patient has severe dementia and not able to give any subjective complaint. Daughter came back to her room and stated patient is wheelchair-bound. Mechanism of fall is unclear. Physical Examination - Vital Signs Temperature: 97.1 F Blood Pressure: 126/62 Pulse: 83 Respirations: 16 Pulse Ox (%): 94 - Studies Laboratory Data (last 24 hrs) 09/23/22 21:27: WBC 5.50, Hgb 8.5 L, Hct 25.0 L, Plt Count 166 09/23/22 21:27: Sodium 138, Potassium 3.0 L, BUN 21 H, Creatinine 0.87, Glucose 135 H Assessment And Plan - Plan Physical Exam General: Oriented x1, Demented Neck: Supple, 2+ carotid pulse no bruit, JVD not distended Respiratory: Clear to auscultation bilaterally, Normal air movement Cardiovascular: No edema, Normal pulses, Regular rate/rhythm Gastrointestinal: Normal bowel sounds, Soft and benign Musculoskeletal: Left hip shortened and internally rotated. Integumentary: No rashes, No breakdown Neurological: Confused. Diagnosis Left intertrochanteric hip fracture unwitenessed fall macrocytic anemia HX Atrial fibrillation on chronic anticoagulation therapy Hypertension Dementia/schizophrenia/BPD Hypothyroidism Chronic obstructive lung disease Left intertrochanteric hip fracture/Unwitnessed fal Femur x-ray FINDINGS/IMPRESSION: Left intertrochanteric hip fracture. No dislocation. Peripheral vascular calcifications. ortho consulted. Patient is wheelchair-bound. She may need ORIF for palliation. PT consulted. Hypokalemia/hypomagnesemia Replace electrolytes as needed. Macrocytic anemia hemoglobin 8.5, hematocrit 25.0, Trend H&H transfuse less than 7 HX Atrial fibrillation on chronic anticoagulation EKG ordered rate controlled 68. Hold Eliquis in anticipation for surgery. Hypertension Dementia/schizophrenia/BPD Hypothyroidism Chronic obstructive lung disease 02 PRN, 02 sats 91 RA Continue home meds.
--- NOTE | 2022-09-24 14:52 | EKG ---
Test Date: 2022-09-24 Test Time: 01:08:46 Child Welfare Assistant: HECOTR MEASUREMENT RESULTS: Intervals: Rate: 82 FL: QRSD: 64 QT: 348 QTc: 406 [place]: P: FL: QRS: 57 T: 206 INTERPRETIVE STATEMENTS: Sinus rhythm Low voltage QRS ST & T wave abnormality, consider inferolateral ischemia Abnormal ECG Compared to ECG 11/30/2021 22:36:03 Low QRS voltage now present ST (T wave) deviation now present Possible ischemia now present Myocardial infarct finding no longer present Electronically Signed On 09-24-22 14:52:06 CDT by Ramírez Bazzi
[2022-09-25] MEDS: IPRATROPIUM BROM 0.5MG/2.5ML NEB SCH ×4 (01:45→20:15)
--- NOTE | 2022-09-25 02:24 | CON ---
Date of Consultation: 09/24/2022 Reason For Consultation: Left hip pain. History Of Present Illness: Ms. Tatum is an 87-year-old female, who presented to the emergency lisa after sustaining a fall while at [facility]. The patient has severe dementia as well as history of chronic systolic heart failure, COPD, schizophrenia, hypertension, and atrial fibrillat ion, on chronic anticoagulation. The patient is unable to give further history. She is a [facility]. She was down with a deformity to her left lower extremity, brought to the emergency room. X-rays demonstrated a left intertrochanteric femur fracture. Past Medical History: Includes COPD, schizophrenia, atrial fibrillation, Alzheimer's, pneumonia, bip olar disorder, hypertension. Past Surgical History: Includes tonsillectomy. Social History: Denies tobacco, alcohol, or drug use. Lives in [facility]. Allergies: NO KNOWN DRUG ALLERGIES. Home Medications: Per medication reconciliation. Review of Systems: As above, otherwise unable to obtain. Physical Examination: General: Demented. The patient recently received Geodon and is sleeping throughout the examination. HEENT: Normocephalic, atraumatic. Neck: Supple. Cardiovascular: Brisk capillary refill to all digits. Chest: Nonlabored breathing. Abdomen: Nondistended. Musculoskeletal: The patient grimaces with range of motion to the left hip. Tenderness to palpation of the left hip. No swelling. Distally, 2+ dorsalis pedis pulse. Bilateral upper extremities, fun ctional range of motion without pain. No gross deformities. No obvious dislocations. Right lower e xtremity functional range of motion without pain. No gross deformities. No obvious dislocations. Diagnostic Studies: X-rays and CT scan demonstrated displaced left intertrochanteric femur fracture. Assessment And Plan: Julieta is an 87-year-old female with a left intertrochanteric femur fracture. Given the unstable fracture pattern, surgical intervention is recommended to aid with fixation of [facility] fracture, to aid with pain control and for palliative reasons, we will however obtain further histo ry from her [facility] to see her mobility status as well as discuss further with hospitalist, her perioperative risk factors. We will discuss further with the hospitalist service as well as the nimisha ent's caregivers to determine further treatment options and discuss their decision. CV/MODL Voice ID: [id number] Report ID: [id number]
[2022-09-25 04:38] LABS: Magnesium 1.8 mg/dL (1.6-2.4); Potassium 4.1 mEq/L (3.5-5.1)
[2022-09-25 04:39] LABS: Absolute Lymphocytes (CBC) 0.5 K/uL (0.7-4.9); Hematocrit 24.9 % (36.0-45.0); Lymphocytes % 6.8 % (15.3-44.8); MCV 101.9 fL (80-100); MPV 7.5 fL (7.6-11.3); RBC Red Blood Cell Count 2.44 M/uL (3.86-4.86)
[2022-09-25] MEDS ORDERED: MAGNESIUM SULFATE 1 gm IVPB 1 GM/100 ML BAG IV ONE (05:07)
[2022-09-25] MEDS ORDERED: FENTANYL CITR 100 MCG/2 ML ONE (08:43)
[2022-09-25] MEDS ORDERED: LIDOCAINE 2% MPF 5 ML VIAL ONE (08:45)
[2022-09-25] MEDS ORDERED: propofoL 200 MG/20 ML VIAL IV ONE ×3 (08:45→10:17)
[2022-09-25] MEDS ORDERED: Ringers Lactate 1,000 ML IV ONE (08:49)
[2022-09-25] MEDS ORDERED: CEFAZOLIN SODIUM 1 GM/VIAL ONE (09:06)
[2022-09-25] MEDS ORDERED: TRANEXAMIC ACID 1,000 MG/10 ML VIAL IV ONE (09:07)
[2022-09-25] MEDS ORDERED: BUPIVACAINE 0.25% PF 10 ML VIAL ONE (09:23)
[2022-09-25] MEDS ORDERED: ROCURONIUM 50 MG/5 ML VIAL IV ONE (09:45)
--- NOTE | 2022-09-25 10:55 | P.BOP ---
Preoperative diagnosis: left intertrochanteric femur fracture Postoperative diagnosis: same Primary procedure: cephallomedullary fixation of left intertrochanteric femur fracture [employer]: NONE,NONE Estimated blood loss: 75 cc Specimen: none Findings: see dictation Anesthesia: General Complications: None Implants: 9x180 mm Biomet Affixus nail; 95 mm lag screw; 32 mm distal screw Fluids & blood products: per anesthesia record Transferred to: Recovery Room Condition: Good
[2022-09-25] MEDS ORDERED: DOCUSATE NA 100 MG CAP PO PRN (11:14)
[2022-09-25] MEDS ORDERED: ACETAMINOPHEN 325 MG TABLET PO PRN (11:14)
--- NOTE | 2022-09-25 11:38 | RAD REPORT ---
EXAM DESCRIPTION: - Hip in OR Left 2 View - 09/25/2022 10:52 am CLINICAL HISTORY: Hip fracture FINDINGS: Thirteen intraoperative fluoroscopic spot images. They demonstrate compression screw and i ntramedullary rods affixing a femoral fracture. Fluoroscopy time 0.6 minutes. Surgery performed by Dr. Frost
[2022-09-25] MEDS: MORPHINE 4 MG/ML SYR ONE ×2 (11:45→11:55)
--- NOTE | 2022-09-25 11:45 | RAD REPORT ---
EXAM DESCRIPTION: RAD - Hip Left 2 View - 09/25/2022 11:34 am CLINICAL HISTORY: Left hip surgery FINDINGS: Intramedullary flip and compression screw affixing a femoral fracture
[2022-09-25 12:09] LABS: Hematocrit 27.6 % (36.0-45.0)
[2022-09-25] MEDS: CEFAZOLIN 1 GM in NA CHLORIDE 0.9% 50 ML IVPB SCH ×3 (12:24→23:08)
[2022-09-25] MEDS ORDERED: HOME MED 1 EA UNK (Lactulose [Lactulose] 10 GM/15 ML Solution) PO PRN (13:35)
[2022-09-25] MEDS ORDERED: FLEET ENEMA ADULT PR PRN (13:35)
[2022-09-25] MEDS ORDERED: BISACODYL 10 MG RECTAL SUPP PR PRN (13:35)
[2022-09-25] MEDS ORDERED: GLYCERIN PR PRN (13:35)
--- NOTE | 2022-09-25 13:36 | P.PN ---
Subjective Date of Service: 09/25/22 Chief Complaint: Left Hip Fracture No issues overnight. No reported agitation. Physical Examination - Vital Signs Temperature: 97.2 F Blood Pressure: 112/54 Pulse: 79 Respirations: 12 Pulse Ox (%): 97 Assessment And Plan - Plan Physical Exam General: Oriented x1, Demented Respiratory: Clear to auscultation bilaterally, Normal air movement Cardiovascular: No edema, Normal pulses, Regular rate/rhythm Gastrointestinal: Normal bowel sounds, Soft and benign Musculoskeletal: Left hip shortened and internally rotated. Integumentary: No rashes, No breakdown Neurological: Confused. Diagnosis Left intertrochanteric hip fracture unwitenessed fall macrocytic anemia HX Atrial fibrillation on chronic anticoagulation therapy Hypertension Dementia/schizophrenia/BPD Hypothyroidism Chronic obstructive lung disease Left intertrochanteric hip fracture/Unwitnessed fal Femur x-ray FINDINGS/IMPRESSION: Left intertrochanteric hip fracture. No dislocation. Peripheral vascular calcifications. ortho consulted. Status post ORIF with intramedullary nailing today Continue to monitor clinical condition. Patient is wheelchair-bound. PT consult. [facility]. Plan of care was discussed with the guardian. Hypokalemia/hypomagnesemia Replace electrolytes as needed. Macrocytic anemia hemoglobin 8.5, hematocrit 25.0, Trend H&H transfuse less than 7 HX Atrial fibrillation on chronic anticoagulation EKG ordered rate controlled 68. Resume Eliquis. Hypertension Dementia/schizophrenia/BPD Hypothyroidism Chronic obstructive lung disease 02 PRN, 02 sats 91 RA Continue home meds.
[2022-09-25] MEDS ORDERED: LACTULOSE 20 GM/30 ML UCUP PO PRN (13:46)
[2022-09-25] MEDS ORDERED: GLYCERIN ADULT SUPP PR PRN (13:47)
[2022-09-25] MEDS: SUCRALFATE 1GM/10ML UCUP PO SCH ×2 (15:42→21:00)
[2022-09-25] MEDS ORDERED: NA CHLORIDE 0.9% 1,000 ML IV ONE (17:00)
[2022-09-25] MEDS ORDERED: RISPERIDONE 0.5 MG PO SCH (21:00)
[2022-09-25] MEDS: ENSURE SURGERY 237 ML CAN PO SCH (21:00)
[2022-09-25] MEDS ORDERED: HOME MED 1 EA UNK (Famotidine [Famotidine] 10 MG Tablet) PO SCH (21:00)
[2022-09-25] MEDS: SERTRALINE HCL 100 MG TAB PO SCH (21:46)
[2022-09-25] MEDS: DIVALPROEX NA 125 MG CAP PO SCH (21:46)
[2022-09-25] MEDS: DOCUSATE NA 100 MG CAP PO SCH (21:46)
[2022-09-25] MEDS: RISPERIDONE 0.25 MG TABLET PO SCH (21:47)
[2022-09-25] MEDS: AMIODARONE HCL 200 MG TAB PO SCH (21:47)
[2022-09-25] MEDS: TRAMADOL HCL 50 MG TAB PO PRN (23:07)
[2022-09-26] MEDS: IPRATROPIUM BROM 0.5MG/2.5ML NEB SCH ×4 (02:00→19:10)
[2022-09-26 03:59] LABS: Absolute Lymphocytes (CBC) 0.7 K/uL (0.7-4.9); Hematocrit 20.4 % (36.0-45.0); Lymphocytes % 12.7 % (15.3-44.8); MPV 7.2 fL (7.6-11.3)
[2022-09-26 04:08] LABS: Magnesium 1.7 mg/dL (1.6-2.4)
[2022-09-26] MEDS ORDERED: MAGNESIUM SULFATE 1 gm IVPB 1 GM/100 ML BAG IV ONE (04:41)
[2022-09-26] MEDS: LEVOTHYROXINE SOD 0.1 MG TAB PO SCH (06:04)
[2022-09-26] MEDS: ENSURE SURGERY 237 ML CAN PO SCH ×2 (09:00→21:00)
[2022-09-26] MEDS: SUCRALFATE 1GM/10ML UCUP PO SCH ×3 (09:00→21:00)
[2022-09-26] MEDS: AMIODARONE HCL 200 MG TAB PO SCH ×2 (09:00→22:26)
[2022-09-26] MEDS: RISPERIDONE 0.25 MG TABLET PO SCH ×2 (09:43→22:23)
[2022-09-26] MEDS: FAMOTIDINE 20 MG TAB PO SCH (09:43)
[2022-09-26] MEDS: DOCUSATE NA 100 MG CAP PO SCH ×2 (09:44→22:23)
[2022-09-26] MEDS: METOPROLOL TAR 25 MG TAB PO SCH (09:44)
[2022-09-26] MEDS: DIVALPROEX NA 125 MG CAP PO SCH ×2 (09:45→22:23)
[2022-09-26] MEDS: ENOXAPARIN 40 MG/0.4 ML SQ SCH (09:46)
--- NOTE | 2022-09-26 12:36 | OP ---
Date of Procedure: 09/25/2022 Surgeon: Jeremias Frost MD Preoperative Diagnosis: Left intertrochanteric femur fracture. Postoperative Diagnosis: Left intertrochanteric femur fracture. Procedure Performed: Cephalomedullary fixation of left intertrochanteric femur fracture. Anesthesia: General. Fluids: Per Anesthesia record. Estimated Blood Loss: 75 cc. Complications: None. Implants: A 9 x 180 mm, 130-degree Biomet Affixus nail, 95 mm lag screw, and 32 mm distal screw. Indication For Procedure: Julieta is an 87-year-old female, who has a severe dementia, who was brought to the emergency room after sustaining a fall on her left side with subsequent pain and deformity. X-rays demonstrated a left intertrochanteric femur fracture. I discussed with the patient's guardian her diagnosis as well as treatment recommendations including possible intramedullary fixation of her fracture to aid with mobility as well as pain control. They expressed understanding and elected to proceed with operative treatment. Description Of Procedure: After informed consent was obtained, the patient was identified in the preoperative holding area. The left lower extremity was marked. The patient was then brought back to the operating room, transferred to the operating table in supine fashion, placed under general anesthesia. The patient was placed on the fracture table with her extremities well padded. The left lower extremity was then prepped and draped in the usual sterile fashion. A time-out was initiated. The correct patient and procedure confirmed and identified. The patient did receive her preoperative prophylactic antibiotics. Approximately, a 4 cm longitudinal incision was made just proximal to greater trochanter. Dissection was then taken through the tensor fascia alessandro. A guide pin was introduced over the tip of the greater trochanter down the femoral canal in an antegrade fashion. Fluoroscopy was then used to determine proper position of the guide pin. An entry reamer was then placed over the guide pin again confirming proper position using fluoroscopy in both AP and lateral planes. A long ball-tipped guidewire was then placed down the femoral canal and reamers were then started using an 80 mm to a size 11 mm to prepare the canal for the nail. Preoperative imaging was reviewed and a 9 x 180 mm, 130 degree Biomet Affixus nail was placed. Once in proper, positioning was confirmed with fluoroscopy. Then, the long guidewire was removed. A triple sleeve was then used to place the guide pin within the femoral head in a center to center position by fluoroscopy. The 95 mm lag screw was selected and placed. The fracture was then compressed using the jig and the lag screw was locked into position. A single interlocking screw was placed distally without complication. Final x-rays were obtained using fluoroscopy to ensure proper placement of the hardware as well as maintenance of reduction and this was confirmed. The wounds were then irrigated thoroughly with normal saline. Deep tissue was approximated using 0 Vicryl. Subcutaneous tissue was approximated using a 2-0 Vicryl. Skin was approximated using vince. Sterile dressings were applied. The patient was awakened and transferred to PACU in stable condition. Postoperative Plan: The patient may be weightbearing as tolerated for transfers only. Her vince will be removed in 2 weeks. RICHARD/CHERRIE Voice ID: [id number] Report ID: [id number] [id number]
[2022-09-26] MEDS ORDERED: NA CHLORIDE 0.9% 250 ML IV SCH (14:00)
--- NOTE | 2022-09-26 15:25 | P.PN ---
Subjective Date of Service: 09/26/22 Chief Complaint: Left Hip Fracture No issues overnight. No reported agitation. She has good oral intake. Physical Examination - Vital Signs Temperature: 98.2 F Blood Pressure: 101/51 Pulse: 76 Respirations: 16 Pulse Ox (%): 97 Assessment And Plan - Plan Physical Exam General: Oriented x1, Demented Respiratory: Clear to auscultation bilaterally, Normal air movement Cardiovascular: No edema, Normal pulses, Regular rate/rhythm Gastrointestinal: Normal bowel sounds, Soft and benign Musculoskeletal: Left hip shortened and internally rotated. Integumentary: No rashes, No breakdown Neurological: Confused. Diagnosis Left intertrochanteric hip fracture unwitenessed fall macrocytic anemia HX Atrial fibrillation on chronic anticoagulation therapy Hypertension Dementia/schizophrenia/BPD Hypothyroidism Chronic obstructive lung disease Left intertrochanteric hip fracture/Unwitnessed fal Femur x-ray FINDINGS/IMPRESSION: Left intertrochanteric hip fracture. No dislocation. Peripheral vascular calcifications. ortho consulted. Status post ORIF with intramedullary nailing. Continue to monitor clinical condition. Patient is wheelchair-bound. PT consult. [facility]. Hypokalemia/hypomagnesemia Replace electrolytes as needed. Macrocytic anemia hemoglobin 8.5, hematocrit 25.0, Transfuse 1 unit PRBC transfusion. HX Atrial fibrillation on chronic anticoagulation EKG ordered rate controlled 68. Resume Eliquis. Hypertension Dementia/schizophrenia/BPD Hypothyroidism Chronic obstructive lung disease 02 PRN, 02 sats 91 RA Continue home meds.
[2022-09-26] MEDS: SERTRALINE HCL 100 MG TAB PO SCH (22:24)
[2022-09-26] MEDS: TRAMADOL HCL 50 MG TAB PO PRN (23:48)
[2022-09-27] MEDS: IPRATROPIUM BROM 0.5MG/2.5ML NEB SCH ×3 (01:35→14:05)
[2022-09-27 06:26] LABS: Magnesium 1.6 mg/dL (1.6-2.4); Potassium 4.1 mEq/L (3.5-5.1)
[2022-09-27] MEDS: LEVOTHYROXINE SOD 0.1 MG TAB PO SCH (06:37)
[2022-09-27] MEDS ORDERED: Magnesium Sulfate 2gm IVPB 2 G/50 ML BAG IV ONE (06:46)
[2022-09-27] MEDS ORDERED: MAGNESIUM SULFATE 1 gm IVPB 1 GM/100 ML BAG IV ONE (06:47)
[2022-09-27 08:31] LABS: Hematocrit 17.6 % (36.0-45.0); Lymphocytes % 19.6 % (15.3-44.8); MPV 7.4 fL (7.6-11.3); RBC Red Blood Cell Count 1.72 M/uL (3.86-4.86)
[2022-09-27] MEDS: SUCRALFATE 1GM/10ML UCUP PO SCH ×2 (09:00→14:29)
[2022-09-27] MEDS: ENOXAPARIN 40 MG/0.4 ML SQ SCH (09:00)
[2022-09-27] MEDS: ENSURE SURGERY 237 ML CAN PO SCH (09:00)
[2022-09-27 09:01] VITALS: O2SAT 97
[2022-09-27] MEDS ORDERED: NA CHLORIDE 0.9% 250 ML ONE (09:31)
[2022-09-27] MEDS: METOPROLOL TAR 25 MG TAB PO SCH (09:58)
[2022-09-27] MEDS: DIVALPROEX NA 125 MG CAP PO SCH (09:58)
[2022-09-27] MEDS: RISPERIDONE 0.25 MG TABLET PO SCH (09:58)
[2022-09-27] MEDS: DOCUSATE NA 100 MG CAP PO SCH (09:58)
[2022-09-27] MEDS: AMIODARONE HCL 200 MG TAB PO SCH (09:58)
[2022-09-27] MEDS: FAMOTIDINE 20 MG TAB PO SCH (10:00)
--- NOTE | 2022-09-27 11:06 | P.DS ---
Admission Date: 09/23/22 Discharge Date: 09/27/22 Reason for Admission: Left Hip Fracture Brief History of Present Illness: 86-year-old female with history of atrial fibrillation on chronic anticoagulation, chronic systolic heart failure, COPD, Alzheimer's/dementia, hypertension, schizophrenia/BPD, dysphagia, aphasia, malnutrition,diffuse osteoarthritis, muscle wasting and atrophy, lack of coordination, poor mobility, iron deficiency anemia, chronic kidney disease stage III, diffuse osteoarthritis, hypokalemia, sensorineural hearing loss, hypothyroidism, malignant neoplasm, GERD, constipation, convulsive disorder who is a resident of [facility] presented emergency room for fall with Left hip pain. HPI limited due to Dementia, HPI per chart review, Patient had an unwitnessed fall, X rays from nursing report revealed left hip fracture. Patient is most wheelchair-bound at baseline. She was admitted for left intertrochanteric hip fracture, for orthopedic evaluation and treatment. Hospital Course: Diagnosis Left intertrochanteric hip fracture unwitenessed fall macrocytic anemia HX Atrial fibrillation on chronic anticoagulation therapy Hypertension Dementia/schizophrenia/BPD Hypothyroidism Chronic obstructive lung disease Patient admitted to the medical floor and the following medical problems addressed: Left intertrochanteric hip fracture/Unwitnessed fal Femur x-ray FINDINGS/IMPRESSION: Left intertrochanteric hip fracture. No dislocation. ortho consulted. Status post ORIF with intramedullary nailing. Patient is wheelchair-bound. She appears to be comfortable, tolerating diet. She is discharged back to half-way to continue hospice. Macrocytic anemia Initial hemoglobin 8.5, hematocrit 25.0. Hemoglobin dropped to 6.2 Patient was transfused 1 unit PRBC. HX Atrial fibrillation on chronic anticoagulation EKG ordered rate controlled 68. Resumed Eliquis. Hypertension Dementia/schizophrenia/BPD Hypothyroidism Chronic obstructive lung disease 02 PRN, 02 sats 91 RA Continued home meds. Vital Signs/Physical Exam: Temp Pulse Resp BP Pulse Ox 97.9 F 71 14 127/60 100 09/27/22 08:00 09/27/22 08:00 09/27/22 08:00 09/27/22 08:00 09/27/22 08:00 General: In no apparent distress, Confused HEENT: Mucous membr. moist/pink Respiratory: Clear to auscultation bilaterally, Normal air movement Cardiovascular: No edema, Normal S1 S2, Irregular heart rate/rhythm Gastrointestinal: Normal bowel sounds, Soft and benign, Non-distended Integumentary: No cyanosis Laboratory Data at Discharge: WBC 5.10 thou/uL (4.3-10.9) 09/27/22 05:34 Hgb 6.2 g/dL (12.0-15.0) L D 09/27/22 05:34 Hct 17.6 % (36.0-45.0) L 09/27/22 05:34 Plt Count 201 thou/uL (152-406) 09/27/22 05:34 PT Cancelled 09/24/22 Unknown INR Cancelled 09/24/22 Unknown APTT 31.1 SECONDS (24.3-36.9) 09/24/22 08:21 Sodium 138 mEq/L (136-145) 09/27/22 05:34 Potassium 4.1 mEq/L (3.5-5.1) 09/27/22 05:34 BUN 23 mg/dL (7-18) H 09/27/22 05:34 Creatinine 0.61 mg/dL (0.55-1.02) 09/27/22 05:34 Glucose 95 mg/dL (74-106) 09/27/22 05:34 Magnesium 1.6 mg/dL (1.6-2.4) 09/27/22 05:34 Home Medications: Acetaminophen 650 mg PO Q6HP PRN 09/24/22 Acetaminophen 650 mg AZ Q6HP PRN 09/24/22 Amiodarone HCl [Cordarone Tab] 200 mg PO BID 09/24/22 Aspirin 81 mg PO DAILY 09/24/22 Benztropine Mesylate 1 mg PO DAILY 09/24/22 Bisacodyl [Dulcolax*] 10 mg AZ DAILY PRN 09/24/22 Divalproex [Depakote Sprinkle*] 3 cap PO BEDTIME 09/24/22 Divalproex [Depakote Sprinkle*] 125 mg PO DAILY 09/24/22 Docusate [Colace Cap*] 100 mg PO BID 09/24/22 Enema, Fleet Adult [Fleet Enema Adult*] 1 bot AZ DAILY PRN 09/24/22 Famotidine 20 mg PO BID 09/24/22 Glycerin 1 supp AZ DAILY PRN 09/24/22 Guaifenesin [Cough Syrup] 10 ml PO Q4HP PRN 09/24/22 Ipratropium/Albuterol Sulfate [Iprat-Albut 0.5-3(2.5) mg/3 ml] 1 amp NEB Q6H 09/24/22 LORazepam [Ativan*] 0.5 mg PO Q2HP PRN 09/24/22 Lactulose 30 ml PO DAILY PRN 09/24/22 Levothyroxine Sodium 100 mcg PO DAILY 09/24/22 Lisinopril [Zestril] 10 mg PO DAILY 09/24/22 Loperamide HCl [Anti-Diarrheal] 1 tab PO Q4HP PRN 09/24/22 Metoprolol Tartrate [Lopressor*] 25 mg PO DAILY 09/24/22 Nitroglycerin [Nitrostat*] 0.4 mg PO SEECOM PRN 09/24/22 Ondansetron [Zofran (Odt)*] 4 mg PO Q4HP PRN 09/24/22 Promethazine HCl 25 mg PO Q6HP PRN 09/24/22 Sertraline [Zoloft*] 100 mg PO BEDTIME 09/24/22 Sucralfate [Carafate] 1 g PO TID 09/24/22 Tramadol HCl [Ultram] 50 mg PO Q12HP PRN 09/24/22 risperiDONE [Risperdal] 0.5 mg PO BID 09/24/22 Diet: Regular Activity: Fall precautions Time spent managing pt's care (in minutes): 35
[2022-09-27 15:27] LABS: Hematocrit 24.9 % (36.0-45.0)
[2022-09-27 16:54] VITALS: BP 113/83; TEMP 96.8
== END 2022-09-27 17:39 | disposition hospice, inpatient (51) | DRG 481 ==
LOC: ER 19:46 → ERHOLD 22:37 → 2ND 09-24 00:20
PROVIDERS: ADMIT Internal Medicine; ATTEND Internal Medicine
PROC: 0QS706Z Reposition Left Upper Femur with Intramedullary Internal Fixation Device, Open Approach (ICD-10-PCS; principal; 2022-09-25 09:00)
DX: S72.142A Displaced intertrochanteric fracture of left femur, initial encounter for closed fracture (principal); F02.C11 Dementia in other diseases classified elsewhere, severe, with agitation; I50.22 Chronic systolic (congestive) heart failure; I13.0 Hypertensive heart and chronic kidney disease with heart failure and stage 1 through stage 4 chronic kidney disease, or unspecified chronic kidney disease; N17.9 Acute kidney failure, unspecified; N18.30 Chronic kidney disease, stage 3 unspecified; G30.9 Alzheimer's disease, unspecified; F31.9 Bipolar disorder, unspecified; J44.9 Chronic obstructive pulmonary disease, unspecified; E83.51 Hypocalcemia; D53.9 Nutritional anemia, unspecified; F20.9 Schizophrenia, unspecified; E03.9 Hypothyroidism, unspecified; E83.42 Hypomagnesemia; E87.6 Hypokalemia; I48.91 Unspecified atrial fibrillation; K21.9 Gastro-esophageal reflux disease without esophagitis; Z99.3 Dependence on wheelchair; Z79.01 Long term (current) use of anticoagulants; Z79.890 Hormone replacement therapy; Z79.52 Long term (current) use of systemic steroids; Z79.899 Other long term (current) drug therapy; W19.XXXA Unspecified fall, initial encounter; Y93.9 Activity, unspecified; Y92.129 Unspecified place in nursing home as the place of occurrence of the external cause; Y99.9 Unspecified external cause status
CPT/HCPCS: 36415; 36430; 51702; 70450; 71250; 72125; 80048; 81001; 83735; 85014; 85018; 85025; 85610; 85730; 86850; 86900; 86901; 86920; 87635; 93005; 94640; 96361; 96372; 96374; 96375; 99285; J0690; J1650; J2001; J2405; J2704; J3010; J3475; J3480; J3486; J7030; J7040; J7050; J7120; J7644; P9016

== ENCOUNTER 2022-11-15 15:11 | Emergency (ER) | payer OTHER ==
--- OUTSIDE RECORDS SUMMARY | 2022-11-15 15:24 | XMS REPORT | Continuity of Care Document ---
:1935 Author Organization Formerly [facility] Address [address] [place] [id number] Care Team Providers Name Role Phone GC_BAHC_Todd_Tawanna Attending Clinician Unavailable Reji Griffin Attending Clinician [phone] Helen Collado Attending Clinician [phone] Kaykay Mendosa Attending Clinician [phone] GC_BAHC_Spanglbautista_G Attending Clinician Unavailable Nella Attending Clinician Unavailable CHARMAINE, DR HOOKER Attending Clinician Unavailable RADHA, DR POTTER Attending Clinician Unavailable GC_BAHC_Todd_J Admitting Clinician Unavailable GC_BAHC_Spangler_G Admitting Clinician Unavailable Emilie_Desirae Admitting Clinician Unavailable MONTANO, DR HOOKER Admitting Clinician Unavailable RADHA, DR POTTER Admitting Clinician Unavailable Payers Payer Name Policy Type Policy Number Effective Date Expiration Date [place] [id number] 1991 [employer] 00:00:00 [facility] - [id number] [place]ID REPLACEMENT - [place]MO[place]: [id number] [employer] [place] [id number] (MEDICARE) UHC - MEDICARE [id number] 2021 COMPLETE (MEDICARE 00:00:00 REPLACEMENT HMO) Problems Condition Condition Condition Status Onset Resolution Last Treating Co mments Source Name Details Category Date Date Treatment Clinician Date Hyperammon Hyperammon Problem Active P [facility] emia emia 06-19 Medical 00:00: 00 Gastroesop Gastroesop Problem Active [...] Unsteady Problem Active [facility] when When 5 Medical walking Walking 00:00: 00 Hyperlipid Hyperlipid [...] Date Date Clinician No Known DA Active [facility] Social History Social Habit Start Date Stop Date Quantity Comments Source Sex Assigned At [birth year] SAK[facility] [place] 00:[facility]:00 [facility] Smoking Status Start Date Stop Date Source Never Smoker [facility] Medications Ordered Filled Start Stop Current Ordering Indication Dosage Frequency Signature Comments Components Source Medication Medication Date Date Medication? Clinician (SIG) Name Name benztropine benztropine No 1 Q1D benztropin [facility] [...] route. Spiriva Spiriva No 1capsul Q1D Spiriva Kaern via with with e(s) with Medical HandiHaler [...] oral route. ergocalcife ergocalcife No ergocalcif [facility] (vitamin (vitamin (vitamin D2) 1,250 D2) 1,250 [...] bedtime. bedtime. ergocalcife ergocalcife No ergocalcif [facility] (vitamin (vitamin (vitamin D2) 1,250 D2) 1,250 [...] oral route. ergocalcife ergocalcife No ergocalcif [facility] (vitamin (vitamin (vitamin D2) 1,250 D2) 1,250 [...] bedtime. bedtime. ergocalcife ergocalcife No ergocalcif [facility] (vitamin (vitamin (vitamin D2) 1,250 D2) 1,250 [...] bedtime. bedtime. ergocalcife ergocalcife No ergocalcif [facility] (vitamin (vitamin (vitamin D2) 1,250 [...] route. ergocalcife ergocalcife No ergocalcif [facility] (vitamin (vitamin (vitamin D2) 1,250 D2) [...] oral route. ergocalcife ergocalcife No ergocalcif [facility] (vitamin (vitamin (vitamin D2) 1,250 D2) 1,250 [...] by oral bedtime. bedtime. route at bedtime. Immunizations Ordered Immunization Filled Immunization Date [...] (Body Mass Index) 2022-07-10 00:00:00 19.6 kg/m2 [facility] BP Systolic 2022-07-10 00:00:00 135 mm[Hg] [facility] Body Weight 2022-07-10 00:00:00 1824 [oz_av] [facility] BP Diastolic 2022-06-18 00:00:00 66 mm[Hg] [facility] Height 2022-06-18 00:00:00 64 [in_i] [facility] BMI (Body Mass Index) 2022-06-18 00:00:00 [...] M edical Height 2022-05-01 00:00:00 64 [in_i] [facility] BMI (Body Mass Index) 2022-05-01 00:00:00 19.7 kg/m2 [facility] BP Systolic 2022-05-01 00:00:00 125 mm[Hg] [facility] Body Weight 2022-05-01 00:00:00 1836.8 [oz_av] [facility] BP Diastolic 2022-04-26 00:00:00 69 mm[Hg] [facility] Height 2022-04-26 00:00:00 64 [in_i] [facility] BMI (Body Mass Index) 2022-04-26 00:00:00 19.9 kg/m2 [facility] BP Systolic 2022-04-26 00:00:00 107 mm[Hg] [facility] Body Weight 2022-04-26 00:00:00 1858 [oz_av] [facility] BP Diastolic 2022-04-16 00:00:00 85 mm[Hg] [facility] Height 2022-04-16 00:00:00 64 [in_i] [facility] BMI (Body Mass Index) 2022-04-16 00:00:00 19.9 kg/m2 [facility] BP Systolic 2022-04-16 00:00:00 122 mm[Hg] [facility] Body Weight 2022-04-16 00:00:00 1858 [oz_av] [facility] BP Diastolic 2022-04-09 00:00:00 64 mm[Hg] [facility] Height 2022-04-09 00:00:00 64 [in_i] [facility] BMI (Body Mass Index) 2022-04-09 00:00:00 19.7 kg/m2 [facility] BP Systolic 2022-04-09 00:00:00 105 mm[Hg] [facility] Body Weight 2022-04-09 00:00:00 1832 [oz_av] [facility] BP Diastolic 2022-03-19 00:00:00 67 [...] edical Body Weight 2022-03-13 00:00:00 1858 [oz_av] [facility] BP Diastolic 2022-03-05 00:00:00 79 [...] edical Body Weight 2022-01-11 00:00:00 1808 [oz_av] [facility] BP Diastolic 2021-12-21 00:00:00 78 mm[Hg] [facility] Height 2021-12-21 00:00:00 64 [in_i] [facility] BMI (Body Mass Index) 2021-12-21 00:00:00 21 kg/m2 [facility] BP Systolic 2021-12-21 00:00:00 122 mm[Hg] [facility] Body Weight 2021-12-21 00:00:00 1954 [oz_av] [facility] BP Diastolic 2021-12-18 00:00:00 73 mm[Hg] [facility] Height 2021-12-18 00:00:00 64 [in_i] [...] M edical Height 2021-11-20 00:00:00 64 [in_i] [facility] BMI (Body Mass Index) 2021-11-20 00:00:00 21.2 kg/m2 [facility] BP Systolic 2021-11-20 00:00:00 136 mm[Hg] [facility] Body Weight 2021-11-20 00:00:00 1973 [oz_av] [facility] BP Diastolic 2021-10-11 00:00:00 78 mm[Hg] [facility] Height 2021-10-11 00:00:00 64 [in_i] [facility] BMI (Body Mass Index) 2021-10-11 00:00:00 23.6 kg/m2 [facility] BP Systolic 2021-10-11 00:00:00 129 mm[Hg] [facility] Body Weight 2021-10-11 00:00:00 2196 [oz_av] [facility] BP Diastolic 2021-10-09 00:00:00 72 mm[Hg] [facility] Height 2021-10-09 00:00:00 64 [in_i] [facility] BMI (Body Mass Index) 2021-10-09 00:00:00 23.6 kg/m2 [facility] BP Systolic 2021-10-09 00:00:00 118 mm[Hg] [facility] Body Weight 2021-10-09 00:00:00 2196 [oz_av] [facility] Height 2021-10-05 00:00:00 64 [in_i] [facility] BP Diastolic 2021-09-28 00:00:00 60 mm[Hg] [facility] Height 2021-09-28 00:00:00 64 [in_i] [facility] BMI (Body Mass Index) 2021-09-28 00:00:00 23.5 kg/m2 [facility] BP Systolic 2021-09-28 00:00:00 110 mm[Hg] [facility] Body Weight 2021-09-28 00:00:00 2192 [oz_av] [facility] BP Diastolic 2021-09-11 00:00:00 82 [...] edical Body Weight 2021-08-31 00:00:00 2196 [oz_av] [facility] BP Diastolic 2021-08-16 00:00:00 72 mm[Hg] [facility] Height 2021-08-16 00:00:00 64 [in_i] [facility] BMI (Body Mass Index) 2021-08-16 00:00:00 23.6 kg/m2 [facility] BP Systolic 2021-08-16 00:00:00 114 mm[Hg] [facility] Body Weight 2021-08-16 00:00:00 2196 [oz_av] [facility] BP Diastolic 2021-08-07 00:00:00 79 mm[Hg] [facility] Height 2021-08-07 00:00:00 64 [in_i] [facility] BMI (Body Mass Index) 2021-08-07 00:00:00 23.6 kg/m2 [facility] BP Systolic 2021-08-07 00:00:00 138 mm[Hg] [facility] Body Weight 2021-08-07 00:00:00 2196 [oz_av] [facility] BP Diastolic 2021-07-20 00:00:00 66 mm[Hg] [facility] Height 2021-07-20 00:00:00 64 [in_i] [facility] BMI (Body Mass Index) 2021-07-20 00:00:00 23.4 kg/m2 [facility] BP Systolic 2021-07-20 00:00:00 121 mm[Hg] [facility] Body Weight 2021-07-20 00:00:00 2179 [oz_av] [facility] BP Diastolic 2021-06-29 00:00:00 82 mm[Hg] [facility] Height 2021-06-29 00:00:00 64 [in_i] [facility] BMI (Body Mass Index) 2021-06-29 00:00:00 23.3 kg/m2 [facility] BP Systolic 2021-06-29 00:00:00 132 mm[Hg] [facility] Body Weight 2021-06-29 00:00:00 2168 [oz_av] [facility] BP Diastolic 2021-06-22 00:00:00 72 mm[Hg] [facility] Height 2021-06-22 00:00:00 64 [in_i] [facility] BMI (Body Mass Index) 2021-06-22 00:00:00 23.2 kg/m2 [facility] BP Systolic 2021-06-22 00:00:00 138 mm[Hg] [facility] Body Weight 2021-06-22 00:00:00 2160 [oz_av] [facility] BP Diastolic 2021-06-21 00:00:00 69 [...] PERQ Center ULTRASONOGRAPHY SUP VENA 2019-11-05 00:00:00 [facility] CAVA GUID Center FLUORO SUPERIOR VENA CAVA 2019-11-05 00:00:00 [facility] Plan of Care Planned Activity Planned Date Details Comments Source Future Scheduled Test 2022-11-01 IN[address]ENZA VACCINE [facility] 00:00:00 (Season Ended) [code Medical Center = INFLUENZA VACCINE (Season Ended)] Future Scheduled Test 2022-11-01 Influenza Vaccine [facility] 00:00:00 (#1) [code = Medical Center Influenza Vaccine (#1)] Future Scheduled Test 2022-11-01 Influenza Vaccine [facility] 00:00:00 (#1) [code = Medical Center Influenza Vaccine (#1)] Future Scheduled Test 2022-11-01 Influenza Vaccine [facility] 00:00:00 (#1) [code = Medical Center Influenza Vaccine (#1)] Future Scheduled Test 2022-11-01 Influenza Vaccine [facility] 00:00:00 (#1) [code = Medical Center Influenza Vaccine (#1)] Future Scheduled Test 2022-03-03 DEPRESSION SCREENING [facility] [...] [facility] (#1[facility] [code = [facility] INFLUENZA VACCINE (#1)] Future Scheduled Test 2021-11-[address] V[address] [facility] 00:00:00 (#1) [code = [facility] INFLUENZA VACCINE (#1)] Future Scheduled Test 2021-11-[address] INFLUENZA VACC[address] [facility] 00:00:00 (#1) [code = [facility] INFLUENZA VACCINE (#1)] Future Scheduled Test 2021-11-[address] INFLUENZA VACC[address] [facility] 00:00:00 (#1) [code = [facility] INFLUENZA VACCINE (#1)] Future Scheduled Test 2021-11-01 INFLUENZA VACCINE [facility] 00:00:00 (#1) [code = [facility] INFLUENZA VACCINE (#1)] Diagnostic Test 2021-06-14 [...] = DXA [facility] 00:00:00 SCAN] [facility] Future Scheduled Test 1935 DXA SCAN [code = DXA [facility] 00:00:00 SCAN] [facility] Future Scheduled Test 1935 DXA SCAN [code = DXA [facility] 00:00:00 SCAN] [facility] Future Scheduled Test 1935 DXA SCAN [code = DXA [facility] 00:00:00 SCAN] [facility] Future Scheduled Test 1935 DXA SCAN [code = DXA [facility] 00:00:00 SCAN] [facility] Instructions [facility] En[facility] Start End Encounter Admission Attending Care Care Encounter Source Date/Time Date/Time Type Type Clinicians Facility Department ID 2021-09-29 [facility] [id number] [facility] 00[facility]:00 Encounter [facility] 2022-11-15 2022-11-15 Outpatient _BAH_Tod PRIV PRIV [id number] [facility] 00:00:00 00:00:00 d_J [id number] Medica l 2022-11-11 2022-11-11 Outpatient GC_BAHC_Tod PRIV PRIV [id number] [facility] 00:00:00 00:00:00 d_J [id number] Medica l 2022-11-11 2022-11-11 Outpatient GC_BAHC_Tod PRIV PRIV [id number] [facility] 00:00:00 00:00:00 d_J [id number] Medica l 2022-10-31 2022-10-31 Outpatient GC_BAHC_Tod PRIV PRIV 239 [id number] [facility] 00:00:00 00:00:00 d_J [id number] Medica l 2022-10-30 2022-10-30 Outpatient GC_BAHC_Tod PRIV PRIV [id number] [facility] 00:00:00 00:00:00 d_J [id number] Medica l 2022-10-28 2022-10-28 Outpatient GC_BAHC_Tod PRIV PRIV 239 [id number] [facility] 00:00:00 00:00:00 d_J [id number] Medica l 2022-10-24 2022-10-24 Outpatient GC_BAHC_Tod PRIV PRIV [id number] [facility] 00:00:00 00:00:00 d_J [id number] Medica l 2022-10-21 2022-10-21 Outpatient GC_BAHC_Tod PRIV PRIV [id number] [facility] 00:00:00 00:00:00 d_J [id number] Medica l 2022-10-21 2022-10-21 Outpatient GC_BAHC_Tod PRIV PRIV 239 [id number] [facility] 00:00:00 00:00:00 d_J [id number] Medica l 2022-10-15 2022-10-15 Outpatient GC_BAHC_Tod PRIV PRIV [id number] [facility] 00:00:00 00:00:00 d_J [id number] Medica l 2022-10-14 2022-10-14 Outpatient GC_BAHC_Tod PRIV PRIV [id number] [facility] 00:00:00 00:00:00 d_J [id number] Medica l 2022-10-11 2022-10-11 Outpatient GC_BAHC_Tod PRIV PRIV 239 [id number] [facility] 00:00:00 00:00:00 d_J [id number] Medica l 2022-10-10 2022-10-10 Outpatient GC_BAHC_Tod PRIV PRIV 239 [id number] [facility] 00:00:00 00:00:00 d_J [id number] Medica l 2022-10-08 2022-10-08 Outpatient GC_BAHC_Tod PRIV PRIV 239 [id number] [facility] 00:00:00 00:00:00 d_J [id number] Medica l 2022-09-26 2022-09-26 Outpatient GC_BAHC_Tod PRIV PRIV 239 [id number] [facility] 00:00:00 00:00:00 d_J [id number] Medica l 2022-09-18 2022-09-18 Outpatient GC_BAHC_Tod PRIV PRIV 239 [id number] [facility] 00:00:00 00:00:00 d_J [id number] Medica l 2022-09-12 2022-09-12 Outpatient GC_BAHC_Tod PRIV PRIV 239 [id number] [facility] 00:00:00 00:00:00 d_J [id number] Medica l 2022-09-10 2022-09-10 Outpatient GC_BAHC_Tod PRIV PRIV 239 [id number] [facility] 00:00:00 00:00:00 d_J [id number] Medica l 2022-09-09 2022-09-09 Outpatient GC_BAHC_Tod PRIV PRIV 239 [id number] [facility] 00:00:00 00:00:00 d_J [id number] Medica l 2022-09-06 2022-09-06 Outpatient GC_BAHC_Tod PRIV PRIV [id number] [facility] 00:00:00 00:00:00 d_J [id number] Medica l 2022-09-04 2022-09-04 Outpatient GC_BAHC_Tod PRIV PRIV [id number] [facility] 00:00:00 00:00:00 d_J [id number] Medica l 2022-08-26 2022-08-26 Outpatient GC_BAHC_Tod PRIV PRIV 239 [id number] [facility] 00:00:00 00:00:00 d_J [id number] Medica l 2022-08-26 2022-08-26 Outpatient GC_BAHC_Tod PRIV PRIV 239 [id number] [facility] 00:00:00 00:00:00 d_J [id number] Medica l 2022-08-26 2022-08-26 Outpatient GC_BAHC_Tod PRIV PRIV 239 [id number] [facility] 00:00:00 00:00:00 d_J [id number] Medica l 2022-08-22 2022-08-22 Outpatient GC_BAHC_Tod PRIV PRIV 239 [id number] [facility] 00:00:00 00:00:00 d_J [id number] Medica l 2022-08-16 2022-08-16 Outpatient GC_BAHC_Tod PRIV PRIV 239 [id number] [facility] 00:00:00 00:00:00 d_J [id number] Medica l 2022-08-16 2022-08-16 Outpatient GC_BAHC_Tod PRIV PRIV 239 [id number] [facility] 00:00:00 00:00:00 d_J [id number] Medica l 2022-08-06 2022-08-06 Outpatient GC_BAHC_Tod PRIV PRIV 239 [id number] [facility] 00:00:00 00:00:00 d_J [id number] Medica l 2022-08-06 2022-08-06 Outpatient GC_BAHC_Tod PRIV PRIV 239 [id number] [facility] 00:00:00 00:00:00 d_J [id number] Medica l 2022-08-06 2022-08-06 Outpatient GC_BAHC_Tod PRIV PRIV 239 [id number] [facility] 00:00:00 00:00:00 d_J [id number] Medica l 2022-08-06 2022-08-06 Outpatient GC_BAHC_Tod PRIV PRIV 239 [id number] [facility] 00:00:00 00:00:00 d_J [id number] Medica l 2022-07-25 2022-07-25 Outpatient GC_BAHC_Tod PRIV PRIV 239 [id number] [facility] 00:00:00 00:00:00 d_J [id number] Medica l 2022-07-25 2022-07-25 Outpatient GC_BAHC_Tod PRIV PRIV 239 [id number] [facility] 00:00:00 00:00:00 d_J [id number] Medica l 2022-07-25 2022-07-25 Outpatient GC_BAHC_Tod PRIV PRIV 239 [id number] [facility] 00:00:00 00:00:00 d_J [id number] Medica l 2022-07-23 2022-07-23 Outpatient GC_BAHC_Tod PRIV PRIV 239 [id number] [facility] 00:00:00 00:00:00 d_J [id number] Medica l 2022-07-18 2022-07-18 Outpatient GC_BAHC_Tod PRIV PRIV 239 [id number] [facility] 00:00:00 00:00:00 d_J [id number] Medica l 2022-07-11 2022-07-11 Outpatient GC_BAHC_Tod PRIV PRIV 239 [id number] [facility] 00:00:00 00:00:00 d_J [id number] Medica l 2022-07-10 2022-07-10 Outpatient GC_BAHC_Tod PRIV PRIV 239 [id number] [facility] 00:00:00 00:00:00 d_J [id number] Medica l 2022-07-10 2022-07-10 [facility] 510 [facility] 00:[facility]:00 00:00:00 ENOC Collado: [facility] - Med ical [address] [place] [address] , Ph. 2022-06-29 2022-06-29 Outpatient GC_BAHC_Tod PRIV PRIV 239 [id number] [facility] 00:00:00 00:00:00 d_J [id number] Medica l 2022-06-25 2022-06-25 Outpatient GC_BAHC_Tod PRIV PRIV [id number] [facility] 00:00:00 00:00:00 d_J [id number] Medica l 2022-06-25 2022-06-25 [facility] [id number] [facility] 00:00:00 00:00:00 ENOC Collado: Health - Med ical [address] [place] [address] , Ph. 2022-06-18 2022-06-18 Helen [facility] [id number] [facility] 00:00:00 00:00:00 ENOC Collado: Health - Med ical [address] [place] [address] , Ph. 2022-06-17 2022-06-17 Outpatient GC_BAHC_Tod PRIV PRIV 239 [id number] [facility] 00:00:00 00:00:00 d_J [id number] Medica l 2022-06-17 2022-06-17 Outpatient GC_BAHC_Tod PRIV PRIV 239 [id number] [facility] 00:00:00 00:00:00 d_J [id number] Medica l 2022-06-04 2022-06-04 Outpatient GC_BAHC_Tod PRIV PRIV 239 [id number] [facility] 00:00:00 00:00:00 d_J [id number] Medica l 2022-06-03 2022-06-03 Outpatient GC_BAHC_Tod PRIV PRIV 239 [id number] [facility] 00:00:00 00:00:00 d_J [id number] Medica l 2022-05-24 2022-05-24 Outpatient GC_BAHC_Tod PRIV PRIV [id number] [facility] 00:00:00 00:00:00 d_J [id number] Medica l 2022-05-21 2022-05-21 Outpatient GC_BAHC_Tod PRIV PRIV [id number] [facility] 00:00:00 00:00:00 d_J [id number] Medica l 2022-05-21 2022-05-21 [facility] [id number] [facility] 00:00:00 00:00:00 ENOC Collado: [facility] - Med ical [address] [place] [address] , Ph. 2022-05-09 2022-05-09 Outpatient GC_BA[facility]_Tod PRIV PRIV 239 [id number] [facility] 00:00:00 00:00:00 d_J [id number] Medica l 2022-05-04 2022-05-04 Outpatient GC_BAHC_Tod PRIV PRIV 239 [id number] [facility] 00:00:00 00:00:00 d_J [id number] Medica l 2022-05-04 2022-05-04 Outpatient GC_BAHC_Tod PRIV PRIV 239 [id number] [facility] 00:00:00 00:00:00 d_J [id number] Medica l 2022-05-04 2022-05-04 Outpatient GC_BAHC_Tod PRIV PRIV 239 [id number] [facility] 00:00:00 00:00:00 d_J [id number] Medica l 2022-05-02 2022-05-02 Outpatient GC_BAHC_Tod PRIV PRIV 239 [id number] [facility] 00:00:00 00:00:00 d_J [id number] Medica l 2022-05-01 2022-05-01 Outpatient GC_BAHC_Tod PRIV PRIV 239 [id number] [facility] 00:00:00 00:00:00 d_J [id number] Medica l 2022-05-01 2022-05-01 [facility] [id number] [facility] 00:00:00 00:00:00 ENOC Collado: [facility] - Med ical [address] [place] [address] , Ph. 2022-04-26 2022-04-26 Outpatient GC_BA[facility]_Tod PRIV PRIV [id number] [facility] 00:00:00 00:00:00 d_J [id number] Medica l 2022-04-26 2022-04-26 [facility] [id number] [facility] 00:00:00 00:00:00 ENOC Collado: Health - Med ical [address] [place] [address] , Ph. 2022-04-19 2022-04-19 Outpatient GC_BA[facility]_Tod PRIV PRIV [id number] [facility] 00:00:00 00:00:00 d_J [id number] Medica l 2022-04-16 2022-04-16 Reji Tran [facility] [id number] [facility] 00:00:00 00:00:00 [facility] - Med ical MD: [address] [place] [address] , Ph. 2022-04-12 2022-04-12 Outpatient GC_BAHC_Tod PRIV PRIV 239 [id number] [facility] 00:00:00 00:00:00 d_J [id number] Medica l 2022-04-09 2022-04-09 Outpatient GC_BAHC_Tod PRIV PRIV [id number] [facility] 00:00:00 00:00:00 d_J [id number] Medica l 2022-04-09 2022-04-[facility] [id number] [facility] 00:00:00 00:00:00 ENOC Colldao: Health - Med ical [address] [place] [address] , Ph. 2022-03-29 2022-03-29 Outpatient GC_BA[facility]_Tod PRIV PRIV [id number] [facility] 00:00:00 00:00:00 d_J [id number] Medica l 2022-03-28 2022-03-28 Outpatient GC_BAHC_Tod PRIV PRIV 239 [id number] [facility] 00:00:00 00:00:00 d_J [id number] Medica l 2022-03-19 2022-03-[facility] [id number] [facility] 00:00:00 00:00:00 ENOC Collado: Health - Med ical [address] [place] [address] , Ph. 2022-03-13 2022-03-13 Outpatient GC_BAHC_Tod PRIV PRIV 239 [id number] [facility] 00:00:00 00:00:00 d_J [id number] Medica l 2022-03-13 2022-03-13 Outpatient GC_BAHC_Tod PRIV PRIV [id number] [facility] 00:00:00 00:00:00 d_J [id number] Medica l 2022-03-13 2022-03-13 Outpatient GC_BAHC_Tod PRIV PRIV [id number] [facility] 00:00:00 00:00:00 d_J [id number] Medica l 2022-03-13 2022-03-13 Outpatient GC_BAHC_Tod PRIV PRIV [id number] [facility] 00:00:00 00:00:00 d_J [id number] Medica l 2022-03-13 2022-03-13 Helen [facility] [id number] [facility] 00:00:00 00:00:00 ENOC Collado: Health - Med ical [address] [place] [address] , Ph. 2022-03-05 2022-03-05 [facility] [id number] [facility] 00:00:00 00:00:00 ENOC Collado: Health - Med ical [address] [place] [address] , Ph. 2022-03-04 2022-03-04 Outpatient GC_BAHC_Tod PRIV PRIV [id number] [facility] 00:00:00 00:00:00 d_J [id number] Medica l 2022-02-19 2022-02-19 Outpatient GC_BAHC_Tod PRIV PRIV 239 [id number] [facility] 00:00:00 00:00:00 d_J [id number] Medica l 2022-02-19 2022-02-19 [facility] [id number] [facility] 00:00:00 00:00:00 ENOC Collado: Health - Med ical [address] [place] [address] , Ph. 2022-02-15 2022-02-15 Outpatient GC_BA[facility]_Tod PRIV PRIV [id number] [facility] 00:00:00 00:00:00 d_J [id number] Medica l 2022-02-08 2022-02-08 Outpatient GC_BA[facility]_Tod PRIV PRIV [id number] [facility] 00:00:00 00:00:00 d_J [id number] Medica l 2022-02-08 2022-02-08 Outpatient [facility]_Tod PRIV PRIV [id number] [facility] 00:00:00 00:00:00 d_J [id number] Medica l 2022-02-07 2022-02-07 Outpatient [facility]_Tod PRIV PRIV 239 [id number] [facility] 00:00:00 00:00:00 d_J [id number] Medica l 2022-01-31 2022-01-31 Outpatient [facility]_Tod PRIV PRIV 239 [id number] [facility] 00:00:00 00:00:00 d_J [id number] Medica l 2022-01-29 2022-01-29 Outpatient [facility]_Tod PRIV PRIV 239 [id number] [facility] 00:00:00 00:00:00 d_J [id number] Medica l 2022-01-29 2022-01-29 [facility] [id number] [facility] 00:00:00 00:00:00 ENOC [facility] - Med ical [address] [address] , Ph. 2022-01-23 2022-01-23 Outpatient GC_[facility]_Tod PRIV PRIV 239 [id number] [facility] 00:00:00 00:00:00 d_J [id number] Medica l 2022-01-22 2022-01-22 Outpatient [facility]_Tod PRIV PRIV 239 [id number] [facility] 00:00:00 00:00:00 d_J [id number] Medica l 2022-01-19 2022-01-19 Outpatient [facility]Tod PRIV PRIV 239 [id number] [facility] 00:00:00 00:00:00 d_J [id number] Medica l 2022-01-15 2022-01-15 Outpatient [facility]Tod PRIV PRIV 239 [id number] [facility] 00:00:00 00:00:00 d_J [id number] Medica l 2022-01-15 2022-01-15 [facility] 115 [facility]:00:00 00:00:00 EN[facility]: [facility] - Med ical [address] [address] , Ph. 2022-01-11 2022-01-11 Outpatient [facility]_Tod PRIV PRIV 239 [id number] [facility] 00:00:00 00:00:00 d_J [id number] Medica l 2022-01-11 [facility]01-[facility] [id number] [facility] 00:00:00 00:00:00 ENOC [facility]: [facility] - Med ical [address] [address] , Ph. 2022-01-06 2022-01-06 Outpatient [facility]_Tod PRIV PRIV 239 [id number] [facility] 00:00:00 00:00:00 d_J [id number] Medica l 2021-12-24 2021-12-24 Outpatient [facility]_Tod PRIV PRIV 239 [id number] [facility] 00:00:00 00:00:00 d_J [id number] Medica l 2021-12-22 2021-12-22 Outpatient [facility]Tod PRIV PRIV 239 [id number] [facility] 00:00:00 00:00:00 d_J [id number] Medica l 2021-12-21 2021-12-21 [facility] [id number] [facility] 00:00:00 00:00:00 ENOC oC[facility]: [facility] - Med ical [address] [address] , Ph. 2021-12-20 2021-12-20 Outpatient [facility]_Tod PRIV PRIV [id number] [facility] 00:00:00 00:00:00 d_J [id number] Medica l 2021-12-19 2021-12-19 Outpatient [facility]Tod PRIV PRIV 239 [id number] [facility] 00:00:00 00:00:00 d_J [id number] Medica l 2021-12-18 2021-12-18 Reji Tran [facility] [id number] [facility] 00:00:00 00:00:00 [facility] - Med ical MD: [address] [address] , Ph. 2021-12-13 2021-12-13 Outpatient GC_[facility]_Tod PRIV PRIV 239 [id number] [facility] 00:00:00 00:00:00 d_J [id number] Medica l 2021-12-12 2021-12-12 Outpatient [facility]_Tod PRIV PRIV 239 [id number] [facility] 00:00:00 00:00:00 d_J [id number] Medica l 2021-11-30 2021-11-30 Outpatient [facility]_Tod PRIV PRIV 239 [id number] [facility] 00:00:00 00:00:00 d_J [id number] Medica l 2021-11-30 2021-11-30 [facility] [id number] [facility] 00:00:00 00:00:00 EN[facility]: [facility] - Med ical [address] [place] [address] , Ph. 2021-11-28 2021-11-28 Outpatient [facility]_Tod PRIV PRIV 239 [id number] [facility] 00:00:00 00:00:00 d_J [id number] Medica l 2021-11-24 2021-11-24 Outpatient [facility]_Tod PRIV PRIV 239 [id number] [facility] 00:00:00 00:00:00 d_J [id number] Medica l 2021-11-20 2021-11-20 [facility] [id number] [facility] 00:00:00 00:00:00 ENOC [facility]: [facility] - Med ical [address] [address] , Ph. 2021-11-13 2021-11-13 Outpatient GC_[facility]_Tod PRIV PRIV 239 [id number] [facility] 00:00:00 00:00:00 d_J [id number] Medica l 2021-10-30 2021-10-30 Outpatient [facility]_Tod PRIV PRIV 239 [id number] [facility] 00:00:00 00:00:00 d_J [id number] Medica l 2021-10-28 2021-10-28 Outpatient [facility]_Tod PRIV PRIV 239 [id number] [facility] 00:00:00 00:00:00 d_J [id number] Medica l 2021-10-25 2021-10-25 Outpatient GC_[facility]_Tod PRIV PRIV 239 [id number] [facility] 00:00:00 00:00:00 d_J [id number] Medica l 2021-10-19 2021-10-19 Outpatient [facility]_Tod PRIV PRIV 239 [id number] [facility] 00:00:00 00:00:00 d_J [id number] Medica l 2021-10-18 2021-10-18 Outpatient [facility]Tod PRIV PRIV 239 [id number] [facility] 00:00:00 00:00:00 d_J [id number] Medica l 2021-10-15 2021-10-15 Outpatient [facility]Tod PRIV PRIV 239 [id number] [facility] 00:00:00 00:00:00 d_J [id number] Medica l 2021-10-12 2021-10-12 Outpatient [facility]Tod PRIV PRIV 239 [id number] [facility] 00:00:00 00:00:00 d_J [id number] Medica l 2021-10-11 2021-10-11 Outpatient [facility]Tod PRIV PRIV 239 [id number] [facility] 00:00:00 00:00:00 d_J [id number] Medica l 2021-10-11 2021-10-11 Reji Tran [facility] [id number] [facility] 00:00:00 00:00:00 [facility] - Med ical MD: [address] [address] , Ph. 2021-10-11 2021-10-11 Outpatient Gaby, PRIV PRIV [id number] 00:00:00 00:00:00 Reji Tran [id number] 2021-10-09 2021-10-09 Outpatient [facility]Tod PRIV PRIV 239 [id number] [facility] 00:00:00 00:00:00 d_J [id number] Medica l 2021-10-09 [facility]10-[facility] [id number] [facility] 00:00:00 00:00:00 EONC [facility]: [facility] - Med ical [address] [address] , Ph. 2021-10-09 2021-10-09 Outpatient Tobias, PRIV PRIV [id number] 00:00:00 00:00:00 Helen [id number] 2021-10-08 2021-10-08 Outpatient [facility]Tod PRIV PRIV 239 [id number] [facility] 00:00:00 00:00:00 d_J [id number] Medica l 2021-10-05 2021-10-05 Outpatient [facility]Tod PRIV PRIV 239 [id number] [facility] 00:00:00 00:00:00 d_J [id number] Medica l 2021-10-05 2021-10-05 Helen [facility] [id number] [facility] 00:00:00 00:00:00 ENOC [facility]: [facility] - Med ical [address] [address] , Ph. 2021-10-05 2021-10-05 Outpatient Tobias PRIV PRIV [id number] 00:00:00 00:00:00 Helen [id number]-[id number] 2021-10-03 2021-10-03 Outpatient [facility]Tod PRIV PRIV 239 [id number] [facility] 00:00:00 00:00:00 d_J [id number] Medica l 2021-10-02 2021-10-02 Outpatient [facility]_Tod PRIV PRIV 239 [id number] [facility] 00:00:00 00:00:00 d_J [id number] Medica l 2021-10-02 2021-10-02 Helen [facility] [id number] [facility] 00:00:00 00:00:00 ENOC [facility]: [facility] - Med ical [address] [address] , Ph. 2021-09-28 2021-09-28 Outpatient [facility]Tod PRIV PRIV 239 [id number] [facility] 00:00:00 00:00:00 d_J [id number] Medica l 2021-09-28 2021-09-28 Outpatient Tobias PRIV PRIV [id number] 00:00:00 00:00:00 Helen [id number] 2021-09-28 2021-09-28 Helen [facility] [id number] [facility] 00:00:00 00:00:00 ENOC [facility]: [facility] - Med ical [address] [address] , Ph. 2021-09-18 2021-09-18 Outpatient [facility]Tod PRIV PRIV 239 [id number] [facility] 12:03:00 12:03:00 d_J [id number] Medica l 2021-09-11 2021-09-11 Outpatient [facility]Tod PRIV PRIV 239 [id number] [facility] 01:51:00 01:51:00 d_J [id number] Medica l 2021-09-11 2021-09-11 Outpatient Tobias PRIV PRIV [id number] [id number] 00:00:00 00:00:00 Helen [id number] 2021-09-11 2021-09-11 [facility] [id number] [facility] 00:00:00 00:00:00 ENOC [facility]: [facility] - Med ical [address] [address] , Ph. 2021-09-09 2021-09-09 Outpatient [facility]Tod PRIV PRIV 239 [id number] [facility] 11:00:00 11:00:00 d_J [id number] Medica l 2021-08-31 2021-08-31 Outpatient [facility]Tod PRIV PRIV 239 [id number] [facility] 04:11:00 04:11:00 d_J [id number] Medica l 2021-08-31 2021-08-31 Outpatient Tobias PRIV PRIV [id number] [id number] 00:00:00 00:00:00 Helen [id number] 2021-08-31 2021-08-31 [facility] [id number] [facility] 00:00:00 00:00:00 ENOC [facility]: [facility] - Med ical [address] [address] , Ph. 2021-08-24 2021-08-24 Outpatient [facility]Tod PRIV PRIV 239 [id number] [facility] 04:50:00 04:50:00 d_J [id number] Medica l 2021-08-16 2021-08-16 Outpatient [facility]Tod PRIV PRIV 239 [id number] [facility] 10:50:00 10:50:00 d_J [id number] Medica l 2021-08-16 2021-08-16 Outpatient RADHA Griffin PRIV [id number] 00:00:00 00:00:00 Reji Tran [id number] 2021-08-16 2021-08-16 Reji Tran [facility]IV [facility] [id number] [facility] 00:00:00 00:00:00 Gaby [facility] Med ica MD: [address] [address] , Ph. 2021-08-13 2021-08-13 Outpatient [facility]_Tod PRIV PRIV 239 [id number] [facility] 11:24:00 11:24:00 d_J [id number] Medica l 2021-08-07 2021-08-07 Outpatient [facility]Tod PRIV PRIV 239 [id number] [facility] 07:18:00 07:18:00 d_J [id number] Medica l 2021-08-07 2021-08-07 Outpatient Tobias PRIV PRIV [id number] 00:00:00 00:00:00 Helen [id number] 2021-08-07 2021-08-07 [facility] [id number] [facility] 00:00:00 00:00:00 ENOC Coll[place]: [facility] - Med ical [address] [address] , Ph. 2021-07-30 2021-07-30 Outpatient [facility]_Tod PRIV PRIV 239 [id number] [facility] 10:43:00 10:43:00 d_J [id number] Medica l 2021-07-27 2021-07-27 Outpatient [facility]Tod PRIV PRIV 239 [id number] [facility] 04:52:00 04:52:00 d_J [id number] Medica l 2021-07-20 2021-07-20 Outpatient [facility]Tod PRIV PRIV 239 [id number] [facility] 12:32:00 12:32:00 d_J [id number] Medica l 2021-07-20 2021-07-20 Outpatient Tobias, PRIV PRIV [id number] 2-[id number] 00:00:00 00:00:00 Helen [id number]-[id number] 2021-07-20 2021-07-20 Helen [facility] [id number] [facility] 00:00:00 00:00:00 ENOC [facility]: [facility] - Med ical [address] [address] , Ph. 2021-07-08 2021-07-08 Outpatient [facility]Tod PRIV PRIV 239 [id number] [facility] 10:46:00 10:46:00 d_J [id number] Medica l 2021-07-01 2021-07-01 Outpatient [facility]Tod PRIV PRIV 239 [id number] [facility] 10:44:00 10:44:00 d_J [id number] Medica l 2021-06-29 2021-06-29 Outpatient [facility]Tod PRIV PRIV 239 [id number] [facility] 08:40:00 08:40:00 d_J [id number] Medica l 2021-06-29 2021-06-29 Outpatient Tobias PRIV PRIV [id number] 00:00:00 00:00:00 Helen [id number]-[id number]-[id number] 0586-04-29 2021-06-29 Helen [facility] [id number] [facility] 00:00:00 00:00:00 ENOC [facility]: [facility] - Med ical [address] [address] , Ph. 2021-06-22 2021-06-22 Outpatient [facility]Tod PRIV PRIV 239 [id number] [facility] 09:06:00 09:06:00 d_J [id number] Medica l 2021-06-22 2021-06-22 Outpatient Tobias, PRIV PRIV [id number] 00:00:00 00:00:00 Helen [id number] 2021-06-22 2021-06-22 Helen [facility]IV [facility] [id number] [facility] 00:00:00 00:00:00 ENOC [facility]: [facility] - Med ical [address] [address] , Ph. 2021-06-21 2021-06-21 Outpatient [facility]Tod PRIV PRIV 239 [id number] [facility] 08:48:00 08:48:00 dEffie [id number] Medica l 2021-06-21 2021-06-21 Outpatient Gaby PRIV PRIV [id number]-[id number] 00:00:00 00:00:00 Reji Tran [id number] 2021-06-21 2021-06-21 Reji Tran [facility] 00:00:00 00:00:00 Gaby [facility] Med brook MD: [id number], [place] [address] , Ph. 2021-06-15 2021-06-15 Outpatient [facility]_Tod PRIV PRIV 239 [id number] [facility] 02:11:00 02:11:00 dEffie [id number] Medica l 2021-06-14 2021-06-14 Outpatient [facility]_Tod PRIV PRIV [id number] [facility] 06:30:00 06:30:00 dEffie [id number] Medica l 2021-06-14 2021-06-14 Outpatient Navya, PRIV PRIV [id number] a-[id number] 00:00:00 00:00:00 June [id number] 2021-06-14 2021-06-14June [facility]IV [facility] 14 [facility] 00:00:00 00:00:00 Navya [facility] Medic al [place] FORMER: [id number] , [place] [address] , Ph. 2021-06-13 2021-06-13 Outpatient [facility]_Tod PRIV PRIV 239 [id number] [facility] 12:05:00 12:05:00 d_J [id number] Medica l 2021-06-11 2021-06-11 Outpatient [facility]_Spa PRIV PRIV [id number] [facility] 10:27:00 10:27:00 ngler_G [id number] Medica l 2021 2021 Outpatient [facility]_Spa PRIV PRIV 239 [id number] [facility] 05:54:00 05:54:00 ngler_G [id number] Medica l 2020-04-05 2020-04-05 Outpatient Shani_T VFP VF [id number] [facility] 11:48:00 11:48:00 [id number] Family Practic e 2019-10-26 2019-11-05 Inpatient E MONTANO, [facility] [id number] 2129 [place] 15:52:00 17:44:00 [facility] Medic al [place] 2019-07-14 2019-07-29 Inpatient E RADHA, [facility] [place] SCU [id number] [place] 21:04:00 17:00:00 [facility] Results Test Description Test Time Test [...] (test code = RBCMOR) NORMAL BASIC METABOLIC [id number] 08:10:00 Test Item Value Reference Range Interpretation [...] (test code = RBCMOR) NORMAL BASIC METABOLIC [id number] 05:36:00 Test Item Value Reference Range Interpretation [...] (test code = RBCMOR) NORMAL HEMOGLOBIN & [id number] 18:56:00 Test Item Value Reference Range Interpretation Comments HGB (test code = HBG) 10.4 g/dL 12.0-15.5 L HCT (test code = HCT) 32.6 % 35.0-44.0 L TROPONIN [id number] 11:11:00 Test Item Value Reference Range Interpretation Comments TROPONIN I (test code = A84) 0.041 ng/mL 0.000-0.045 HEMOGLOBIN & [id number] 10:54:00 Test Item Value Reference Range Interpretation Comments HGB (test code = HBG) 11.0 g/dL 12.0-15.5 L HCT (test code = HCT) 33.7 % 35.0-44.0 L CBC WITH [id number] 07:42:00 Test Item Value Reference Range Interpretation [...] = STOM) 1+ NONE A BASIC METABOLIC [id number] 07:21:00 Test Item Value Reference Range Interpretation [...] 9.9 mg/dL 8.3-9.5 H 09D) HEMOGLOBIN & [id number] 01:50:00 Test Item Value Reference Range Interpretation Comments HGB (test code = HBG) 11.4 g/dL 12.0-15.5 L HCT (test code = HCT) 35.0 % 35.0-44.0 HEMOGLOBIN & [id number] 18:44:00 Test Item Value Reference Range Interpretation [...] (test code = RBCMOR) NORMAL BASIC METABOLIC [id number] 07:12:00 Test Item Value Reference Range Interpretation [...] = 9.2 mg/dL 8.3-9.5 09D) HEMOGLOBIN & [id number] 00:57:00 Test Item Value Reference Range Interpretation Comments HGB (test code = HBG) 11.8 g/dL 12.0-15.5 L HCT (test code = HCT) 37.4 % 35.0-44.0 BLOOD [id number] 21:24:00 Test Item Value Reference Range Interpretation Comments Culture Observations (test NO GROWTH AFTER 5 code = COB1) DAYS BLOOD [id number] 21:24:00 Test Item Value Reference Range Interpretation Comments Culture Observations (test NO GROWTH AFTER 5 code = COB1) DAYS Arterial Blood [id number] 18:48:00 Test Item Value Reference Range Interpretation [...] FO2Hb (test code = 96.4 % 94.0-100.0 SD3CYLB) FCOHb (test code = 0.4 % 0.0-3.0 FCOHBRT) FMetHb (test code = 1.5 % 0.2-0.6 H FMETHBRT) ABGTEMP (test code = * Temp Corrected Values* ABGTEMP) ABGTEMP (test code = 37.0 ?C ABGTEMP.) pH (T) (test code = 7.333 7.350-7.450 L PHTEMP) pCO2 (T) (test code = 69.0 mmHg 35.0-45.0 HH GMQ8LPLD) pO2 (T) (test code = 146.0 mmHg 80.0-110.0 H GV6VKIP) Device (test code = BIPAP DEVICE) FI02 [...] COMMENT (test code = CO) Arterial Blood [id number] 16:04:00 Test Item Value Reference Range Interpretation [...] FO2Hb (test code = 95.1 % 94.0-100.0 MT8BYAS) FCOHb (test code = 0.8 % 0.0-3.0 FCOHBRT) FMetHb (test code = 1.1 % 0.2-0.6 H FMETHBRT) ABGTEMP (test code = * Temp Corrected Values* ABGTEMP) ABGTEMP (test code = 37.0 ?C ABGTEMP.) pH (T) (test code = 7.313 7.350-7.450 L PHTEMP) pCO2 (T) (test code = 65.4 mmHg 35.0-45.0 HH BPB6VLEV) pO2 (T) (test code = 108.0 mmHg 80.0-110.0 RR0TTEK) Device (test code = BIPAP DEVICE) FI02 [...] COMMENT (test code = CO) BASIC METABOLIC [id number] 10:19:00 Test Item Value Reference Range Interpretation [...] (test code = RBCMOR) NORMAL BASIC METABOLIC [id number] 07:12:00 Test Item Value Reference Range Interpretation [...] (test code = RBCMOR) NORMAL BASIC METABOLIC [id number] 05:16:00 Test Item Value Reference Range Interpretation [...] code = 8.3 mg/dL 8.3-9.5 09D) VANCOMYCIN [id number] 05:14:00 Test Item Value Reference Range Interpretation [...] MORPH (test code = RBCMOR) NORMAL URINE [id number] 14:20:00 Test Item Value Reference Range Interpretation Comments Isolate 1 (test code = GRAM NEGATIVE [place] A ISO1) [id number] 06:25:00 Test Item Value Reference Range Interpretation Comments MAGNESIUM (test code = 48A) 1.9 mg/dL 1.8-2.4 BASIC METABOLIC [id number] 06:15:00 Test Item Value Reference Range Interpretation [...] (test code = RBCMOR) NORMAL BASIC METABOLIC [id number] 04:27:00 Test Item Value Reference Range Interpretation [...] (test code = 8.6 mg/dL 8.3-9.5 09D) [id number] 04:19:00 Test Item Value Reference Range Interpretation [...] (test code = MDIFF) NO URINALYSIS WITH [id number] 16:52:00 Test Item Value Reference Range Interpretation [...] code = USPERM) /HPF NONE DRUGS OF [id number] 16:39:00 Test Item Value Reference Range Interpretation [...] 200 ng/mL Opiates 2000 ng/mL Arterial Blood [id number] 15:10:00 Test Item Value Reference Range Interpretation [...] (test code = 87.8 % 94.0-100.0 L GQ2IQXS) FCOHb (test code = 1.0 % 0.0-3.0 FCOHBRT) FMetHb (test code = 1.2 % 0.2-0.6 H FMETHBRT) ABGTEMP (test code = * Temp Corrected Values* ABGTEMP) ABGTEMP (test code = 37.0 ?C ABGTEMP.) pH (T) (test code = 7.512 7.350-7.450 H PHTEMP) pCO2 (T) (test code = 54.3 mmHg 35.0-45.0 HH HZD0IIKX) pO2 (T) (test code = 55.1 mmHg 80.0-110.0 LL SD0LLRP) Device (test code = ROOM AIR DEVICE) [...] = SSITE) COMMENT (test code = CO) [id number] 14:55:00 Test Item Value Reference Range Interpretation Comments MAGNESIUM (test code = 48A) 1.3 mg/dL 1.8-2.4 LL COMPREHENSIVE METABOLIC [id number] 14:10:00 Test Item Value Reference Range Interpretation [...] (test code = 31A) 13 IU/L <=78 [id number] 14:08:00 Test Item Value Reference Range Interpretation Comments ACETAMINPH (test code = 94M) <2.0 ug/mL 10.0-30.0 L CARDIAC [id number] 14:08:00 Test Item Value Reference Range Interpretation Comments TROPONIN I (test code = A84) 0.019 ng/mL 0.000-0.045 ALCOHOL BLOOD (ETOH)2019-10-26 14:08:00 Test Item Value Reference Range Interpretation Comments ETOH (test code = HALC) ETHANOL The result is to be used only for medical purposes ALCOHOL (test code = <10 mg/dL <=10 56A) LDH-LACTIC [id number] 14:06:00 Test Item Value Reference Range Interpretation Comments LDH (test code = 33A) 214 IU/L 84-246 C-REACTIVE PROTEIN [id number] 14:02:00 Test Item Value Reference Range Interpretation Comments CRP QUANT (test code <2.9 mg/L 0.0-2.9 = CRPQ) Method Change (test Please note the code = METHOD) change in Method and the reference range [id number] 13:59:00 Test Item Value Reference Range Interpretation [...] the FDA and the [employer] (CAP) are more stringent than those required for this test. Therefore, the result should be interpreted with caution and close attention to other clinical and epidemiological data [id number] 13:55:00 Test Item Value Reference Range Interpretation Comments SALICYLATE (test code = 94B) <1.7 mg/dL 2.8-20.0 L AMMONIA [id number] 13:49:00 Test Item Value Reference Range Interpretation Comments AMMONIA (test code = 54A) 12 umol/L 11-32 PRO TIME AND [id number] 13:47:00 Test Item Value Reference Range Interpretation [...] RBC MORPH (test code = RBCMOR) NORMAL [id number] 10:29:00 Test Item Value Reference Range Interpretation Comments SARS-CoV-2 (test NOT DETECTED NOT DETECTED code = WCOV) COVID-19 (test code Test performed at = [facility]) Reference Laboratory See Original Report Under Medical Record View Tab URINE [id number] 12:38:00 Test Item Value Reference Range Interpretation Comments Culture Observations THREE OR MORE SPECIES (test code = COB1) OF BACTERIA ISOLATED. PROBABLE CONTAMINATION. Culture Observations IDENTIFICATION AND (test code = COB17) SUSCEPTIBILITY NOT INDICATED. RECOLLECTION RECOMMENDED URINALYSIS WITH [id number] 19:14:00 Test Item Value Reference Range Interpretation [...] 95A) 5.8 ug/mL 50.0-100.0 LL COMPREHENSIVE METABOLIC [id number] 06:47:00 Test Item Value Reference Range Interpretation [...] MORPH (test code = RBCMOR) NORMAL T4 [id number] 07:13:00 Test Item Value Reference Range Interpretation Comments T4 FREE (test code = A91) 0.88 ng/dL 0.76-1.46 B12 [id number] 07:02:00 Test Item Value Reference Range Interpretation Comments VIT B12 (test code = A60) 1059.0 pg/mL 180.0-914.0 H [id number] 07:02:00 Test Item Value Reference Range Interpretation Comments FOLATE (test code = A75) 18.5 ng/mL 3.1-17.5 H THYROID PANEL/SCREEN (TSH)2019-07-15 06:59:00 Test Item Value Reference Range Interpretation Comments TSH (test code = A57) 9.160 uIU/mL 0.358-3.740 H [id number] 06:43:00 Test Item Value Reference Range Interpretation Comments PREALBUMIN (test code = 08E) 29 mg/dL 18-38 VALPROIC ACID (DEPAKENE)2019-07-15 06:43:00 Test Item Value Reference Range Interpretation Comments VALP ACID (test code = 95A) 52.6 ug/mL 50.0-100.0 LIPID [id number] 06:37:00 Test Item Value Reference Range Interpretation Comments CHOLESTROL (test code = 44A) 171 mg/dL 140-200 TRIGLYCERI (test code = 42B) 136 mg/dL <=149 HDL (test code = 83D) 50.0 mg/dL 40.0-60.0 LDL (test code = 34B) 100 mg/dL <=99 H CHL/HDL (test code = CHR) 3.4 0.0-3.4 [id number] 06:37:00 Test Item Value Reference Range Interpretation Comments Hb A1C % (test code = HBA) 5.6 % 4.2-6.3 [id number] 06:32:00 Test Item Value Reference Range Interpretation Comments MAGNESIUM (test code = 48A) 1.6 mg/dL 1.8-2.4 L DRUGS OF [id number] 20:05:00 Test Item Value Reference Range Interpretation [...] 200 ng/mL Opiates 2000 ng/mL URINALYSIS WITH [id number] 20:01:00 Test Item Value Reference Range Interpretation [...] code = USPERM) /HPF NONE COMPREHENSIVE METABOLIC [id number] 18:39:00 Test Item Value Reference Range Interpretation [...] (test code = 31A) 12 IU/L <=78 [id number] 18:37:00 Test Item Value Reference Range Interpretation Comments ACETAMINPH (test code = 94M) <2.0 ug/mL 10.0-30.0 L [id number] 18:33:00 Test Item Value Reference Range Interpretation Comments SALICYLATE (test code = 94B) <1.7 mg/dL 2.8-20.0 L TROPONIN [id number] 18:31:00 Test Item Value Reference Range Interpretation Comments TROPONIN I (test code = A84) <0.015 ng/mL 0.000-0.045 PRO TIME AND [id number] 18:30:00 Test Item Value Reference Range Interpretation [...] LMW Heparin. Order Code is ANTI-XA AMMONIA [id number] 18:25:00 Test Item Value Reference Range Interpretation [...]
[2022-11-15 15:34] LABS: Absolute Lymphocytes (CBC) 1.2 K/uL (0.7-4.9); Lymphocytes % 31.7 % (15.3-44.8); MCV 103.1 fL (80-100); MPV 7.2 fL (7.6-11.3); Platelets 200 thou/uL (152-406); Protime INR 0.93; RBC Red Blood Cell Count 2.52 M/uL (3.86-4.86)
[2022-11-15 15:55] LABS: Albumin 1.5 g/dL (3.4-5.0); Bilirubin Direct 0.2 mg/dL (0-0.2); Bilirubin Indirect, Calculated 0.1 mg/dL (0.2-0.8); Bilirubin Total 0.3 mg/dL (0.2-1.0); Magnesium 1.6 mg/dL (1.6-2.4); Potassium 3.8 mEq/L (3.5-5.1); Protein, Total 4.9 g/dL (6.4-8.2); Troponin High Sensitivity 13.9 pg/mL (<58.9)
[2022-11-15] MEDS ORDERED: NA CHLORIDE 0.9% 500 ML ONE (16:03)
[2022-11-15] MEDS ORDERED: ONDANSETRON 4 MG/2 ML VIAL ONE (16:24)
--- NOTE | 2022-11-15 16:42 | RAD REPORT ---
EXAM DESCRIPTION: CT - Chest For Pe Angio - 11/15/2022 4:27 pm CLINICAL HISTORY: Chest pain COMPARISON: 2019 TECHNIQUE: Dynamically enhanced axial 3 mm thick images of the chest were obtained during administra tion of 100 mL Isovue 370 IV contrast. Coronal and oblique reconstruction images were generated and r eviewed. Exam utilizes a protocol for optimal evaluation of pulmonary arterial tree. Maximum intensity projections 3D imaging was utilized All CT scans are performed using dose optimization technique as appropriate and may include automated exposure control or mA/KV adjustment according to patient size. FINDINGS: A pulmonary embolus is not seen. Ascending thoracic aorta 3.9 centimeters Small bilateral pleural effusions. A pericardial effusion is not seen. A lung consolidation is not present. A few areas of subsegmental atelectasis within the lungs. Modera te COPD Small to moderate hiatal hernia IMPRESSION: Negative for a pulmonary embolism.
--- NOTE | 2022-11-15 16:43 | RAD REPORT ---
EXAM DESCRIPTION: [facility] Single View11/15/2022 4:13 pm CLINICAL HISTORY: Chest pain COMPARISON: 2021 FINDINGS: Lungs are hyperaerated. The lungs appear clear of acute infiltrate. The heart is mildly enlarged Small bilateral pleural effusions
--- NOTE | 2022-11-15 17:08 | ER ---
Nurse's Notes [facility] Name: Julieta Tatum Age: 87 yrs Sex: Female : 1935 Arrival Date: 11/15/2022 Time: 15:11 Bed 8 Private MD: Diagnosis: Chest Wall Bruising Presentation: 11/15 15:19 Chief complaint: EMS states: PT sent from [facility] for bruising to chest ph and elevated d-dimer, staff reported to EMS that pt "is on hospice but is a full code who only wants CPR". Dark purple bruising to chest, pt oriented to person only. Coronavirus screen: Vaccine status: Patient reports being unvaccinated. Ebola Screen: No symptoms or risks identified at this time. Initial Sepsis Screen: Does the patient meet any 2 criteria? No. Patient's initial sepsis screen is negative. Does the patient have a suspected source of infection? No. Patient's initial sepsis screen is negative. Risk Assessment: Do you want to hurt yourself or someone else? Patient reports no desire to harm self or others. Onset of symptoms was November 15, 2022. 15:19 Method Of Arrival: EMS: [facility] ph 15:19 Acuity: MARIO 3 ph 15:21 Ebola Screen: Patient denies travel to an Ebola-affected area in the 21 days before ll1 illness onset. 15:21 Method Of Arrival: EMS the [facility] 15:21 Acuity: MARIO 2 ll1 Triage Assessment: 15:21 General: Appears uncomfortable, ill, slender, Behavior is appropriate for age, quiet. ll1 Pain: Complains of pain in chest Quality of pain is described as aching. Cardiovascular: Reports chest pain. Derm: Reports bruising noted to chest area and L AC. Historical: - Allergies: 15:14 No Known Drug Allergies; ll1 - PMHx: 15:14 Chronic obstructive lung disease; Bipolar disorder; Hypertensive disorder; ll1 Schizophrenia; Alzheimer's disease; Hypothyroidism; - Immunization history:: Adult Immunizations up to date. - Social history:: Smoking status: unknown. Screenin:28 [facility] ED Fall Risk Assessment (Adult) Confusion or Disorientation Yes (5 pts) ll1 Impaired Gait Yes (1 pt) Mobility Assist Device Used Yes (1 pt) Score/Fall Risk Level 3 or more points = High Risk Oriented to surroundings, Maintained a safe environment, Educated pt \\T\\ family on fall prevention, incl call for assistance when getting out of bed, Hourly rounding (assess needs \\T\\ fall precautionary measures) done, Remained with patient while ambulating. Abuse screen: Denies threats or abuse. Nutritional screening: No deficits noted. Tuberculosis screening: No symptoms or risk factors identified. Assessment: 15:27 Reassessment: No changes from previously documented assessment. Patient and/or family ll1 updated on plan of care and expected duration. Pain level reassessed. 16:00 Reassessment: No changes from previously documented assessment. Patient and/or family ll1 updated on plan of care and expected duration. Pain level reassessed. 16:53 Reassessment: No changes from previously documented assessment. Patient and/or family ll1 updated on plan of care and expected duration. Pain level reassessed. 17:47 Reassessment: No changes from previously documented assessment. [facility] Emilia given report. Calling EMS to pick her up. Vital Signs: 15:19 BP 101 / 50; Pulse 77; Resp 18; Temp 98; Pulse Ox 100% on R/A; ph 15:26 BP 115 / 53; Pulse 76; Resp 10; Temp 97.1(TE); Pulse Ox 100% ; ll1 16:52 BP 138 / 71; Pulse 71; Resp 15; Pulse Ox 100% ; ll1 18:23 BP 131 / 72; Pulse 70; Resp 17; Pulse Ox 100% ; ll1 ED Course: 15:13 Patient arrived in ED. sb4 15:13 Lit[facility] England [facility] sb4 15:13 Alex Batista MD is Attending Physician. sb4 15:13 Octavia Morejon, CATHERINE is Primary Nurse. ll1 15:13 Arm band placed on Patient placed in an exam room, on a stretcher. ll1 15:21 Triage completed. ll1 15:28 Patient has correct armband on for positive identification. Bed in low position. Call ll1 light in reach. Client placed on continuous cardiac and pulse oximetry monitoring. NIBP monitoring applied. quality assurance monitor body on. 15:58 Sadiq Barakat DO is Attending Physician. ms3 16:15 XRAY Chest (1 view) In Process Unspecified. EDMS 16:29 Chest For PE Angio CT In Process Unspecified. EDMS 17:48 Provided Education on: n/a. ll1 17:48 No provider procedures requiring assistance completed. IV discontinued, intact, ll1 bleeding controlled, No redness/swelling at site. Pressure dressing applied. 17:49 Primary Nurse role handed off by Octavia Morejon, CATHERINE ll1 17:49 Octavia Morejon, RN is Primary Nurse. ll1 Administered Medications: 15:58 Drug: NS 0.9% IV 500 ml Route: IV; Rate: bolus; Site: right antecubital; ll1 17:40 Follow up: Response: No adverse reaction; IV Status: Completed infusion; IV Intake: ll1 500ml 16:16 Drug: Ondansetron IVP 4 mg Route: IVP; Site: right antecubital; iw 17:40 Follow up: Response: No adverse reaction ll1 Medication: 15:28 VIS not applicable for this client. ll1 Intake: 17:40 IV: 500ml; Total: 500ml. ll1 Outcome: 17:07 Discharge ordered by . sb4 17:48 Discharged to home via ambulance. ll1 17:48 Condition: stable 17:48 Discharge instructions given to patient, senior living, Instructed on discharge instructions, follow up and referral plans. Demonstrated understanding of instructions, follow-up care. 17:48 Patient left the ED. ll1 18:22 Patient left the ED. ll1 Signatures: Dispatcher [employer] Mary Sharp, CATHERINE ALEXANDER iw Josey Da Silva RN RN ph Lewis, Lynsay, RN RN ll1 Sadiq Barakat DO DO ms3 Litzy England, MICHEL PATyler sb4
--- NOTE | 2022-11-15 17:08 | EDPHYS ---
Physician Documentation [facility] Name: Julieta Tatum Age: 87 yrs Sex: Female : 1935 Arrival Date: 11/15/2022 Time: 15:11 Bed 8 Private MD: ED Physician Sadiq Barakat HPI: 11/15 15:48 This 87 yrs old Female presents to ER via EMS with complaints of bruising. sb4 15:48 patient is from [facility] supposedly on hospice state guardianship was sent to [facility] the ED to be evaluated for increasing bruising. patient has dementia and cannot give any complaint or history. facility staff state that she fell on 11/02/22 and some bruising to her right chest/breast. they state that the bruising has increased significantly across her entire chest. they state that she is not on blood thinners, however she was during her last admission 1.5 months ago. they checked labs today and found an elevated ddimer. Historical: - Allergies: 15:14 No Known Drug Allergies; ll1 - PMHx: 15:14 Chronic obstructive lung disease; Bipolar disorder; Hypertensive disorder; ll1 Schizophrenia; Alzheimer's disease; Hypothyroidism; - Immunization history:: Adult Immunizations up to date. - Social history:: Smoking status: unknown. ROS: 15:48 Constitutional: Negative for fever, chills, and weight loss. sb4 15:48 Skin: Positive for ecchymosis, of the chest. 15:48 All other systems are negative. Exam: 15:55 Head/Face: Normocephalic, atraumatic. Eyes: Extra-ocular motions intact. Periorbital sb4 areas with no swelling, redness, or edema. Cardiovascular: Regular rate and rhythm with a normal S1 and S2. Respiratory: Lungs have equal breath sounds bilaterally, clear to auscultation and percussion. No rales, rhonchi or wheezes noted. No increased work of breathing, no retractions or nasal flaring. 15:55 Constitutional: The patient appears alert, awake, frail, pale. 15:55 Skin: Appearance: ecchymosis, noted on the, chest, that are moderate. 15:55 Neuro: baseline dementia, no acute changes. Vital Signs: 15:19 BP 101 / 50; Pulse 77; Resp 18; Temp 98; Pulse Ox 100% on R/A; ph 15:26 BP 115 / 53; Pulse 76; Resp 10; Temp 97.1(TE); Pulse Ox 100% ; ll1 16:52 BP 138 / 71; Pulse 71; Resp 15; Pulse Ox 100% ; ll1 18:23 BP 131 / 72; Pulse 70; Resp 17; Pulse Ox 100% ; ll1 MDM: 15:13 Patient medically screened. sb4 15:55 Differential Diagnosis PE, anemia, chest wall hematoma, deconditioning, dehydration. sb4 16:05 ED course: [facility] reports that patient is on hospice but is a full code. she sb4 is under guardianship of the state. I contacted them and they confirmed that she is a full code. they are in the process of obtaining a DNR order. 17:06 Data reviewed: vital signs, nurses notes, EMS record, lab test result(s), EKG, sb4 radiologic studies, I have discussed the patient's presentation/case with the attending Emergency Department Physician; and as a result, I will discharge patient. Consideration of Admission/Observation Escalation of care including admission/observation considered. Care significantly affected by the following chronic conditions: Hypertension, Chronic Obstructive Pulmonary Disease. Counseling: I had a detailed discussion with the patient and/or guardian regarding the historical points, exam findings, and any diagnostic results supporting the discharge/admit diagnosis, lab results, radiology results, to return to the emergency department if symptoms worsen or persist or if there are any questions or concerns that arise at home. 17:07 ED course: workup is negative. patient is acting appropriately, drank an ensure. she is sb4 smiling, has no complaints at this time. labs are stable. will dc back to [facility]. 11/15 15:14 Order name: Basic Metabolic Panel; Complete Time: 15:57 sb4 11/15 15:14 Order name: CBC with Diff; Complete Time: 15:39 sb4 11/15 15:14 Order name: LFT's; Complete Time: 15:57 sb4 11/15 15:14 Order name: Magnesium; Complete Time: 15:57 sb4 11/15 15:14 Order name: NT PRO-BNP; Complete Time: 15:57 sb4 11/15 15:14 Order name: PT-INR; Complete Time: 15:36 sb4 11/15 15:14 Order name: Troponin HS; Complete Time: 15:57 sb4 11/15 15:14 Order name: XRAY Chest (1 view); Complete Time: 16:46 sb4 11/15 15:14 Order name: Chest For PE Angio CT; Complete Time: 16:46 sb4 11/15 15:14 Order name: EKG; Complete Time: 15:15 sb4 11/15 15:14 Order name: Cardiac monitoring; Complete Time: 15:21 sb4 11/15 15:14 Order name: EKG - Nurse/Tech; Complete Time: 15:21 sb4 11/15 15:14 Order name: IV Saline Lock; Complete Time: 15:15 sb4 11/15 15:14 Order name: Labs collected and sent; Complete Time: 15:15 sb4 11/15 15:14 Order name: O2 Per Protocol; Complete Time: 15:14 sb4 11/15 15:14 Order name: O2 Sat Monitoring; Complete Time: 15:14 sb4 EC:44 Rate is 76 beats/min. Rhythm is regular, Normal Sinus Rhythm. AL interval is normal at sb4 184 msec. QRS interval is normal at 82 msec. QT interval is normal at 408 msec. No Q waves. T waves are Normal. No ST changes noted. Clinical impression: Normal ECG. Interpreted by me. Reviewed by me. Administered Medications: 15:58 Drug: NS 0.9% IV 500 ml Route: IV; Rate: bolus; Site: right antecubital; ll1 17:40 Follow up: Response: No adverse reaction; IV Status: Completed infusion; IV Intake: ll1 500ml 16:16 Drug: Ondansetron IVP 4 mg Route: IVP; Site: right antecubital; iw 17:40 Follow up: Response: No adverse reaction ll1 Disposition: 15:58 Co-signature as Attending Physician, Sadiq HERRING was immediately available on-site ms3 in the Emergency Department for consultation in the care of the patient. Disposition Summary: 11/15/22 17:07 Discharge Ordered Location: Home sb4 Problem: an ongoing problem sb4 Symptoms: are unchanged sb4 Condition: Stable sb4 Diagnosis - Chest Wall Bruising sb4 Followup: sb4 - With: Private Physician - When: As needed - Reason: Recheck today's complaints, Continuance of care, Re-evaluation by your physician Forms: - Medication Reconciliation Form sb4 - Thank You Letter sb4 - Antibiotic Education sb4 - Prescription Opioid Use sb4 - Patient Portal Instructions sb4 - Leadership Thank You Letter sb4 Signatures: Dispatcher [employer] Mary Sharp, RN RN iw Octavia Morejon RN RN ll1 Sadiq Barakat, DO DO ms3 Tomás Litzy, MICHEL PATyler sb4 Corrections: (The following items were deleted from the chart) 17:45 16:05 ED course: [facility] reports that patient is on hospice but is a full code. sb4 she is under guardianship of the state. I contacted them and they confirmed that she is a full code. they are in the process of obtaining a DNR order. sb4 17:45 17:07 ED course: workup is negative. patient is acting appropriately, drank an ensure. sb4 she is smiling, has no complaints at this time. labs are stable. will dc back to [facility]. sb4 17:45 15:48 patient is from [facility] supposedly on hospice state guardianship was sent sb4 to the ED to be evaluated for increasing bruising. patient has dementia and cannot give any complaint or history. facility staff state that she fell on 11/02/22 and some bruising to her right chest/breast. they state that the bruising has increased significantly across her entire chest. they state that she is not on blood thinners, however she was during her last admission 1.5 months ago. they checked labs today and found an elevated ddimer. sb4
[2022-11-15 19:03] VITALS: O2SAT 100
[2022-11-15 19:04] VITALS: TEMP 97.1
[2022-11-15 19:05] VITALS: BP 138/71
--- NOTE | 2022-11-18 19:12 | EKG ---
Test Date: 2022-11-15 Test Time: 15:22:44 Coil Cutter: TEODORO MEASUREMENT RESULTS: Intervals: Rate: 76 [place]: 184 QRSD: 82 QT: 408 QTc: 459 [place]: P: 90 [place]: 184 QRS: 51 T: 72 INTERPRETIVE STATEMENTS: Normal sinus rhythm Septal infarct, age undetermined Abnormal ECG Compared to ECG 09/24/2022 01:08:46 Myocardial infarct finding now present ST (T wave) deviation no longer present Possible ischemia no longer present Electronically Signed On 11-18-22 19:07:44 CDT by Ramírez Bazzi
== END 2022-11-15 18:22 | disposition home or self-care (01) ==
LOC: ER 15:11
DX: S20.211A Contusion of right front wall of thorax, initial encounter (principal); G30.9 Alzheimer's disease, unspecified; F02.80 Dementia in other diseases classified elsewhere, unspecified severity, without behavioral disturbance, psychotic disturbance, mood disturbance, and anxiety; F20.9 Schizophrenia, unspecified
CPT/HCPCS: 96361; 85025; 80048; 36415; 83735; 85610; 80076; 84484; 83880; 71275; 71045; 96374; 99285; Q9967; J2405; J7040; 93005

== ENCOUNTER 2022-12-28 09:25 | Emergency (ER) | payer OTHER ==
--- OUTSIDE RECORDS SUMMARY | 2022-12-28 09:36 | XMS REPORT | Continuity of Care Document ---
:1935 Author Organization [facility] Address [address] [place] [id number] Care Team Providers Name Role Phone GC_GCAXS_Stadnyk_A Attending Clinician Unavailable GC_BAHC_Todd_J Attending Clinician Unavailable Reji Griffin Attending Clinician [phone] Helen Collado Attending Clinician [phone] Kaykay Mendosa Attending Clinician [phone] GC_BAHC_Spangler_G Attending Clinician Unavailable DR MORRO MONTANO Attending Clinician Unavailable DR ABBEY GARCIA Attending Clinician Unavailable GC_GCAXS_Stadnyk_A Admitting Clinician Unavailable GC_BAHC_Todd_J Admitting Clinician Unavailable GC_BAHC_Spangler_G Admitting Clinician Unavailable DR MORRO MONTANO Admitting Clinician Unavailable DR ABBEY GARCIA Admitting Clinician Unavailable Payers Payer Name Policy Type Policy Number Effective Date Expiration Date [place] [id number] 1991 [employer] [facility] [employer] 00:00:00 [facility] - [id number] [place]AC[place] - [place]: [id number] [employer] [facility] [employer] [place] [id number] (MEDICARE) [facility] MEDICARE [id number] 2021 COMPLETE (MEDICARE 00:00:00 REPLACEMENT HMO) Problems [...] Chronic Chronic Problem Active [facility]30 Medical disease Disease 00:00: stage 3B Stage [...] Date Date Medication? Clinician (SIG) Name Name Fleet Fleet No 1suppos Q1D [facility] [...] oral route. ergocalcife ergocalcife No ergocalcif [facility] Medical (vitamin (vitamin (vitamin D2) 1,250 D2) [...] No ergocalcif [facility] (vitamin (vitamin (vitamin D2) 1,250 [...] route. Depakote Depakote No 1 Q1D Depakote Akren via 250 mg 250 mg 250 mg [...] ayed ayed layed release release release sprinkle sprinkpiedad prakashangelle Take 6 Take 6 Take 6 capsules [...] by oral route. ergocalcife ergocalcife No ergocalcif [facility] Medical (vitamin (vitamin (vitamin D2) 1,250 D2) 1,250 D2) 1,250 mcg (50,000 mcg (50,000 mcg unit) unit) (50,000 capsule capsule unit) once each once each capsule once each Vital Signs Vital Name Observation Time Observation Value Comments Source BP Diastolic 2022-07-10 00:00:00 77 mm[Hg] [facility] Height 2022-07-10 00:00:00 64 [facility] 2022-07-10 00:00:00 19.6 kg/m2 [facility] Medical BP Systolic 2022-07-10 00:00:00 135 mm[Hg] [facility] Weight 2022-07-10 00:00:00 1824 [oz_av] [facility] BP Diastolic 2022-06-18 00:00:00 66 mm[Hg] [facility] Height 2022-06-18 00:00:00 64 [in_i] [facility]) 2022-06-18 00:00:00 19.3 kg/m2 [facility] Medical BP Systolic 2022-06-18 00:00:00 126 mm[Hg] [facility] 2022-06-18 00:00:00 1796 [oz_av] [facility] BP Diastolic 2022-05-21 00:00:00 68 mm[Hg] [facility] Height 2022-05-21 00:00:00 64 [in_i] [facility] BMI (Body Mass Index) 2022-05-21 00:00:00 19.7 kg/m2 [facility] BP Systolic 2022-05-21 00:00:00 124 mm[Hg] [facility] Body Weight 2022-05-21 00:00:00 1832 [oz_av] [facility] BP Diastolic 2022-05-01 00:00:00 69 mm[Hg] [facility] Height 2022-05-01 00:00:00 64 [in_i] [facility] BMI (Body Mass Index) 2022-05-01 00:00:00 19.7 kg/m2 [facility] BP Systolic 2022-05-01 00:00:00 125 mm[Hg] [facility] Body Weight 2022-05-01 00:00:00 1836.8 [oz_av] [facility] BP Diastolic 2022-04-26 00:00:00 69 mm[Hg] [facility] Height 2022-04-26 00:00:00 64 [in_i] [facility] BMI (Body Mass Index) 2022-04-26 00:00:00 19.9 kg/m2 [facility] BP Systolic 2022-04-26 00:00:00 107 mm[Hg] [facility] Body Weight 2022-04-26 00:00:00 1858 [oz_av] [facility] BP Diastolic 2022-04-16 00:00:00 85 mm[Hg] [facility] Height 2022-04-16 00:00:00 64 [in_i] [facility] BMI (Body Mass Index) 2022-04-16 00:00:00 19.9 kg/m2 [facility] BP Systolic 2022-04-16 00:00:00 122 mm[Hg] [facility] Body Weight 2022-04-16 00:00:00 1858 [oz_av] [facility] BP Diastolic 2022-04-09 00:00:00 64 mm[Hg] [facility] Height 2022-04-09 00:00:00 64 [in_i] [facility] BMI (Body Mass Index) 2022-04-09 00:00:00 19.7 kg/m2 [facility] BP Systolic 2022-04-09 00:00:00 105 mm[Hg] [facility] Body Weight 2022-04-09 00:00:00 1832 [oz_av] [facility] BP Diastolic 2022-03-19 00:00:00 67 mm[Hg] [facility] Height 2022-03-19 00:00:00 64 [in_i] [facility] BMI (Body Mass Index) 2022-03-19 [...] edical BP Diastolic 2022-03-05 00:00:00 79 mm[Hg] [facility] Height 2022-03-05 00:00:00 64 [in_i] [...] Medical BP Systolic 2021-12-21 00:00:00 122 mm[Hg] [facility] Body Weight 2021-12-21 00:00:00 1954 [oz_av] [facility] BP Diastolic 2021-12-18 00:00:00 73 mm[Hg] [facility] Height 2021-12-18 00:00:00 64 [in_i] [facility] BMI (Body Mass Index) 2021-12-18 00:00:00 21 kg/m2 [facility] BP Systolic 2021-12-18 00:00:00 129 mm[Hg] [facility] Body Weight 2021-12-18 00:00:00 1954 [oz_av] [facility] BP Diastolic 2021-11-30 00:00:00 64 [...] edical Body Weight 2021-10-09 00:00:00 2196 [oz_av] [facility] Height 2021-10-05 00:00:00 64 [in_i] [...] edical Body Weight 2021-09-11 00:00:00 2196 [oz_av] [facility] BP Diastolic 2021-08-31 00:00:00 75 mm[Hg] [facility] Height 2021-08-31 00:00:00 64 [in_i] [facility] BMI (Body Mass Index) 2021-08-31 00:00:00 23.6 kg/m2 [facility] BP Systolic 2021-08-31 00:00:00 132 mm[Hg] [facility] Body Weight 2021-08-31 00:00:00 2196 [oz_av] [facility] BP Diastolic 2021-08-16 00:00:00 72 mm[Hg] [facility] Height 2021-08-16 00:00:00 64 [in_i] [facility] BMI (Body Mass Index) 2021-08-16 00:00:00 23.6 kg/m2 [facility] BP Systolic 2021-08-16 00:00:00 114 mm[Hg] [facility] Body Weight 2021-08-16 00:00:00 2196 [oz_av] [facility] BP Diastolic 2021-08-07 00:00:00 79 mm[Hg] [facility] Height 2021-08-07 00:00:00 64 [in_i] [facility] BMI (Body Mass Index) 2021-08-07 00:00:00 23.6 kg/m2 [facility] BP Systolic 2021-08-07 00:00:00 138 mm[Hg] [facility] Body Weight 2021-08-07 00:00:00 2196 [oz_av] [facility] BP Diastolic 2021-07-20 00:00:00 66 mm[Hg] [facility] Height 2021-07-20 00:00:00 64 [in_i] [facility] BMI (Body Mass Index) 2021-07-20 00:00:00 23.4 kg/m2 [facility] BP Systolic 2021-07-20 00:00:00 121 mm[Hg] [facility] Body Weight 2021-07-20 00:00:00 2179 [oz_av] [facility] BP Diastolic 2021-06-29 00:00:00 82 mm[Hg] [facility] Height 2021-06-29 00:00:00 64 [in_i] [facility] BMI (Body Mass Index) 2021-06-29 00:00:00 23.3 kg/m2 [facility] BP Systolic 2021-06-29 00:00:00 132 mm[Hg] [facility] Body Weight 2021-06-29 00:00:00 2168 [oz_av] [facility] BP Diastolic 2021-06-22 00:00:00 72 mm[Hg] [facility] Height 2021-06-22 00:00:00 64 [in_i] [facility] Gonsalez ed[facility] BMI (Body Mass Index) 2021-06-22 00:00:00 23.2 kg/m2 [facility] BP Systolic 2021-06-22 00:00:00 138 mm[Hg] [facility] G[facility] Body Weight 2021-06-22 00:00:00 2160 [oz_av] [facility] BP Diastolic 2021-06-21 00:00:00 69 mm[Hg] [facility] Height 2021-06-21 00:00:00 64 [in_i] [facility] Gonsalez [facility] BMI (Body Mass Index) 2021-06-21 00:00:00 23.7 kg/m2 [facility] BP Systolic 2021-06-21 00:00:00 142 mm[Hg] [facility] G[facility] Body Weight 2021-06-21 00:00:00 2208 [oz_av] [facility] G[facility] BP Diastolic 2021-06-14 00:00:00 76 mm[Hg] [facility] Height 2021-06-14 00:00:00 64 [in_i] [facility] BMI (Body Mass Index) 2021-06-14 00:00:00 23.7 kg/m[facility] 2021-06-14 00:00:00 139 mm[Hg] [facility] Body Weight 2021-06-14 00:00:00 2208 [oz_av] [facility] Height 2019-11-03 19:55:00 233.68 CM Height 2019-10-26 12:52:00 167.64 CM Weight 2019-10-26 12:52:00 65.77 KG Weight 2019-07-26 07:00:00 68.96 KG Height 2019-07-14 17:41:00 167.64 CM Weight 2019-07-14 17:41:00 73.93 KG Procedures Procedure Date / Time Performing Clinician Source Performed INSRT INFUS DEVC SUP VENA 2019-11-05 00:00:00 [facility] CAVA PERQ Center ULTRASONOGRAPHY SUP VENA 2019-11-05 00:00:00 [facility] Medical CAVA GUID Center FLUORO SUPERIOR VENA CAVA 2019-11-05 00:00:00 Oa [facility] Plan of Care Planned Activity Planned Date Details Comments Source Future Scheduled Test 2022-11-01 INFLU[address]ZA VACCINE [facility] 00:00:00 (Season Ended) [code Medical Center = INFLUENZA VACCINE (Season Ended)] Future Scheduled Test 2022-11-01 Influenza Vaccine [facility] 00:00:00 (#1) [code = [facility] Influenza Vaccine (#1)] Future Scheduled Test 2022-11-01 Influenza Vaccine [facility] 00:00:00 (#1) [code = [facility] Influenza Vaccine (#1)] Future Scheduled Test 2022-11-01 Influenza Vaccine [facility] 00:00:00 (#1) [code = [facility] Influenza Vaccine (#1)] Future Scheduled Test 2022-11-01 Influenza Vaccine [facility] 00:00:00 (#1) [code = [facility] Influenza Vaccine (#1)] Future Scheduled Test 2022-03-[address] [facility] 00:00:00 (12+) [code = [facility] DEPRESSION SCREENING (12+)] Future Scheduled Test 2022-03-03 FALLS RISK SCREENING [facility] 00:00:00 [code = FALL[facility] RISK Medical C enter SCREENING] Future Scheduled Test 2022-03-[address] [facility] 00:00:00 (12+) [code = [facility] DEPRESSION SCREENING (12+)] Future Scheduled Test 2022-03-03 FALLS RISK SCREENING [facility] 00:00:00 [code = FALL[place] RISK Medical C enter SCREENING] Future Scheduled Test 2022-03-[address] [facility] 00:00:00 (12+) [code = [facility] DEPRESSION SCREENING (12+)] Future Scheduled Test 2022-03-03 FALLS RISK SCREENING [facility] 00:00:00 [code = FALLS RISK Medical C enter SCREENING] Future Scheduled Test 2022-03-[address] [facility] 00:00:00 (12+) [code = [facility] DEPRESSION SCREENING (12+)] Future Scheduled Test [facility] (#1[facility] [code = [facility] INFLUENZA VACCINE (#1)] Future Scheduled Test 2021-11-[address] INFL[address]ZA VACC[address] [facility] 00:00:00 (#1) [code = [facility] INFLUENZA VACCINE (#1)] Future Scheduled Test 2021-11-[address] INFLUENZA VACC[address] [facility] 00:00:00 (#1) [code = [facility] INFLUENZA VACCINE (#1)] Future Scheduled Test 2021-11-[address] INFLUENZA VACC[address] [facility] 00:00:00 (#1) [code = [facility] INFLUENZA VACCINE (#1)] Future Scheduled Test 2021-11-[address] INFLU[address]ZA VACC[address] [facility] 00:00:00 (#1) [code = [facility] INFLUENZA VACCINE (#1)] Diagnostic Test 2021-06-14 [...] 00:00:00 (1 - PCV) [code = Medical nter PNEUMOCOCCAL 65+ YRS (1 - PCV)] [...] 00:00:00 (1 - Tdap) [code = Medical enter DTAP/TDAP/TD VACCINES (1 - Tdap)] Future [...] = DXA [facility] 00:00:00 SCAN] [facility] Future Scheduled Test 1936 DXA SCAN [code = DXA [facility] 00:00:00 SCAN] [facility] Future Scheduled Test 1936 DXA SCAN [code = DXA [facility] 00:00:00 SCAN] [facility] Future Scheduled Test 1936 DXA SCAN [code = DXA [facility] 00:00:00 SCAN] [facility] Future Scheduled Test 1936 DXA SCAN [code = DXA [facility] 00:00:00 SCAN] [facility] Instructions [facility] Start End Encounter Admission Attending Care Care Encounter Source Date/Time Date/Time Type Type Clinicians Facility Department ID 2021-09-29 [facility] [id number] [facility] 00:00:00 Encounter [facility] 2022-12-28 2022-12-28 Outpatient [facility] PRIV PRIV [id number] [facility] 00:00:00 00:00:00 adnyk_A [id number] Medica l 2022-12-27 2022-12-27 Outpatient GC[facility]GCAXS_St PRIV PRIV [id number] [facility] 00:00:00 00:00:00 adnyk_A [id number] Medica l 2022-12-19 2022-12-19 Outpatient GC_BAHC_Tod PRIV PRIV [id number] [facility] 00:00:00 00:00:00 d_J [id number] Medica l 2022-12-16 2022-12-16 Outpatient GC_BAHC_Tod PRIV PRIV [id number] [facility] 00:00:00 00:00:00 d_J [id number] Medica l 2022-12-05 2022-12-05 Outpatient GC_BAHC_Tod PRIV PRIV [id number] [facility] 00:00:00 00:00:00 d_J [id number] Medica l 2022-12-03 2022-12-03 Outpatient GC_BAHC_Tod PRIV PRIV [id number] [facility] 00:00:00 00:00:00 d_J [id number] Medica l 2022-11-22 2022-11-22 Outpatient GC_BAHC_Tod PRIV PRIV [id number] [facility] 00:00:00 00:00:00 d_J [id number] Medica l 2022-11-22 2022-11-22 Outpatient GC_BAHC_Tod PRIV PRIV [id number] [facility] 00:00:00 00:00:00 d_J [id number] Medica l 2022-11-15 2022-11-15 Outpatient GC_BAHC_Tod PRIV PRIV [id number] [facility] 00:00:00 00:00:00 d_J [id number] Medica l 2022-11-15 2022-11-15 Outpatient GC_BAHC_Tod PRIV PRIV [id number] [facility] 00:00:00 00:00:00 d_J [id number] Medica l 2022-11-11 2022-11-11 Outpatient GC_BAHC_Tod PRIV PRIV [id number] [facility] 00:00:00 00:00:00 d_J [id number] Medica l 2022-11-11 2022-11-11 Outpatient GC_BAHC_Tod PRIV PRIV [id number] [facility] 00:00:00 00:00:00 d_J [id number] Medica l 2022-10-31 2022-10-31 Outpatient GC_BAHC_Tod PRIV PRIV [id number] [facility] 00:00:00 00:00:00 d_J [id number] Medica l 2022-10-30 2022-10-30 Outpatient GC_BAHC_Tod PRIV PRIV [id number] [facility] 00:00:00 00:00:00 d_J [id number] Medica l 2022-10-28 2022-10-28 Outpatient GC_BAHC_Tod PRIV PRIV [id number] [facility] 00:00:00 00:00:00 d_J [id number] Medica l 2022-10-24 2022-10-24 Outpatient GC_BAHC_Tod PRIV PRIV [id number] [facility] 00:00:00 00:00:00 d_J [id number] Medica l 2022-10-21 2022-10-21 Outpatient GC_BAHC_Tod PRIV PRIV [id number] [facility] 00:00:00 00:00:00 d_J [id number] Medica l 2022-10-21 2022-10-21 Outpatient GC_BAHC_Tod PRIV PRIV [id number] [facility] 00:00:00 00:00:00 d_J [id number] Medica l 2022-10-15 2022-10-15 Outpatient GC_BAHC_Tod PRIV PRIV [id number] [facility] 00:00:00 00:00:00 d_J [id number] Medica l 2022-10-14 2022-10-14 Outpatient GC_BAHC_Tod PRIV PRIV [id number] [facility] 00:00:00 00:00:00 d_J [id number] Medica l 2022-10-11 2022-10-11 Outpatient GC_BAHC_Tod PRIV PRIV [id number] [facility] 00:00:00 00:00:00 d_J [id number] Medica l 2022-10-10 2022-10-10 Outpatient GC_BAHC_Tod PRIV PRIV [id number] [facility] 00:00:00 00:00:00 d_J [id number] Medica l 2022-10-08 2022-10-08 Outpatient GC_BAHC_Tod PRIV PRIV [id number] [facility] 00:00:00 00:00:00 d_J [id number] Medica l 2022-09-26 2022-09-26 Outpatient GC_BAHC_Tod PRIV PRIV [id number] [facility] 00:00:00 00:00:00 d_J [id number] Medica l 2022-09-18 2022-09-18 Outpatient GC_BAHC_Tod PRIV PRIV 239 [id number] [facility] 00:00:00 00:00:00 d_J [id number] Medica l 2022-09-12 2022-09-12 Outpatient GC_BAHC_Tod PRIV PRIV [id number] [facility] 00:00:00 00:00:00 d_J [id number] Medica l 2022-09-10 2022-09-10 Outpatient GC_BAHC_Tod PRIV PRIV [id number] [facility] 00:00:00 00:00:00 d_J [id number] Medica l 2022-09-09 2022-09-09 Outpatient GC_BAHC_Tod PRIV PRIV [id number] [facility] 00:00:00 00:00:00 d_J [id number] Medica l 2022-09-06 2022-09-06 Outpatient GC_BAHC_Tod PRIV PRIV [id number] [facility] 00:00:00 00:00:00 d_J [id number] Medica l 2022-09-04 2022-09-04 Outpatient GC_BAHC_Tod PRIV PRIV 239 [id number] [facility] 00:00:00 00:00:00 d_J [id number] Medica l 2022-08-26 2022-08-26 Outpatient GC_BAHC_Tod PRIV PRIV 239 [id number] [facility] 00:00:00 00:00:00 d_J [id number] Medica l 2022-08-26 2022-08-26 Outpatient GC_BAHC_Tod PRIV PRIV [id number] [facility] 00:00:00 00:00:00 d_J [id number] Medica l 2022-08-26 2022-08-26 Outpatient GC_BAHC_Tod PRIV PRIV 239 [id number] [facility] 00:00:00 00:00:00 d_J [id number] Medica l 2022-08-22 2022-08-22 Outpatient GC_BAHC_Tod PRIV PRIV 239 [id number] [facility] 00:00:00 00:00:00 d_J [id number] Medica l 2022-08-16 2022-08-16 Outpatient GC_BAHC_Tod PRIV PRIV [id number] [facility] 00:00:00 00:00:00 d_J [id number] Medica l 2022-08-16 2022-08-16 Outpatient GC_BAHC_Tod PRIV PRIV [id number] [facility] 00:00:00 00:00:00 d_J [id number] Medica l 2022-08-06 2022-08-06 Outpatient GC_BAHC_Tod PRIV PRIV 239 [id number] [facility] 00:00:00 00:00:00 d_J [id number] Medica l 2022-08-06 2022-08-06 Outpatient GC_BAHC_Tod PRIV PRIV 239 [id number] [facility] 00:00:00 00:00:00 d_J [id number] Medica l 2022-08-06 2022-08-06 Outpatient GC_BAHC_Tod PRIV PRIV 239 [id number] [facility] 00:00:00 00:00:00 d_J [id number] Medica l 2022-08-06 2022-08-06 Outpatient GC_BAHC_Tod PRIV PRIV [id number] [facility] 00:00:00 00:00:00 d_J [id number] Medica l 2022-07-25 2022-07-25 Outpatient GC_BAHC_Tod PRIV PRIV [id number] [facility] 00:00:00 00:00:00 d_J [id number] Medica l 2022-07-25 2022-07-25 Outpatient GC_BAHC_Tod PRIV PRIV [id number] [facility] 00:00:00 00:00:00 d_J [id number] Medica l 2022-07-25 2022-07-25 Outpatient GC_BAHC_Tod PRIV PRIV [id number] [facility] 00:00:00 00:00:00 d_J [id number] Medica l 2022-07-23 2022-07-23 Outpatient GC_BAHC_Tod PRIV PRIV [id number] [facility] 00:00:00 00:00:00 d_J [id number] Medica l 2022-07-18 2022-07-18 Outpatient GC_BAHC_Tod PRIV PRIV [id number] [facility] 00:00:00 00:00:00 d_J [id number] Medica l 2022-07-11 2022-07-11 Outpatient GC_BAHC_Tod PRIV PRIV 239 [id number] [facility] 00:00:00 00:00:00 d_J [id number] Medica l 2022-07-10 2022-07-10 Outpatient GC_BAHC_Tod PRIV PRIV [id number] [facility] 00:00:00 00:00:00 d_J [id number] Medica l 2022-07-10 2022-07-10 [facility] [id number] [facility] 00:00:00 00:00:00 ENOC Collado: Health - Med ical [address] [place] [address] , Ph. 2022-06-29 2022-06-29 Outpatient GC_BAHC_Tod PRIV PRIV [id number] [facility] 00:00:00 00:00:00 d_J [id number] Medica l 2022-06-25 2022-06-25 Outpatient GC_BAHC_Tod PRIV PRIV [id number] [facility] 00:00:00 00:00:00 d_J [id number] Medica l 2022-06-25 2022-06-25 [facility] [id number] [facility] 00:00:00 00:00:00 ENOC Collado: Health - Med ical [address] [place] [address] , Ph. 2022-06-18 2022-06-18 [facility] [id number] [facility] 00:00:00 00:00:00 ENOC Colaldo: Health - Med ical [address] [place] [address] , Ph. 2022-06-17 2022-06-17 Outpatient GC_BAHC_Tod PRIV PRIV [id number] [facility] 00:00:00 00:00:00 d_J [id number] Medica l 2022-06-17 2022-06-17 Outpatient GC_BAHC_Tod PRIV PRIV [id number] [facility] 00:00:00 00:00:00 d_J [id number] Medica l 2022-06-04 2022-06-04 Outpatient GC_BAHC_Tod PRIV PRIV 239 [id number] [facility] 00:00:00 00:00:00 d_J [id number] Medica l 2022-06-03 2022-06-03 Outpatient GC_BAHC_Tod PRIV PRIV 239 [id number] [facility] 00:00:00 00:00:00 d_J [id number] Medica l 2022-05-24 2022-05-24 Outpatient GC_BAHC_Tod PRIV PRIV [id number] [facility] 00:00:00 00:00:00 d_J [id number] Medica l 2022-05-21 2022-05-21 Outpatient GC_BAHC_Tod PRIV PRIV [id number] [facility] 00:00:00 00:00:00 d_J [id number] Medica l 2022-05-21 2022-05-21 [facility] [id number] [facility] 00:00:00 00:00:00 ENOC Collado: Health - Med ical [address] [place] [address] , Ph. 2022-05-09 2022-05-09 Outpatient GC_BA[facility]_Tod PRIV PRIV [id number] [facility] 00:00:00 00:00:00 d_J [id number] Medica l 2022-05-04 2022-05-04 Outpatient GC_BAHC_Tod PRIV PRIV [id number] [facility] 00:00:00 00:00:00 d_J [id number] Medica l 2022-05-04 2022-05-04 Outpatient GC_BAHC_Tod PRIV PRIV 239 [id number] [facility] 00:00:00 00:00:00 d_J [id number] Medica l 2022-05-04 2022-05-04 Outpatient GC_BAHC_Tod PRIV PRIV [id number] [facility] 00:00:00 00:00:00 d_J [id number] Medica l 2022-05-02 2022-05-02 Outpatient GC_BAHC_Tod PRIV PRIV 239 [id number] [facility] 00:00:00 00:00:00 d_J [id number] Medica l 2022-05-01 2022-05-01 Outpatient GC_BAHC_Tod PRIV PRIV 239 [id number] [facility] 00:00:00 00:00:00 d_J [id number] Medica l 2022-05-01 2022-05-01 [facility] [id number] [facility] 00:00:00 00:00:00 ENOC Collado: Health - Med ical [address] [place] [address] , Ph. 2022-04-26 2022-04-26 Outpatient GC_BAHC_Tod PRIV PRIV [id number] [facility] 00:00:00 00:00:00 d_J [id number] Medica l 2022-04-26 2022-04-26 [facility] [id number] [facility] 00:00:00 00:00:00 ENOC Collado: Health - Med ical [address] [place] [address] , Ph. 2022-04-19 2022-04-19 Outpatient GC_BAHC_Tod PRIV PRIV [id number] [facility] 00:00:00 00:00:00 d_J [id number] Medica l 2022-04-16 2022-04-16 Reji Tran [facility] [id number] [facility] 00:00:00 00:00:00 [facility] - Med ical MD: [address] [place] [address] , Ph. 2022-04-12 2022-04-12 Outpatient GC_BAHC_Tod PRIV PRIV [id number] [facility] 00:00:00 00:00:00 d_J [id number] Medica l 2022-04-09 2022-04-09 Outpatient GC_BAHC_Tod PRIV PRIV 239 [id number] [facility] 00:00:00 00:00:00 d_J [id number] Medica l 2022-04-09 2022-04-09 [facility] [id number] [facility] 00:00:00 00:00:00 ENOC [facility]: [facility] - Med ical [address] [place] [address] , Ph. 2022-03-29 2022-03-29 Outpatient [facility]Tod PRIV PRIV [id number] [facility] 00:00:00 00:00:00 d_J [id number] Medica l 2022-03-28 2022-03-28 Outpatient [facility]Tod PRIV PRIV 239 [id number] [facility] 00:00:00 00:00:00 d_J [id number] Medica l 2022-03-19 2022-03-19 [facility] [id number] [facility] 00:00:00 00:00:00 ENOC [facility]: Health - Med ical [address] [place] [address] , Ph. 2022-03-13 2022-03-13 Outpatient [facility]Tod PRIV PRIV [id number] [facility] 00:00:00 00:00:00 d_J [id number] Medica l 2022-03-13 2022-03-13 Outpatient [facility]Tod PRIV PRIV [id number] [facility] 00:00:00 00:00:00 d_J [id number] Medica l 2022-03-13 2022-03-13 Outpatient [facility]Tod PRIV PRIV [id number] [facility] 00:00:00 00:00:00 d_J [id number] Medica l 2022-03-13 2022-03-13 Outpatient [facility]Tod PRIV PRIV [id number] [facility] 00:00:00 00:00:00 d_J [id number] Medica l 2022-03-13 2022-03-13 [facility] [id number] [facility] 00:00:00 00:00:00 ENOC [facility]: [facility] - Med ical [address] [place] [address] , Ph. 2022-03-05 2022-03-05 [facility] [id number] [facility] 00:00:00 00:00:00 ENOC [facility]: Health - Med ical [address] [place] [address] , Ph. 2022-03-04 2022-03-04 Outpatient [facility]Tod PRIV PRIV [id number] [facility] 00:00:00 00:00:00 d_J [id number] Medica l 2022-02-19 2022-02-19 Outpatient [facility]Tod PRIV PRIV [id number] [facility] 00:00:00 00:00:00 d_J [id number] Medica l 2022-02-19 2022-02-19 [facility] [id number] [facility] 00:00:00 00:00:00 ENOC [facility]: Health - Med ical [address] [place] [address] , Ph. 2022-02-15 2022-02-15 Outpatient [facility]Tod PRIV PRIV [id number] [facility] 00:00:00 00:00:00 d_J [id number] Medica l 2022-02-08 2022-02-08 Outpatient [facility]Tod PRIV PRIV [id number] [facility] 00:00:00 00:00:00 d_J [id number] Medica l 2022-02-08 2022-02-08 Outpatient [facility]Tod PRIV PRIV [id number] [facility] 00:00:00 00:00:00 d_J [id number] Medica l 2022-02-07 2022-02-07 Outpatient [facility]Tod PRIV PRIV 239 [id number] [facility] 00:00:00 00:00:00 d_J [id number] Medica l 2022-01-31 2022-01-31 Outpatient [facility]Tod PRIV PRIV [id number] [facility] 00:00:00 00:00:00 d_J [id number] Medica l 2022-01-29 2022-01-29 Outpatient [facility]Tod PRIV PRIV [id number] [facility] 00:00:00 00:00:00 d_J [id number] Medica l 2022-01-29 2022-01-29 [facility] [id number] [facility] 00:00:00 00:00:00 ENOC [facility]: Health - Med ical [address] [place] [address] , Ph. 2022-01-23 2022-01-23 Outpatient [facility]Tod PRIV PRIV [id number] [facility] 00:00:00 00:00:00 d_J [id number] Medica l 2022-01-22 2022-01-22 Outpatient [facility]Tod PRIV PRIV [id number] [facility] 00:00:00 00:00:00 d_J [id number] Medica l 2022-01-19 2022-01-19 Outpatient [facility]Tod PRIV PRIV [id number] [facility] 00:00:00 00:00:00 d_J [id number] Medica l 2022-01-15 2022-01-15 Outpatient [facility]Tod PRIV PRIV [id number] [facility] 00:00:00 00:00:00 d_J [id number] Medica l 2022-01-15 2022-01-15 [facility] [id number] [facility] 00:00:00 00:00:00 ENOC [place]: Health - Med ical [address] [place] [address] , Ph. 2022-01-11 2022-01-11 Outpatient [facility]Tod PRIV PRIV [id number] [facility] 00:00:00 00:00:00 d_J [id number] Medica l 2022-01-11 2022-01-11 [facility] 111 [facility]:00:00 00:00:00 ENOC [facility]: Health - Med ical [address] [place] [address] , Ph. 2022-01-06 2022-01-06 Outpatient [facility]Tod PRIV PRIV [id number] [facility] 00:00:00 00:00:00 d_J [id number] Medica l 2021-12-24 2021-12-24 Outpatient [facility]Tod PRIV PRIV [id number] [facility] 00:00:00 00:00:00 d_J [id number] Medica l 2021-12-22 2021-12-22 Outpatient [facility]Tod PRIV PRIV 239 [id number] [facility] 00:00:00 00:00:00 d_J [id number] Medica l 2021-12-21 2021-12-21 Helen [facility] 021 [facility] 00:00:00 00:00:00 ENOC [facility]: [facility] - Med ical [address] [address] , Ph. 2021-12-20 2021-12-20 Outpatient [facility]_Tod PRIV PRIV 239 [id number] [facility] 00:00:00 00:00:00 d_J [id number] Medica l 2021-12-19 2021-12-19 Outpatient [facility]_Tod PRIV PRIV 239 [id number] [facility] 00:00:00 00:00:00 d_J [id number] Medica l 2021-12-18 2021-12-18 Reji Tran [facility] [id number] [facility] 00:00:00 00:00:00 Gaby [facility] - Med ical MD: [address] [address] , Ph. 2021-12-13 2021-12-13 Outpatient GC_[facility]_Tod PRIV PRIV 239 [id number] [facility] 00:00:00 00:00:00 d_J [id number] Medica l 2021-12-12 2021-12-12 Outpatient GC[facility]_Tod PRIV PRIV 239 [id number] [facility] 00:00:00 00:00:00 d_J [id number] Medica l 2021-11-30 2021-11-30 Outpatient [facility]_Tod PRIV PRIV 239 [id number] [facility] 00:00:00 00:00:00 d_J [id number] Medica l 2021-11-30 2021-11-30 Helen [facility] [id number] [facility] 00:00:00 00:00:00 ENOC [facility]: Health - Med ical [address] [address] , Ph. 2021-11-28 2021-11-28 Outpatient [facility]_Tod PRIV PRIV 239 [id number] [facility] 00:00:00 00:00:00 d_J [id number] Medica l 2021-11-24 2021-11-24 Outpatient [facility]_Tod PRIV PRIV 239 [id number] [facility] 00:00:00 00:00:00 d_J [id number] Medica l 2021-11-20 2021-11-20 Helen [facility] [id number] [facility] 00:00:00 00:00:00 ENOC [facility]: Health - Med ical [address] [place] [address] , Ph. 2021-11-13 2021-11-13 Outpatient [facility]Tod PRIV PRIV 239 [id number] [facility] 00:00:00 00:00:00 d_J [id number] Medica l 2021-10-30 2021-10-30 Outpatient [facility]Tod PRIV PRIV 239 [id number] [facility] 00:00:00 00:00:00 d_J [id number] Medica l 2021-10-28 2021-10-28 Outpatient [facility]_Tod PRIV PRIV 239 [id number] [facility] 00:00:00 00:00:00 d_J [id number] Medica l 2021-10-25 2021-10-25 Outpatient [facility]Tod PRIV PRIV 239 [id number] [facility] 00:00:00 00:00:00 d_J [id number] Medica l 2021-10-19 2021-10-19 Outpatient [facility]Tod PRIV PRIV 239 [id number] [facility] 00:00:00 00:00:00 d_J [id number] Medica l 2021-10-18 2021-10-18 Outpatient [facility]Tod PRIV PRIV 239 [id number] [facility] 00:00:00 00:00:00 d_J [id number] Medica l 2021-10-15 2021-10-15 Outpatient [facility]Tod PRIV PRIV 239 [id number] [facility] 00:00:00 00:00:00 d_J [id number] Medica l 2021-10-12 2021-10-12 Outpatient [facility]Tod PRIV PRIV 239 [id number] [facility] 00:00:00 00:00:00 d_J [id number] Medica l 2021-10-11 2021-10-11 Outpatient [facility]Tod PRIV PRIV 239 [id number] [facility] 00:00:00 00:00:00 d_J [id number] Medica l 2021-10-11 2021-10-11 [facility] 00:00:00 00:00:00 Gaby [facility] tamara CHOWDHURY: [address] [address] , Ph. 2021-10-11 2021-10-11 Outpatient RADHA Griffin [id number] 00:00:00 00:00:00 Reji Tran [id number] 2021-10-09 2021-10-09 Outpatient [facility]Tod PRIV PRIV 239 [id number] [facility] 00:00:00 00:00:00 d_J [id number] Medica l 2021-10-09 2021-10-09 Helen [facility] [id number] [facility] 00:00:00 00:00:00 ENOC [facility]: Health - Med ical [address] [address] , Ph. 2021-10-09 2021-10-09 Outpatient Tobias, PRIV PRIV [id number] 00:00:00 00:00:00 Helen [id number] 2021-10-08 2021-10-08 Outpatient [facility]Tod PRIV PRIV 239 [id number] [facility] 00:00:00 00:00:00 d_J [id number] Medica l 2021-10-05 2021-10-05 Outpatient [facility]Tod PRIV PRIV 239 [id number] [facility] 00:00:00 00:00:00 d_J [id number] Medica l 2021-10-05 2021-10-05 Helen [facility] [id number] [facility] 00:00:00 00:00:00 ENOC Coll[facility]: Health - Med ical [address] [address] , Ph. 2021-10-05 2021-10-05 Outpatient Tobias, PRIV PRIV [id number] 00:00:00 00:00:00 Helen [id number] 2021-10-03 2021-10-03 Outpatient [facility]Tod PRIV PRIV 239 [id number] [facility] 00:00:00 00:00:00 d_J [id number] Medica l 2021-10-02 2021-10-02 Outpatient [facility]_Tod PRIV PRIV 239 [id number] [facility] 00:00:00 00:00:00 Urmila [id number] Medica l 2021-10-02 2021-10-02 Helen [facility] [id number] [facility] 00:00:00 00:00:00 ENOC [facility]: Health - Med ical [address] [address] , Ph. 2021-09-28 2021-09-28 Outpatient [facility]Tod PRIV PRIV 239 [id number] [facility] 00:00:00 00:00:00 Urmila [id number] Medica l 2021-09-28 2021-09-28 Outpatient Tobias, PRIV PRIV [id number] 00:00:00 00:00:00 Helen [id number] 2021-09-28 2021-09-28 [facility] [id number] [facility] 00:00:00 00:00:00 ENOC [facility]: Health - Med ical [address] [place] [address] , Ph. 2021-09-18 2021-09-18 Outpatient [facility]_Tod PRIV PRIV 239 [id number] [facility] 12:03:00 12:03:00 Urmila [id number] Medica l 2021-09-11 2021-09-11 Outpatient [facility]Tod PRIV PRIV 239 [id number] [facility] 01:51:00 01:51:00 dEffie [id number] Medica l 2021-09-11 2021-09-11 Outpatient Tobias, PRIV PRIV [id number] 00:00:00 00:00:00 Helen [id number] 2021-09-11 2021-09-11 [facility] [id number] [facility] 00:00:00 00:00:00 ENOC [facility]: Health - Med ical [address] [address] , Ph. 2021-09-09 2021-09-09 Outpatient [facility]_Tod PRIV PRIV 239 [id number] [facility] 11:00:00 11:00:00 d_J [id number] Medica l 2021-08-31 2021-08-31 Outpatient [facility]Tod PRIV PRIV 239 [id number] [facility] 04:11:00 04:11:00 d_J [id number] Medica l 2021-08-31 2021-08-31 Outpatient Tobias, [facility] PRIV [id number] [id number] 00:00:00 00:00:00 Helen [id number] 2021-08-31 2021-08-31 [facility] [id number] [facility] 00:00:00 00:00:00 ENOC [facility]: Health - Med ical [address] [address] , Ph. 2021-08-24 2021-08-24 Outpatient GC[facility]_Tod PRIV PRIV 239 [id number] [facility] 04:50:00 04:50:00 d_J [id number] Medica l 2021-08-16 2021-08-16 Outpatient GC[facility]_Tod PRIV PRIV 239 [id number] [facility] 10:50:00 10:50:00 d_J [id number] Medica l 2021-08-16 2021-08-16 Outpatient Gaby, PRIV PRIV [id number] 00:00:00 00:00:00 Reji Tran [id number] 2021-08-16 2021-08-16 Reji Tran [facility] [id number] [facility] 00:00:00 00:00:00 Gaby [facility] - Med ical MD: [address] [address] , Ph. 2021-08-13 2021-08-13 Outpatient [facility]_Tod PRIV PRIV 239 [id number] [facility] 11:24:00 11:24:00 d_J [id number] Medica l 2021-08-07 2021-08-07 Outpatient [facility]_Tod PRIV PRIV 239 [id number] [facility] 07:18:00 07:18:00 d_J [id number] Medica l 2021-08-07 2021-08-07 Outpatient Tobias, PRIV PRIV [id number] 00:00:00 00:00:00 Helen [id number] 2021-08-07 2021-08-07 Helen [facility] [id number] [facility] 00:00:00 00:00:00 ENOC [facility]: Health - Med ical [address] [address] , Ph. 2021-07-30 2021-07-30 Outpatient GC_[facility]_Tod PRIV PRIV 239 [id number] [facility] 10:43:00 10:43:00 d_J [id number] Medica l 2021-07-27 2021-07-27 Outpatient [facility]_Tod PRIV PRIV 239 [id number] [facility] 04:52:00 04:52:00 d_J [id number] Medica l 2021-07-20 2021-07-20 Outpatient [facility]_Tod PRIV PRIV 239 [id number] [facility] 12:32:00 12:32:00 d_J [id number] Medica l 2021-07-20 2021-07-20 Outpatient Tobias, PRIV PRIV [id number] 00:00:00 00:00:00 Helen [id number] 2021-07-20 2021-07-20 Helen [facility] [id number] [facility] 00:00:00 00:00:00 ENOC Coll[facility]: Health - Med ical [address] [facility] [address] , Ph. 2021-07-08 2021-07-08 Outpatient GC_[facility]_Tod PRIV PRIV 239 [id number] [facility] 10:46:00 10:46:00 d_J [id number] Medica l 2021-07-01 2021-07-01 Outpatient GC[facility]_Tod PRIV PRIV 239 [id number] [facility] 10:44:00 10:44:00 d_J [id number] Medica l 2021-06-29 2021-06-29 Outpatient GC[facility]_Tod PRIV PRIV 239 [id number] [facility] 08:40:00 08:40:00 d_J [id number] Medica l 2021-06-29 2021-06-29 Outpatient Tobias, PRIV PRIV [id number] 00:00:00 00:00:00 Helen [id number] 2021-06-29 [facility] 429 [facility] 00:00:00 00:00:00 ENOC Coll[facility]: Health - Med ical [address] [address] , Ph. 2021-06-22 2021-06-22 Outpatient GC_[facility]_Tod PRIV PRIV [id number] [facility] 09:06:00 09:06:00 d_Tawanna [id number] Medica l 2021-06-22 2021-06-22 Outpatient Tobias, PRIV PRIV [id number] 00:00:00 00:00:00 Helen [id number] 2021-06-22 2021-06-22 [facility] 422 [facility] 00:00:00 00:00:00 ENOC Collado: Health - Med ical [address] [address] , Ph. 2021-06-21 2021-06-21 Outpatient GC_[facility]_Tod PRIV PRIV [id number] [facility] 08:48:00 08:48:00 d_J [id number] Medica l 2021-06-21 2021-06-21 Outpatient RADHA Griffin PRIV [id number] 00:00:00 00:00:00 Reji Tran [id number] 2021-06-21 2021-06-21 Reji Tran [facility] 202 [facility]:00[facility]00 [facility]00[facility] [address] [place] [address] , Ph. 2021-06-15 2021-06-15 Outpatient GC_BA[facility]_Tod PRIV PRIV 239 [id number] [facility] 02:11:00 02:11:00 d_J [id number] Medica l 2021-06-14 2021-06-14 Outpatient GC_[facility]_Tod PRIV PRIV [id number] [facility] 06:30:00 06:30:00 d_J [id number] Medica l 2021-06-14 2021-06-14 Outpatient RADHA Mendosa PRIV [id number] 00:00:00 00:00:00 June [id number] 2021-06-14 2021-06-14June [facility] 14 [facility] 00:00:00 00:00:00 Navya [facility] - Medic al [employer]PECTOR: [id number] , [place] [address] , Ph. 2021-06-13 2021-06-13 Outpatient GC_[facility]_Tod PRIV PRIV [id number] [facility] 12:05:00 12:05:00 d_J [id number] Medica l 2021-06-11 2021-06-11 Outpatient GC_BA[facility]_Spa PRIV PRIV [id number] [facility] 10:27:00 10:27:00 Urban [id number] Medica l 2021 2021 Outpatient GC_[facility]_Spa PRIV PRIV [id number] [facility] 05:54:00 05:54:00 oseiChristopher [id number] [facility] 2019-10-26 2019-11-05 Inpatient E CHARMAINE, [facility] TELE [id number] [facility] 15:52:00 17:44:00 MORRO [facility] 2019-07-14 2019-07-29 Inpatient E RADHA, [facility] SCU [id number] [facility] 21:04:00 17:00:00 ABBEY [facility] Results Test Description Test Time Test [...] (test code = RBCMOR) NORMAL BASIC METABOLIC [id number] 08:10:00 Test Item Value Reference Range Interpretation [...] (test code = RBCMOR) NORMAL BASIC METABOLIC [id number] 05:36:00 Test Item Value Reference Range Interpretation [...] (test code = RBCMOR) NORMAL HEMOGLOBIN & [id number] 18:56:00 Test Item Value Reference Range Interpretation Comments HGB (test code = HBG) 10.4 g/dL 12.0-15.5 L HCT (test code = HCT) 32.6 % 35.0-44.0 L TROPONIN [id number] 11:11:00 Test Item Value Reference Range Interpretation Comments TROPONIN I (test code = A84) 0.041 ng/mL 0.000-0.045 HEMOGLOBIN & [id number] 10:54:00 Test Item Value Reference Range Interpretation Comments HGB (test code = HBG) 11.0 g/dL 12.0-15.5 L HCT (test code = HCT) 33.7 % 35.0-44.0 L CBC WITH [id number] 07:42:00 Test Item Value Reference Range Interpretation [...] = STOM) 1+ NONE A BASIC METABOLIC [id number] 07:21:00 Test Item Value Reference Range Interpretation [...] 9.9 mg/dL 8.3-9.5 H 09D) HEMOGLOBIN & [id number] 01:50:00 Test Item Value Reference Range Interpretation Comments HGB (test code = HBG) 11.4 g/dL 12.0-15.5 L HCT (test code = HCT) 35.0 % 35.0-44.0 HEMOGLOBIN & [id number] 18:44:00 Test Item Value Reference Range Interpretation [...] (test code = RBCMOR) NORMAL BASIC METABOLIC [id number] 07:12:00 Test Item Value Reference Range Interpretation [...] = 9.2 mg/dL 8.3-9.5 09D) HEMOGLOBIN & [id number] 00:57:00 Test Item Value Reference Range Interpretation Comments HGB (test code = HBG) 11.8 g/dL 12.0-15.5 L HCT (test code = HCT) 37.4 % 35.0-44.0 BLOOD [id number] 21:24:00 Test Item Value Reference Range Interpretation Comments Culture Observations (test NO GROWTH AFTER 5 code = COB1) DAYS BLOOD [id number] 21:24:00 Test Item Value Reference Range Interpretation Comments Culture Observations (test NO GROWTH AFTER 5 code = COB1) DAYS Arterial Blood [id number] 18:48:00 Test Item Value Reference Range Interpretation [...] FO2Hb (test code = 96.4 % 94.0-100.0 GD2JUUY) FCOHb (test code = 0.4 % 0.0-3.0 FCOHBRT) FMetHb (test code = 1.5 % 0.2-0.6 H FMETHBRT) ABGTEMP (test code = * Temp Corrected Values* ABGTEMP) ABGTEMP (test code = 37.0 ?C ABGTEMP.) pH (T) (test code = 7.333 7.350-7.450 L PHTEMP) pCO2 (T) (test code = 69.0 mmHg 35.0-45.0 HH OLG2BKHK) pO2 (T) (test code = 146.0 mmHg 80.0-110.0 H XY0XYXX) Device (test code = BIPAP DEVICE) FI02 [...] COMMENT (test code = CO) Arterial Blood [id number] 16:04:00 Test Item Value Reference Range Interpretation [...] FO2Hb (test code = 95.1 % 94.0-100.0 BN5GAZC) FCOHb (test code = 0.8 % 0.0-3.0 FCOHBRT) FMetHb (test code = 1.1 % 0.2-0.6 H FMETHBRT) ABGTEMP (test code = * Temp Corrected Values* ABGTEMP) ABGTEMP (test code = 37.0 ?C ABGTEMP.) pH (T) (test code = 7.313 7.350-7.450 L PHTEMP) pCO2 (T) (test code = 65.4 mmHg 35.0-45.0 HH ASQ0MLTI) pO2 (T) (test code = 108.0 mmHg 80.0-110.0 WQ7OAND) Device (test code = BIPAP DEVICE) FI02 [...] COMMENT (test code = CO) BASIC METABOLIC [id number] 10:19:00 Test Item Value Reference Range Interpretation [...] (test code = RBCMOR) NORMAL BASIC METABOLIC [id number] 07:12:00 Test Item Value Reference Range Interpretation [...] (test code = RBCMOR) NORMAL BASIC METABOLIC [id number] 05:16:00 Test Item Value Reference Range Interpretation [...] code = 8.3 mg/dL 8.3-9.5 09D) VANCOMYCIN [id number] 05:14:00 Test Item Value Reference Range Interpretation [...] MORPH (test code = RBCMOR) NORMAL URINE [id number] 14:20:00 Test Item Value Reference Range Interpretation Comments Isolate 1 (test code = GRAM NEGATIVE [place] A ISO1) [id number] 06:25:00 Test Item Value Reference Range Interpretation Comments MAGNESIUM (test code = 48A) 1.9 mg/dL 1.8-2.4 BASIC METABOLIC [id number] 06:15:00 Test Item Value Reference Range Interpretation [...] (test code = RBCMOR) NORMAL BASIC METABOLIC [id number] 04:27:00 Test Item Value Reference Range Interpretation [...] (test code = 8.6 mg/dL 8.3-9.5 09D) [id number] 04:19:00 Test Item Value Reference Range Interpretation [...] (test code = MDIFF) NO URINALYSIS WITH [id number] 16:52:00 Test Item Value Reference Range Interpretation [...] code = USPERM) /HPF NONE DRUGS OF [id number] 16:39:00 Test Item Value Reference Range Interpretation [...] 200 ng/mL Opiates 2000 ng/mL Arterial Blood [id number] 15:10:00 Test Item Value Reference Range Interpretation [...] (test code = 87.8 % 94.0-100.0 L GR3KNNY) FCOHb (test code = 1.0 % 0.0-3.0 FCOHBRT) FMetHb (test code = 1.2 % 0.2-0.6 H FMETHBRT) ABGTEMP (test code = * Temp Corrected Values* ABGTEMP) ABGTEMP (test code = 37.0 ?C ABGTEMP.) pH (T) (test code = 7.512 7.350-7.450 H PHTEMP) pCO2 (T) (test code = 54.3 mmHg 35.0-45.0 HH EXN1GWUS) pO2 (T) (test code = 55.1 mmHg 80.0-110.0 LL GI2WXHN) Device (test code = ROOM AIR DEVICE) [...] = SSITE) COMMENT (test code = CO) [id number] 14:55:00 Test Item Value Reference Range Interpretation Comments MAGNESIUM (test code = 48A) 1.3 mg/dL 1.8-2.4 LL COMPREHENSIVE METABOLIC [id number] 14:10:00 Test Item Value Reference Range Interpretation [...] (test code = 31A) 13 IU/L <=78 [id number] 14:08:00 Test Item Value Reference Range Interpretation Comments ACETAMINPH (test code = 94M) <2.0 ug/mL 10.0-30.0 L CARDIAC [id number] 14:08:00 Test Item Value Reference Range Interpretation Comments TROPONIN I (test code = A84) 0.019 ng/mL 0.000-0.045 ALCOHOL BLOOD (ETOH)2019-10-26 14:08:00 Test Item Value Reference Range Interpretation Comments ETOH (test code = HALC) ETHANOL The result is to be used only for medical purposes ALCOHOL (test code = <10 mg/dL <=10 56A) LDH-LACTIC [id number] 14:06:00 Test Item Value Reference Range Interpretation Comments LDH (test code = 33A) 214 IU/L 84-246 C-REACTIVE PROTEIN [id number] 14:02:00 Test Item Value Reference Range Interpretation Comments CRP QUANT (test code <2.9 mg/L 0.0-2.9 = CRPQ) Method Change (test Please note the code = METHOD) change in Method and the reference range [id number] 13:59:00 Test Item Value Reference Range Interpretation [...] the FDA and the [employer] of [employer] [place] Pathologists (CAP) are more stringent than those required for this test. Therefore, the result should be interpreted with caution and close attention to other clinical and epidemiological data [id number] 13:55:00 Test Item Value Reference Range Interpretation Comments SALICYLATE (test code = 94B) <1.7 mg/dL 2.8-20.0 L AMMONIA [id number] 13:49:00 Test Item Value Reference Range Interpretation Comments AMMONIA (test code = 54A) 12 umol/L 11-32 PRO TIME AND [id number] 13:47:00 Test Item Value Reference Range Interpretation [...] RBC MORPH (test code = RBCMOR) NORMAL [id number] 10:29:00 Test Item Value Reference Range Interpretation Comments SARS-CoV-2 (test NOT DETECTED NOT DETECTED code = WCOV) COVID-19 (test code Test performed at = [facility]) Reference Laboratory See Original Report Under Medical Record View Tab URINE [id number] 12:38:00 Test Item Value Reference Range Interpretation Comments Culture Observations THREE OR MORE SPECIES (test code = COB1) OF BACTERIA ISOLATED. PROBABLE CONTAMINATION. Culture Observations IDENTIFICATION AND (test code = COB17) SUSCEPTIBILITY NOT INDICATED. RECOLLECTION RECOMMENDED URINALYSIS WITH [id number] 19:14:00 Test Item Value Reference Range Interpretation [...] 95A) 5.8 ug/mL 50.0-100.0 LL COMPREHENSIVE METABOLIC [id number] 06:47:00 Test Item Value Reference Range Interpretation [...] MORPH (test code = RBCMOR) NORMAL T4 [id number] 07:13:00 Test Item Value Reference Range Interpretation Comments T4 FREE (test code = A91) 0.88 ng/dL 0.76-1.46 B12 [id number] 07:02:00 Test Item Value Reference Range Interpretation Comments VIT B12 (test code = A60) 1059.0 pg/mL 180.0-914.0 H [id number] 07:02:00 Test Item Value Reference Range Interpretation Comments FOLATE (test code = A75) 18.5 ng/mL 3.1-17.5 H THYROID PANEL/SCREEN (TSH)2019-07-15 06:59:00 Test Item Value Reference Range Interpretation Comments TSH (test code = A57) 9.160 uIU/mL 0.358-3.740 H [id number] 06:43:00 Test Item Value Reference Range Interpretation Comments PREALBUMIN (test code = 08E) 29 mg/dL 18-38 VALPROIC ACID (DEPAKENE)2019-07-15 06:43:00 Test Item Value Reference Range Interpretation Comments VALP ACID (test code = 95A) 52.6 ug/mL 50.0-100.0 LIPID [id number] 06:37:00 Test Item Value Reference Range Interpretation Comments CHOLESTROL (test code = 44A) 171 mg/dL 140-200 TRIGLYCERI (test code = 42B) 136 mg/dL <=149 HDL (test code = 83D) 50.0 mg/dL 40.0-60.0 LDL (test code = 34B) 100 mg/dL <=99 H CHL/HDL (test code = CHR) 3.4 0.0-3.4 [id number] 06:37:00 Test Item Value Reference Range Interpretation Comments Hb A1C % (test code = HBA) 5.6 % 4.2-6.3 [id number] 06:32:00 Test Item Value Reference Range Interpretation Comments MAGNESIUM (test code = 48A) 1.6 mg/dL 1.8-2.4 L DRUGS OF [id number] 20:05:00 Test Item Value Reference Range Interpretation [...] 200 ng/mL Opiates 2000 ng/mL URINALYSIS WITH [id number] 20:01:00 Test Item Value Reference Range Interpretation [...] code = USPERM) /HPF NONE COMPREHENSIVE METABOLIC [id number] 18:39:00 Test Item Value Reference Range Interpretation [...] (test code = 31A) 12 IU/L <=78 [id number] 18:37:00 Test Item Value Reference Range Interpretation Comments ACETAMINPH (test code = 94M) <2.0 ug/mL 10.0-30.0 L [id number] 18:33:00 Test Item Value Reference Range Interpretation Comments SALICYLATE (test code = 94B) <1.7 mg/dL 2.8-20.0 L TROPONIN [id number] 18:31:00 Test Item Value Reference Range Interpretation Comments TROPONIN I (test code = A84) <0.015 ng/mL 0.000-0.045 PRO TIME AND [id number] 18:30:00 Test Item Value Reference Range Interpretation [...] LMW Heparin. Order Code is ANTI-XA AMMONIA [id number] 18:25:00 Test Item Value Reference Range Interpretation [...]
[2022-12-28] MEDS ORDERED: NOREPINEPHRINE BITARTRATE/D5W 4 MG/250 ML BAG IV ONE ×5 (09:41→14:03)
[2022-12-28 09:55] LABS: Absolute Lymphocytes (CBC) 0.6 K/uL (0.7-4.9); Hematocrit 29.6 % (36.0-45.0); Lymphocytes % 14.1 % (15.3-44.8); MCV 110.9 fL (80-100); MPV 9.3 fL (7.6-11.3); Platelets 61 thou/uL (152-406); RBC Red Blood Cell Count 2.67 M/uL (3.86-4.86)
[2022-12-28] MEDS ORDERED: D10W 250 ML IV ONE (10:04)
--- NOTE | 2022-12-28 10:06 | RAD REPORT ---
EXAM DESCRIPTION: RAD - Chest Single View - 12/28/2022 9:52 am CLINICAL HISTORY: SOB COMPARISON: Chest Single View dated 11/15/2022; Chest Single View dated 11/30/2021; Chest Single View dated 10/03/2021; Chest Single View dated 04/12/2021; Chest For Pe Angio dated 11/15/2022 FINDINGS: Lines: Endotracheal tube at the aorta arch. Lungs: No evidence of edema or pneumonia. Pleural: No significant pleural effusions or pneumothorax. Cardiac: The heart size is within normal limits. Mediastinum: Within normal limits. Bones: No acute fractures. Other: None IMPRESSION: No acute cardiopulmonary disease.
[2022-12-28 10:07] LABS: Protime INR 1.16
[2022-12-28 10:15] LABS: Albumin 1.2 g/dL (3.4-5.0); Bilirubin Total 0.5 mg/dL (0.2-1.0); Potassium 3.5 mEq/L (3.5-5.1); Protein, Total 4.5 g/dL (6.4-8.2)
[2022-12-28] MEDS ORDERED: CEFTRIAXONE 1000 MG/VIAL ONE (10:17)
[2022-12-28] MEDS ORDERED: NA CHLORIDE 0.9% 500 ML ONE (10:17)
[2022-12-28] MEDS ORDERED: NA CHLORIDE 0.9% 0 ML ONE (10:17)
[2022-12-28] MEDS ORDERED: AZITHROMYCIN 500 MG INJ IVPB ONE (10:18)
[2022-12-28] MEDS ORDERED: propofoL 1,000 MG/100 ML VIAL IV ONE (10:28)
[2022-12-28 11:07] LABS: Blood Morphology Comment NOT SEEN (NOT SEEN); Platelet Estimate ADEQ; Toxic Granulation 2+
--- NOTE | 2022-12-28 11:30 | RAD REPORT ---
EXAM DESCRIPTION: RAD - Chest Single View - 12/28/2022 11:21 am CLINICAL HISTORY: post cvl COMPARISON: Chest Single View dated 12/28/2022; Chest Single View dated 11/15/2022; Chest Single View dated 11/30/2021; Chest Single View dated 10/03/2021; Chest For Pe Angio dated 11/15/2022 FINDINGS: Lines: Endotracheal tube at the aortic arch. Right IJ approach central line with tip overl marisol the proximal SVC. Lungs: No evidence of edema or pneumonia. Hyperinflated lungs. Pleural: No significant pleural effusions or pneumothorax. Cardiac: The heart size is within normal limits. Mediastinum: Within normal limits. Bones: No acute fractures. Other: None IMPRESSION: No acute cardiopulmonary disease. Right IJ approach central line in satisfactory positio n. No pneumothorax.
[2022-12-28 12:00] LABS: Arterial Blood Carboxyhemoglob 0.3 % (0-1.5); Blood Gas Oxyhemoglobin 95.8 % (94-97); Blood O2 Saturation 98.5 % (92-98.5)
--- NOTE | 2022-12-28 13:37 | ER ---
Nurse's Notes [facility] Name: Julieta Tatum Age: 87 yrs Sex: Female : 1935 Arrival Date: 12/28/2022 Time: 09:25 Bed 3 Private MD: Diagnosis: Severe sepsis with septic shock;Subsequent non-ST elevation (NSTEMI) myocardial infarction;Acute respiratory failure;Hyperosmolality and hypernatremia;Acute Renal Failure Presentation: 12/28 09:23 Initial Sepsis Screen: Does the patient meet any 2 criteria? No. Patient's initial ld1 sepsis screen is negative. Does the patient have a suspected source of infection? No. Patient's initial sepsis screen is negative. Risk Assessment: Do you want to hurt yourself or someone else? Patient reports no desire to harm self or others. Onset of symptoms was December 28, 2022. 09:23 Acuity: MARIO 1 ld1 09:25 Care prior to arrival: Medication(s) given: Rocuronium and ketamine administered prior ld1 to arrival by EMS for intubation. 09:34 Chief complaint: Chief complaint: EMS states: toned out [facility] for ld1 unresponsive patient. Upon arrival to ER pt was intubated with Levophed going. Pt BP was 64/32. 09:42 Coronavirus screen: At this time, the client does not indicate any symptoms associated ld1 with coronavirus-19. Ebola Screen: No symptoms or risks identified at this time. 09:42 Method Of Arrival: EMS: [facility] ld1 Triage Assessment: 09:44 General: Behavior is unresponsive. Pain: Unable to use pain scale. Patient is ld1 unresponsive. EENT:. Neuro: Level of Consciousness is unresponsive, Oriented to none. Cardiovascular: Capillary refill is > 3 seconds. Respiratory: Ventilator assessment: ET Tube: 7.0 24 at the lips. Intubated by [facility]. GI: Abdomen is flat, non-distended. : No signs and/or symptoms were reported regarding the genitourinary system. Derm: Skin temperature is cool. Musculoskeletal: No signs and/or symptoms reported regarding the musculoskeletal system. Historical: - Allergies: 09:44 No Known Allergies; ld1 - PMHx: 09:44 Alzheimer's disease; Bipolar disorder; Chronic obstructive lung disease; Hypertensive ld1 disorder; Hypothyroidism; Schizophrenia; - Immunization history:: Adult Immunizations unknown. - Social history:: Smoking status: unknown. Screenin:[facility] ED Fall Risk Assessment (Adult) History of falling in the last 3 months, ld1 including since admission No falls in past 3 months (0 pts). Abuse screen: Denies threats or abuse. Denies injuries from another. Nutritional screening: No deficits noted. Tuberculosis screening: No symptoms or risk factors identified. Assessment: 09:25 General: Appears emaciated, cachectic, Behavior is unresponsive. rs5 09:25 Pain: Unable to use pain scale. Patient is intubated. Patient is unresponsive. Neuro: rs5 Level of Consciousness is unresponsive, Oriented to none. Neuro: Pupils are Pupil Size: left pupil 3mm, right pupil 4mm, reactive to light. Cardiovascular: Heart tones S1 S2 present Pulses are 3+ in right carotid pulse Rhythm is regular. Respiratory: Airway via oral intubation Respiratory effort is none Respiratory pattern is regular, symmetrical, assisted Breath sounds are clear bilaterally. GI: Abdomen is flat, non-distended, Bowel sounds present X 4 quads. Abd is soft X 4 quads. : brief noted. EENT: Oral mucosa is dry. Derm: Skin is dry, Skin is pale, Skin temperature is warm Decubitus located on right heel(s) approximately 1.5 cm to 2.5 cm is unstageable. stage 2 pressure injury noted to right hip laterally, stage 1 pressure injury noted to left hip. Musculoskeletal: Range of motion: limited in lower extremities. 09:49 Reassessment: See triage assessment. ERP at bedside. ld1 09:55 Reassessment: Leigh hugger applied for low temperature. rs5 09:56 Reassessment: ERP at bedside for central line insertion. ld1 10:01 Reassessment: Dr. Rosanna MURPHY called contact for guardianship - DNR in progress per 1 [facility] but it is not completed at this time. ERP reports DNR is not valid at this moment. Life saving measures to be followed. 10:44 Respiratory: Airway via oral intubation Respiratory effort is weak, Respiratory pattern rs5 is regular, symmetrical, Breath sounds are clear bilaterally. 10:44 Pain: Unable to use pain scale. Patient is intubated. Patient is unresponsive. Neuro: rs5 Level of Consciousness is unresponsive, Oriented to none. Cardiovascular: Heart tones S1 S2 present Rhythm is regular. Derm:. 11:54 Neuro: Level of Consciousness is unresponsive, Oriented to none. Cardiovascular: Heart rs5 tones S1 S2 present Rhythm is regular. Cardiovascular: Heart tones S1 S2 present Rhythm is regular. Respiratory: Airway via oral intubation Respiratory effort is none Respiratory pattern is regular, symmetrical, Breath sounds are clear bilaterally. 12:15 Reassessment: No changes from previously documented assessment. aa5 12:39 Neuro: Level of Consciousness is unresponsive, Oriented to none. Cardiovascular: Heart aa5 tones S1 S2 present Rhythm is sinus tachycardia. Respiratory: Airway via oral intubation Respiratory pattern is regular, symmetrical, Breath sounds are clear bilaterally. 13:30 Reassessment: Pt taken for CT accompanied with respiratory therapist, material handling technician, and RN, timmy on monitor, on oxygen. 13:49 Reassessment: Pt returned from CT. rs5 14:11 Respiratory: Airway via oral intubation Respiratory effort is weak, Respiratory pattern rs5 is regular, symmetrical, Breath sounds are clear bilaterally. 14:40 Cardiovascular: Heart tones S1 S2 present Rhythm is regular. Respiratory: Airway via rs5 oral intubation Respiratory pattern is regular, symmetrical. 14:40 Neuro: Level of Consciousness is unresponsive, Oriented to none. rs5 14:45 Reassessment: Report given to nurse Wm at [facility]. . aa5 14:50 Reassessment: [facility] at bedside. . aa5 15:21 Reassessment: Report given to [facility] at bedside. rs5 Vital Signs: 09:23 BP 63 / 27; Pulse 71; Resp 14; Pulse Ox 89% on ETT vent; ld1 09:35 Temp 92.6(R); ld1 09:42 Weight 41 kg; ld1 09:49 BP 98 / 42; Pulse 66; Pulse Ox 95% on ETT vent; ld1 09:56 BP 101 / 48; Pulse 62; Resp 14; Pulse Ox 95% on ETT vent; ld1 10:15 BP 125 / 91; Pulse 57; Resp 14; ld1 10:45 BP 127 / 56; Pulse 49; Resp 14; ld1 10:58 BP 122 / 66; Pulse 53; Resp 14; ld1 11:05 BP 104 / 63; Pulse 60; Resp 14; rs5 11:10 BP 86 / 64; Pulse 61; Resp 14; rs5 11:15 BP 55 / 28; Pulse 63; Pulse Ox 14% on R/A; rs5 11:20 BP 101 / 52; Pulse 58; Resp 14; Pulse Ox 100% on ETT vent; rs5 11:25 BP 116 / 72; Pulse 57; Resp 14; Pulse Ox 100% on ETT vent; rs5 11:30 BP 124 / 61; Pulse 58; Resp 14 A; Pulse Ox 100% on ETT vent; rs5 11:35 BP 111 / 92; Pulse 64; Resp 14; Pulse Ox 100% on ETT vent; rs5 11:35 BP 92 / 60; Pulse 72; Resp 14; Temp 92.4(Ca); Pulse Ox 100% on ETT vent; rs5 11:40 BP 91 / 54; Pulse 90; Resp 14 A; Pulse Ox 100% on ETT vent; aa5 12:00 BP 77 / 26; Pulse 87; Resp 14 A; Pulse Ox 100% on ETT vent; aa5 12:15 BP 59 / 27; Pulse 102; Resp 14 A; Pulse Ox 100% on ETT vent; aa5 12:20 BP 124 / 65; Pulse 103; Resp 14 A; Pulse Ox 100% on ETT vent; aa5 12:25 BP 137 / 50; Pulse 105; Resp 14 A; Pulse Ox 100% on ETT vent; aa5 12:38 BP 142 / 96; Resp 14 A; Temp 94(R); Pulse Ox 100% on ETT vent; aa5 12:55 BP 108 / 54; Pulse 101; Resp 14 A; Pulse Ox 100% on ETT vent; rs5 13:08 BP 113 / 72; Pulse 117; Resp 14 A; Temp 94.8(Ca); Pulse Ox 100% on ETT vent; aa5 13:15 BP 102 / 46; Pulse 120; Resp 14 A; Temp 95.0(Ca); Pulse Ox 100% on ETT vent; aa5 13:20 BP 108 / 58; Pulse 94; Resp 14 A; Temp 95.4(Ca); Pulse Ox 100% on ETT vent; aa5 13:30 BP 103 / 89; Pulse 94; Resp 14 A; Pulse Ox 98% on ETT vent; aa5 13:40 BP 165 / 99; Pulse 94; Resp 16 A; Temp 95.7(Ca); Pulse Ox 100% on ETT vent; aa5 13:45 BP 173 / 58; Pulse 90; Resp 16 A; Pulse Ox 100% on ETT vent; aa5 13:50 BP 154 / 80; Pulse 71; Resp 14 A; Temp 95.7(Ca); Pulse Ox 99% on ETT vent; aa5 14:00 BP 175 / 69; Pulse 71; Resp 14 A; Temp 96(Ca); Pulse Ox 100% on ETT vent; aa5 14:07 BP 162 / 58; Pulse 71; Resp 14 A; Pulse Ox 100% on ETT vent; aa5 14:15 BP 106 / 33; Pulse 94; Resp 14 A; Pulse Ox 100% on ETT vent; aa5 14:20 BP 56 / 36; Pulse 102; Resp 14 S; Pulse Ox 100% on ETT vent; aa5 14:25 BP 57 / 31; Pulse 95; Resp 14 A; Pulse Ox 100% on ETT vent; aa5 14:30 BP 64 / 41; Pulse 92; Resp 14 A; Temp 96.2(Ca); Pulse Ox 100% on ETT vent; aa5 14:35 BP 65 / 41; Pulse 89; Resp 16 A; Pulse Ox 100% on ETT vent; aa5 14:40 BP 74 / 52; Pulse 93; Resp 14 A; Temp 96.1(Ca); Pulse Ox 100% on ETT vent; aa5 14:45 BP 119 / 68; Pulse 95; Resp 14 A; Pulse Ox 100% on ETT vent; aa5 14:50 BP 134 / 79; Pulse 84; Resp 14 A; Temp 96(Ca); Pulse Ox 100% on ETT vent; aa5 ED Course: 09:25 Patient has correct armband on for positive identification. Placed in gown. Bed in low ld1 position. Call light in reach. Side rails up X2. school lunch monitor on. Pulse ox on. NIBP on. 09:25 Door closed. Warm blanket given. ld1 09:25 Maintain EMS IV. Dressing intact. Good blood return noted. Site clean \T\ dry. Gauge \T\ ld 1 site: 20G RAC. 09:27 Patient arrived in ED. aa5 09:30 Jeff Marte MD is Attending Physician. ec2 09:44 Triage completed. ld1 09:44 Arm band placed on right wrist. ld1 09:53 Chest Single View XRAY In Process Unspecified. EDMS 09:58 Linus Bolanos, RN is Primary Nurse. rs5 10:00 Inserted saline lock: 22 gauge in left upper arm, using aseptic technique. rs5 10:55 Assisted provider with central line placement. Set up central line tray. Triple lumen rs5 line placed in right internal jugular. Line placed by Jeff Marte MD Placement verified by CXR, blood return. 11:00 Cruz cath inserted, using sterile technique, 16 Fr., by de, balloon inflated, to aa5 gravity drainage, returned no urine noted . 11:23 CXR XRAY In Process Unspecified. EDMS 11:25 One-on-one care X 120 minutes. rs5 13:18 initiated a transfer with Grecia Ferrell from the [facility]. eb 13:42 CT Head Brain wo Cont In Process Unspecified. EDMS 13:[address] Airana Dumont the elementary school registrar brush fabrication supervisor for [facility] with Dr. Rosanna tsai for patient transfer consultation. 14:19 administrative approval given by Grecia Ferrell / patient has been accepted to [facility] Room 7108/ Dr. Ariana Dumont has accepted the patient in transfer/ report to be called to [phone]. 14:29 Surjit Phillipscaro centershree called ETA 15 min. eb 15:19 Patient transferred, IV remains in place. rs5 Administered Medications: 09:25 Drug: Norepinephrine IV 0.1 mcg/kg/min IV at calculated rate See Administration ld1 Instructions; (Standard concentration 4 mg / 250 mL D5W); Recommended max rate 3 mcg/kg/min; Titrate 0.05 mcg/kg/min as often as every 5 minutes to achieve goal (see titration policy); Goal parameter MAP greater than 65 mmHg. Route: IV; Rate: calculated rate; Site: right antecubital; 09:25 Follow up: Rate change 0.2 mcg/kg/min ld1 09:26 Follow up: Rate change 0.3 mcg/kg/min ld1 09:35 Follow up: Rate change 0.5 mcg/kg/min ld1 09:56 Follow up: Rate change 0.6 mcg/kg/min ld1 11:46 Follow up: Rate change 1 mcg/kg/min; per MD verbal order rs5 11:48 Follow up: Rate change 1.5 mcg/kg/min; Per MD verbal orders rs5 12:15 Follow up: Rate change 3 mcg/kg/min; Rate changed per MD verbal orders aa5 12:38 Follow up: Rate change 2.5 mcg/kg/min aa5 13:40 Follow up: Rate change 0.5 mcg/kg/min; Per MD verbal orders rs5 14:15 Follow up: Rate change 3 mcg/kg/min rs5 15:20 Follow up: IV Status: Infusion continued upon transfer rs5 09:51 Not Given (Duplicate Order): norepinephrine0.1 mcg/kg/min IV at calculated rate Per ld1 protocol; (Standard concentration 4 mg / 250 mL D5W); Recommended max rate 3 mcg/kg/min; Titrate 0.05 mcg/kg/min as often as every 5 minutes to achieve goal (see titration policy); Goal parameter MAP greater than 65 mmHg. 09:51 Drug: D10 in Water IVP 250 ml IVP once Route: IVP; Site: left antecubital; ld1 10:05 Follow up: Response: completed infusion aa5 09:55 Not Given (Duplicate Order): d10 in [id number] ml IVP once ld1 10:10 Drug: NS 0.9% IV (30 ml/kg) 30 ml/kg IV at bolus once; Sepsis Protocol Route: IV; Rate: rs5 bolus; Site: right antecubital; 12:30 Follow up: IV Status: Completed infusion; IV Intake: 1230ml rs5 10:45 Drug: Propofol IV 5 mcg/kg/min IV at calculated rate See Administration Instructions; rs5 Standard concentration 1000 mg / 100 mL; Recommended max rate 50 mcg/kg/min; Titrate 2 mcg/kg/min every 5 minutes to achieve goal (see titration policy); Goal parameter RASS score 0 to -2 Route: IV; Rate: calculated rate; Site: left upper arm; 11:05 Follow up: Response: No adverse reaction; Patient is sedated rs5 11:05 Follow up: Now infusing to central line rs5 15:00 Follow up: IV Status: Infusion continued upon transfer rs5 11:05 Drug: Rocephin IV 1 grams IV at calculated rate once; Given slow IV push per pharmacy rs5 instructions Route: IV; Rate: calculated rate; Site: right antecubital; 11:05 Drug: AZITHromycin IVPB 500 mg IVPB once over 1 hrs; (mix in 250 mL NS) Route: IVPB; rs5 Infused Over: 1 hrs; Site: right antecubital; 12:05 Follow up: IV Status: Completed infusion rs5 13:50 Drug: NS 0.9% IV 1000 ml IV at 1 bolus Per protocol; 1000 mL bolus Route: IV; Rate: 1 rs5 bolus; Site: right antecubital; 14:50 Follow up: IV Status: Completed infusion rs5 14:20 Drug: EPINEPHrine (PF) IV 0.01 mcg/kg/min IV at per protocol See Administration rs5 Instructions; Standard concentration 4 mg / 250 mL D5W; Recommended max rate 2 mcg/kg/min; Titrate 0.01 mcg/kg/min as often as every 3 minutes to achieve goal [see titration policy]; Goal parameter MAP greater than 65 mmHg. Route: IV; Rate: per protocol; Site: Other; 14:25 Follow up: Response: No adverse reaction; Rate change 0.02 per protocol rs5 14:35 Follow up: Rate change 0.03 per protocol rs5 14:40 Follow up: Rate change 0.5 mcg/kg/min rs5 15:21 Follow up: Drip discontinued by [facility] rs5 15:55 Follow up: Now infusing to central line rs5 Medication: 15:19 VIS not applicable for this client. rs5 Intake: 12:30 IV: 1230ml; Total: 1230ml. rs5 Ventilator: 13:48 Fi02: 40%; Rate: 14min; T.V.: 400ml; Peep: 5cm; rs5 Outcome: 13:37 ER care complete, transfer ordered by . ec2 15:19 Condition: improved rs5 15:19 Transferred by helicopter to [facility], Transfer form completed. rs5 X-rays sent w/ patient. 15:20 Patient left the ED. rs5 Addendum: 01/03/2023 07:27 Addendum: Culture Results: Positive blood culture. faxed positive blood culture to Marlene rutherford at [facility] at [phone]. Signatures: Dispatcher [employer] Margareth Fernández, RN RN aa5 Sylvia Lancaster Jasmina Barakat RN RN ld1 Linus Bolanos RN RN rs5 Jeff Marte MD MD ec2 Corrections: (The following items were deleted from the chart) 12/28 09:44 09:34 Chief complaint: ld1 ld1 09:47 09:47 Norepinephrine IV 4.1 mcg/min IV at calculated rate in right antecubital ld1 ld1 14:08 13:54 connected the elementary school registrar brush fabrication supervisor for [facility] with Dr. Marte for patient eb transfer consultation. eb 15:22 15:21 Reassessment: [facility] to bedside. rs5 rs5 15:26 15:19 Transferred by helicopter to [facility], rs5 rs5 15:44 13:40 Rate change 1 mcg/kg/min; Per MD verbal orders rs5 rs5 15:46 14:40 Rate change 1 mcg/kg/min; Per MD verbal orders rs5 rs5 15:47 13:40 Rate change 1 mcg/kg/min; Per MD verbal orders rs5 rs5 15:51 14:35 Rate change 0.5 mcg/kg/min rs5 rs5 15:52 14:15 IV Status: Completed infusion rs5 rs5
--- NOTE | 2022-12-28 13:37 | EDPHYS ---
Physician Documentation [facility] Name: Julieta Tatum Age: 87 yrs Sex: Female : 1935 Arrival Date: 12/28/2022 Time: 09:25 Bed 3 Private MD: ED Physician Jeff Marte HPI: 12/28 09:46 This 87 yrs old Female presents to ER via EMS with complaints of Unresponsive.ec2 09:46 Patient arrives today for unresponsiveness. Patient found in her bed unresponsive with ec2 low blood pressure and hypoxia per EMS. Patient was intubated on scene by EMS and ultimately started on Levophed due to hypotension.. Historical: - Allergies: 09:44 No Known Allergies; ld1 - PMHx: 09:44 Alzheimer's disease; Bipolar disorder; Chronic obstructive lung disease; Hypertensive ld1 disorder; Hypothyroidism; Schizophrenia; - Immunization history:: Adult Immunizations unknown. - Social history:: Smoking status: unknown. ROS: 09:46 Constitutional: as per hpi ec2 Exam: 09:46 Constitutional: GEN: Ventilated Head: atraumatic Eyes: EOMI Ears: External ears are ec2 normal. CV: regular rate LUNGS: Lung sounds present throughout lung jean ABD: Soft, no guarding, nonrigid MSK: no evidence of trauma Vital Signs: 09:23 BP 63 / 27; Pulse 71; Resp 14; Pulse Ox 89% on ETT vent; ld1 09:35 Temp 92.6(R); ld1 09:42 Weight 41 kg; ld1 09:49 BP 98 / 42; Pulse 66; Pulse Ox 95% on ETT vent; ld1 09:56 BP 101 / 48; Pulse 62; Resp 14; Pulse Ox 95% on ETT vent; ld1 10:15 BP 125 / 91; Pulse 57; Resp 14; ld1 10:45 BP 127 / 56; Pulse 49; Resp 14; ld1 10:58 BP 122 / 66; Pulse 53; Resp 14; ld1 11:05 BP 104 / 63; Pulse 60; Resp 14; rs5 11:10 BP 86 / 64; Pulse 61; Resp 14; rs5 11:15 BP 55 / 28; Pulse 63; Pulse Ox 14% on R/A; rs5 11:20 BP 101 / 52; Pulse 58; Resp 14; Pulse Ox 100% on ETT vent; rs5 11:25 BP 116 / 72; Pulse 57; Resp 14; Pulse Ox 100% on ETT vent; rs5 11:30 BP 124 / 61; Pulse 58; Resp 14 A; Pulse Ox 100% on ETT vent; rs5 11:35 BP 111 / 92; Pulse 64; Resp 14; Pulse Ox 100% on ETT vent; rs5 11:35 BP 92 / 60; Pulse 72; Resp 14; Temp 92.4(Ca); Pulse Ox 100% on ETT vent; rs5 11:40 BP 91 / 54; Pulse 90; Resp 14 A; Pulse Ox 100% on ETT vent; aa5 12:00 BP 77 / 26; Pulse 87; Resp 14 A; Pulse Ox 100% on ETT vent; aa5 12:15 BP 59 / 27; Pulse 102; Resp 14 A; Pulse Ox 100% on ETT vent; aa5 12:20 BP 124 / 65; Pulse 103; Resp 14 A; Pulse Ox 100% on ETT vent; aa5 12:25 BP 137 / 50; Pulse 105; Resp 14 A; Pulse Ox 100% on ETT vent; aa5 12:38 BP 142 / 96; Resp 14 A; Temp 94(R); Pulse Ox 100% on ETT vent; aa5 12:55 BP 108 / 54; Pulse 101; Resp 14 A; Pulse Ox 100% on ETT vent; rs5 13:08 BP 113 / 72; Pulse 117; Resp 14 A; Temp 94.8(Ca); Pulse Ox 100% on ETT vent; aa5 13:15 BP 102 / 46; Pulse 120; Resp 14 A; Temp 95.0(Ca); Pulse Ox 100% on ETT vent; aa5 13:20 BP 108 / 58; Pulse 94; Resp 14 A; Temp 95.4(Ca); Pulse Ox 100% on ETT vent; aa5 13:30 BP 103 / 89; Pulse 94; Resp 14 A; Pulse Ox 98% on ETT vent; aa5 13:40 BP 165 / 99; Pulse 94; Resp 16 A; Temp 95.7(Ca); Pulse Ox 100% on ETT vent; aa5 13:45 BP 173 / 58; Pulse 90; Resp 16 A; Pulse Ox 100% on ETT vent; aa5 13:50 BP 154 / 80; Pulse 71; Resp 14 A; Temp 95.7(Ca); Pulse Ox 99% on ETT vent; aa5 14:00 BP 175 / 69; Pulse 71; Resp 14 A; Temp 96(Ca); Pulse Ox 100% on ETT vent; aa5 14:07 BP 162 / 58; Pulse 71; Resp 14 A; Pulse Ox 100% on ETT vent; aa5 14:15 BP 106 / 33; Pulse 94; Resp 14 A; Pulse Ox 100% on ETT vent; aa5 14:20 BP 56 / 36; Pulse 102; Resp 14 S; Pulse Ox 100% on ETT vent; aa5 14:25 BP 57 / 31; Pulse 95; Resp 14 A; Pulse Ox 100% on ETT vent; aa5 14:30 BP 64 / 41; Pulse 92; Resp 14 A; Temp 96.2(Ca); Pulse Ox 100% on ETT vent; aa5 14:35 BP 65 / 41; Pulse 89; Resp 16 A; Pulse Ox 100% on ETT vent; aa5 14:40 BP 74 / 52; Pulse 93; Resp 14 A; Temp 96.1(Ca); Pulse Ox 100% on ETT vent; aa5 14:45 BP 119 / 68; Pulse 95; Resp 14 A; Pulse Ox 100% on ETT vent; aa5 14:50 BP 134 / 79; Pulse 84; Resp 14 A; Temp 96(Ca); Pulse Ox 100% on ETT vent; aa5 Ventilator: 13:48 Fi02: 40%; Rate: 14min; T.V.: 400ml; Peep: 5cm; rs5 Procedures: 13:29 Central Line: the site was prepped with in sterile fashion, a triple lumen catheter was ec2 inserted, in the right in 2 attempts. placement was verified, by CXR, by blood return, the site was dressed with Tegaderm, the patient tolerated the procedure, well. MDM: 09:31 Patient medically screened. ec2 09:46 ED course: Patient arrives today after being found unresponsive. Examination remarkable ec2 for unresponsive individual is otherwise in no acute distress and breathing synchronously with the vent. Patient noted to be hypotensive on arrival after pausing Levophed, will continue Levophed and place a right central line. I discussed the case with the patient's guardian who is a court-appointed guardian and there is some issues with paperwork and patient is ultimately a full code.. 10:11 ED course: Chest x-ray independently reviewed and interpreted by me, shows ec2 appropriately placed ET tube otherwise no focal consolidation on x-ray. . 11:13 ED course: EKG independently reviewed and interpreted by me, shows normal sinus rhythm, ec2 rate of 73, no acute ST segment elevations, nonspecific T wave inversions noted.. 11:58 ED course: CBC is remarkable for some anemia, metabolic profile that shows hyponatremia ec2 with a sodium of 172 as well as a chloride of 137, renal dysfunction with a creatinine of 3.78 and a GFR of 11. Lactic acid is elevated at 5.1. Chest x-ray postcentral line independently reviewed and interpreted by me, shows appropriately placed right-sided central venous catheter. . ED course: Of note patient also hypothermic with initial temperature at 86 per EMS and is on a Leigh hugger with improving temperature.. 13:09 ED course: Repeat metabolic profile with hyponatremia, improved, to 164, hypokalemia ec2 with a potassium of 3.0, significant renal dysfunction with a creatinine of 3.59. Repeat lactic acid improved at 4.3. Troponin noted to be elevated at a level of 239. My suspicion will be for patient is hypotensive and hypoxic episodes causing this demand ischemia with elevated troponin. Possible NSTEMI, certainly not a STEMI based on the EKG obtained. . 13:29 ED course: I discussed case with our hospitalist, who recommended transfer given the ec2 complex nature of the patient's care.. 14:07 ED course: I discussed case with , ICU, [facility] who agrees except ec2 the patient for admission.. 14:08 Data reviewed: vital signs. ec2 12/28 09:32 Order name: Blood Culture Adult (2) ec2 12/28 09:32 Order name: CBC with Diff; Complete Time: 11:57 ec2 12/28 09:32 Order name: CMP; Complete Time: 11:57 ec2 12/28 09:32 Order name: Lactate w/ 2H reflex if indic.; Complete Time: 11:57 ec2 12/28 09:32 Order name: Protime (+inr); Complete Time: 10:11 ec2 10/28 09:32 Order name: Ptt, Activated; Complete Time: 10:11 ec2 12/28 10:02 Order name: Glucose, Ancillary Testing; Complete Time: 10:11 EDMS 12/28 10:20 Order name: Glucose, Ancillary Testing; Complete Time: 11:57 EDMS 12/28 11:05 Order name: Glucose, Ancillary Testing; Complete Time: 11:57 EDMS 12/28 11:08 Order name: Manual Differential; Complete Time: 11:57 EDMS 12/28 11:13 Order name: Troponin High Sensitivity; Complete Time: 13:06 ec2 12/28 11:34 Order name: ABG; Complete Time: 13:06 rs5 12/28 11:59 Order name: BMP; Complete Time: 13:06 ec2 12/28 12:54 Order name: Lactate Sepsis 2 HR Follow-up; Complete Time: 13:06 EDMS 12/28 12:57 Order name: Glucose, Ancillary Testing; Complete Time: 13:06 EDMS 12/28 09:32 Order name: Chest Single View XRAY; Complete Time: 10:11 ec2 12/28 10:52 Order name: CXR XRAY; Complete Time: 11:57 ec2 12/28 11:13 Order name: CT Head Brain wo Cont; Complete Time: 14:01 ec2 12/28 09:32 Order name: EKG; Complete Time: 09:33 ec2 12/28 09:32 Order name: Accucheck; Complete Time: 09:51 ec2 12/28 09:32 Order name: Cardiac monitoring; Complete Time: 09:51 ec2 12/28 09:32 Order name: EKG - Nurse/Tech; Complete Time: 09:51 ec2 12/28 09:32 Order name: IV Saline Lock - Large Bore; Complete Time: 09:51 ec2 12/28 09:32 Order name: Labs collected and sent; Complete Time: 09:51 ec2 12/28 09:32 Order name: O2 Per Protocol; Complete Time: 09:51 ec2 12/28 09:32 Order name: O2 Sat Monitoring; Complete Time: 09:51 ec2 12/28 09:32 Order name: Vital Signs; Complete Time: 09:51 ec2 12/28 09:54 Order name: Leigh Lu; Complete Time: 09:55 ec2 12/28 11:38 Order name: Nancy: OANH at 1050 ; Complete Time: 11:38 aa5 Administered Medications: 09:25 Drug: Norepinephrine IV 0.1 mcg/kg/min IV at calculated rate See Administration ld1 Instructions; (Standard concentration 4 mg / 250 mL D5W); Recommended max rate 3 mcg/kg/min; Titrate 0.05 mcg/kg/min as often as every 5 minutes to achieve goal (see titration policy); Goal parameter MAP greater than 65 mmHg. Route: IV; Rate: calculated rate; Site: right antecubital; :25 Follow up: Rate change 0.2 mcg/kg/min ld1 09:26 Follow up: Rate change 0.3 mcg/kg/min ld1 09:35 Follow up: Rate change 0.5 mcg/kg/min ld1 09:56 Follow up: Rate change 0.6 mcg/kg/min ld1 11:46 Follow up: Rate change 1 mcg/kg/min; per MD verbal order rs5 11:48 Follow up: Rate change 1.5 mcg/kg/min; Per MD verbal orders rs5 12:15 Follow up: Rate change 3 mcg/kg/min; Rate changed per MD verbal orders aa5 12:38 Follow up: Rate change 2.5 mcg/kg/min aa5 13:40 Follow up: Rate change 0.5 mcg/kg/min; Per MD verbal orders rs5 14:15 Follow up: Rate change 3 mcg/kg/min rs5 15:20 Follow up: IV Status: Infusion continued upon transfer rs5 09:51 Not Given (Duplicate Order): norepinephrine0.1 mcg/kg/min IV at calculated rate Per ld1 protocol; (Standard concentration 4 mg / 250 mL D5W); Recommended max rate 3 mcg/kg/min; Titrate 0.05 mcg/kg/min as often as every 5 minutes to achieve goal (see titration policy); Goal parameter MAP greater than 65 mmHg. 09:51 Drug: D10 in Water IVP 250 ml IVP once Route: IVP; Site: left antecubital; ld1 10:05 Follow up: Response: completed infusion aa5 09:55 Not Given (Duplicate Order): d10 in [id number] ml IVP once ld1 10:10 Drug: NS 0.9% IV (30 ml/kg) 30 ml/kg IV at bolus once; Sepsis Protocol Route: IV; Rate: rs5 bolus; Site: right antecubital; 12:30 Follow up: IV Status: Completed infusion; IV Intake: 1230ml rs5 10:45 Drug: Propofol IV 5 mcg/kg/min IV at calculated rate See Administration Instructions; rs5 Standard concentration 1000 mg / 100 mL; Recommended max rate 50 mcg/kg/min; Titrate 2 mcg/kg/min every 5 minutes to achieve goal (see titration policy); Goal parameter RASS score 0 to -2 Route: IV; Rate: calculated rate; Site: left upper arm; 11:05 Follow up: Response: No adverse reaction; Patient is sedated rs5 11:05 Follow up: Now infusing to central line rs5 15:00 Follow up: IV Status: Infusion continued upon transfer rs5 11:05 Drug: Rocephin IV 1 grams IV at calculated rate once; Given slow IV push per pharmacy rs5 instructions Route: IV; Rate: calculated rate; Site: right antecubital; 11:05 Drug: AZITHromycin IVPB 500 mg IVPB once over 1 hrs; (mix in 250 mL NS) Route: IVPB; rs5 Infused Over: 1 hrs; Site: right antecubital; 12:05 Follow up: IV Status: Completed infusion rs5 13:50 Drug: NS 0.9% IV 1000 ml IV at 1 bolus Per protocol; 1000 mL bolus Route: IV; Rate: 1 rs5 bolus; Site: right antecubital; 14:50 Follow up: IV Status: Completed infusion rs5 14:20 Drug: EPINEPHrine (PF) IV 0.01 mcg/kg/min IV at per protocol See Administration rs5 Instructions; Standard concentration 4 mg / 250 mL D5W; Recommended max rate 2 mcg/kg/min; Titrate 0.01 mcg/kg/min as often as every 3 minutes to achieve goal [see titration policy]; Goal parameter MAP greater than 65 mmHg. Route: IV; Rate: per protocol; Site: Other; 14:25 Follow up: Response: No adverse reaction; Rate change 0.02 per protocol rs5 14:35 Follow up: Rate change 0.03 per protocol rs5 14:40 Follow up: Rate change 0.5 mcg/kg/min rs5 15:21 Follow up: Drip discontinued by [facility] rs5 15:55 Follow up: Now infusing to central line rs5 Disposition Summary: 12/28/22 13:37 Transfer Ordered Notes: Reason: Higher level of care ec2 Condition: Critical ec2 Problem: an acute exacerbation ec2 Symptoms: have worsened ec2 Transfer Location: [facility](12/28/22 14:08) ec2 Accepting Physician: Dr. Dumont(12/28/22 15:20) rs5 Diagnosis - Severe sepsis with septic shock ec2 - Subsequent non-ST elevation (NSTEMI) myocardial infarction ec2 - Acute respiratory failure ec2 - Hyperosmolality and hypernatremia ec2 - Acute Renal Failure ec2 Forms: - Medication Reconciliation Form ec2 - SBAR form ec2 Critical care time excluding procedures: 13:35 Critical care time: Bedside Care: 70 minutes, Consultation: 15 minutes. Total time: 85 ec2 minutes Signatures: Dispatcher [employer] Margareth Fernández RN RN aa5 Jasmina Barakat RN RN ld1 Linus Bolanos RN RN rs5 Jeff Marte MD MD ec2 Corrections: (The following items were deleted from the chart) 14:08 13:37 Other Hospital ec2 ec2 14:08 13:37 Other Acute Care Facility ec2 ec2 15:20 14:08 Dr. Dumont ec2 rs5
--- NOTE | 2022-12-28 13:58 | RAD REPORT ---
EXAM DESCRIPTION: CT - Head Brain Wo Cont - 12/28/2022 1:40 pm CLINICAL HISTORY: MENTAL STATUS CHANGE COMPARISON: HEAD BRAIN W O CONTRAST dated 11/09/2014 TECHNIQUE: All CT scans are performed using dose optimization technique as appropriate and may inclu de automated exposure control or mA/KV adjustment according to patient size. FINDINGS: No intracranial hemorrhage, hydrocephalus or extra-axial fluid collection.No areas of brai n edema or evidence of midline shift. Moderate chronic small vessel ischemic changes. Cerebral atroph y. Bilateral mastoid fluid. Mild ethmoid air cell thickening . Right sphenoid sinus opacification. Endot antonette tube. The calvarium is intact. IMPRESSION: No acute intracranial abnormality.
[2022-12-28] MEDS ORDERED: NA CHLORIDE 0.9% 1,000 ML ONE (14:03)
[2022-12-28] MEDS ORDERED: D5W IV SCH (15:00)
[2022-12-28] MEDS ORDERED: NOREPINEPHRINE IV SCH (15:00)
[2022-12-28 15:37] VITALS: O2SAT 100
[2022-12-28 15:48] VITALS: TEMP 94
[2022-12-28 15:49] VITALS: BP 108/54
--- NOTE | 2022-12-31 07:59 | EKG ---
Test Date: 2022-12-28 Test Time: 09:35:03 Scalping Machine Operator: HEIDI MEASUREMENT RESULTS: Intervals: Rate: 73 IA: 136 QRSD: 110 QT: 436 QTc: 480 [place]: P: 85 IA: 136 QRS: 52 T: 257 INTERPRETIVE STATEMENTS: Normal sinus rhythm ST & T wave abnormality, consider inferior ischemia ST & T wave abnormality, consider anterolateral ischemia Prolonged QT Abnormal ECG Compared to ECG 11/15/2022 15:22:44 ST (T wave) deviation now present Possible ischemia now present Prolonged QT interval now present Myocardial infarct finding no longer present Electronically Signed On 12-31-22 07:53:12 CDT by Ramírez Bazzi
== END 2022-12-28 15:20 | disposition short-term general hospital (02) ==
LOC: ER 09:25
PROC: 05HM33Z Insertion of Infusion Device into Right Internal Jugular Vein, Percutaneous Approach (ICD-10-PCS; principal; 2022-12-28)
DX: A41.9 Sepsis, unspecified organism (principal); I22.2 Subsequent non-ST elevation (NSTEMI) myocardial infarction; R65.21 Severe sepsis with septic shock; J96.00 Acute respiratory failure, unspecified whether with hypoxia or hypercapnia; N17.9 Acute kidney failure, unspecified; I21.9 Acute myocardial infarction, unspecified; E87.0 Hyperosmolality and hypernatremia; I10 Essential (primary) hypertension; G30.9 Alzheimer's disease, unspecified; F02.80 Dementia in other diseases classified elsewhere, unspecified severity, without behavioral disturbance, psychotic disturbance, mood disturbance, and anxiety; J44.9 Chronic obstructive pulmonary disease, unspecified
CPT/HCPCS: 93005; 87040 ×2; 85025; 80048; 36415; 87205 ×2; 85610; 82947 ×4; 83605 ×2; 85730; 87077; 87186; 84484; 80053; 70450; 71045 ×2; 82805; 51702; 99291; 99292; 36600; 94002; 36556; J2704; J0171; J7060 ×3; J7050; J7030; J0696